=== PATIENT | male | born 1955 | race Hispanic/Latino ===

== ENCOUNTER 2019-01-08 00:31 | Emergency (ER) | payer OTHER ==
[~2019-01-08] VITALS: Ht 175.3 cm; Wt 90.5 kg
[~2019-01-08 00:31] MED LIST: ADVIL200 M1 PO; AMITRIPTYLINE H50 MG PO; AMLODIPINE BESYL5 MG PO; AMOXICILLIN500 MG PO; BACTRIM DS TAB1 EACH PO; CEPHALEXIN500 MG PO; IBUPROFEN400 MG PO; IBUPROFEN600 MG PO; IBUPROFEN800 MG PO; LISINOPRIL20 MG PO; MOBIC7.5 MG PO; MOTRIN IB200 MG PO; NORCO 5-325 TA1 EACH PO; PENICILLIN V P500 MG PO; PERCOCET 5-3251 EACH PO; PREDNISONE20 MG PO; TRAMADOL HCL50 MG PO; TYLENOL325 MG PO; ULTRAM50 MG PO; ZOVIRAX800 MG PO
--- OUTSIDE RECORDS SUMMARY | 2019-01-08 00:34 | XMS ---
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 \ T\nbsp;Please call at for additional information Primary Care Provider (PCP) is Kristina Segovia at [facility] ([phone]).\T\nbsp; He established care on 11/21/18. Notify PCP if giving any additional narcotics for objective findings.\T\nbsp;PCP\T\nbsp;supports enrollment in the Consistent Care Program. DO NOT PRESCRIBE OPIOIDS OR BENZOS IN THE ER FOR SUBJECTIVE AND/ OR CHRONIC DIAGNOSES. METH AND ALCOHOL USE. NEEDS TO ESTABLISH WITH A PCP.\T\ nbsp; Medical/Surgical History: -Systolic Heart Failure -Rn Surgery is JAVIER Pino -Echo 09/28/18: LVEF 25% -08/06/18 bilateral heart catheterization -08/19/18 left heart catheterization -Prescribed Life Vest but won\T\rsquo;t wear it -HTN, pulmonary HTN -CAD Problem List: -MEGAN-meth, alcohol and opiates -UDS 09/26/18 + for meth and opiates -Multiple admissions for CHF-not wearing his life vest Behavioral Health: -Possible underlying mental health Substance Use: -Meth, alcohol and opiates use- UDS 09/26/18 + for meth and opiates -Quit Tobacco smoking Social Needs: -, homeless [facility] the sleep [facility] -Local nurse case management social worker through his Medicaid [place], named Shannon ([phone]) -Hx of care home 11/2018 Pain/Opioid Agreement: DO NOT PRESCRIBE OPIOIDS OR BENZOS IN THE ER FOR SUBJECTIVE AND/OR CHRONIC DIAGNOSES. METH AND ALCOHOL USE. NEEDS TO ESTABLISH WITH A PCP.\T\nbsp; Additional Information: Please do not give this Care Guideline to the patient.\T\nbsp; This document is for provider and staff use only. The following guidelines were formulated by the ED Care Guidelines Committee of the Consistent Care Program on October 2018. This patient is managed by the Consistent Care Services.\T\nbsp; Please call for additional information. Additional care guidelines exist for the following facilities: [facility] ( 01/25/2015 ) [facility] VISIT COUNT (12 MO.) [facility] TOTAL 14 NOTE: Visits indicate total known visits. ED/UCC VISIT TRACKING (12 MO.) 01/08/2019 00:32 [facility] [place] TYPE: Emergency COMPLAINT: - SOB 12/22/2018 08:12 [facility] Gloria Carr[facility]ha [place] TYPE: Emergency DIAGNOSES: - SOB 11/17/2018 13:23 [facility] Gloria Carrascoradha [place] TYPE: Emergency DIAGNOSES: - cough - Chills - Fever (9 Weeks To 74 Years) - Lobar pneumonia, unspecified organism [facility]2018 [facility] [place] [facility] DIAGNOSES: - Cardiomyopathy, unspecified - Pleuritic Chest Pain (Adult) - Heart failure, unspecified - Other stimulant abuse, uncomplicated - Fever (9 Weeks To 74 Years) - Cough 09/17/2018 10:31 [facility] Gloria Carrascoradha [place] TYPE: Emergency DIAGNOSES: - Encounter for issue of repeat prescription - Other chest pain - SOB - Shortness of Breath - Bronchitis, not specified as acute or chronic 09/14/2018 10:58 [facility] [place] [facility] Emergency DIAGNOSES: - Procedure and treatment not carried out due to patient leaving prior to being seen by health care provider - Cough/Medication concern 08/26/2018 10[facility] DIAGNOSES: - Shortness of Breath - stint issues, SOB - Shortness of breath 08/14/2018 13:22 [facility] DIAGNOSES: - Bronchitis, not specified as acute or chronic - Cough - cough X2 wks 08/04/2018 21:14 [facility] DIAGNOSES: - Encounter for other general examination - Medical Clearance 07/29/2018 19:55 [facility] [place] [facility]: Emergency DIAGNOSES: - Heart failure, unspecified - Acute kidney failure, unspecified - Difficulty Breathing - Diff breathing - Alcohol dependence, uncomplicated 07/16/2018 11:17 [facility] [place] TYPE: Emergency DIAGNOSES: - Shortness of Breath - Heart failure, unspecified - Acute bronchospasm - diff breathing - Left bundle-branch block, unspecified 06/15/2018 03:55 [facility] [place] TYPE: Emergency DIAGNOSES: - Heart failure, unspecified - Shortness of breath - Shortness of Breath - Pleural effusion, not elsewhere classified - SOB 02/11/2018 08:00 [facility] [place] TYPE: Emergency DIAGNOSES: - Left elbow Pain - Contusion of left elbow, initial encounter - Elbow Pain - Elbow Injury - Elevated blood-pressure reading, without diagnosis of hypertension 01/12/2018 09:35 [facility] [place] TYPE: Emergency DIAGNOSES: - Toothache - Dental Pain - Periapical abscess without sinus INPATIENT VISIT TRACKING (12 MO.) 09/26/2018 04:19 [facility] [place] TYPE: Surgical Services DIAGNOSES: - Cardiomyopathy, unspecified - Essential (primary) hypertension - Right upper quadrant pain - Abnormal results of liver function studies - Acute viral hepatitis, unspecified - Other stimulant abuse, uncomplicated - Heart failure, unspecified 07/29/2018 19:55 [facility] [place] [facility] Surgical DIAGNOSES: - Alcohol dependence, uncomplicated - Acute kidney failure, unspecified - Other stimulant abuse, uncomplicated - Heart failure, unspecified [email or web address]
[2019-01-08] MEDS ORDERED: METOPROLOL SUCC25 MG PO (00:52)
[2019-01-08] MEDS ORDERED: POTASSIUM CHLO10 MEQ PO (02:14)
--- NOTE | 2019-01-08 06:19 | EKG ---
[facility] [address] [place], [place] [address] Signed Sinus tachycardia Left axis deviation Abnormal ECG No previous ECGs available Confirmed by DARRION CHOW MD ([id number]) on 01/08/2019 6:19:43 AM Electronically Signed By: DARRION CHOW MD 01/08/19 0619 PATIENT NAME: JHONNY NICHOLSON Electrocardiogram DATE OF : 59 PHYSICIAN: DARRION CHOW MD REPORT #: [id number] REPORT IS CONFIDENTIAL AND NOT TO BE RELEASED WITHOUT AUTHORIZATION
== END 2019-01-08 02:24 | disposition home or self-care (01) ==
LOC: ED 00:31
DX: I11.0 Hypertensive heart disease with heart failure (principal); I50.9 Heart failure, unspecified; Z91.19 Patient's noncompliance with other medical treatment and regimen
CPT/HCPCS: 71046; 80053; 83735; 83880; 84484; 85025; 93005; 93010; 96374; 99285-25; J1940

== ENCOUNTER 2019-05-29 14:12 | Emergency (ER) | payer SELFPAY ==
[~2019-05-29] VITALS: Ht 175.3 cm; Wt 90.5 kg
[~2019-05-29 14:12] MED LIST changes: +METOPROLOL SUCC25 MG PO; +POTASSIUM CHLO10 MEQ PO
--- OUTSIDE RECORDS SUMMARY | 2019-05-29 14:14 | XMS ---
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 Security Instructional Support Assistant Events No recent Security Events currently on file CRITERIA MET - [facility] - Has Care Guidelines - [facility] - 2 Visits in 30 Days CARE PROVIDERS RKISTINA SEGOVIA Physician Heat Treating Bluer Current PHONE: Unknown JEREMY BUSTAMANTE Nurse Practitioner: Family Current PHONE: Unknown Qian, Digna C Primary Care Current PHONE: Unknown ormarcus Case or Childbirth And Infant Care Teacher Current PHONE: Unknown Guidelines Source: Consistent Care Guidelines Date: 05/21/2019 Care Recommendation: This patient is managed through the Consistent Care Services since October 2018. \ T\nbsp;Please call at for additional information Primary Care Provider (PCP) is Kristina Segovia at [facility] ([phone]).\T\nbsp; He established care on 11/21/18. Notify PCP if giving any additional narcotics for objective findings.\T\nbsp;PCP\T\nbsp;supports enrollment in the Consistent Care Program. DO NOT PRESCRIBE OPIOIDS OR BENZOS IN THE ER FOR SUBJECTIVE AND/ OR CHRONIC DIAGNOSES. OPIOID USE DISORDER. METH AND ALCOHOL USE. REFER BACK TO PCP.\T\nbsp; Medical/Surgical History: -Systolic Heart Failure -Library Media Technician is JAVIER Pino -Echo 09/28/18: LVEF 25% -08/06/18 bilateral heart catheterization -08/19/18 left heart catheterization -Prescribed Life Vest but won\T\rsquo;t wear it -Not follow up with renewable energy project manager -HTN, pulmonary HTN -CAD Problem List: -MEGAN-methampethamines, alcohol and opioids -UDS 09/26/18 + for meth and opiates -Multiple admissions for CHF-not wearing his life vest Behavioral Health: -Possible underlying mental health Substance Use: -Methamphetamines -UDS 09/26/18 + for meth and opiates -Alcohol dependence -Opioid Use Disorder-gets them off the street -Quit Tobacco smoking Social Needs: -, homeless under a tarp ( doesn\T\#39;t want to go to free meals or to the doctor due to how people look at her) -Local nurse watch case polisher through his Medicaid [place], named Shannon ([phone]) -Hx of fpc 11/2018 Pain/Opioid Agreement: DO NOT PRESCRIBE OPIOIDS OR BENZOS IN THE ER FOR SUBJECTIVE AND/OR CHRONIC DIAGNOSES. OPIOID USE DISORDER. METH AND ALCOHOL USE. REFER BACK TO PCP.\T\ nbsp; Additional Information: Please do not give this Care Guideline to the patient.\T\nbsp; This document is for provider and staff use only. The following guidelines were formulated by the ED Care Guidelines Committee of the Consistent Care Program on October 2018. This patient is managed by the Consistent Care Services.\T\nbsp; Please call for additional information. Additional care guidelines exist for the following facilities: [facility] ( 01/25/2015 ) Cricket VISIT COUNT (12 MO.) 13 [facility] [place] [facility] TOTAL 15 NOTE: Visits indicate total known visits. ED/UCC VISIT TRACKING (12 MO.) 05/29/2019 14:13 [facility] TYPE: Emergency COMPLAINT: - ABD PAIN 05/10/2019 17[facility]31 [facility] DIAGNOSES: - Weak and Abdominal Pain some SOB - Abdominal Pain - Acute on chronic systolic (congestive) heart failure 05/02/2019 12:38 [facility] DIAGNOSES: - Essential (primary) hypertension - Acute systolic (congestive) heart failure - leg swelling - Abnormal levels of other serum enzymes - Shortness of breath 01/08/2019 00:32 [facility] TYPE: Emergency COMPLAINT: - SOB DIAGNOSES: - Hypertensive heart disease with heart failure - Shortness of breath - Patient's noncompliance with other medical treatment and regimen - Heart failure, unspecified 12/22/2018 08:12 [facility] DIAGNOSES: - SOB 11/17/2018 13:23 [facility] DIAGNOSES: - cough - Chills - Fever (9 Weeks To 74 Years) - Lobar pneumonia, unspecified organism 09/26/2018 04:19 [facility] DIAGNOSES: - Cardiomyopathy, unspecified - Pleuritic Chest Pain (Adult) - Heart failure, unspecified - Other stimulant abuse, uncomplicated - Fever (9 Weeks To 74 Years) - Cough 09/17/2018 10:31 [facility] DIAGNOSES: - Encounter for issue of repeat prescription - Other chest pain - SOB - Shortness of Breath - Bronchitis, not specified as acute or chronic 09/14/2018 10:58 [facility] [place] TYPE: Emergency DIAGNOSES: - Procedure and treatment not carried out due to patient leaving prior to being seen by health care provider - Cough/Medication concern 08/26/2018 10:24 [facility] [place] TYPE: Emergency DIAGNOSES: - Shortness of Breath - stint issues, SOB - Shortness of breath 08/14/2018 13:22 [facility] [place] TYPE: Emergency DIAGNOSES: - Bronchitis, not specified as acute or chronic - Cough - cough X2 wks 08/04/2018 21:14 [facility] [place] TYPE: Emergency DIAGNOSES: - Encounter for other general examination - Medical Clearance 07/29/2018 19:55 [facility] [place] TYPE: Emergency DIAGNOSES: - Heart failure, unspecified - Acute kidney failure, unspecified - Difficulty Breathing - Diff breathing - Alcohol dependence, uncomplicated 07/16/2018 11:17 [facility] [place] TYPE: Emergency DIAGNOSES: - Shortness of Breath - Heart failure, unspecified - Acute bronchospasm - diff breathing - Left bundle-branch block, unspecified 06/15/2018 03:55 [facility] [place] TYPE: Emergency DIAGNOSES: - Heart failure, unspecified - Shortness of breath - Shortness of Breath - Pleural effusion, not elsewhere classified - SOB INPATIENT VISIT TRACKING (12 MO.) 05/02/2019 12:38 [facility] DIAGNOSES: - Myocardial infarction type 2 - Acute systolic (congestive) heart failure - Other psychoactive substance abuse, uncomplicated - Acute on chronic systolic (congestive) heart failure - Essential (primary) hypertension - Abnormal levels of other serum enzymes - Other stimulant abuse, uncomplicated - Atherosclerotic heart disease of crow coronary artery without angina pectoris - Patient's noncompliance with other medical treatment and regimen - Shortness of breath 09/26/2018 04:19 [facility] DIAGNOSES: - Cardiomyopathy, unspecified - Essential (primary) hypertension - Right upper quadrant pain - Abnormal results of liver function studies - Acute viral hepatitis, unspecified - Other stimulant abuse, uncomplicated - Heart failure, unspecified 07/29/2018 19:55 [facility] TYPE: Medical Surgical DIAGNOSES: - Alcohol dependence, uncomplicated - Acute kidney failure, unspecified - Other stimulant abuse, uncomplicated - Heart failure, unspecified [email or web address]
[2019-05-29] MEDS ORDERED: PRINIVIL10 MG PO (14:30)
[2019-05-29] MEDS ORDERED: ACID GONE ANTA355 ML PO (15:30)
[2019-05-29] MEDS ORDERED: OMEPRAZOLE20 MG PO (15:30)
== END 2019-05-29 15:40 | disposition home or self-care (01) ==
LOC: ED 14:12
DX: R10.10 Upper abdominal pain, unspecified (principal); I11.0 Hypertensive heart disease with heart failure; I50.9 Heart failure, unspecified; F17.200 Nicotine dependence, unspecified, uncomplicated; Z79.899 Other long term (current) drug therapy
CPT/HCPCS: 81001; 99284

== ENCOUNTER 2021-02-19 10:48 | Emergency (ER) | payer MEDICAID ==
[~2021-02-19] VITALS: Ht 175.3 cm; Wt 89.8 kg
[~2021-02-19 10:48] MED LIST changes: +ACID GONE ANTA355 ML PO; +OMEPRAZOLE20 MG PO; +PRINIVIL10 MG PO
[2021-02-19] MEDS ORDERED: LASIX20 MG PO (11:05)
[2021-02-19] MEDS ORDERED: K-TAB ER20 MEQ PO (11:05)
[2021-02-19] MEDS ORDERED: ASPIRIN81 MG PO (11:05)
--- NOTE | 2021-02-19 14:08 | EKG ---
[facility] [address] [place], [place] [address] Signed Atrial-sensed ventricular-paced rhythm Biventricular pacemaker detected Abnormal ECG When compared with ECG of 08-JAN-2019 00:38, Electronic ventricular pacemaker has replaced Sinus rhythm Confirmed by FRED ONEILL DO ([id number]) on 02/19/2021 2:07:52 PM Electronically Signed By: FRED ONEILL DO 02/19/21 1408 PATIENT NAME: LYNJHONNY Electrocardiogram DATE OF : 59 PHYSICIAN: FRED ONEILL DO REPORT #: [id number] REPORT IS CONFIDENTIAL AND NOT TO BE RELEASED WITHOUT AUTHORIZATION
[2021-02-19] MEDS ORDERED: LASIX40 MG PO (14:37)
[2021-02-19] MEDS ORDERED: IBUPROFEN400 MG PO (14:37)
[2021-02-19] MEDS ORDERED: ATORVASTATIN CA40 MG PO (14:37)
[2021-02-19] MEDS ORDERED: METOPROLOL SUC200 MG PO (14:38)
[2021-02-19] MEDS ORDERED: LISINOPRIL10 MG PO (14:40)
== END 2021-02-19 14:56 | disposition home or self-care (01) ==
LOC: ED 10:48
DX: I11.0 Hypertensive heart disease with heart failure (principal); I50.9 Heart failure, unspecified; Z79.899 Other long term (current) drug therapy; Z79.82 Long term (current) use of aspirin
CPT/HCPCS: 71046; 80053; 83735; 84484; 85025; 93005; 93010; 99285-25

== ENCOUNTER 2024-10-30 09:05 | Inpatient (IN) | payer MEDICAID ==
[~2024-10-30] VITALS: Ht 175.3 cm; Wt 102.7 kg
[~2024-10-30 09:05] MED LIST changes: +ASPIRIN81 MG PO; +ATORVASTATIN CA40 MG PO; +K-TAB ER20 MEQ PO; +LASIX20 MG PO; +LASIX40 MG PO; +LISINOPRIL10 MG PO; +METOPROLOL SUC200 MG PO
[2024-10-30] MEDS ORDERED: LIDOCAINE & ANTACID 35 ML BTL PO ONE ×2 (10:00→18:00)
[2024-10-30] MEDS ORDERED: ALBUTEROL/IPRATROPIUM 3 ML NEB INH ONE (10:00)
[2024-10-30] MEDS ORDERED: FAMOTIDINE 20 MG/ 2 ML VIAL IV ONE (10:00)
[2024-10-30 10:30] LABS: BASOPHILS 0.8 % (0-2); EOSINOPHILS 0.4 % (0-6); HEMATOCRIT 43.7 % (35.0-50.0); HEMOGLOBIN 14.7 g/dL (12.0-18.0); LYMPHOCYTES 10.5 % (24-44); MCH 29.8 (27-36); MCHC 33.7 g/dl (30-36); MCV 88.4 fl (81-99); MONOCYTES 8.6 % (0-12); NEUTROPHILS 79.7 % (39-80); PLATELET COUNT 316 K/uL (140-440); RBC 4.94 M/ul (4.3-5.7); RDW 14.1 (10.5-15.0)
[2024-10-30 10:57] LABS: ALBUMIN 3.9 g/dL (3.4-5.0); ALBUMIN/GLOBULIN RATIO 1.03 (1.1-2.4); ANION GAP 16.9 (7-21); BILIRUBIN, TOTAL 1.4 mg/dL (0.2-1.0); BUN/CREATININE RATIO 16.47 (6.0-28.6); CALCIUM 9.4 mg/dL (8.5-10.1); CREATININE, SERUM 1.7 mg/dL (0.70-1.30); POTASSIUM 3.9 mmol/L (3.5-5.1); PROTEIN, TOTAL 7.7 g/dL (6.4-8.2)
[2024-10-30 11:06] LABS: CORONAVIRUS COVID-19 AG NEGATIVE (NEGATIVE); INFLUENZA A AG NEGATIVE (NEGATIVE); INFLUENZA B AG NEGATIVE (NEGATIVE)
[2024-10-30] MEDS ORDERED: NITROGLYCERIN 0.4 MG SUBL SL PRN ×3 (11:15→16:45)
[2024-10-30] MEDS ORDERED: ASPIRIN 81 MG CHEW PO ONE (11:15)
[2024-10-30] MEDS ORDERED: ondansetron HCL 4 MG/2 ML VIAL IV PRN ×2 (13:30→16:45)
[2024-10-30] MEDS ORDERED: MORPHINE SULFATE 4 MG/ML VIAL IV PRN ×2 (13:30→16:45)
[2024-10-30] MEDS ORDERED: ACETAMINOPHEN 325 MG TAB PO PRN ×2 (13:30→16:45)
[2024-10-30] MEDS ORDERED: METOPROLOL SUC100 MG PO (14:36)
[2024-10-30] MEDS ORDERED: ENTRESTO 49 MG1 EACH PO (14:37)
[2024-10-30] MEDS ORDERED: FUROSEMIDE40 MG PO (14:37)
[2024-10-30] MEDS ORDERED: POTASSIUM CHLO10 ME1 PO (14:38)
[2024-10-30] MEDS ORDERED: FARXIGA10 MG PO (14:39)
[2024-10-30] MEDS ORDERED: VENTOLIN HFA18 GM INH (14:42)
--- NOTE | 2024-10-30 16:00 | NUR ---
PATIENT ADMISSION COMPLETED. PATIENT IS ALERT AND ORIENTED X4. PATIENT IS SBA. PATIENT IS ON TELE #1, IRREGULAR HEART RATE UPON AUSCULTATION. RADIAL AND PEDAL PULSES STRONG BILATERALLY WITH CAP REFILL <3 SECONDS TO UPPER AND LOWER EXTREMETIES. PATIENT WITH PACEMAKER. IV TO RIGHT FOREARM FLUSHED WITH 10ML NS AND IS SALINE LOCKED. IV DRESSING IN CLEAN, DRY, AND INTACT. PATIENT IS ON A REGULAR DIET. BOWEL TONES ACTIVE IN ALL 4 QUADRANTS. PATIENT STATES HE HAS HAD A BM TODAY. PATIENT WITH NO COMPLAINTS OF PAIN AT THIS TIME. PATIENT IS ON ROOM AIR WITH LUNG SOUNDS CLEAR THROUGHOUT. PATIENT STATES NO FURTHER NEEDS AT THIS TIME. CALL LIGHT AND PERSONAL BELONGINGS WITHIN REACH.
[2024-10-30 16:01] VITALS: BP 128/84
--- NOTE | 2024-10-30 16:16 | EKG ---
[facility] [address] [place] [address] Signed Ventricular-paced rhythm Biventricular pacemaker detected Abnormal ECG When compared with ECG of 19-FEB-2021 11:16, Vent. rate has increased BY 12 BPM Confirmed by Parker Palacios MD ([id number]) on 10/30/2024 4:15:55 PM Electronically Signed By: PARKER PALACIOS MD 10/30/24 1616 PATIENT NAME: LYNJHONNY Electrocardiogram DATE OF : 59 PHYSICIAN: PARKER PALACIOS MD REPORT #: [id number] REPORT IS CONFIDENTIAL AND NOT TO BE RELEASED WITHOUT AUTHORIZATION
[2024-10-30] MEDS ORDERED: FOLIC ACID 1 MG TAB PO SCH (16:40)
[2024-10-30] MEDS ORDERED: THIAMINE HCL 100 MG TAB PO SCH (16:40)
[2024-10-30] MEDS ORDERED: INHALER, ASSIST DEVICES 1 EACH SPACER MISC ONE (16:45)
[2024-10-30] MEDS ORDERED: ALBUTEROL SULFATE 8 GM INH INH PRN (16:45)
[2024-10-30] MEDS ORDERED: LORazepam 2 MG/ML VIAL IV/IM PRN (16:45)
[2024-10-30] MEDS ORDERED: ALBUTEROL SULFATE 0.083% 3 ML VIAL INH PRN (17:00)
--- NOTE | 2024-10-30 17:02 | NUR ---
PATIENT IS OFF THE FLOOR WITH IMAGING AT THIS TIME.
--- NOTE | 2024-10-30 17:40 | NUR ---
MED REC COMPLETE
--- NOTE | 2024-10-30 17:58 | NUR ---
PATIENT REQUESTING SOMETHING FOR COUGH AND ALSO FOR GI UPSET. DR LOZANO NOTIFIED. VERBAL ORDER FOR ANOTHER GI COCKTAIL AND TESSALON FRANCIA 100MG TID PRN.
[2024-10-30] MEDS ORDERED: BENZONATATE 100 MG CAP PO PRN (18:00)
--- NOTE | 2024-10-30 18:25 | NUR ---
PATIENT RESTING IN BED WATCHING TV. PATIENT MEDICATED PER EMR. PATIENT DENIES ANY OTHER NEEDS AT THIS TIME. CALL LIGHT AND PERSONAL BELONGINGS WITHIN REACH.
[2024-10-30 18:37] VITALS: BP 124/83
[2024-10-30 18:46] VITALS: BP 124/83
--- NOTE | 2024-10-30 19:50 | NUR ---
RECEIVED REPORT FROM GRACE LOPEZ. PT RESTING IN BED, ON THE PHONE. DENIES NEEDS AT THIS TIME.
[2024-10-30 20:19] VITALS: BP 133/79
--- NOTE | 2024-10-30 20:24 | NUR ---
DRILL PRESS OPERATOR NUMERICAL CONTROL OBTAINED VITALS AND I&O. ICE WATER REFILLED. PT STATES NO FURTHER NEEDS AT THIS TIME. CALL LIGHT WITHIN REACH.
--- NOTE | 2024-10-30 20:30 | NUR ---
PT RESTING IN BED. CALLS APPROP. DENIES PAIN. LS COARSE TO UPPER AIRWAYS-PT ABLE TO COUGH AND CLEAR. OCC COUGH. DENIES SOB. HRR BUT TACHY LOW 100'S. TELEMETRY IN PLACE. BT HYPO. LBM TODAY. VOIDS WNL. SL RW WNL. N/T TO RIGHT 4TH & 5TH FINGERS BASELINE. AMBULATES TO BR SBA. CALL LIGHT WITHIN REACH.
[2024-10-30] MEDS ORDERED: ATORVASTATIN 40 MG TAB PO SCH (21:00)
[2024-10-30 21:57] VITALS: BP 133/79
--- NOTE | 2024-10-30 22:00 | NUR ---
RN REPORTED TO THIS RN THAT PT WAS FEELING ANXIOUS. PT SOUND ASLEEP WHEN ENTERING ROOM. WILL CHECK BACK LATER.
--- NOTE | 2024-10-30 23:36 | NUR ---
PT AWAKE, SNACKING. REPORTS ONE NOSTRIL BEING CONGESTED AND HARD TO BREATHE THROUGH. DENIES ANY OTHER NEEDS.
[2024-10-31] VITALS (12 sets, daily range): BP systolic 129–159; BP diastolic 74–97
--- NOTE | 2024-10-31 01:06 | NUR ---
jabari called and transferred to pt room, pt now talking with via phone. no additional needs or concerns verbalized.
--- NOTE | 2024-10-31 01:24 | NUR ---
SPRINKLING SYSTEM INSTALLER OBTAINED VITALS AND I&O. PT STATES NO NEEDS AT THIS TIME. CALL LIGHT WITHIN REACH.
--- NOTE | 2024-10-31 02:12 | NUR ---
PT APPEARS ASLEEP. CALL LIGHT WITHIN REACH.
--- NOTE | 2024-10-31 04:51 | NUR ---
AWAKE, WATCHING TV. NO NEEDS AT THIS TIME.
[2024-10-31 05:28] LABS: BASOPHILS 0.8 % (0-2); EOSINOPHILS 0.6 % (0-6); HEMATOCRIT 41.2 % (35.0-50.0); HEMOGLOBIN 14.2 g/dL (12.0-18.0); LYMPHOCYTES 10.9 % (24-44); MCH 30.4 (27-36); MCHC 34.6 g/dl (30-36); MCV 87.9 fl (81-99); MONOCYTES 9.2 % (0-12); NEUTROPHILS 78.5 % (39-80); PLATELET COUNT 277 K/uL (140-440); RBC 4.68 M/ul (4.3-5.7)
--- NOTE | 2024-10-31 05:29 | NUR ---
TELEPHONE SWITCHBOARD OPERATOR OBTAINED VITALS AND I&O. PT STATES NO NEEDS AT THIS TIME. CALL LIGHT WITHIN REACH.
[2024-10-31 05:41] LABS: ALBUMIN 3.4 g/dL (3.4-5.0); ALBUMIN/GLOBULIN RATIO 0.97 (1.1-2.4); ANION GAP 15.7 (7-21); BILIRUBIN, TOTAL 0.8 mg/dL (0.2-1.0); BUN/CREATININE RATIO 18.6 (6.0-28.6); CALCIUM 9.3 mg/dL (8.5-10.1); CHOLESTEROL/HDL RATIO 2.3; CREATININE, SERUM 1.72 mg/dL (0.70-1.30); MAGNESIUM 1.9 mg/dL (1.8-2.4); POTASSIUM 3.7 mmol/L (3.5-5.1); PROTEIN, TOTAL 6.9 g/dL (6.4-8.2)
--- NOTE | 2024-10-31 06:17 | NUR ---
PT SLEEPING SOUNDLY. APPEARS COMFORTABLE.
--- NOTE | 2024-10-31 07:20 | NUR ---
REPORTS RECEIVED FROM GRACE XIONG. PATIENT RESTING IN BED. FRESH ICE WATER PROVIDED. PATIENT DENIES ANY OTHER NEEDS AT THIS TIME. CALL LIGHT AND PERSONAL BELONGINGS WITHIN REACH.
--- NOTE | 2024-10-31 07:35 | NUR ---
UR CLINICAL REVIEW: [facility], MEETS OBS CRITERIA FOR CHEST PAIN REQUIRING CARDIAC MONITORING, ECHO, REPEAT LABS AND CIWA PROTOCOL FOR POTENTIAL ETOH WITHDRAWAL [facility] OBS 10/30/2024 @ 1637 ORDER MATCHES REG NO AUTH FOR OBS REQUIRED. PLAN TO DC TO HOME WHEN MEDICALLY STABLE 11/01/2024
--- NOTE | 2024-10-31 08:03 | NUR ---
PATIENT MEDICATED PER EMAR. PATIENT RESTING IN BED WATCHING TV. DENIES ANY OTHER NEEDS AT THIS TIME. CALL LIGHT AND PERSONAL BELONGINGS WITHIN REACH.
--- NOTE | 2024-10-31 08:30 | NUR ---
SPOKE WITH DR. LOZANO REGARDING INPT VS OBS. VORB DR. LOZANO/Deepthi SAMSON RN, TO CHANGE PATIENT TO INPT.
--- NOTE | 2024-10-31 08:31 | NUR ---
PATIENT GIVEN COFFEE THIS MORNING. PATIENT EDUCATED ON NO MORE COFFEE THIS MORNING DUE TO STRESS TEST NEEDED. PATIENT EXPRESSED UNDERSTANDING. PATIENT PROVIDED ORANGE JUICE AT THIS TIME. PATIENT STATED NO FURTHER NEEDS, CALL LIGHT AND PERSONAL BELONGINGS ARE WITHIN REACH.
[2024-10-31] MEDS ORDERED: ASPIRIN 81 MG CHEW PO SCH (09:00)
[2024-10-31] MEDS ORDERED: ENOXAPARIN SODIUM 40 MG/0.4 ML SYR SUB-Q SCH (09:00)
[2024-10-31] MEDS ORDERED: PANTOPRAZOLE SODIUM 40 MG TABEC PO SCH (09:00)
--- NOTE | 2024-10-31 09:00 | NUR ---
Spoke with spoke with Nain. He states he is homeless and staying at the [facility]. He has approximately 1 month left. He wants to know if his can have free food if she rides the bus from [place] today to stay with him. I let him know the hospital does not provide free meals. Pt states he came to [place] as he hoped we would have better resources than [place]. He thinks he will return to [place] as he has [place] Medicaid. He has been living in a tent [facility] for two years. Pt has issues with A&D, drinks a pint of whisky a day. Pt has been disabled x 6 months for his heart. Pt plans on dc to [place] on dc. Pt awaiting testing at this time. Pt does not use any DME and leaves the detention daily from 9 am-5pm.
--- NOTE | 2024-10-31 09:12 | NUR ---
MD NOTIFIED OF PATIENT DRINKING 1/4 TO 1/3 CUP OF COFFEE. MD STATED TO NOTIFY STRESS TEST AT THIS TIME. MD WITH NO NEW ORDERS AT THIS TIME.
--- NOTE | 2024-10-31 09:14 | NUR ---
PATIENT IS IN BED AT THIS TIME, POLL CLERK CHARTED VITALS AND I&O'S, GOT PATIENT FRESH WATER. CALL LIGHT WITH IN REACH, NOTHING ELSE NEEDED AT THIS TIME.
--- NOTE | 2024-10-31 09:15 | NUR ---
PATIENT RESTING IN BED. DENIES ANY NEEDS AT THIS TIME. CALL LIGHT AND PERSONAL BELONGINGS WITHIN REACH.
--- NOTE | 2024-10-31 09:50 | NUR ---
PATIENT ASSESSMENT COMPLETED. PATIENT IS ALERT AND ORIENTED X4. PATIENT IS MINIMAL ASSIST WITH TRANSFERS. PATIENT IS ON TELE #9 AND IS IN SINUS TACHYCARDIA. HEART TONES ARE IRREGULAR WITH AUSCULTATION. RADIAL AND PEDAL PULSES ARE STRONG BILATERALLY. CAP REFILL TO UPPER AND LOWER EXTREMETIES ARE <3 SECONDS. IV FLUSHED WITH 10ML OF NS AND IS SALINE LOCKED. IV DRESSING IS CLEAN, DRY, AND INTACT. BOWEL TONES ACTIVE IN RUQ,RLQ, LUQ AND HYPOACTIVE IN LLQ. PATIENT ON REGULAR DIET WITH LAST BM THIS MORNING. PATIENT WITH NO COMPLAINTS OF PAIN AT THIS TIME, BUT DOES REPORT NUMBNESS AND TINGLING IN RIGHT LAST TWO FINGERS. PATIENT ON ROOM AIR WITH UPPER LOBES CLEAR UPON AUSCULTATION AND DIMINISHED IN BASES. SKIN INTACT. PATIENT DENIES ANY FURTHER NEEDS AT THIS TIME. CALL LIGHT AND PERSONAL BELONGINGS WITHIN REACH.
--- NOTE | 2024-10-31 10:05 | NUR ---
PATIENT IS LYING IN BED WITH HOB ELEVATED AND WATCHING TV. RESPIRATIONS ARE EVEN AND UNLABORED. CALL LIGHT AND PERSONAL BELONGINGS ARE WITHIN REACH.
--- NOTE | 2024-10-31 10:21 | NUR ---
UR CLINICAL REVIEW: [facility], MEETS int CRITERIA FOR CHEST PAIN REQUIRING CARDIAC MONITORING, ECHO, STRESS TEST REPEAT LABS AND CIWA PROTOCOL FOR POTENTIAL ETOH WITHDRAWAL [facility] FROM OBS TO INPT 10/31/2024 @ 0929 REGISTRATION NOTIFIED OF CHANGE NO AUTH FOR OBS REQUIRED. PLAN TO DC TO HOME WHEN MEDICALLY STABLE 11/03/2024
--- NOTE | 2024-10-31 11:16 | NUR ---
PATIENT RESTING IN BED. BAND INSTRUMENT REPAIRER AT BEDSIDE TO HELP PATIENT GET READY FOR A SHOWER. CIWA COMPLETE WITH SCORE OF 0.
--- NOTE | 2024-10-31 11:33 | NUR ---
ROSS ASSSISTED PATIENT TO THE SHOWER, GOT HIM EVERYTHING HE NEEDED, RAZOR, SHAMPOO, BRUSH, BODY WASH, CHANGED HIS LINENS AND GOT HIM A NEW GOWN.TIDYED HIS ROOM THEN ASSISTED BACK TO BED AFTER SHOWER. CALL LIGHT WITH IN REACH.
[2024-10-31] MEDS ORDERED: PHARMACY RENAL DOSE ADJUSTMENT 1 DOSE MISC PO SCH (12:00)
--- NOTE | 2024-10-31 12:25 | NUR ---
PATIENT SITTING UP IN BED EATING LUNCH. PATIENT DENIES ANY NEEDS AT THIS TIME. CALL LIGHT AND PERSONAL BELONGINGS WITHIN REACH.
--- NOTE | 2024-10-31 13:01 | NUR ---
PATIENT RESTING WITH EYES CLOSED. EVEN AND UNLABORED RESPIRATIONS NOTED. CALL LIGHT AND PERSONAL BELONGINGS WITHIN REACH.
--- NOTE | 2024-10-31 14:14 | NUR ---
PATIENT RESTING IN BED WITH EYES CLOSED AND SNORING. PATIENT WOKE WHEN THIS RN ENTERED ROOM. TELE #9 PLACED BACK ON PATIENT. HEART TONES IRREGULAR UPON AUSCULTATION. IV FLUSHED WITH 10ML OF NS, DRESSING INTACT. PATIENT WITH NO COMPLAINTS OF PAIN AT THIS TIME. PATIENT REQUESTING LEMON/ORANGE SORBET. SORBET PROVIDED. PATIENT DENIES ANY FUTHER NEEDS AT THIS TIME. CALL LIGHT AND PERSONAL BELONGINGS WITHIN REACH.
--- NOTE | 2024-10-31 14:25 | NUR ---
PATIENT OFF THE FLOOR WITH GRACE LUNA FOR STRESS TEST AT THIS TIME.
--- NOTE | 2024-10-31 15:00 | NUR ---
ECHO AT BEDSIDE
--- NOTE | 2024-10-31 15:16 | NUR ---
VISITED DURING SPIRITUAL CARE ROUNDS. PT ESKED ABOUT MEALS FOR HIS WHO IS ALSO HOMELESS AND POSSIBLY COMING FROM [place] TO STAY IN HOSPITAL WITH HIM. RESPONDED THAT PROVIDING MEALS IS OUTSIDE OUR POLICY. PT ACCEPTED THIS GRACEFULLY AND ASKED WHAT COST OF MEALS IS. PROVIDED WEEKEND MENU TO PT. PT EXPRESSED NO OTHER NEEDS. PROVIDED SUPPORTIVE PRESENCE, HOSPTIALTIY, PRAYER. PT EXPRESSED GRATITUDE.
--- NOTE | 2024-10-31 16:00 | NUR ---
ECHO COMPLETED ON PATIENT AT BEDSIDE. PIPEFITTER REPORTED TO THIS RN AND GRACE GLORIA SHOWS PRELIMINARY 7-12% EF. MD NOTIFIED OF PRELIMINARY FINDINGS. MD WITH NO NEW ORDERS AT THIS TIME. CALL ENDED. GRACE GLORIA NOTIFIED RT OF ECHO COMPLETION AND PATIENT REQUESTING BREATHING TREATMENT.
--- NOTE | 2024-10-31 16:13 | NUR ---
PATIENT IN BED TALKING ON THE PHONE. DENIES ANY NEEDS AT THIS TIME. HANK WITH RT IN ROOM FOR BREATHING TREATMENT. CALL LIGHT AND PERSONAL BELONGINGS WITHIN REACH.
--- NOTE | 2024-10-31 16:22 | NUR ---
PATIENT IN BED AT THIS TIME, HE JUST GOT A BREATHING TREATMENT AND IS RESTING TILL DINNER. NOTHING NEEDED AT THIS TIME.
--- NOTE | 2024-10-31 17:25 | NUR ---
PATIENT RESTING IN BED WATCHING TV. PATIENT REQUESTING TO ORDER SOMETHING DIFFERENT FROM MENU. SHOWED PATIENT HOW TO ORDER. PATIENT DENIES ANY FURTHER NEEDS AT THIS TIME. CALL LIGHT AND PERSONAL BELONGINGS WITHIN REACH.
--- NOTE | 2024-10-31 18:30 | NUR ---
NOTIFIED OF PATIENT HAVING GI UPSET. GAVE TELEPHONE ORDER FOR GI COCKTAIL ONE TIME DOSE NOW. WITH NO FURTHER ORDERS. CALL ENDED.
--- NOTE | 2024-10-31 18:33 | NUR ---
PATIENT SITTING UP IN BED VISITING WITH VISITORS. REPORTING GI UPSET. DENIES ANY OTHER NEEDS AT THIS TIME. CALL LIGHT AND PERSONAL BELONGINGS WITHIN REACH.
[2024-10-31] MEDS ORDERED: LIDOCAINE & ANTACID 35 ML BTL PO ONE (18:45)
--- NOTE | 2024-10-31 19:06 | NUR ---
PATIENT NEEDED ASSISTANCE TO THE RESTROOM AND BACK TO BED. ROOM SERVICE RUNNER CHARTED VITALS AND I&O'S, CALL LIGHT WITH IN REACH. NOTHING ELSE NEEDED AT THIS TIME.
--- NOTE | 2024-10-31 19:32 | NUR ---
RECEIVED REPORT FROM DAY SHIFT RN. PATIENT IS UP TO BR WITH SHERIFF'S SERGEANT.
--- NOTE | 2024-10-31 20:17 | NUR ---
JHONNY IS SITTING IN BED ON ROOM WATCHING TV. HOB IS ELEVATED.
--- NOTE | 2024-10-31 20:31 | NUR ---
PATIENTS VITALS TAKEN AND RECORDED. URINAL EMPTIED. INTAKE AND OUTPUT RECORDED. PATIENT DENIES ANY PAIN OR NAUSEA. PATIENT REPORTS GI DISCOMFORT, PRN GI COCKTAIL GIVEN PER ORDER. PATIENT REPORTS CONCERN OF CONSTIPATION. NIO PLACED FOR CONSTIPATION. CONSITPATION MEDICATION GIVEN PER ORDER. PATIENT REPORTS COUGH, PRN MEDICATION GIVEN PER ORDER. PATIENT REPROTS SOB AND RT IN ROOM TOGIVE PRN SOPHIE. PATIENT IS ON RA. PATIENT HAS CPOX IN USE. PATIENTS ASSESMENT COMPLETED. PATIENTS IV FLUSHED AND SL PER ORDER. PATIENTS PM MEDS GIVEN PER ORDER. PATIENT IS AAOX4. CIWA NOTED TO BE 0. PATIENT PROVIDED FRESH ICE WATER. PATIENT DENIES ANY FURTHER NEEDS. CALL LIGHT IN REACH.
[2024-10-31] MEDS ORDERED: SENNOSIDES/DOCUSATE 1 EA TAB PO SCH (21:00)
[2024-10-31] MEDS ORDERED: POLYETHYLENE GLYCOL 3350 1 PACKET PO SCH (21:00)
--- NOTE | 2024-10-31 21:58 | NUR ---
PATIENTS CIWA NOTED TO BE AN 8. PATIENT STATED "I AM JUST SO ANXIOUS AND RESTLESS", PRN MEDICATION GIVEN PER PROTOCOL. PATIENT PROVIDED EXTRA PILLOWS AND WARM BLANKET. PATIENT DENIES ANY FURTHER NEEDS. CALL LIGHT IN REACH. BED ALARM ON FOR SAFETY.
--- NOTE | 2024-10-31 22:45 | NUR ---
PATIENT UP TO THE BR. PATIENT ABLE TO VOID AND HAVE BM. PATIENT IS BACK IN BED RESTING. PATIENT DENIES ANY FURTHER NEEDS. CALL LIGHT IN REACH. CPOX IN USE.
--- NOTE | 2024-11-01 00:06 | NUR ---
PATIENT IS RESTING IN BED WITH EYES CLOSED, CPOX READINGS ARE WNL. NAD NOTED. CALL LIGHT IN REACH.
[2024-11-01 01:30] VITALS: BP 146/97
[2024-11-01 01:39] VITALS: BP 146/97
--- NOTE | 2024-11-01 01:40 | NUR ---
PATIENTS VITALS TAKEN AND RECORDED. PATIENTS INTAKE AND OUTPUT RECORDED. PATIENT DENIES ANY PAIN OR SOB. PATIENT REMAINS ON RA. CPOX IN USE. PATIENT PROVIDED ICE CHIPS AND WARM BLANKET. PATIENT DENIES ANY FURTHER NEEDS. CALL LIGHT IN REACH.
--- NOTE | 2024-11-01 02:13 | NUR ---
RT IN ROOM TO ADMIN BREATHING TX. PATIENT REPORTS SOB.
--- NOTE | 2024-11-01 02:15 | NUR ---
STARTED JHONNY ON A CORNET LEVEL 5 TO HELP HIM MOBILIZE SECRETIONS
--- NOTE | 2024-11-01 03:58 | NUR ---
PATIENT UP TO BR. PATIENT ABLE TO HAVE BM AND VOID. PATIENT IS BACK IN BED RESTING. PATIENT PROVIDED ICE CHIPS AND WARM BLANKET. PATIENT DENIES ANY FURTHER NEEDS. CALL LIGHT IN REACH.
[2024-11-01 05:08] VITALS: BP 131/85
[2024-11-01 05:15] VITALS: BP 131/85
--- NOTE | 2024-11-01 05:15 | NUR ---
PATIENT UP TO BR AND HAD BM AND ABLE TO VOID. PATIENT IS BACK IN BED RESTING. PATIENT REPORTS C/O SOB AND PAIN IN RIBS FROM COUGHING, PRN MEDICATION GIVEN PER ORDER. PATIENTS VITALS TAKEN AND RECORDED. INTAKE AND OUTPUT RECORDED. PATIENT REMAINS ON RA. CPOX IN USE. PATIENT DENIES ANY FURTHER NEEDS. CALL LIGHT AND BELONGINGS ARE WITHIN REACH.
[2024-11-01 05:29] LABS: BASOPHILS 0.7 % (0-2); EOSINOPHILS 0.8 % (0-6); HEMATOCRIT 41.8 % (35.0-50.0); HEMOGLOBIN 14.3 g/dL (12.0-18.0); LYMPHOCYTES 10.1 % (24-44); MCH 29.9 (27-36); MCHC 34.1 g/dl (30-36); MCV 87.8 fl (81-99); MONOCYTES 7.7 % (0-12); NEUTROPHILS 80.7 % (39-80); PLATELET COUNT 297 K/uL (140-440); RBC 4.77 M/ul (4.3-5.7); RDW 13.9 (10.5-15.0)
[2024-11-01 05:45] LABS: ANION GAP 15.1 (7-21); CALCIUM 9.5 mg/dL (8.5-10.1); CREATININE, SERUM 1.6 mg/dL (0.70-1.30); POTASSIUM 4.1 mmol/L (3.5-5.1)
--- NOTE | 2024-11-01 06:19 | NUR ---
PATIENT IS RESTING IN BED WATCHING TV. PATIENT DENIES ANY NEEDS AT THIS TIME. CALL LIGHT IN REACH.
--- NOTE | 2024-11-01 07:28 | NUR ---
REPORT RECEIVED FROM GRACE OWEN. PATIENT SITTING AT EDGE OF BED. PATIENT ASKING FOR MORNING MEDICATIONS, BUT DENIES ANY OTHER NEEDS AT THIS TIME. CALL LIGHT AND PERSONAL BELONGINGS WITHIN REACH.
[2024-11-01] MEDS ORDERED: ALBUTEROL SULFATE 0.083% 3 ML VIAL INH SCH (08:00)
--- NOTE | 2024-11-01 08:08 | NUR ---
PATIENT MEDICATED PER EMAR. PATIENT WAS HOLDING CUP OF MIRALAX AND FELL ASLEEP WHILE THIS RN WAS TALKING TO HIM AND PATIENT DROPPED CUP. NEW PACKET GIVEN. PATIENT DRANK DOSE. CALL LIGHT AND PERSONAL BELONGINGS WITHIN REACH.
--- NOTE | 2024-11-01 08:15 | NUR ---
PATIENT FOCUSED ASSESSMENT COMPLETED. PATIENT 97% ON ROOM AIR. RIGHT UPPER AND LOWER LOBE ARE CLEAR. LEFT UPPER AND LOWER ARE DIMINISHED. PATIENT HAS A PRODUCTIVE COUGH WITH CLEAR SPUTUM. PATIENT ALSO REPORTING SOB. RT NOTIFIED BY GRACE FELICIANO. PATIENT ON TELE #9 IN SINUS TACHYCARDIA WITH IRREGULAR HEART TONES. PATIENT WITH NO COMPLAINTS OF PAIN. PATIENT HAS 20G IV IN RIGHT FOREARM, FLUSHED WITH 10ML OF NS, DRESSING INTACT. PATIENT WITH NO FURTHER NEEDS AT THIS TIME. CALL LIGHT AND PERSONAL BELONGINGS WITHIN REACH.
--- NOTE | 2024-11-01 08:20 | NUR ---
DR LOZANO AT BEDSIDE.
--- NOTE | 2024-11-01 08:20 | NUR ---
ROUNDED WITH THE PATIENT AT THIS TIME WITH THIS RN AND GRACE LEYVA.
--- NOTE | 2024-11-01 08:51 | NUR ---
NOTIFIED OF TROPONIN OF 117.3. NO NEW ORDERS AT THIS TIME.
[2024-11-01] MEDS ORDERED: POTASSIUM CHLORIDE 10 MEQ TABCR PO SCH (09:00)
[2024-11-01] MEDS ORDERED: EMPAGLIFLOZIN 10 MG TAB PO SCH (09:00)
[2024-11-01] MEDS ORDERED: METOPROLOL SUCCINATE 100 MG TABCR PO SCH (09:00)
[2024-11-01] MEDS ORDERED: FUROSEMIDE 40 MG TAB PO SCH (09:00)
[2024-11-01] MEDS ORDERED: LOSARTAN POTASSIUM 25 MG TAB PO SCH (09:00)
--- NOTE | 2024-11-01 09:10 | NUR ---
PATIENT TRANSFERRED TO CCU WITH THIS RN AND GRACE LEYVA. REPORT GIVEN TO GRACE LARA. ALL QUESTIONS AND CONCERNS ADRESSED AT THIS TIME.
[2024-11-01 09:30] VITALS: BP 117/104
--- NOTE | 2024-11-01 09:30 | NUR ---
PT TRANSFERED TO ROOM 128 VIA CHAIR BY MS RN - PT ALERT BUT APPEARS RESTLESS/ANXIOUS DESPITE DENYING ANY ANXIETY OR PAIN. CIWA SCORE NEGAITVE, NO TREMORS AND PT DENIES ALL SYMPTOMS. TACHIPNEA NOTED WITH FREQUENT NON PRODUCTIVE COUGH. RUL SCHULER DIM/HOLLOW, CXR PENDING. TROP ELEVATED, MD AWARE. EKG BEING PREFORMED AT BEDSIDE BY RT. UPDATED ON THIS RN'S ASSESSMENT OF ETOH AND NSAID USE, NEED FOR GI COCKTAIL, ABD COMPLAINTS.
--- NOTE | 2024-11-01 09:54 | NUR ---
AMA PAPER COMPLETED WITH PT AT BEDSIDE PER MD REQUEST. PT STATES HE FEELS "UNCOMFORTABLE HERE" PT C/O THIS RN NOT LETTING PT AMBULATE TO BATHROOM BY SELF AND CLOSE DOOR IMMEDIATLY UPON ARRIVAL TO UNIT WHEN TRANSFERING FOR UNSTABLE ETOH WITHDRAWL CARDIAC/SOB COMPLAINT. PT WHEELED TO FRONT VIA WHEELCHAIR. PT HAD ALL BELONGINGS IN BAG.
--- NOTE | 2024-11-01 21:16 | EKG ---
[facility] [address] [facility] [place] [address] Signed Ventricular-paced rhythm Biventricular pacemaker detected Abnormal ECG When compared with ECG of 30-OCT-2024 10:17, Vent. rate has increased BY 22 BPM Confirmed by Tatyana Muller MD () on 11/01/2024 9:16:11 PM Electronically Signed By: TATYANA MULLER MD 11/01/24 2116 PATIENT NAME: JHONNY NICHOLSON Electrocardiogram DATE OF : 59 PHYSICIAN: TATYANA MULLER MD REPORT #: [id number] REPORT IS CONFIDENTIAL AND NOT TO BE RELEASED WITHOUT AUTHORIZATION
== END 2024-11-01 10:00 | disposition left against medical advice (07) | DRG 313 ==
LOC: ED 09:05 → MS 09:07 → CCU 11-01 09:17
PROVIDERS: Emergency Medicine; ADMIT Student in an Organized Health Care Education/Training Program; ATTEND Student in an Organized Health Care Education/Training Program
DX: R07.9 Chest pain, unspecified (principal); F10.139 Alcohol abuse with withdrawal, unspecified; F15.93 Other stimulant use, unspecified with withdrawal; I25.10 Atherosclerotic heart disease of native coronary artery without angina pectoris; K21.9 Gastro-esophageal reflux disease without esophagitis; I25.2 Old myocardial infarction; I35.0 Nonrheumatic aortic (valve) stenosis; Z53.29 Procedure and treatment not carried out because of patient's decision for other reasons; E66.9 Obesity, unspecified; I11.0 Hypertensive heart disease with heart failure; I50.9 Heart failure, unspecified; Z95.5 Presence of coronary angioplasty implant and graft; Z98.890 Other specified postprocedural states; Z79.899 Other long term (current) drug therapy; Z79.82 Long term (current) use of aspirin
CPT/HCPCS: 36415; 71045; 71046; 74018; 80048; 80053; 80061; 83735; 83880; 84484; 85025; 93005; 93010; 93306; 94640; 94667; 94668; 94762; A9270; G0480; J1650; J2060; J2270

== ENCOUNTER 2024-11-06 09:51 | Emergency (ER) | payer MEDICARE, MEDICAID ==
[~2024-11-06] VITALS: Ht 175.3 cm; Wt 106.9 kg
[~2024-11-06 09:51] MED LIST changes: +ENTRESTO 49 MG1 EACH PO; +FARXIGA10 MG PO; +FUROSEMIDE40 MG PO; +METOPROLOL SUC100 MG PO; +POTASSIUM CHLO10 ME1 PO; +VENTOLIN HFA18 GM INH
--- OUTSIDE RECORDS SUMMARY | 2024-11-06 09:58 | XMS ---
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 2 [facility] TOTAL 6 NOTE: Visits indicate total known visits. ED/UCC VISIT TRACKING (12 MO.) 11/06/2024 09:52 [facility] [place] TYPE: Emergency COMPLAINT: - ABDOMINAL PAIN 11/02/2024 00:[address] [facility] [facility] ([place]) TYPE: Emergency DIAGNOSES: - Chronic systolic (congestive) heart failure - Nausea with vomiting, unspecified - Unspecified abdominal pain - abd pain, weakness - Abdominal Pain [facility]24 [facility] [place] [facility] COMPLAINT: - ABDOMINAL PAIN 09/22/2024 06:26 [facility] [place] TYPE: Emergency DIAGNOSES: - Shortness of breath - Unspecified abdominal pain - abd pain - Abdominal Pain - Shortness of Breath 12/20/2023 02:40 [facility] ([place] TYPE: Emergency DIAGNOSES: - Acute on chronic systolic (congestive) heart failure - Other stimulant abuse, uncomplicated - Dizziness - dizzy nausea rapid heart rate 12/13/2023 17:19 [facility] ([facility] TYPE: Emergency DIAGNOSES: - Acute on chronic combined systolic (congestive) and diastolic (congestive) heart failure - Chronic systolic (congestive) heart failure - abd pain, sob, weakness - Shortness of Breath - Weakness INPATIENT VISIT TRACKING (12 MO.) 10/31/2024 09:[address] [facility] [place] TYPE: Critical Care COMPLAINT: - CHEST PAIN DIAGNOSES: - Alcohol abuse with withdrawal, unspecified - Alcohol abuse with withdrawal, unspecified - Atherosclerotic heart disease of [place] coronary artery without angina pectoris - Atherosclerotic heart disease of [place] coronary artery without angina pectoris - Chest pain, unspecified - Gastro-esophageal reflux disease without esophagitis - Gastro-esophageal reflux disease without esophagitis - Heart failure, unspecified - Heart failure, unspecified - Hypertensive heart disease with heart failure - Hypertensive heart disease with heart failure - salvage determiner (current) use of aspirin - long-term (current) use of aspirin - Nonrheumatic aortic (valve) stenosis - Nonrheumatic aortic (valve) stenosis - Obesity, unspecified - Obesity, unspecified - Old myocardial infarction - Old myocardial infarction - Other salvage determiner (current) drug therapy - Other salvage determiner (current) drug therapy - Other specified postprocedural states - Other specified postprocedural states - Other stimulant use, unspecified with withdrawal - Other stimulant use, unspecified with withdrawal - Presence of coronary angioplasty implant and graft - Presence of coronary angioplasty implant and graft - Procedure and treatment not carried out because of patient's decision for other reasons - Procedure and treatment not carried out because of patient's decision for other reasons [email or web address]
[2024-11-06] MEDS ORDERED: ALBUTEROL/IPRATROPIUM 3 ML NEB INH ONE (11:30)
[2024-11-06 11:44] LABS: INR 1.15 (0.80-1.30); PROTIME 14.7 Sec (11.2-14.2)
[2024-11-06 11:57] LABS: BASOPHILS 0.7 % (0-2); EOSINOPHILS 1.1 % (0-6); HEMATOCRIT 40.3 % (35.0-50.0); HEMOGLOBIN 13.6 g/dL (12.0-18.0); LYMPHOCYTES 12.3 % (24-44); MCH 29.6 (27-36); MCHC 33.7 g/dl (30-36); MCV 87.8 fl (81-99); MONOCYTES 9.8 % (0-12); NEUTROPHILS 76.1 % (39-80); PLATELET COUNT 310 K/uL (140-440); RDW 14.1 (10.5-15.0)
[2024-11-06 11:58] LABS: ALBUMIN 3.5 g/dL (3.4-5.0); ALBUMIN/GLOBULIN RATIO 1.06 (1.1-2.4); ANION GAP 15.3 (7-21); BILIRUBIN, TOTAL 1.1 mg/dL (0.2-1.0); BUN/CREATININE RATIO 13.69 (6.0-28.6); CALCIUM 8.9 mg/dL (8.5-10.1); CREATININE, SERUM 1.68 mg/dL (0.70-1.30); MAGNESIUM 1.8 mg/dL (1.8-2.4); POTASSIUM 4.3 mmol/L (3.5-5.1); PROTEIN, TOTAL 6.8 g/dL (6.4-8.2)
[2024-11-06 12:17] LABS: INFLUENZA B NAA NEGATIVE (NEGATIVE); RESPIRATORY SYNCYTIAL VIR NAA NEGATIVE (NEGATIVE)
[2024-11-06] MEDS ORDERED: levETIRAcetam 500 MG TAB PO ONE (13:30)
[2024-11-06] MEDS ORDERED: FUROSEMIDE 40 MG/4 ML VIAL IV ONE (14:00)
[2024-11-06 15:13] LABS: BILIRUBIN, URINE NEGATIVE (negative); BLOOD/HGB, URINE TRACE-I (Negative); KETONE, URINE NEGATIVE (Negative); LEUK ESTERASE, URINE NEGATIVE (negative); NITRITE, URINE NEGATIVE (negative); PH, URINE 5.5 (5-7)
[2024-11-06 15:20] LABS: CRYSTALS, URINE NONE SEEN (0-1+); EPITHELIAL CELLS, URINE SQUAMOUS 1+ /lpf (0-1+)
[2024-11-06 15:21] LABS: BACTERIA, URINE RARE /hpf (negative); CASTS, URINE NONE SEEN \\lpf; COLLECTION TYPE, URINE CLEAN CATCH; REFLEX CULTURE, URINE No (No)
[2024-11-06 16:05] VITALS: BP 142/96
--- NOTE | 2024-11-08 15:48 | EKG ---
[facility] [address] [facility] [place] [address] Signed Atrial-sensed ventricular-paced rhythm Biventricular pacemaker detected Abnormal ECG When compared with ECG of 01-NOV-2024 09:11, Vent. rate has decreased BY 8 BPM Confirmed by Candie Kramer DO ([id number]) on 11/08/2024 3:47:46 PM Electronically Signed By: CANDIE KRAMER DO 11/08/24 1548 PATIENT NAME: JHONNY NICHOLSON Electrocardiogram DATE OF : 59 PHYSICIAN: CANDIE KRAMER DO REPORT #: [id number] REPORT IS CONFIDENTIAL AND NOT TO BE RELEASED WITHOUT AUTHORIZATION
== END 2024-11-06 16:06 | disposition home or self-care (01) ==
LOC: ED 09:51
PROVIDERS: Emergency Medicine
DX: R10.31 Right lower quadrant pain (principal); I11.0 Hypertensive heart disease with heart failure; I50.9 Heart failure, unspecified; Z79.82 Long term (current) use of aspirin; Z79.899 Other long term (current) drug therapy
CPT/HCPCS: 36415; 71045; 74177; 80053; 81001; 83690; 83735; 83880; 85025; 85610; 87502; 93005; 93010; 94640; 99284-25; J1940; Q9967; U0002

== ENCOUNTER 2024-12-08 08:30 | Emergency (ER) | payer OTHER, MEDICARE ==
[~2024-12-08] VITALS: Ht 175.3 cm; Wt 103.0 kg
[2024-12-08] MEDS ORDERED: ondansetron HCL 4 MG/2 ML VIAL IV PRN (08:45)
[2024-12-08 09:01] LABS: BASOPHILS 0.7 % (0-2); EOSINOPHILS 0.5 % (0-6); HEMATOCRIT 43.2 % (35.0-50.0); HEMOGLOBIN 14.4 g/dL (12.0-18.0); LYMPHOCYTES 10.5 % (24-44); MCH 27.4 (27-36); MCHC 33.3 g/dl (30-36); MCV 82.2 fl (81-99); MONOCYTES 11.2 % (0-12); NEUTROPHILS 77.1 % (39-80); PLATELET COUNT 281 K/uL (140-440); RBC 5.26 M/ul (4.3-5.7); RDW 15.6 (10.5-15.0)
[2024-12-08 09:29] LABS: ALBUMIN 3.3 g/dL (3.4-5.0); ANION GAP 14.8 (7-21); BILIRUBIN, TOTAL 1.5 mg/dL (0.2-1.0); BUN/CREATININE RATIO 15.18 (6.0-28.6); CALCIUM 8.7 mg/dL (8.5-10.1); CREATININE, SERUM 1.91 mg/dL (0.70-1.30); POTASSIUM 3.8 mmol/L (3.5-5.1); PROTEIN, TOTAL 6.6 g/dL (6.4-8.2)
[2024-12-08 10:31] LABS: AMPHETAMINES, URINE POSITIVE (NEGATIVE); BARBITURATES, URINE NEGATIVE (NEGATIVE); BENZODIAZEPINE, URINE NEGATIVE (NEGATIVE); BUPRENORPHINE, URINE NEGATIVE (NEGATIVE); CANNABINOID, URINE NEGATIVE (NEGATIVE); COCAINE, URINE NEGATIVE (NEGATIVE); ECSTASY, URINE NEGATIVE (NEGATIVE); FENTANYL, URINE NEGATIVE (NEGATIVE); METHADONE, URINE NEGATIVE (NEGATIVE); OPIATES, URINE NEGATIVE (NEGATIVE); OXYCODONE, URINE NEGATIVE (NEGATIVE); PHENCYCLIDINE, URINE NEGATIVE (NEGATIVE)
[2024-12-08 11:23] VITALS: BP 127/92
--- NOTE | 2024-12-08 17:49 | EKG ---
[facility] [address] [facility] [place] [address] Signed Atrial-sensed ventricular-paced rhythm Biventricular pacemaker detected Abnormal ECG When compared with ECG of 06-NOV-2024 11:35, Vent. rate has decreased BY 7 BPM Confirmed by Tony Kramer DO ([id number]) on 12/08/2024 5:49:28 PM Electronically Signed By: TONY KRAMER DO 12/08/24 1749 PATIENT NAME: LYNJHONNY Electrocardiogram DATE OF : 59 PHYSICIAN: TONY KRAMER DO REPORT #: [id number] REPORT IS CONFIDENTIAL AND NOT TO BE RELEASED WITHOUT AUTHORIZATION
== END 2024-12-08 11:24 | disposition home or self-care (01) ==
LOC: ED 08:30
PROVIDERS: Emergency Medicine
DX: R11.2 Nausea with vomiting, unspecified (principal); N28.9 Disorder of kidney and ureter, unspecified; R74.01 Elevation of levels of liver transaminase levels; F15.90 Other stimulant use, unspecified, uncomplicated; T50.906A Underdosing of unspecified drugs, medicaments and biological substances, initial encounter; I11.0 Hypertensive heart disease with heart failure; I50.9 Heart failure, unspecified; Z91.148 Patient's other noncompliance with medication regimen for other reason; Z95.5 Presence of coronary angioplasty implant and graft; Z59.00 Homelessness unspecified; Z79.82 Long term (current) use of aspirin; Z79.899 Other long term (current) drug therapy
CPT/HCPCS: 36415; 80053; 80307; 83690; 84484; 85025; 93005; 93010; 96374; 99284-25; J2405

== ENCOUNTER 2024-12-09 21:39 | Emergency (ER) | payer MEDICARE ==
[~2024-12-09] VITALS: Ht 180.3 cm; Wt 104.0 kg
--- OUTSIDE RECORDS SUMMARY | 2024-12-09 21:46 | XMS ---
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 Security Bevel Polisher Events No recent Security Events currently on file CRITERIA MET - 6 ED Visits in 6 Months - [facility] - 2 Visits in 30 Days CARE PROVIDERS Michelle Lucio Registered Nurse 11/24/2019-Current PHONE: [facility] PHONE: [phone] Care Guidelines exist for the following facilities: [facility] ([place]) ( 07/28/2019 ) [facility] ( 06/18/2013 ) [facility] VISIT COUNT (12 MO.) 4 [facility] TOTAL 8 NOTE: Visits indicate total known visits. ED/UCC VISIT TRACKING (12 MO.) 12/09/2024 21:40 [facility] [place] TYPE: Emergency COMPLAINT: - ABDOMINAL PAIN 12/08/2024 08:30 [facility] [place] TYPE: Emergency COMPLAINT: - HAZARDOUS EXPOSURE DIAGNOSES: - Disorder of kidney and ureter, unspecified - Elevation of levels of liver transaminase levels - Heart failure, unspecified - Homelessness unspecified - Hypertensive heart disease with heart failure - retirement (current) use of aspirin - Nausea with vomiting, unspecified - Other nursing home (current) drug therapy - Other stimulant use, unspecified, uncomplicated - Patient's other noncompliance with medication regimen for other reason - Presence of coronary angioplasty implant and graft - Underdosing of unspecified drugs, medicaments and biological substances, initial encounter 11/06/2024 09:[address] [facility] [place] TYPE: Emergency COMPLAINT: - ABDOMINAL PAIN DIAGNOSES: - Heart failure, unspecified - Hypertensive heart disease with heart failure - terminologist (current) use of aspirin - Other nursing home (current) drug therapy - Right lower quadrant pain [facility]24 [facility] TYPE: Emergency DIAGNOSES: - Chronic systolic (congestive) heart failure - Nausea with vomiting, unspecified - Unspecified abdominal pain - abd pain, weakness - Abdominal Pain 10[facility]24 09[facility] COMPLAINT: - ABDOMINAL PAIN 09/22/2024 06:26 [facility] [place] ([facility]) TYPE: Emergency DIAGNOSES: - Shortness of breath - Unspecified abdominal pain - abd pain - Abdominal Pain - Shortness of Breath 12/20/2023 02:40 [facility] [place] ([facility]) TYPE: Emergency DIAGNOSES: - Acute on chronic systolic (congestive) heart failure - Other stimulant abuse, uncomplicated - Dizziness - dizzy nausea rapid heart rate 12/13/2023 17:19 [facility] [place] ([facility]) TYPE: Emergency DIAGNOSES: - Acute on chronic combined systolic (congestive) and diastolic (congestive) heart failure - Chronic systolic (congestive) heart failure - abd pain, sob, weakness - Shortness of Breath - Weakness INPATIENT VISIT TRACKING (12 MO.) 10/31/2024 09:[address] [facility] [place] TYPE: Critical Care COMPLAINT: - CHEST PAIN DIAGNOSES: - Alcohol abuse with withdrawal, unspecified - Alcohol abuse with withdrawal, unspecified - Atherosclerotic heart disease of [place] coronary artery without angina pectoris - Atherosclerotic heart disease of [place] coronary artery without angina pectoris - Chest pain, unspecified - Gastro-esophageal reflux disease without esophagitis - Gastro-esophageal reflux disease without esophagitis - Heart failure, unspecified - Heart failure, unspecified - Hypertensive heart disease with heart failure - Hypertensive heart disease with heart failure - terminologist (current) use of aspirin - terminologist (current) use of aspirin - Nonrheumatic aortic (valve) stenosis - Nonrheumatic aortic (valve) stenosis - Obesity, unspecified - Obesity, unspecified - Old myocardial infarction - Old myocardial infarction - Other nursing home (current) drug therapy - Other nursing home (current) drug therapy - Other specified postprocedural [...] because of patient's decision for other reasons [email or web address]
[2024-12-09] MEDS ORDERED: ondansetron HCL 4 MG/2 ML VIAL IV ONE (22:00)
[2024-12-09] MEDS ORDERED: LACTATED RINGER'S 1,000 ML IV ONE (22:15)
[2024-12-09] MEDS ORDERED: FAMOTIDINE 20 MG/ 2 ML VIAL IV ONE (22:15)
[2024-12-09 22:28] LABS: BASOPHILS 0.6 % (0-2); EOSINOPHILS 0.7 % (0-6); HEMATOCRIT 40.9 % (35.0-50.0); HEMOGLOBIN 13.8 g/dL (12.0-18.0); LYMPHOCYTES 16.9 % (24-44); MCH 27.8 (27-36); MCHC 33.8 g/dl (30-36); MONOCYTES 12.7 % (0-12); NEUTROPHILS 69.1 % (39-80); PLATELET COUNT 297 K/uL (140-440); RBC 4.98 M/ul (4.3-5.7)
[2024-12-09 22:30] LABS: BILIRUBIN, URINE NEGATIVE (negative); BLOOD/HGB, URINE NEGATIVE (Negative); KETONE, URINE NEGATIVE (Negative); LEUK ESTERASE, URINE NEGATIVE (negative); NITRITE, URINE NEGATIVE (negative); PH, URINE 5.5 (5-7)
[2024-12-09 22:35] LABS: EPITHELIAL CELLS, URINE SQUAMOUS 1+ /lpf (0-1+)
[2024-12-09 22:36] LABS: BACTERIA, URINE 1+ /hpf (negative); CASTS, URINE NONE SEEN \\lpf; COLLECTION TYPE, URINE CLEAN CATCH; CRYSTALS, URINE NONE SEEN (0-1+); RED BLOOD CELLS, URINE 0-1 /hpf (0-5); REFLEX CULTURE, URINE No (No)
[2024-12-09 22:45] LABS: AMPHETAMINES, URINE POSITIVE (NEGATIVE); BARBITURATES, URINE NEGATIVE (NEGATIVE); BENZODIAZEPINE, URINE NEGATIVE (NEGATIVE); BUPRENORPHINE, URINE NEGATIVE (NEGATIVE); CANNABINOID, URINE NEGATIVE (NEGATIVE); COCAINE, URINE NEGATIVE (NEGATIVE); ECSTASY, URINE NEGATIVE (NEGATIVE); FENTANYL, URINE NEGATIVE (NEGATIVE); METHADONE, URINE NEGATIVE (NEGATIVE); OPIATES, URINE NEGATIVE (NEGATIVE); OXYCODONE, URINE NEGATIVE (NEGATIVE); PHENCYCLIDINE, URINE NEGATIVE (NEGATIVE)
[2024-12-09] MEDS ORDERED: CALCIUM CARBONATE 500 MG CHEW PO ONE (22:45)
[2024-12-09 22:55] LABS: ALBUMIN 3.3 g/dL (3.4-5.0); ALBUMIN/GLOBULIN RATIO 0.94 (1.1-2.4); ANION GAP 14.1 (7-21); BILIRUBIN, TOTAL 1.6 mg/dL (0.2-1.0); BUN/CREATININE RATIO 15.76 (6.0-28.6); CALCIUM 9.2 mg/dL (8.5-10.1); CREATININE, SERUM 2.22 mg/dL (0.70-1.30); MAGNESIUM 1.8 mg/dL (1.8-2.4); POTASSIUM 4.1 mmol/L (3.5-5.1); PROTEIN, TOTAL 6.8 g/dL (6.4-8.2)
[2024-12-09] MEDS ORDERED: PANTOPRAZOLE SODIUM 40 MG/10 ML VIAL IV ONE (23:15)
[2024-12-10] MEDS ORDERED: FUROSEMIDE 40 MG/4 ML VIAL IV ONE (00:45)
[2024-12-10] MEDS ORDERED: SUCRALFATE 1 GM TAB PO ONE (02:00)
[2024-12-10] MEDS ORDERED: CARAFATE1 GM/10 ML PO (02:05)
[2024-12-10] MEDS ORDERED: OMEPRAZOLE20 MG PO (02:05)
[2024-12-10 02:20] VITALS: BP 133/93
--- NOTE | 2024-12-10 10:59 | EKG ---
[facility] [address] [facility] [place] [address] Signed Atrial-sensed ventricular-paced rhythm Biventricular pacemaker detected Abnormal ECG When compared with ECG of 08-DEC-2024 08:48, Vent. rate has decreased BY 4 BPM Confirmed by Candie Kramer DO ([id number]) on 12/10/2024 10:59:20 AM Electronically Signed By: CANDIE KRAMER DO 12/10/24 1059 PATIENT NAME: JHONNY NICHOLSON Electrocardiogram DATE OF : 59 PHYSICIAN: CANDIE KRAMER DO REPORT #: [id number] REPORT IS CONFIDENTIAL AND NOT TO BE RELEASED WITHOUT AUTHORIZATION
== END 2024-12-10 02:15 | disposition home or self-care (01) ==
LOC: ED 21:39
PROVIDERS: Internal Medicine
DX: K70.30 Alcoholic cirrhosis of liver without ascites (principal); K21.9 Gastro-esophageal reflux disease without esophagitis; I11.0 Hypertensive heart disease with heart failure; I50.9 Heart failure, unspecified; Z79.82 Long term (current) use of aspirin; Z79.899 Other long term (current) drug therapy; Z87.891 Personal history of nicotine dependence
CPT/HCPCS: 36415; 71045; 76705; 80053; 80307; 81001; 82550; 83690; 83735; 83880; 84443; 84484; 85025; 93005; 93010; 96374; 96375; 99284-25; G0480; J1940; J2405; J2470; J7121

== ENCOUNTER 2025-04-14 16:59 | Emergency (ER) | payer MEDICARE ==
[~2025-04-14] VITALS: Ht 180.3 cm; Wt 98.2 kg
[~2025-04-14 16:59] MED LIST changes: +B12 ACTIVE1000 MCG PO; +CARAFATE1 GM/10 ML PO; +FOLIC ACID1 MG PO; +HYDROXYZINE HCL25 MG PO; +MAG-OXIDE400 MG PO; +MULTIVITAMIN-M1 EACH PO; +POTASSIUM CHLO20 ME1 PO; +TORSEMIDE20 MG PO; +VITAMIN B-1100 MG PO
--- OUTSIDE RECORDS SUMMARY | 2025-04-14 17:06 | XMS ---
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 [place] TOTAL 18 NOTE: Visits indicate total known visits. ED/UCC VISIT TRACKING (12 MO.) 04/14/2025 17:[address] [facility] [place] [place] TYPE: Emergency COMPLAINT: - FALL,HEAD INJURY,VOMITING 04/11/2025 10:30 [facility] ([place]) TYPE: Emergency DIAGNOSES: - Heart failure, unspecified - Abdominal Pain - Shortness of Breath - stomach pain and shortness of breath 04/06/2025 16:11 [facility] [place] ([place] TYPE: Emergency DIAGNOSES: - Acute kidney failure, unspecified - Chronic kidney disease, stage 3 unspecified - Dizziness and giddiness - Heart failure, unspecified - Hypovolemia - Abdominal Pain - lt arm pain,poss fluid on lungs 04/05/2025 17:12 [facility] [place] TYPE: Emergency COMPLAINT: - ABDOMINAL PAIN DIAGNOSES: - Acute on chronic systolic (congestive) heart failure - Hypertensive heart disease with heart failure - Lower abdominal pain, unspecified - Other exterminator helper termite (current) drug therapy 04/01/2025 15:19 [facility] [place] TYPE: Emergency COMPLAINT: - ABDOMINAL PAIN 03/13/2025 09:07 [facility] [place] ([place] TYPE: Emergency DIAGNOSES: - Heart failure, unspecified - Shortness of Breath 02/16/2025 12:41 [facility] [place] ([facility] TYPE: Emergency DIAGNOSES: - Acute pulmonary edema - Acute respiratory failure with hypoxia - Acute systolic (congestive) heart failure - Homelessness unspecified - Patient's other noncompliance with medication regimen for other reason - Abdominal Pain - Edema - Fatigue - sob, abd pain 01/13/2025 09:17 [facility] [place] ([facility] TYPE: Emergency DIAGNOSES: - Acute on chronic combined systolic (congestive) and diastolic (congestive) heart failure - Acute respiratory failure with hypoxia - Fluid overload, unspecified - Homelessness unspecified - Patient's noncompliance with dietary regimen due to unspecified reason - Shortness of breath 01/13/2025 09:17 [facility] ([place] TYPE: Emergency DIAGNOSES: - Acute on chronic combined systolic (congestive) and diastolic (congestive) heart failure - Acute respiratory failure with hypoxia - Fluid overload, unspecified - Homelessness unspecified - Patient's noncompliance with dietary regimen due to unspecified reason - Shortness of breath - ambulance - Chest Pain 01/11/2025 13:56 [facility] ([place] TYPE: Emergency DIAGNOSES: - Unspecified abdominal pain - Abdominal Pain - ambulance 01/06/2025 00:54 [facility] ([facility] TYPE: Emergency DIAGNOSES: - Acute and chronic respiratory failure with hypoxia - Chronic kidney disease, unspecified - Epigastric pain - Heart failure, unspecified - Abdominal Pain - Anxiety 12/29/2024 06:07 [facility] ([place]) TYPE: Emergency DIAGNOSES: - Acute on chronic combined systolic (congestive) and diastolic (congestive) heart failure - Atherosclerotic heart disease of [place] coronary artery without angina pectoris - Chronic kidney disease, stage 3a - Essential (primary) hypertension - Heart failure, unspecified - Hypokalemia - Myocardial infarction type 2 - Nonrheumatic aortic (valve) stenosis - Other cardiomyopathies - Other stimulant abuse, uncomplicated - Other supraventricular tachycardia - Presence of automatic (implantable) cardiac defibrillator - Pulmonary hypertension, unspecified - Chest Pain - pacemaker shocking him - Shortness of Breath 12/09/2024 21:40 [facility] TYPE: Emergency COMPLAINT: - ABDOMINAL PAIN DIAGNOSES: - Alcoholic cirrhosis of liver without ascites - Gastro-esophageal reflux disease without esophagitis - Heart failure, unspecified - Hypertensive heart disease with heart failure - custodial (current) use of aspirin - Other intermediate (current) drug therapy - Personal history of nicotine dependence - Unspecified abdominal pain 12/08/2024 08:30 [facility] TYPE: Emergency COMPLAINT: - HAZARDOUS EXPOSURE DIAGNOSES: - Disorder of kidney and ureter, unspecified - Elevation of levels of liver transaminase levels - Heart failure, unspecified - Homelessness unspecified - Hypertensive heart disease with heart failure - exterminator helper termite (current) use of aspirin - Nausea with vomiting, unspecified - Other exterminator helper termite (current) drug therapy - Other stimulant use, unspecified, uncomplicated - Patient's other noncompliance with medication regimen for other reason - Presence of coronary angioplasty implant and graft - Underdosing of unspecified drugs, medicaments and biological substances, initial encounter 11/06/2024 09:52 [facility] [place] TYPE: Emergency COMPLAINT: - ABDOMINAL PAIN DIAGNOSES: - Heart failure, unspecified - Hypertensive heart disease with heart failure - custodial (current) use of aspirin - Other exterminator helper termite (current) drug therapy - Right lower quadrant pain 11/02/2024 00:57 [facility] ([facility] TYPE: Emergency DIAGNOSES: - Chronic systolic (congestive) heart failure - Nausea with vomiting, unspecified - Unspecified abdominal pain - abd pain, weakness - Abdominal Pain 10/30/2024 09:06 [facility] [place] TYPE: Emergency COMPLAINT: - ABDOMINAL PAIN 09/22/2024 06:26 [facility] [place] ([facility] TYPE: Emergency DIAGNOSES: - Shortness of breath - Unspecified abdominal pain - abd pain - Abdominal Pain - Shortness of Breath INPATIENT VISIT TRACKING (12 MO.) 04/06/2025 16:11 [facility] [place] ([facility] TYPE: Medical Surgical DIAGNOSES: - Acute kidney failure, unspecified - Cellulitis of abdominal wall - Chronic combined systolic (congestive) and diastolic (congestive) heart failure - Chronic kidney disease, stage 3 unspecified - Chronic kidney disease, stage 3a - Dizziness and giddiness - Elevated white blood cell count, unspecified - Heart failure, unspecified - Hypovolemia - Iron deficiency anemia, unspecified - Left bundle-branch block, unspecified - Metabolic encephalopathy - Other ascites - Other cardiomyopathies - Other chronic pain 04/01/2025 19:20 [facility] [place] TYPE: Medical Surgical COMPLAINT: - ACUTE ON CHRONIC SYSTOLIC DIAGNOSES: - Acute kidney failure, unspecified - Acute kidney failure, unspecified - Acute on chronic systolic (congestive) heart failure - Acute on chronic systolic (congestive) heart failure - Alcohol abuse counseling and surveillance of alcoholic - Alcohol abuse counseling and surveillance of alcoholic - Alcohol abuse, uncomplicated - Alcohol abuse, uncomplicated - Drug abuse counseling and surveillance of drug abuser - Drug abuse counseling and surveillance of drug abuser - Gastro-esophageal reflux disease without esophagitis - Gastro-esophageal reflux disease without esophagitis - Hepatic failure, unspecified without coma - Hepatic failure, unspecified without coma - Hypertensive heart disease with heart failure - Hypo-osmolality and hyponatremia - Hypo-osmolality and hyponatremia - exterminator helper termite (current) use of aspirin - custodial (current) use of aspirin - Other ascites - Other ascites - Other psychoactive substance abuse, uncomplicated - Other psychoactive substance abuse, uncomplicated - Presence of cardiac pacemaker - Presence of cardiac pacemaker - Presence of coronary angioplasty implant and graft - Presence of coronary angioplasty implant and graft - 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 ([facility] TYPE: Medical Surgical DIAGNOSES: - Acute on chronic combined systolic (congestive) and diastolic (congestive) heart failure - Alcohol dependence, in remission - Atherosclerotic heart disease of [place] coronary artery with unspecified angina pectoris - Chronic kidney disease, stage 3a - Heart failure, unspecified - Mild intermittent asthma, uncomplicated - Myocardial infarction type 2 - Nicotine dependence, cigarettes, in remission - Nonrheumatic mitral (valve) insufficiency - Other specified abnormal findings of blood chemistry - Pulmonary hypertension, unspecified 02/16/2025 12:41 [facility] [place] ([facility] TYPE: Medical Surgical DIAGNOSES: - Acute on chronic combined systolic (congestive) and diastolic (congestive) heart failure - Acute on chronic systolic (congestive) heart failure - Acute pulmonary edema - Acute respiratory failure with hypoxia - Acute systolic (congestive) heart failure - Chronic kidney disease, stage 3a - Homelessness unspecified - Nonrheumatic aortic (valve) stenosis - Other psychoactive substance abuse, uncomplicated - Patient's other noncompliance with medication regimen for other reason 01/13/2025 09:17 [facility] ([facility] TYPE: Emergency DIAGNOSES: - Acute on chronic combined systolic (congestive) and diastolic (congestive) heart failure - Acute respiratory failure with hypoxia - Fluid overload, unspecified - Homelessness unspecified - Patient's noncompliance with dietary regimen due to unspecified reason - Shortness of breath 12/29/2024 06:07 [facility] [place] ([facility]) TYPE: Medical Surgical DIAGNOSES: - Acute kidney failure, unspecified - Acute on chronic combined systolic (congestive) and diastolic (congestive) heart failure - Alcohol abuse, uncomplicated - Atherosclerotic heart disease of [place] coronary artery without angina pectoris - Chronic kidney disease, stage 3a - Encounter for palliative care - Essential (primary) hypertension - Heart failure, unspecified - Hypokalemia - Myocardial infarction type 2 - Nonrheumatic aortic (valve) stenosis - Other cardiomyopathies - Other malaise - Other specified counseling - Other stimulant abuse, uncomplicated - Other supraventricular tachycardia - Presence of automatic (implantable) cardiac defibrillator - Pulmonary hypertension, unspecified 10/31/2024 09:[address] [facility] [place] TYPE: Critical Care COMPLAINT: - CHEST PAIN DIAGNOSES: - Alcohol abuse with withdrawal, unspecified - Alcohol abuse with withdrawal, unspecified - Atherosclerotic heart disease of [place] coronary artery without angina pectoris - Atherosclerotic heart disease of [place] coronary artery without angina pectoris - Chest pain, unspecified - Gastro-esophageal reflux disease without esophagitis - Gastro-esophageal reflux disease without esophagitis - Heart failure, unspecified - Heart failure, unspecified - Hypertensive heart disease with heart failure - Hypertensive heart disease with heart failure - custodial (current) use of aspirin - custodial (current) use of aspirin - Nonrheumatic aortic (valve) stenosis - Nonrheumatic aortic (valve) stenosis - Obesity, unspecified - Obesity, unspecified - Old myocardial infarction - Old myocardial infarction - Other intermediate (current) drug therapy - Other exterminator helper termite (current) drug therapy - Other specified postprocedural [...] because of patient's decision for other reasons [email or web address]
[2025-04-14] MEDS ORDERED: ONDANSETRON 4 MG TAB ODT SL ONE (18:30)
[2025-04-14] MEDS ORDERED: ONDANSETRON ODT4 MG PO (19:06)
[2025-04-14 19:21] VITALS: BP 107/78
== END 2025-04-14 19:22 | disposition home or self-care (01) ==
LOC: ED 16:59
DX: S06.0X0A Concussion without loss of consciousness, initial encounter (principal); R40.2410 Glasgow coma scale score 13-15, unspecified time; S40.022A Contusion of left upper arm, initial encounter; S40.021A Contusion of right upper arm, initial encounter; W17.89XA Other fall from one level to another, initial encounter; I11.0 Hypertensive heart disease with heart failure; I50.9 Heart failure, unspecified; Z79.899 Other long term (current) drug therapy
CPT/HCPCS: 70450; 72125; 99284-25; A9270

== ENCOUNTER 2025-04-19 21:34 | Emergency (ER) | payer MEDICAID ==
[~2025-04-19] VITALS: Ht 180.3 cm; Wt 98.2 kg
[~2025-04-19 21:34] MED LIST changes: +ONDANSETRON ODT4 MG PO
--- OUTSIDE RECORDS SUMMARY | 2025-04-19 21:41 | XMS ---
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 [place] TOTAL 19 NOTE: Visits indicate total known visits. ED/UCC VISIT TRACKING (12 MO.) 04/19/2025 21:34 [facility] [place] TYPE: Emergency COMPLAINT: - CHEST PAIN 04/14/2025 17:00 [facility] [place] TYPE: Emergency COMPLAINT: - FALL,HEAD INJURY,VOMITING DIAGNOSES: - Concussion without loss of consciousness, initial encounter - Contusion of left upper arm, initial encounter - Contusion of right upper arm, initial encounter - [place] coma scale score 13-15, unspecified time - Headache, unspecified - Heart failure, unspecified - Hypertensive heart disease with heart failure - Other fall from one level to another, initial encounter - Other penitentiary (current) drug therapy 04/11/2025 10:30 [facility] ([place]) TYPE: Emergency DIAGNOSES: - Heart failure, unspecified - Abdominal Pain - Shortness of Breath - stomach pain and shortness of breath 04/06/2025 16:11 [facility] ([place]) TYPE: Emergency DIAGNOSES: - Acute kidney failure, [...] - Lower abdominal pain, unspecified - Other penitentiary (current) drug therapy 04/01/2025 15:19 [facility] [address] [place] TYPE: Emergency COMPLAINT: - ABDOMINAL PAIN 03/13/2025 09:07 [facility] ([place]) TYPE: Emergency DIAGNOSES: - Heart failure, unspecified - Shortness of Breath 02/16/2025 12:41 [facility] ([place]) TYPE: Emergency DIAGNOSES: - Acute pulmonary edema - Acute respiratory failure with hypoxia - Acute systolic (congestive) heart failure - Homelessness unspecified - Patient's other noncompliance with medication regimen for other reason - Abdominal Pain - Edema - Fatigue - sob, abd pain 01/13/2025 09:17 [facility] [place] ([facility] TYPE: Emergency DIAGNOSES: - Acute on chronic combined systolic (congestive) and diastolic (congestive) heart failure - Acute respiratory failure with hypoxia - Fluid overload, unspecified - Homelessness unspecified - Patient's noncompliance with dietary regimen due to unspecified reason - Shortness of breath 01/13/2025 09:17 [facility] [place] ([facility] TYPE: Emergency DIAGNOSES: - Acute on chronic combined systolic (congestive) and diastolic (congestive) heart failure - Acute respiratory failure with hypoxia - Fluid overload, unspecified - Homelessness unspecified - Patient's noncompliance with dietary regimen due to unspecified reason - Shortness of breath - ambulance - Chest Pain 01/11/2025 13:56 [facility] [place] ([facility] TYPE: Emergency DIAGNOSES: - Unspecified abdominal pain - Abdominal Pain - ambulance 01/06/2025 00:54 [facility] ([facility] TYPE: Emergency DIAGNOSES: - Acute and chronic respiratory failure with hypoxia - Chronic kidney disease, unspecified - Epigastric pain - Heart failure, unspecified - Abdominal Pain - Anxiety 12/29/2024 06:07 [facility] ([facility] TYPE: Emergency DIAGNOSES: - Acute on chronic combined systolic (congestive) and diastolic (congestive) heart failure - Atherosclerotic heart disease of [place] coronary artery without angina pectoris - Chronic [...] - Shortness of Breath 12/09/2024 21:40 [facility] [place] TYPE: Emergency COMPLAINT: - ABDOMINAL PAIN DIAGNOSES: - Alcoholic cirrhosis of liver without ascites - Gastro-esophageal reflux disease without esophagitis - Heart failure, unspecified - Hypertensive heart disease with heart failure - rodent exterminator (current) use of aspirin - Other penitentiary (current) drug therapy - Personal history of nicotine dependence - Unspecified abdominal pain 12/08/2024 08:30 [facility] [place] TYPE: Emergency COMPLAINT: - HAZARDOUS EXPOSURE DIAGNOSES: - Disorder of kidney and ureter, unspecified - Elevation of levels of liver transaminase levels - Heart failure, unspecified - Homelessness unspecified - Hypertensive heart disease with heart failure - USP (current) use of aspirin - Nausea with vomiting, unspecified - Other termite exterminator helper (current) drug therapy - Other stimulant use, unspecified, uncomplicated - Patient's other noncompliance with medication regimen for other reason - Presence of coronary angioplasty implant and graft - Underdosing of unspecified drugs, medicaments and biological substances, initial encounter 11/06/2024 09:52 [facility] TYPE: Emergency COMPLAINT: - ABDOMINAL PAIN DIAGNOSES: - Heart failure, unspecified - Hypertensive heart disease with heart failure - rodent exterminator (current) use of aspirin - Other termite exterminator helper (current) drug therapy - Right lower quadrant pain [facility]24 [facility]: Emergency DIAGNOSES: - Chronic systolic (congestive) heart failure - Nausea with vomiting, unspecified - Unspecified abdominal pain - abd pain, weakness - Abdominal Pain 10/30/2024 09:06 [facility] [address] [place] TYPE: Emergency COMPLAINT: - ABDOMINAL PAIN 09/22/2024 06[facility] DIAGNOSES: - Shortness of breath - Unspecified abdominal pain - abd pain - Abdominal Pain - Shortness of Breath INPATIENT VISIT TRACKING (12 MO.) 04/06/2025 16:11 [facility] TYPE: Medical Surgical DIAGNOSES: [...] cardiomyopathies - Other chronic pain 04/01/2025 19:[address] [facility] [place] TYPE: Medical Surgical COMPLAINT: - ACUTE [...] and hyponatremia - Hypo-osmolality and hyponatremia - rodent exterminator (current) use of aspirin - rodent exterminator (current) use of aspirin - Other ascites [...] - Unspecified cirrhosis of liver 03/13/2025 09:07 [facility] [place] ([facility] TYPE: Medical Surgical DIAGNOSES: - Acute on chronic combined systolic (congestive) and diastolic (congestive) heart failure - Alcohol dependence, in remission - Atherosclerotic heart disease of [place] coronary artery with unspecified angina pectoris - Chronic kidney disease, stage 3a - Heart failure, unspecified - Mild intermittent asthma, uncomplicated - Myocardial infarction type 2 - Nicotine dependence, cigarettes, in remission - Nonrheumatic mitral (valve) insufficiency - Other specified abnormal findings of blood chemistry - Pulmonary hypertension, unspecified 02/16/2025 12:41 [facility] [place] ([facility]) TYPE: Medical Surgical DIAGNOSES: [...] medication regimen for other reason 01/13/2025 09:17 [facility] ([facility] TYPE: Emergency DIAGNOSES: - Acute on chronic combined systolic (congestive) and diastolic (congestive) heart failure - Acute respiratory failure with hypoxia - Fluid overload, unspecified - Homelessness unspecified - Patient's noncompliance with dietary regimen due to unspecified reason - Shortness of breath 12/29/2024 06:07 [facility] ([facility] TYPE: Medical Surgical DIAGNOSES: - Acute kidney failure, unspecified - Acute on chronic combined systolic (congestive) and diastolic (congestive) heart failure - Alcohol abuse, uncomplicated - Atherosclerotic heart disease of [place] coronary artery without angina pectoris - Chronic [...] defibrillator - Pulmonary hypertension, unspecified 10/31/2024 09:28 [facility] [place] TYPE: Critical Care COMPLAINT: - CHEST PAIN DIAGNOSES: - Alcohol abuse with withdrawal, unspecified - Alcohol abuse with withdrawal, unspecified - Atherosclerotic heart disease of [place] coronary artery without angina pectoris - Atherosclerotic heart disease of [place] coronary artery without angina pectoris - Chest pain, unspecified - Gastro-esophageal reflux disease without esophagitis - Gastro-esophageal reflux disease without esophagitis - Heart failure, unspecified - Heart failure, unspecified - Hypertensive heart disease with heart failure - Hypertensive heart disease with heart failure - rodent exterminator (current) use of aspirin - rodent exterminator (current) use of aspirin - Nonrheumatic aortic (valve) stenosis - Nonrheumatic aortic (valve) stenosis - Obesity, unspecified - Obesity, unspecified - Old myocardial infarction - Old myocardial infarction - Other termite exterminator helper (current) drug therapy - Other penitentiary (current) drug therapy - Other specified postprocedural [...] because of patient's decision for other reasons [email or web address]
[2025-04-19] MEDS ORDERED: ASPIRIN 81 MG CHEW PO ONE (21:45)
[2025-04-19 21:50] LABS: BASOPHILS 0.6 % (0.2-1.2); EOSINOPHILS 0.9 % (0.8-7.0); LYMPHOCYTES 9.6 % (21.8-53.1); MCH 26.4 PG (25.7-32.2); MCHC 32.4 g/dL (32.3-36.5); MCV 81.6 fL (79.0-92.2); MONOCYTES 5.7 % (5.3-12.2); NEUTROPHILS 82.9 % (34.0-67.9); RBC 4.77 M/uL (4.63-6.08)
[2025-04-19 22:06] LABS: ALT (SGPT) 31.0 U/L (14-59); AST (SGOT) 31.0 U/L (15-37); GLOMERULAR FILTRATION RATE,EST 57.0 mL/min (>60); PROTEIN, TOTAL 7.0 g/dL (6.4-8.2); UREA NITROGEN 16.0 mg/dL (7-18)
[2025-04-19] MEDS ORDERED: ONDANSETRON ODT8 MG PO (23:14)
[2025-04-19] MEDS ORDERED: ONDANSETRON 4 MG HOME.PACK SL ONE (23:15)
[2025-04-19 23:33] VITALS: BP 107/91
--- NOTE | 2025-04-20 14:07 | EKG ---
[facility] [address] [place] [address] Signed Ventricular-paced rhythm Biventricular pacemaker detected Abnormal ECG When compared with ECG of 05-APR-2025 19:37, Vent. rate has decreased BY 10 BPM Confirmed by Tatyana Muller MD () on 04/20/2025 2:07:18 PM Electronically Signed By: TATYANA MULLER MD 04/20/25 1407 PATIENT NAME: JHONNY NICHOLSON Electrocardiogram DATE OF : 59 PHYSICIAN: TATYANA MULLER MD REPORT #: [id number] REPORT IS CONFIDENTIAL AND NOT TO BE RELEASED WITHOUT AUTHORIZATION
== END 2025-04-19 23:43 | disposition home or self-care (01) ==
LOC: ED 21:34
PROVIDERS: Emergency Medicine
DX: I11.0 Hypertensive heart disease with heart failure (principal); I50.9 Heart failure, unspecified; K72.90 Hepatic failure, unspecified without coma; Z79.899 Other long term (current) drug therapy
CPT/HCPCS: 36415; 71045; 80053; 83690; 83735; 83880; 84484; 85025; 93005; 93010; 99285-25; A9270

== ENCOUNTER 2025-06-26 20:57 | Emergency (ER) | payer MEDICARE ==
[~2025-06-26] VITALS: Ht 180.3 cm; Wt 97.5 kg
[~2025-06-26 20:57] MED LIST changes: +ONDANSETRON ODT8 MG PO
--- OUTSIDE RECORDS SUMMARY | 2025-06-26 21:04 | XMS ---
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 Security Evp Operations Events No recent Security Events currently on file CRITERIA MET - 6 ED Visits in 6 Months - [facility] - 2 Visits in 30 Days - [facility] - 3 Facilities in 90 Days CARE PROVIDERS Michelle Lucio Registered Nurse 11/24/2019-Current PHONE: Unknown ABRAN ALVARADO Family Medicine Current PHONE: [phone] MIGEL MUNOZ Family Medicine: Obesity Medicine Current PHONE: [phone] Care Guidelines exist for the following facilities: [facility] ([place]) ( 07/28/2019 ) [facility] ( 06/18/2013 ) [facility] VISIT COUNT (12 MO.) 21 [facility] ([place]) 9 [facility] TOTAL 31 NOTE: Visits indicate total known visits. ED/UCC VISIT TRACKING (12 MO.) 06/26/2025 20:58 [facility] [place] TYPE: Emergency COMPLAINT: - DIFFICULTY BREATHING 06/25/2025 09:46 [facility] ([place]) TYPE: Emergency DIAGNOSES: - Alcoholic cirrhosis of liver with ascites - Cellulitis of left upper limb - Edema, unspecified - Other ascites - Edema - Shortness of Breath 06/20/2025 00:13 [facility] TYPE: Emergency DIAGNOSES: - Umbilical hernia with obstruction, without gangrene - Unspecified cirrhosis of liver 06/19/2025 15:14 [facility] ([place]) TYPE: Emergency DIAGNOSES: - Lower abdominal pain, unspecified - Umbilical hernia without obstruction or gangrene - Unspecified abdominal hernia with obstruction, without gangrene - abd pain - Abdominal Pain 06/15/2025 20:43 [facility] ([place] TYPE: Emergency DIAGNOSES: - Heart failure, unspecified - Patient's other noncompliance with medication regimen for other reason - Dysuria - Fatigue - Nausea 06/13/2025 23:17 [facility] ([facility] TYPE: Emergency DIAGNOSES: - Heart failure, unspecified - Lower abdominal pain, unspecified - Tachycardia, unspecified - Abdominal Pain - Shortness of Breath 06/09/2025 13:32 [facility] ([facility] TYPE: Emergency DIAGNOSES: - Unspecified abdominal pain - abd pain - Abdominal Pain 06/01/2025 11:39 [facility] ([place] TYPE: Emergency DIAGNOSES: - Heart failure, unspecified - Abdominal Pain 05/22/2025 09:12 [facility] ([facility] TYPE: Emergency DIAGNOSES: - Other ascites - Unspecified abdominal pain - Unspecified atrial fibrillation - Tachycardia 05/16/2025 19:07 [facility] ([place] [place] TYPE: Emergency DIAGNOSES: - Other chondrocalcinosis, left elbow - Arm Pain - left arm pain 05/06/2025 16:32 [facility] [place] ([facility] TYPE: Emergency DIAGNOSES: - Cellulitis of abdominal wall - Encounter for issue of repeat prescription - Heart failure, unspecified - Iron deficiency anemia, unspecified - Metabolic encephalopathy - Other ascites - Other chronic pain - Periumbilical pain - Abdominal Pain - med refill - Medication Refill 04/30/2025 16:17 [facility] ([facility] TYPE: Emergency DIAGNOSES: - Unspecified abdominal pain - Unspecified kidney failure - Abdominal Pain - Abdominal Pain;Hernia - Abnormal Lab 04/19/2025 21:34 [facility] [place] TYPE: Emergency COMPLAINT: - CHEST PAIN DIAGNOSES: - Chest pain, unspecified - Heart failure, unspecified - Hepatic failure, unspecified without coma - Hypertensive heart disease with heart failure - Other correction (current) drug therapy 04/14/2025 17:00 [facility] [place] TYPE: Emergency COMPLAINT: - FALL,HEAD INJURY,VOMITING DIAGNOSES: - Concussion without loss of consciousness, initial encounter - Contusion of left upper arm, initial encounter - Contusion of right upper arm, initial encounter - Epifanio coma scale score 13-15, unspecified time - Headache, unspecified - Heart failure, unspecified - Hypertensive heart disease with heart failure - Other fall from one level to another, initial encounter - Other correction (current) drug therapy 04/11/2025 10:30 [facility] [place] ([facility] TYPE: Emergency DIAGNOSES: - Heart failure, unspecified - Abdominal Pain - Shortness of Breath - stomach pain and shortness of breath 04/06/2025 16:11 [facility] ([facility] [...] - Lower abdominal pain, unspecified - Other correction (current) drug therapy 04/01/2025 15:19 [facility] [place] TYPE: Emergency COMPLAINT: - ABDOMINAL PAIN 03/13/2025 09:07 [facility] ([facility] TYPE: Emergency DIAGNOSES: - Heart failure, unspecified - Shortness of Breath 02/16/2025 12:41 [facility] ([facility] TYPE: Emergency DIAGNOSES: - Acute pulmonary edema - Acute respiratory failure with hypoxia - Acute systolic (congestive) heart failure - Homelessness unspecified - Patient's other noncompliance with medication regimen for other reason - Abdominal Pain - Edema - Fatigue - sob, abd pain Plus 11 More Visits INPATIENT VISIT TRACKING (12 MO.) 06/20/2025 00:13 [facility] TYPE: Surgery DIAGNOSES: - Metabolic encephalopathy - Other ascites - Umbilical hernia with obstruction, without gangrene - Unspecified cirrhosis of liver 06/01/2025 11:39 [facility] ([place]) TYPE: Medical Surgical DIAGNOSES: - Acidosis, unspecified - Acute kidney failure with tubular necrosis - Acute kidney failure, unspecified - Acute on chronic combined systolic (congestive) and diastolic (congestive) heart failure - Alcoholic cirrhosis of liver with ascites - Chronic kidney disease, stage 2 (mild) - Chronic kidney disease, unspecified - Dyspnea, unspecified - Encounter for palliative care - Heart failure, unspecified - Hyperkalemia - Hypo-osmolality and hyponatremia - Iron deficiency - Other ascites - Other malaise - Other specified counseling 05/22/2025 09:12 [facility] ([facility] TYPE: Medical Surgical DIAGNOSES: - Acute on chronic combined systolic (congestive) and diastolic (congestive) heart failure - Alcoholic cirrhosis of liver with ascites - Atherosclerotic heart disease of [place] coronary artery with unspecified angina pectoris - Chronic combined systolic (congestive) and diastolic (congestive) heart failure - Chronic kidney disease, stage 3a - Essential (primary) hypertension - Mild intermittent asthma, uncomplicated - Nonrheumatic aortic (valve) stenosis - Other ascites - Presence of automatic (implantable) cardiac defibrillator - Pulmonary hypertension, unspecified - Unspecified abdominal pain - Unspecified atrial fibrillation - Unspecified cirrhosis of liver - Unspecified systolic (congestive) heart failure 04/06/2025 16:11 [facility] ([place]) TYPE: Medical Surgical DIAGNOSES: - Acute kidney [...] and hyponatremia - Hypo-osmolality and hyponatremia - 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 - 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 - Other ascites [...] - Unspecified cirrhosis of liver [facility] DIAGNOSES: - Acute on chronic combined systolic (congestive) and diastolic (congestive) heart failure - Alcohol dependence, in remission - Atherosclerotic heart disease of [place] coronary artery with unspecified angina pectoris - Chronic kidney disease, stage 3a - Heart failure, unspecified - Mild intermittent asthma, uncomplicated - Myocardial infarction type 2 - Nicotine dependence, cigarettes, in remission - Nonrheumatic mitral (valve) insufficiency - Other specified abnormal findings of blood chemistry - Pulmonary hypertension, unspecified 02/16/2025 12[facility] TYPE: Medical Surgical DIAGNOSES: [...] medication regimen for other reason 01/13/2025 09:17 [facility] ([place]) TYPE: Emergency DIAGNOSES: - Acute on chronic combined systolic (congestive) and diastolic (congestive) heart failure - Acute respiratory failure with hypoxia - Fluid overload, unspecified - Homelessness unspecified - Patient's noncompliance with dietary regimen due to unspecified reason - Shortness of breath 12/29/2024 06:07 [facility] ([place]) TYPE: Medical Surgical DIAGNOSES: - Acute kidney failure, unspecified - Acute on chronic combined systolic (congestive) and diastolic (congestive) heart failure - Alcohol abuse, uncomplicated - Atherosclerotic heart disease of [place] coronary artery without angina pectoris - Chronic [...] - Pulmonary hypertension, unspecified 10/31/2024 09:[address] [facility] [place] TYPE: Critical Care COMPLAINT: - CHEST PAIN DIAGNOSES: - Alcohol abuse with withdrawal, unspecified - Alcohol abuse with withdrawal, unspecified - Atherosclerotic heart disease of [place] coronary artery without angina pectoris - Atherosclerotic heart disease of [place] coronary artery without angina pectoris - Chest pain, unspecified - Gastro-esophageal reflux disease without esophagitis - Gastro-esophageal reflux disease without esophagitis - Heart failure, unspecified - Heart failure, unspecified - Hypertensive heart disease with heart failure - Hypertensive heart disease with heart failure - 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 - long-term (current) use of aspirin - Nonrheumatic aortic (valve) stenosis - Nonrheumatic aortic (valve) stenosis - Obesity, unspecified - Obesity, unspecified - Old myocardial infarction - Old myocardial infarction - Other terminal press operator (current) drug therapy - Other terminal press operator (current) drug therapy - Other specified postprocedural [...] because of patient's decision for other reasons [email or web address]
[2025-06-26] MEDS ORDERED: ALBUTEROL/IPRATROPIUM 3 ML NEB INH PRN (21:15)
[2025-06-26 21:19] LABS: BASOPHILS 0.4 % (0.2-1.2); EOSINOPHILS 0.9 % (0.8-7.0); LYMPHOCYTES 9.3 % (21.8-53.1); MCH 27.2 PG (25.7-32.2); MCHC 32.2 g/dL (32.3-36.5); MCV 84.5 fL (79.0-92.2); MONOCYTES 11.1 % (5.3-12.2); NEUTROPHILS 78.1 % (34.0-67.9); RBC 4.71 M/uL (4.63-6.08)
[2025-06-26] MEDS ORDERED: FUROSEMIDE 100 MG/10 ML VIAL IV ONE (21:45)
[2025-06-26 22:12] LABS: ALT (SGPT) 23.0 U/L (14-59); AST (SGOT) 50.0 U/L (15-37); GLOMERULAR FILTRATION RATE,EST 52.0 mL/min (>60); PROTEIN, TOTAL 7.0 g/dL (6.4-8.2); UREA NITROGEN 23.0 mg/dL (7-18)
[2025-06-26] MEDS ORDERED: LORazepam 2 MG/ML VIAL IV ONE (22:30)
[2025-06-26 22:36] LABS: BLOOD/HGB, URINE NEGATIVE (Negative); KETONE, URINE NEGATIVE (Negative); LEUK ESTERASE, URINE NEGATIVE (negative); NITRITE, URINE NEGATIVE (negative)
[2025-06-26 22:50] LABS: AMPHETAMINES, URINE NEGATIVE (NEGATIVE); BARBITURATES, URINE NEGATIVE (NEGATIVE); BENZODIAZEPINE, URINE NEGATIVE (NEGATIVE); CANNABINOID, URINE NEGATIVE (NEGATIVE); COCAINE, URINE NEGATIVE (NEGATIVE); ECSTASY, URINE NEGATIVE (NEGATIVE); FENTANYL, URINE NEGATIVE (NEGATIVE); METHADONE, URINE NEGATIVE (NEGATIVE); OPIATES, URINE NEGATIVE (NEGATIVE); OXYCODONE, URINE NEGATIVE (NEGATIVE); PHENCYCLIDINE, URINE NEGATIVE (NEGATIVE)
[2025-06-27 00:19] LABS: LACTIC ACID, BLOOD 1.1 mmol/L (0.4-2.0)
[2025-06-27 01:42] VITALS: BP 117/88
--- NOTE | 2025-06-28 15:14 | EKG ---
[facility] [address] [place] [address] Signed Ventricular-paced rhythm Biventricular pacemaker detected Abnormal ECG When compared with ECG of 19-APR-2025 21:41, Vent. rate has increased BY 31 BPM Confirmed by ANDRIA MAURICE MD ([id number]) on 06/28/2025 3:14:04 PM Electronically Signed By: ANDRIA MAURICE 06/28/25 1514 PATIENT NAME: LYNJHONNY Electrocardiogram DATE OF : 59 PHYSICIAN: ANDRIA MAURICE REPORT #: [id number] REPORT IS CONFIDENTIAL AND NOT TO BE RELEASED WITHOUT AUTHORIZATION
== END 2025-06-27 01:49 | disposition left against medical advice (07) ==
LOC: ED 20:57
PROVIDERS: Internal Medicine
DX: I11.0 Hypertensive heart disease with heart failure (principal); I50.9 Heart failure, unspecified; K74.60 Unspecified cirrhosis of liver; K21.9 Gastro-esophageal reflux disease without esophagitis; Z53.29 Procedure and treatment not carried out because of patient's decision for other reasons; Z79.82 Long term (current) use of aspirin; Z79.899 Other long term (current) drug therapy
CPT/HCPCS: 36415; 71045; 80053; 80307; 81003; 82140; 83605; 83735; 83880; 84484; 85025; 93005; 93010; 96374; 96375; 99285-25; A6590; G0480; J1938; J2060

== ENCOUNTER 2025-07-14 10:24 | Emergency (ER) | payer MEDICARE ==
[~2025-07-14] VITALS: Ht 180.3 cm; Wt 95.5 kg
--- OUTSIDE RECORDS SUMMARY | 2025-07-14 10:32 | XMS ---
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 Events No recent Security Events currently on file CRITERIA MET - 6 ED Visits in 6 Months - [facility] - 2 Visits in 30 Days - [facility] - 3 Facilities in 90 Days CARE PROVIDERS Michelle Lucio Registered Nurse 11/24/2019-Current PHONE: Unknown ABRAN ALVARADO Family Medicine Current PHONE: [phone] MIGEL MUNOZ Family Medicine: Obesity Medicine Current PHONE: [phone] Care Guidelines exist for the following facilities: [facility] ([place]) ( 07/28/2019 ) [facility] ( 06/18/2013 ) [facility] VISIT COUNT (12 MO.) 24 [facility] ([place]) 10 [facility] TOTAL 35 NOTE: Visits indicate total known visits. ED/UCC VISIT TRACKING (12 MO.) 07/14/2025 10:25 [facility] [place] TYPE: Emergency COMPLAINT: - SHORTNESS OF BREATH 07/11/2025 18:18 [facility] ([place]) TYPE: Emergency DIAGNOSES: - Other ascites - abd pain - Abdominal Pain - Shortness of Breath 07/09/2025 10:53 [facility] ([place]) TYPE: Emergency DIAGNOSES: - Other ascites - Abdominal Pain - Followup Medical Problem 07/01/2025 10:58 [facility] ([place]) TYPE: Emergency DIAGNOSES: - COVID-19 - Other ascites - Unspecified cirrhosis of liver - abd pain - Abdominal Pain 06/26/2025 20:58 [facility] COMPLAINT: - DIFFICULTY BREATHING DIAGNOSES: - Gastro-esophageal reflux disease without esophagitis - Heart failure, unspecified - Hypertensive heart disease with heart failure - alf (current) use of aspirin - 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 - Procedure and treatment not carried out because of patient's decision for other reasons - Shortness of breath - Unspecified cirrhosis of liver 06/25/2025 09:46 [facility] ([facility] TYPE: Emergency DIAGNOSES: - Alcoholic cirrhosis of liver with ascites - Cellulitis of left upper limb - Edema, unspecified - Other ascites - Edema - Shortness of Breath 06/20/2025 00:13 [facility] TYPE: Emergency DIAGNOSES: - Umbilical hernia with obstruction, without gangrene - Unspecified cirrhosis of liver 06/19/2025 15:14 [facility] ([facility] TYPE: Emergency DIAGNOSES: - Lower abdominal pain, unspecified - Umbilical hernia without obstruction or gangrene - Unspecified abdominal hernia with obstruction, without gangrene - abd pain - Abdominal Pain 06/15/2025 20:43 [facility] [place] ([facility] TYPE: Emergency DIAGNOSES: - Heart failure, unspecified - Patient's other noncompliance with medication regimen for other reason - Dysuria - Fatigue - Nausea 06/13/2025 23:17 [facility] ([place]) TYPE: Emergency DIAGNOSES: - Heart failure, unspecified - Lower abdominal pain, unspecified - Tachycardia, unspecified - Abdominal Pain - Shortness of Breath 06[facility]09[facility]2025 13[facility] [place] [facility]: Emergency DIAGNOSES: - Unspecified abdominal pain - abd pain - Abdominal Pain 06/01/2025 11:39 [facility] ([facility] TYPE: Emergency DIAGNOSES: - Heart failure, unspecified - Abdominal Pain 05/22/2025 09:12 [facility] [place] ([facility] TYPE: Emergency DIAGNOSES: - Other ascites - Unspecified abdominal pain - Unspecified atrial fibrillation - Tachycardia 05/16/2025 19:07 [facility] ([facility] TYPE: Emergency DIAGNOSES: - Other chondrocalcinosis, left elbow - Arm Pain - left arm pain 05/06/2025 16:32 [facility] [place] ([facility] TYPE: Emergency DIAGNOSES: - Cellulitis of abdominal wall - Encounter for issue of repeat prescription - Heart failure, unspecified - Iron deficiency anemia, unspecified - Metabolic encephalopathy - Other ascites - Other chronic pain - Periumbilical pain - Abdominal Pain - med refill - Medication Refill 04/30/2025 16:17 [facility] ([facility] TYPE: Emergency DIAGNOSES: - Unspecified abdominal pain - Unspecified kidney failure - Abdominal Pain - Abdominal Pain;Hernia - Abnormal Lab 04/19/2025 21:34 [facility] [place] TYPE: Emergency COMPLAINT: - CHEST PAIN DIAGNOSES: - Chest pain, unspecified - Heart failure, unspecified - Hepatic failure, unspecified without coma - Hypertensive heart disease with heart failure - Other jail (current) drug therapy 04/14/2025 17:00 [facility] [...] level to another, initial encounter - 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 04/11/2025 10:30 [facility] ([place]) TYPE: Emergency DIAGNOSES: - Heart failure, unspecified - Abdominal Pain - Shortness of Breath - stomach pain and shortness of breath 04/06/2025 16:11 [facility] ([place]) TYPE: Emergency DIAGNOSES: - Acute kidney failure, unspecified - Chronic kidney disease, stage 3 unspecified - Dizziness and giddiness - Heart failure, unspecified - Hypovolemia - Abdominal Pain - lt arm pain,poss fluid on lungs Plus 15 More Visits INPATIENT VISIT TRACKING (12 MO.) 06/20/2025 00:13 [facility] TYPE: Surgery DIAGNOSES: - Metabolic encephalopathy - Other ascites - Umbilical hernia with obstruction, without gangrene - Unspecified cirrhosis of liver 06/01/2025 11:39 [facility] ([facility] TYPE: Medical Surgical DIAGNOSES: - Acidosis, unspecified [...] malaise - Other specified counseling 05/22/2025 09:12 [facility] ([facility] TYPE: Medical Surgical DIAGNOSES: - Acute on chronic combined systolic (congestive) and diastolic (congestive) heart failure - Alcoholic cirrhosis of liver with ascites - Atherosclerotic heart disease of [place] coronary artery with unspecified angina pectoris - [...] Unspecified systolic (congestive) heart failure 04/06/2025 16:11 [facility] ([facility] TYPE: [...] - Other chronic pain 04/01/2025 19:20 [facility] TYPE: Medical Surgical COMPLAINT: - ACUTE ON [...] and hyponatremia - Hypo-osmolality and hyponatremia - alf (current) use of aspirin - internet sourcer (current) use of aspirin - Other ascites [...] - Unspecified cirrhosis of liver 03/13/2025 09:07 [facility] ([facility] TYPE: Medical Surgical DIAGNOSES: - Acute on chronic combined systolic (congestive) and diastolic (congestive) heart failure - Alcohol dependence, in remission - Atherosclerotic heart disease of [place] coronary artery with unspecified angina pectoris - Chronic kidney disease, stage 3a - Heart failure, unspecified - Mild intermittent asthma, uncomplicated - Myocardial infarction type 2 - Nicotine dependence, cigarettes, in remission - Nonrheumatic mitral (valve) insufficiency - Other specified abnormal findings of blood chemistry - Pulmonary hypertension, unspecified 02/16/2025 12:41 [facility] ([facility] TYPE: [...] medication regimen for other reason 01/13/2025 09:17 [facility] ([place] TYPE: Emergency DIAGNOSES: - Acute on chronic combined systolic (congestive) and diastolic (congestive) heart failure - Acute respiratory failure with hypoxia - Fluid overload, unspecified - Homelessness unspecified - Patient's noncompliance with dietary regimen due to unspecified reason - Shortness of breath 12/29/2024 06:07 [facility] ([place] TYPE: Medical Surgical DIAGNOSES: - Acute kidney failure, unspecified - Acute on chronic combined systolic (congestive) and diastolic (congestive) heart failure - Alcohol abuse, uncomplicated - Atherosclerotic heart disease of [place] coronary artery without angina pectoris - Chronic [...] defibrillator - Pulmonary hypertension, unspecified 10/31/2024 09:[address] [facility] [place] TYPE: Critical Care COMPLAINT: - CHEST PAIN DIAGNOSES: - Alcohol abuse with withdrawal, unspecified - Alcohol abuse with withdrawal, unspecified - Atherosclerotic heart disease of [place] coronary artery without angina pectoris - Atherosclerotic heart disease of [place] coronary artery without angina pectoris - Chest pain, unspecified - Gastro-esophageal reflux disease without esophagitis - Gastro-esophageal reflux disease without esophagitis - Heart failure, unspecified - Heart failure, unspecified - Hypertensive heart disease with heart failure - Hypertensive heart disease with heart failure - internet sourcer (current) use of aspirin - alf (current) use of aspirin - Nonrheumatic aortic (valve) stenosis - Nonrheumatic aortic (valve) stenosis - Obesity, unspecified - Obesity, unspecified - Old myocardial infarction - Old myocardial infarction - Other jail (current) drug therapy - 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
[2025-07-14] MEDS ORDERED: ALBUTEROL/IPRATROPIUM 3 ML NEB INH PRN (10:45)
[2025-07-14 10:48] LABS: BASOPHILS 0.9 % (0.2-1.2); EOSINOPHILS 0.3 % (0.8-7.0); LYMPHOCYTES 13.7 % (21.8-53.1); MCH 27.6 PG (25.7-32.2); MCHC 32.4 g/dL (32.3-36.5); MCV 85.0 fL (79.0-92.2); MONOCYTES 12.4 % (5.3-12.2); NEUTROPHILS 72.2 % (34.0-67.9); RBC 5.15 M/uL (4.63-6.08)
[2025-07-14 11:15] LABS: ALT (SGPT) 19.0 U/L (14-59); AST (SGOT) 37.0 U/L (15-37); GLOMERULAR FILTRATION RATE,EST 36.0 mL/min (>60); PROTEIN, TOTAL 6.7 g/dL (6.4-8.2); UREA NITROGEN 33.0 mg/dL (7-18)
[2025-07-14] MEDS ORDERED: FUROSEMIDE 100 MG/10 ML VIAL IV ONE (11:30)
[2025-07-14 12:11] LABS: BLOOD/HGB, URINE NEGATIVE (Negative); KETONE, URINE NEGATIVE (Negative); LEUK ESTERASE, URINE NEGATIVE (negative); NITRITE, URINE NEGATIVE (negative)
[2025-07-14 12:17] LABS: CRYSTALS, URINE NONE SEEN (0-1+); EPITHELIAL CELLS, URINE SQUAMOUS 1+ /lpf (0-1+)
[2025-07-14 12:18] LABS: BACTERIA, URINE NONE SEEN /hpf (negative); CASTS, URINE NONE SEEN \\lpf; REFLEX CULTURE, URINE No (No)
[2025-07-14 15:30] VITALS: BP 103/75
--- NOTE | 2025-07-14 19:12 | EKG ---
[facility] [address] [place] [address] Signed Ventricular-paced rhythm Biventricular pacemaker detected Abnormal ECG When compared with ECG of 26-JUN-2025 21:12, Vent. rate has increased BY 6 BPM Confirmed by Tatyana Muller MD () on 07/14/2025 7:12:09 PM Electronically Signed By: TATYANA MULLER MD 07/14/251911 PATIENT NAME: JHONNY NICHOLSON Electrocardiogram DATE OF : 59 PHYSICIAN: TATYANA MULLER MD REPORT #: [id number] REPORT IS CONFIDENTIAL AND NOT TO BE RELEASED WITHOUT AUTHORIZATION
[2025-08-22] MEDS ORDERED: CIPROFLOXACIN500 MG PO (15:14)
[2025-08-22] MEDS ORDERED: HYDROCODON-ACE1 EA10 PO (18:23)
[2025-08-26] MEDS ORDERED: CEPHALEXIN500 MG PO (09:35)
[2025-08-26] MEDS ORDERED: CEPHALEXIN500 M1 PO (09:37)
[2025-08-29] MEDS ORDERED: ALDACTONE25 MG PO (21:49)
[2025-08-29] MEDS ORDERED: SOAANZ40 MG PO (21:49)
== END 2025-07-14 15:42 | disposition short-term general hospital (02) ==
LOC: ED 10:24
PROVIDERS: Emergency Medicine
DX: J96.01 Acute respiratory failure with hypoxia (principal); I42.9 Cardiomyopathy, unspecified; J81.1 Chronic pulmonary edema; I11.0 Hypertensive heart disease with heart failure; I50.9 Heart failure, unspecified; Z79.899 Other long term (current) drug therapy
CPT/HCPCS: 36415; 49083; 71045; 80053; 81001; 82803; 83605; 83735; 83880; 84484; 85025; 85379; 87040; 93005; 93010; 94640; 96365; 96375; 99285-25; J0696; J1938

== ENCOUNTER 2025-07-23 11:32 | Inpatient (IN) | payer MEDICARE ==
[~2025-07-23] VITALS: Ht 180.3 cm; Wt 98.8 kg
--- NOTE | ~2025-07-23 | EKG ---
[facility] [address] [facility] [place], [place] [address] Draft EKG completed, results pending confirmation PATIENT NAME: NICHOLSONJHONNY Electrocardiogram DATE OF : 59 PHYSICIAN: PRELIMINARY REPORT #: [id number] REPORT IS CONFIDENTIAL AND NOT TO BE RELEASED WITHOUT AUTHORIZATION
--- OUTSIDE RECORDS SUMMARY | 2025-07-23 11:39 | XMS ---
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 ([place]) 11 [facility] TOTAL 37 NOTE: Visits indicate total known visits. ED/UCC VISIT TRACKING (12 MO.) 07/23/2025 11:32 [facility] [place] TYPE: Emergency COMPLAINT: - ABDOMINAL PAIN [facility]25 [facility] DIAGNOSES: - Heart failure, unspecified - Abdominal Pain - weakness, abd pain 07/14/2025 10:25 [facility] [place] COMPLAINT: - SHORTNESS OF BREATH DIAGNOSES: - Acute respiratory failure with hypoxia - Cardiomyopathy, unspecified - Chronic pulmonary edema - Heart failure, unspecified - Hypertensive heart disease with heart failure - Other fdc (current) drug therapy - Shortness of breath 07/11/2025 18:18 [facility]: Emergency DIAGNOSES: - Other ascites - abd pain - Abdominal Pain - Shortness of Breath 07/09/2025 10:[address] [facility] ([place]) TYPE: Emergency DIAGNOSES: - Other ascites - Abdominal Pain - Followup Medical Problem 07/01/2025 10:[address] [facility] ([place]) TYPE: Emergency DIAGNOSES: - COVID-19 - Other ascites - Unspecified cirrhosis of liver - abd pain - Abdominal Pain 06/26/2025 20:58 [facility] [place] TYPE: Emergency COMPLAINT: - DIFFICULTY BREATHING DIAGNOSES: - Gastro-esophageal reflux disease without esophagitis - Heart failure, unspecified - Hypertensive heart disease with heart failure - senior living (current) use of aspirin - Other fdc (current) drug therapy - Procedure and treatment not carried out because of patient's decision for other reasons - Shortness of breath - Unspecified cirrhosis of liver 06/25/2025 09:[address] [facility] [place] TYPE: Emergency DIAGNOSES: - Alcoholic cirrhosis of liver with ascites - Cellulitis of left upper limb - Edema, unspecified - Other ascites - Edema - Shortness of Breath 06/20/2025 00:13 [facility] TYPE: Emergency DIAGNOSES: - Umbilical hernia with obstruction, without gangrene - Unspecified cirrhosis of liver 06/19/2025 15:[address] [facility] ([place] TYPE: Emergency DIAGNOSES: - Lower abdominal pain, unspecified - Umbilical hernia without obstruction or gangrene - Unspecified abdominal hernia with obstruction, without gangrene - abd pain - Abdominal Pain 06/15/2025 20:[address] [facility] ([place] TYPE: Emergency DIAGNOSES: - Heart failure, unspecified - Patient's other noncompliance with medication regimen for other reason - Dysuria - Fatigue - Nausea 06/13/2025 23:[address] [facility] ([place]) TYPE: Emergency DIAGNOSES: - Heart failure, unspecified - Lower abdominal pain, unspecified - Tachycardia, unspecified - Abdominal Pain - Shortness of Breath 06/09/2025 13:[address] [facility] ([place] TYPE: Emergency DIAGNOSES: - Unspecified abdominal pain - abd pain - Abdominal Pain 06/01/2025 11:39 [facility] Emergency DIAGNOSES: - Heart failure, unspecified - Abdominal Pain 05/22/2025 09:12 [facility]: Emergency DIAGNOSES: - Other ascites - Unspecified abdominal pain - Unspecified atrial fibrillation - Tachycardia 05/16/2025 19:[address] [facility] [place] [facility] TYPE: Emergency DIAGNOSES: - Other chondrocalcinosis, left elbow - Arm Pain - left arm pain 05/06/2025 16:[address] [facility] [place] [place] ([facility] TYPE: Emergency DIAGNOSES: - Cellulitis of abdominal wall - Encounter for issue of repeat prescription - Heart failure, unspecified - Iron deficiency anemia, unspecified - Metabolic encephalopathy - Other ascites - Other chronic pain - Periumbilical pain - Abdominal Pain - med refill - Medication Refill 04/30/2025 16:[address] [facility] [place] ([facility] TYPE: Emergency DIAGNOSES: - Unspecified abdominal pain - Unspecified kidney failure - Abdominal Pain - Abdominal Pain;Hernia - Abnormal Lab 04/19/2025 21:34 [facility] [place] [facility] [place] TYPE: Emergency COMPLAINT: - CHEST PAIN DIAGNOSES: - Chest pain, unspecified - Heart failure, unspecified - Hepatic failure, unspecified without coma - Hypertensive heart disease with heart failure - Other fdc (current) drug therapy 04/14/2025 17:00 [facility] [place] TYPE: Emergency COMPLAINT: - FALL,HEAD INJURY,VOMITING DIAGNOSES: - Concussion without loss of consciousness, initial encounter - Contusion of left upper arm, initial encounter - Contusion of right upper arm, initial encounter - Pigeon coma scale score 13-15, unspecified time - Headache, unspecified - Heart failure, unspecified - Hypertensive heart disease with heart failure - Other fall from one level to another, initial encounter - Other fdc (current) drug therapy Plus 17 More Visits INPATIENT VISIT TRACKING (12 MO.) 07/14/2025 17:[address] [facility] ([facility] TYPE: Medical Surgical DIAGNOSES: - Acute kidney failure, unspecified - Acute on chronic combined systolic (congestive) and diastolic (congestive) heart failure - Alcoholic cirrhosis of liver with ascites - Chronic combined systolic (congestive) and diastolic (congestive) heart failure - Essential (primary) hypertension - Pulmonary hypertension, unspecified - Anasarca - CHF 06/20/2025 00:13 [facility] TYPE: Surgery DIAGNOSES: - Metabolic encephalopathy - Other ascites - Umbilical hernia with obstruction, without gangrene - Unspecified cirrhosis of liver 06/01/2025 11:[address] [facility] ([facility] TYPE: [...] malaise - Other specified counseling 05/22/2025 09:[address] [facility] ([facility] TYPE: Medical Surgical DIAGNOSES: - Acute on chronic combined systolic (congestive) and diastolic (congestive) heart failure - Alcoholic cirrhosis of liver with ascites - Atherosclerotic heart disease of [place] coronary artery with unspecified angina pectoris - [...] Unspecified systolic (congestive) heart failure 04/06/2025 16:[address] 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 - Other ascites [...] - Unspecified cirrhosis of liver 03/13/2025 09:07 [facility] TYPE: Medical Surgical DIAGNOSES: - Acute on chronic combined systolic (congestive) and diastolic (congestive) heart failure - Alcohol dependence, in remission - Atherosclerotic heart disease of [place] coronary artery with unspecified angina pectoris - Chronic kidney disease, stage 3a - Heart failure, unspecified - Mild intermittent asthma, uncomplicated - Myocardial infarction type 2 - Nicotine dependence, cigarettes, in remission - Nonrheumatic mitral (valve) insufficiency - Other specified abnormal findings of blood chemistry - Pulmonary hypertension, unspecified 02/16/2025 12:[address] [facility] ([place] TYPE: Medical Surgical DIAGNOSES: - Acute on [...] medication regimen for other reason 01/13/2025 09:[address] [facility] ([place] TYPE: Emergency DIAGNOSES: - Acute on chronic combined systolic (congestive) and diastolic (congestive) heart failure - Acute respiratory failure with hypoxia - Fluid overload, unspecified - Homelessness unspecified - Patient's noncompliance with dietary regimen due to unspecified reason - Shortness of breath 12/29/2024 06:07 [facility] TYPE: Medical Surgical DIAGNOSES: - Acute kidney failure, unspecified - Acute on chronic combined systolic (congestive) and diastolic (congestive) heart failure - Alcohol abuse, uncomplicated - Atherosclerotic heart disease of [place] coronary artery without angina pectoris - Chronic [...] withdrawal, unspecified - Atherosclerotic heart disease of [place] coronary artery without angina pectoris - Atherosclerotic heart disease of [place] coronary artery without angina pectoris - Chest pain, unspecified - Gastro-esophageal reflux disease without esophagitis - Gastro-esophageal reflux disease without esophagitis - Heart failure, unspecified - Heart failure, unspecified - Hypertensive heart disease with heart failure - Hypertensive heart disease with heart failure - senior living (current) use of aspirin - 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
[2025-07-23] MEDS ORDERED: ALBUTEROL/IPRATROPIUM 3 ML NEB INH ONE (12:30)
[2025-07-23 12:50] LABS: BASOPHILS 0.4 % (0.2-1.2); EOSINOPHILS 0.9 % (0.8-7.0); LYMPHOCYTES 10.8 % (21.8-53.1); MCH 27.4 PG (25.7-32.2); MCHC 32.8 g/dL (32.3-36.5); MCV 83.6 fL (79.0-92.2); MONOCYTES 9.9 % (5.3-12.2); NEUTROPHILS 77.6 % (34.0-67.9); RBC 4.45 M/uL (4.63-6.08)
[2025-07-23 13:12] LABS: ALT (SGPT) 15.0 U/L (14-59); AST (SGOT) 33.0 U/L (15-37); GLOMERULAR FILTRATION RATE,EST 47.0 mL/min (>60); PROTEIN, TOTAL 6.0 g/dL (6.4-8.2); UREA NITROGEN 30.0 mg/dL (7-18)
[2025-07-23] MEDS ORDERED: FUROSEMIDE 40 MG/4 ML VIAL IV ONE ×2 (13:15→14:00)
[2025-07-23] MEDS ORDERED: POTASSIUM CHLORIDE 20 MEQ/15 ML CUP PO ONE (13:30)
[2025-07-23] MEDS ORDERED: LIDOCAINE 2% VISCOUS 6 ML SYR TOP ONE (14:00)
[2025-07-23] MEDS ORDERED: ACETAMINOPHEN 325 MG TAB PO PRN (15:45)
[2025-07-23] MEDS ORDERED: PANTOPRAZOLE SODIUM 40 MG TABEC PO SCH (15:50)
[2025-07-23 17:00] VITALS: BP 111/83
[2025-07-23] MEDS ORDERED: ATORVASTATIN 40 MG TAB PO SCH (17:00)
--- NOTE | 2025-07-23 17:20 | NUR ---
1650 - PT QADMITTED TO ROOM 115 VIA STRETCHER FROM ER. ALERT AND ORIENTED, NO OPEN AREAS, SCABS IN LEGS, TELE#[address] EDEMATOUS SCROTUM AND PENIS, ELEVATED WITH TOWELS, F/C PLACED IN ER, NOT CHRONIC, VOIDING CLEAR YELLOW URINE. ON ROOM AIR, COOPERATIVE WITH VITALS AND ASSESSMENS. LUNGS DIM AT BAES, ABD SOFT, KINJAL LBM 07/23. SL RFA PATENT. STANDING ADMIT WEIGHT IS 96.2KG. PITTING EDEMA 2+ MID THIGHS DOWN TO TOES. ELEVATED, FAINT PEDAL PULSES. SITTING UP POSITION EATING AT THIS TIME, DENIES C/O PAIN.
[2025-07-23 17:32] VITALS: BP 111/83
--- NOTE | 2025-07-23 18:29 | NUR ---
PT IN BED, ATE 50% MEALS[facility], DR KRAMER CALLED THIS FLOOR WITH NEW ORDERS DILTIAZEM, WILL GIVE SOON MED IS VERIFIED BY RX. RESTLESS IN BED, TURNING AND REPOSITIONING SELF IN BED, CONCERNED ABOUT THE F/C. F/C DRAINING LARGE AMUNT OF CLEAR YELLOW URINE. NO PENILE DISCHARGE AT THIS TIME, SCROTAL AND PENILE AREAS ELEVATED WITH TOWELS. ALL CONCERNS R/T F/C/PENIS GIVEN VERBALLY, STATED UNDERSTANDING
[2025-07-23 18:43] VITALS: BP 110/76
--- NOTE | 2025-07-23 18:47 | NUR ---
diltiazem given as per orders, restless in bed, concerned about f/c, again all procedures explained, Reasonig, precautions and benefits of f/c explained, staed ok. shayla and gypsy, "its my normal"
--- NOTE | 2025-07-23 19:10 | NUR ---
REPORT RECEIVED FROM SOURAV EDWARDS. BOARD UPDATED. pt RESTING IN THE BED. SNACK PROVIDED AND LAST FLUIDS GIVEN FOR THE NIGHT. pt DENEIS ANY OTHER NEEDS AT THIS TIME. CALL LIGHT WITHIN REACH.
[2025-07-23] MEDS ORDERED: MELATONIN 3 MG TAB PO PRN (21:00)
[2025-07-23] MEDS ORDERED: HEParin SOD (PORCINE) 5,000 UNIT/ML SDV SUB-Q SCH (21:00)
[2025-07-23 21:37] VITALS: BP 104/69
[2025-07-23 21:42] VITALS: BP 104/69
--- NOTE | 2025-07-23 21:45 | NUR ---
ASSESSMENT AND VITAL SIGNS DONE. SNACK PROVIDED. THANKS GIVING DINNER BROUGHT IN BY FAMILY. pt MALLOY CARE DONE. SCROTUM AND PENIS SWOLLEN AND ELEVATED WITH PILLOW CASE. LUNG SOUNDS CLEAR. pt DENIES ANY OTHER NEEDS AT THIS TIME. CALL LIGHT WITHIN REACH.
[2025-07-23] MEDS ORDERED: ALBUTEROL SULFATE 0.083% 3 ML VIAL INH PRN (22:00)
--- NOTE | 2025-07-23 23:13 | NUR ---
JHONNY'S HR IS AVERAGING GREATER THAN 110, SO RT CHANGED PRN ALBUTEROL TO XOPENEX AND PLACED JHONNY ON TID BREATHING TREATMENTS. JHONNY SHOULD BE DOING XOPENEX AND PULMICORT BREATHING TREATMENTS AT HOME.
[2025-07-24] VITALS (12 sets, daily range): BP systolic 100–125; BP diastolic 69–78
--- NOTE | 2025-07-24 00:42 | NUR ---
pt CALLED FOR RN. pt STATED THAT HE WAS UNAWARE OF BEING NPO AT THIS TIME AND WANTS THE REST OF HIS WATER. THIS RN WENT IN THE RM TO TALK TO pt AND OFFERED THE REST OF THE WATER SO THEN HE HAS TO BE NPO FROM NOW ON. pt AGREED, NO OTHER NEEDS AT THIS TIME. CALL LIGHT WITHIN REACH.
--- NOTE | 2025-07-24 02:29 | NUR ---
IN RM TO DO ASSESSMENT AND VITAL SIGNS. SCHEDULED MEDS ADMINISTERED. LUNG SOUNDS ARE CLEAR. pt DENIES ANY OTHER NEEDS AT THIS TIME. CALL LIGHT WITHIN REACH.
[2025-07-24 05:20] LABS: BASOPHILS 0.4 % (0.2-1.2); EOSINOPHILS 1.1 % (0.8-7.0); LYMPHOCYTES 10.2 % (21.8-53.1); MCH 27.5 PG (25.7-32.2); MCHC 33.0 g/dL (32.3-36.5); MCV 83.1 fL (79.0-92.2); MONOCYTES 10.6 % (5.3-12.2); NEUTROPHILS 77.5 % (34.0-67.9); RBC 4.15 M/uL (4.63-6.08)
[2025-07-24 05:35] LABS: ALT (SGPT) 18.0 U/L (14-59); AST (SGOT) 31.0 U/L (15-37); GLOMERULAR FILTRATION RATE,EST 37.0 mL/min (>60); PROTEIN, TOTAL 5.8 g/dL (6.4-8.2); UREA NITROGEN 27.0 mg/dL (7-18)
[2025-07-24] MEDS ORDERED: MAGNESIUM OXIDE 400 MG TABLET PO ONE ×2 (06:45→09:30)
--- NOTE | 2025-07-24 07:07 | NUR ---
UR CLINICAL REVIEW: [facility], MEETS INPT FOR HEART FAILURE IV DIURETICS, PULSE >100, SHORTNESS OF BREATH, EDEMA TO [facility] INPT 07/23/25 @ 1551 ORDER MATCHES REG AUTH PENDING, WILL SEND CLINICALS FOR REVIEW PLAN TO DC TO HOME WHEN MEDICALLY READY DC REVIEW 07/25/2025
--- NOTE | 2025-07-24 07:25 | NUR ---
RECIEVED REPORT FROM GRACE GASTELUM. PT IS RESTING IN BED WITH EYES CLOSED. RR EVEN AND UNLABORED. CALL LIGHT IS WITHIN REACH.
[2025-07-24] MEDS ORDERED: BUDESONIDE 0.5 MG/2 ML VIAL INH SCH (08:00)
[2025-07-24] MEDS ORDERED: IPRATROPIUM BROMIDE 2.5 ML VIAL INH SCH (08:00)
[2025-07-24] MEDS ORDERED: FUROSEMIDE 100 MG/10 ML VIAL IV SCH ×2 (09:00)
--- NOTE | 2025-07-24 09:19 | NUR ---
PT THREATENING TO LEAVE AMA IF KEPT NPO FOR ANY LONGER. DR. KRAMER CALLED. GAVE ORDERS FOR 2 GRAM SODIUM DIET AND 1500 ML FLUID RESTRICTION. NO FURTHER ORDERS. PHONE CALL ENDED. FAIZAN EDWARDS, PLACED CALL TO DIETARY FOR BREAKFAST TRAY.
--- NOTE | 2025-07-24 09:28 | NUR ---
INTO SEE PATIENT. PATIENT STATES "I DO NOT WANT TO SEE YOU UNTIL I EAT OR DRINK." PATIENT REFUSED CM AT THIS TIME.
[2025-07-24] MEDS ORDERED: MIDODRINE HCL5 MG PO (09:52)
[2025-07-24] MEDS ORDERED: TAMSULOSIN HCL0.4 MG PO (09:53)
[2025-07-24] MEDS ORDERED: FINASTERIDE5 MG PO (09:53)
[2025-07-24] MEDS ORDERED: CONSTULOSE10 GM/15 M PO (09:54)
[2025-07-24] MEDS ORDERED: JARDIANCE10 MG PO (09:58)
[2025-07-24 09:59] LABS: BLOOD/HGB, URINE LARGE (Negative); KETONE, URINE TRACE (Negative); LEUK ESTERASE, URINE TRACE (negative); NITRITE, URINE NEGATIVE (negative)
[2025-07-24] MEDS ORDERED: LOSARTAN POTASS25 MG PO (09:59)
[2025-07-24] MEDS ORDERED: SPIRONOLACTONE25 MG PO (10:00)
[2025-07-24] MEDS ORDERED: METOPROLOL SUCC50 MG PO (10:00)
--- NOTE | 2025-07-24 10:00 | NUR ---
HOT CUP OF COFFEE PROVIDED PER PATIENT REQUEST AT THIS TIME. PATIENT RE-EDUCATED ON 1,500 ML FLUID RESTRICTION. PATIENT STATED NO FURTHER NEEDS AT THIS TIME. CALL LIGHT AND PERSONAL BELONGINGS ARE WIHTIN REACH.
[2025-07-24] MEDS ORDERED: POTASSIUM CHLO10 ME1 PO (10:03)
[2025-07-24 10:11] LABS: CRYSTALS, URINE NONE SEEN (0-1+); EPITHELIAL CELLS, URINE 0 /lpf (0-1+)
[2025-07-24 10:12] LABS: BACTERIA, URINE 1+ /hpf (negative); REFLEX CULTURE, URINE Yes (No)
--- NOTE | 2025-07-24 11:12 | NUR ---
PT NURSE CHARTED PT VS, AVIATION MAINTENANCE INSTRUCTOR AHSAN CHARTED PT INTAKE AND OUTPUT. ROSS FOREMAN ANSWERED CALL LIGHT TO ASSIST HIM WITH GETTING BACK UP TO BED AFTER PT USED BSC. PT HAD A BM AND ROSS FOREMAN DOCUMENTED AND HELPED CLEAN UP THE ROOM AFTER THAT. PT STATED NO FURTHER NEEDS, CALL LIGHT LEF WITHIN REACH.
--- NOTE | 2025-07-24 11:35 | NUR ---
PT RESTING IN BED WITH EYES OPEN, WATCHING TV. CALL LIGHT AND PERSONAL BELONGINGS ARE WITHIN REACH.
[2025-07-24] MEDS ORDERED: PHARMACY RENAL DOSE ADJUSTMENT 1 DOSE MISC PO SCH (12:00)
--- NOTE | 2025-07-24 12:36 | NUR ---
PT RESTING IN BED WITH EYES OPEN, WATCHING TV. LUNCH TRAY IS AT BEDSIDE, CALL LIGHT IS WITHIN REACH.
--- NOTE | 2025-07-24 13:12 | EKG ---
[facility] [address] [place] [address] Signed Ventricular-paced rhythm Biventricular pacemaker detected Abnormal ECG When compared with ECG of 14-JUL-2025 10:47, Vent. rate has decreased BY 10 BPM Confirmed by Tony Kramer DO ([id number]) on 07/24/2025 1:12:34 PM Electronically Signed By: TONY KRAMER DO 07/24/25 1312 PATIENT NAME: LYNJHONNY Electrocardiogram DATE OF : 59 PHYSICIAN: TONY KRAMER DO REPORT #: [id number] REPORT IS CONFIDENTIAL AND NOT TO BE RELEASED WITHOUT AUTHORIZATION
--- NOTE | 2025-07-24 13:50 | NUR ---
PT RESTING IN BED WITH EYES OPEN, WATCHING TV. PT EDUCATED ON FLUID RESTRICTIONS AND PROVIDED 300 ML FREE WATER PER PT REQUEST. PT REQUESTING APPLESAUCE, PUDDING AND CHAPARRO CRACKERS. PUDDING AND APPLESAUCE PROVIDED, CHAPARRO CRACKERS HELD DUE TO HIGH SODIUM CONTENT. NO FURTHER REQUESTS AT THIS TIME.
--- NOTE | 2025-07-24 14:51 | NUR ---
In with pt in response to call light. Pt is requesting mandi crackers, however, there is sodium in mandi crackers and pt sodium intake is being monitored. Primary RN notified. Also advised pt that the hospitalists are changing shifts and that Dr. Paul will be in to see him when he is available.
--- NOTE | 2025-07-24 15:11 | NUR ---
ROSS FOREMAN PROVIDED MALLOY AND PERINEAL CARE FOR PATIENT. PATIENT ASKED FOR APPLE JUICE AND ICE CHIPS AND ROSS FOREMAN REPORTED TO HIS NURSE. CALL LIGHT WITHIN REACH, NO FURTHER NEEDS.
--- NOTE | 2025-07-24 15:20 | NUR ---
In with pt for respiratory meds per emar as RT Nessa is in with a code patient. Meds administered per emar.
--- NOTE | 2025-07-24 15:45 | NUR ---
PATIENT IS LYING IN BED WITH HOB ELEVATED. PATIENT WITH EYES OPEN AND RESPIRATIONS ARE EVEN AND UNLABORED. PATIENT STATED NO NEEDS AT THIS TIME. CALL LIGHT AND PERSONAL BELONGINGS ARE WITHIN REACH.
--- NOTE | 2025-07-24 16:00 | NUR ---
MED REC COMPLETE
--- NOTE | 2025-07-24 16:07 | NUR ---
Dr. Paul here to see pt, verbal orders obtained to stop fluid restrictions, change IV lasix to 80mg PO BID, add spironolactone po 100mg QD
--- NOTE | 2025-07-24 18:26 | NUR ---
PT RESTING IN BED WITH EYES OPEN, WATCHING TV. CALL LIGHT AND PERSONAL BELONGINGS ARE WITHIN REACH.
--- NOTE | 2025-07-24 19:10 | NUR ---
REPORT RECEIVED FROM ALICIA EDWARDS. pt RESTING IN THE BED. RT IN THE RM DOING BREATHING TREATMENT. BOARD UPDATED. pt DENIES ANY OTHER NEEDS AT THIS TIME. CALL LIGHT WITHIN REACH.
--- NOTE | 2025-07-24 19:47 | NUR ---
JHONNY (AKA: ALEXIS) WOULD BENEFIT FROM A HOME NEBULIZER AND XOPENEX BID WITH PULMICORT BID AND AN ALBUTEROL INHALER FOR PRN USE.
--- NOTE | 2025-07-24 20:16 | NUR ---
PT CALLED FOR WATER. WATER REFILLED, VITAL SIGNS DONE, MALLOY EMPTIED, FAN PROVIDED. NO NEEDS AT THIS TIME, CALL LIGHT IN REACH.
--- NOTE | 2025-07-24 21:10 | NUR ---
ASSESSMENT AND VITAL SIGNS DONE. TELE #9 ON. pt HR IN THE 11O'S. SCHEDULED MEDS ADMINISTERED. pt ABD SLIGHTLY FIRM. MALLOY CARE DONE. SCROTUM ELEVATED WITH TOWEL. SNACK PROVIDED. pt DENIES ANY OTHER NEEDS AT THIS TIME. CALL LIGHT WITHIN REACH.
--- NOTE | 2025-07-25 | NUR ---
pt CALLED AND C/O 05/06 PAIN. PRN PAIN MEDS ADMINISTERED. pt DENIES ANY OTHER NEEDS AT THIS TIME. COFFEE PROVIDED TO pt. CALL LIGHT WITHIN REACH.
--- NOTE | 2025-07-25 01:00 | NUR ---
pt CALLED AND REQUESTED A BREATHING TREATMENT FROM RT. RT NOTIFIED AND BREATHING TREATMENT RECEIVED. pt DENIES ANY OTHER NEEDS AT THIS TIME. CALL LIGHT WITHIN REACH.
[2025-07-25 02:08] VITALS: BP 111/76
[2025-07-25 02:13] VITALS: BP 111/76
--- NOTE | 2025-07-25 02:26 | NUR ---
IN RM TO ADMINISTER SCHEDULED MED. pt SITTING ON THE EDGE OF THE BED STATING HE WAS HAVING TROUBLE BREATHING. THIS RN ASSESSED pt. VITAL SIGNS DONE. VSS. pt BACK TO BED. pt DENIES ANY OTHER NEEDS AT THIS TIME. CALL LIGHT WITHIN REACH.
[2025-07-25] MEDS ORDERED: MELATONIN 3 MG TAB PO PRN (02:45)
--- NOTE | 2025-07-25 02:56 | NUR ---
IN RM TO ADMINISTER PRN MELATONIN. pt STATE HE IS WAITING UP FOR THE DOCTOR SO HE CAN ASK HIM IF HE CAN GET THE MALLOY TAKEN OUT. THIS RN EDUCATED pt THAT THE DOCTOR WAS NOT GOING TO BE HERE TO LATER IN THE MORE AND THE pt SHOULD TRY AND GET SOME SLEEP. pt STATED HE DID NOT CARE AND THAT HE WOULD WAIT. pt AGREED TO TAKE THE MED. pt DENIES ANY OTHER NEEDS AT THIS TIME. CALL LIGHT WITHIN REACH.
--- NOTE | 2025-07-25 04:34 | NUR ---
pt SITTING UP IN THE BED. pt DENIES ANY OTHER NEEDS AT THIS TIME. CALL LIGHT WITHIN REACH.
[2025-07-25 05:12] VITALS: BP 113/78
[2025-07-25 05:30] LABS: BASOPHILS 0.4 % (0.2-1.2); EOSINOPHILS 0.9 % (0.8-7.0); LYMPHOCYTES 11.0 % (21.8-53.1); MCH 27.1 PG (25.7-32.2); MCHC 32.2 g/dL (32.3-36.5); MCV 84.3 fL (79.0-92.2); MONOCYTES 11.9 % (5.3-12.2); NEUTROPHILS 75.4 % (34.0-67.9); RBC 4.39 M/uL (4.63-6.08)
[2025-07-25 05:53] LABS: ALT (SGPT) 19.0 U/L (14-59); AST (SGOT) 33.0 U/L (15-37); GLOMERULAR FILTRATION RATE,EST 55.0 mL/min (>60); PROTEIN, TOTAL 6.4 g/dL (6.4-8.2); UREA NITROGEN 24.0 mg/dL (7-18)
[2025-07-25 05:57] LABS: PHOSPHORUS, INORGANIC 2.6 mg/dL (2.5-4.9)
[2025-07-25] MEDS ORDERED: NITROGLYCERIN 0.4 MG SUBL SL PRN (06:30)
[2025-07-25] MEDS ORDERED: METOPROLOL TARTRATE 50 MG TAB PO ONE (06:30)
--- NOTE | 2025-07-25 06:43 | NUR ---
THIS CALL MD DUE TO TROP LEVEL BEING ELEVATED. NEW ORDERS RECEIVED AND VERIFIED WITH REPEAT BACK METHOD. PRN MED ADMINISTERED. pt DENIES ANY OTHER NEEDS AT THIS TIME. CALL LIGHT WITHIN REACH.
--- NOTE | 2025-07-25 07:01 | NUR ---
PATIENT IS LYING IN BED WITH HOB ELEVATED. PATIENT WITH EYES OPEN AND RESPIRATIONS ARE EVEN AND UNLABORED. ROOM LIGHTS ARE ON. CALL LIGHT AND PERSONAL BELONGINGS ARE WITHIN REACH.
[2025-07-25] MEDS ORDERED: ASPIRIN 81 MG CHEW PO SCH (08:00)
--- NOTE | 2025-07-25 08:55 | NUR ---
PATIENT IS SITTING ON THE EDGE OF BED AT THIS TIME. RESPIRATORY THERAPY IS IN THE ROOM AT THIS TIME AND GETTING A BREATHING TREATMENT AND EKG. PATIENT REPORTS NAUSEA AT THIS TIME. PATIENT EDUCATED ON THIS RN FINISHING UP WITH A PATIENT AND COMING BACK. PATIENT EXPRESSED UNDERSTANDING. PATIENT STATED NO FURTHER NEEDS AT THIS TIME. RESPIRATORY THERAPY REMAINS IN THE ROOM.
[2025-07-25] MEDS ORDERED: SPIRONOLACTONE 25 MG TAB PO SCH (09:00)
[2025-07-25] MEDS ORDERED: FUROSEMIDE 40 MG TAB PO SCH (09:00)
[2025-07-25 09:23] VITALS: BP 95/70
[2025-07-25 09:28] VITALS: BP 95/70
--- NOTE | 2025-07-25 09:43 | NUR ---
PATIENT IS LYING IN BED WITH HOB ELEVATED. PATIENT MALLOY CATHETER REMOVED. VITAL SIGNS TAKEN AND DOCUMENTED IN THE CHART. PATIENT REFUSED LASIX AND SPIRINOLACTONE. PATIENT REPORTS WANTING TO GO "NOW BECAUSE THE DOCTOR SAID I COULD GO". PATIENT EDUCATED ON WAITING FOR A DISCHARGE ORDER. PATIENT STATED NO FURTHER NEEDS AT THIS TIME. CALL LIGHT AND PERSONAL BELONGINGS ARE WITHIN REACH.
--- NOTE | 2025-07-25 10:01 | NUR ---
PATIENT REMAINS IN BED WITH HOB ELEVATED. PATIENT WITH EYES OPEN AND RESPIRATIONS ARE WITHIN REACH. PATIENT ASKED IF THE ORDER FROM THE DOCTOR WAS IN. PATIENT EDUCATED ON NOT HAVING THE ORDER YET. PATIENT EXPRESSED THE NAUSEA HAS IMPROVED. PATIENT STATED NO FURTHER NEEDS AT THIS TIME. CALL LIGHT AND PERSONAL BELONGINGS ARE WITHIN REACH.
--- NOTE | 2025-07-25 10:28 | NUR ---
DR. BRUSH NOTIFIED OF PATIENT LOW BP AND MORNING MEDICATIONS BEING HELD. ALSO NOTIFIED ON NEW NAUSEA AND SEDIMENT IN THE URINE. MD WITHOUT NEW ORDERS AT THIS TIME. CALL ENDED.
--- NOTE | 2025-07-25 10:35 | NUR ---
Notified by SHARRI Valdez that this pt is asking where the doctor is. Primary RN also notified.
--- NOTE | 2025-07-25 11:00 | NUR ---
PATIENT ASKED THIS RN "CAN YOU JUST STICK A NEEDLE IN MY STOMACH TO GET THE FLUID OUT WHILE I WAIT FOR THE ORDER". PATIENT EDUCATED ON THE ABDOMINAL ULTRASOUND BEING COMPLETED AND NOT SHOWING ENOUGH FLUID TO PERFORM THE PROCEDURE. PATIENT THEN ASKED IF THE DISCHARGE ORDER WAS IN. THIS RN STATED NO. PATIENT STATED NO FURTHER NEEDS AT THIS TIME. CALL LIGHT AND PERSONAL BELONGINGS ARE WITHIN REACH.
[2025-07-25] MEDS ORDERED: ASPIRIN81 MG PO (11:45)
[2025-07-25] MEDS ORDERED: NITROGLYCERIN0.4 MG SL (11:45)
[2025-07-25] MEDS ORDERED: SPIRONOLACTONE25 MG PO (11:47)
[2025-07-25] MEDS ORDERED: METOPROLOL SUCC50 MG PO (11:47)
--- NOTE | 2025-07-25 12:30 | NUR ---
PATIENT USING THE URINAL AT THIS TIME. THIS RN TO RETURN TO GO OVER DISCHARGE INSTRUCTIONS.
[2025-07-25 13:08] VITALS: BP 94/67
--- NOTE | 2025-07-25 13:26 | NUR ---
Pt voided about 25ml cola colored urine into urinal prior to reviewing discharge packet. He states he never has issues with voiding at home. Post void residual on bladder scan shows greater than 458ml left in bladder. Dr. Paul notified and pt is adamant that he be discharged. No new orders obtained. Pt is not complaining of pain, pressure, or feeling as though he needs to void. Per Dr. aPul, he knows this patient and believes the bladder is chronically distended which may cause the pt to not have the painful sensations until the amount of fluid is greater. Pt verbalized understanding of discharge instructions and patient education. IV removed with cath intact, pressure dressing applied. VS obtained, BP 94 systolic, pt denies any symptoms of hypotension. Pt called his ride and will use the call light when she gets here.
== END 2025-07-25 13:50 | disposition home or self-care (01) | DRG 291 ==
LOC: ED 11:32 → MS 15:54
PROVIDERS: Emergency Medicine; Internal Medicine; ADMIT Student in an Organized Health Care Education/Training Program; ATTEND Student in an Organized Health Care Education/Training Program
PROC: 0T9B70Z Drainage of Bladder with Drainage Device, Via Natural or Artificial Opening (ICD-10-PCS; principal; 2025-07-23)
DX: I11.0 Hypertensive heart disease with heart failure (principal); I50.23 Acute on chronic systolic (congestive) heart failure; R18.8 Other ascites; N17.9 Acute kidney failure, unspecified; E78.5 Hyperlipidemia, unspecified; K21.9 Gastro-esophageal reflux disease without esophagitis; J45.909 Unspecified asthma, uncomplicated; N40.0 Benign prostatic hyperplasia without lower urinary tract symptoms; F17.210 Nicotine dependence, cigarettes, uncomplicated; F10.10 Alcohol abuse, uncomplicated; I25.5 Ischemic cardiomyopathy; E66.9 Obesity, unspecified; K74.60 Unspecified cirrhosis of liver; Z95.5 Presence of coronary angioplasty implant and graft; Z95.0 Presence of cardiac pacemaker; Z87.19 Personal history of other diseases of the digestive system; Z98.890 Other specified postprocedural states; Z79.899 Other long term (current) drug therapy; Z79.51 Long term (current) use of inhaled steroids; Z68.31 Body mass index [BMI] 31.0-31.9, adult
CPT/HCPCS: 36415; 51702; 71045; 76705; 80053; 81001; 83735; 83880; 84100; 84484; 85025; 87088; 93005; 93010; 94640; 94667; 94668; 94760; 94799; 96374; 96376; 99285-25; A9270; J1644; J1938; J2405

== ENCOUNTER 2025-07-27 23:36 | Emergency (ER) | payer MEDICARE, MEDICAID ==
[~2025-07-27] VITALS: Ht 180.3 cm; Wt 101.4 kg
[~2025-07-27 23:36] MED LIST changes: +CONSTULOSE10 GM/15 M PO; +FINASTERIDE5 MG PO; +JARDIANCE10 MG PO; +LOSARTAN POTASS25 MG PO; +METOPROLOL SUCC50 MG PO; +MIDODRINE HCL5 MG PO; +NITROGLYCERIN0.4 MG SL; +SPIRONOLACTONE25 MG PO; +TAMSULOSIN HCL0.4 MG PO
[2025-07-28 00:46] LABS: BASOPHILS 1.1 % (0.2-1.2); EOSINOPHILS 1.7 % (0.8-7.0); LYMPHOCYTES 12.8 % (21.8-53.1); MCH 27.4 PG (25.7-32.2); MCHC 32.4 g/dL (32.3-36.5); MCV 84.5 fL (79.0-92.2); MONOCYTES 13.7 % (5.3-12.2); NEUTROPHILS 70.3 % (34.0-67.9); RBC 4.64 M/uL (4.63-6.08)
[2025-07-28 01:01] LABS: CORONAVIRUS COVID-19 AG NEGATIVE (NEGATIVE)
[2025-07-28 01:12] LABS: ALT (SGPT) 21.0 U/L (14-59); AST (SGOT) 29.0 U/L (15-37); GLOMERULAR FILTRATION RATE,EST 41.0 mL/min (>60); PROTEIN, TOTAL 6.5 g/dL (6.4-8.2); UREA NITROGEN 34.0 mg/dL (7-18)
[2025-07-28] MEDS ORDERED: FUROSEMIDE 100 MG/10 ML VIAL IV ONE (01:45)
[2025-07-28] MEDS ORDERED: TORSEMIDE 20 MG TAB PO ONE (02:00)
[2025-07-28] MEDS ORDERED: SPIRONOLACTONE 25 MG TAB PO ONE (02:00)
[2025-07-28 03:21] LABS: BLOOD/HGB, URINE SMALL (Negative); KETONE, URINE NEGATIVE (Negative); LEUK ESTERASE, URINE NEGATIVE (negative); NITRITE, URINE NEGATIVE (negative)
[2025-07-28 03:26] LABS: EPITHELIAL CELLS, URINE SQUAMOUS 1+ /lpf (0-1+)
[2025-07-28 03:27] LABS: BACTERIA, URINE 2+ /hpf (negative); CASTS, URINE NONE SEEN \\lpf; CRYSTALS, URINE NONE SEEN (0-1+); REFLEX CULTURE, URINE Yes (No)
[2025-07-28 03:36] LABS: AMPHETAMINES, URINE NEGATIVE (NEGATIVE); BARBITURATES, URINE NEGATIVE (NEGATIVE); BENZODIAZEPINE, URINE NEGATIVE (NEGATIVE); CANNABINOID, URINE NEGATIVE (NEGATIVE); COCAINE, URINE NEGATIVE (NEGATIVE); ECSTASY, URINE NEGATIVE (NEGATIVE); FENTANYL, URINE NEGATIVE (NEGATIVE); METHADONE, URINE NEGATIVE (NEGATIVE); OPIATES, URINE POSITIVE (NEGATIVE); OXYCODONE, URINE NEGATIVE (NEGATIVE); PHENCYCLIDINE, URINE NEGATIVE (NEGATIVE)
[2025-07-28] MEDS ORDERED: ACETAMINOPHEN 325 MG TAB PO ONE (05:00)
[2025-07-28 05:22] LABS: LACTIC ACID, BLOOD 2.6 mmol/L (0.4-2.0)
[2025-07-28] MEDS ORDERED: PYRIDIUM100 MG PO ×2 (05:39→05:48)
[2025-07-28] MEDS ORDERED: CEPHALEXIN500 M1 PO ×2 (05:39→05:48)
[2025-07-28] MEDS ORDERED: PHENAZOPYRIDINE HCL 100 MG TAB PO ONE (05:45)
[2025-07-28 05:58] VITALS: BP 103/83
--- OUTSIDE RECORDS SUMMARY | 2025-07-28 06:04 | XMS ---
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 Security Rejector Events No recent Security Events currently on file CRITERIA MET - [facility] - 2 Visits in 30 Days CARE PROVIDERS Michelle Lucio Registered Nurse 11/24/2019-Current PHONE: Unknown MIGEL MUNOZ Family Medicine: Obesity Medicine Current PHONE: [phone] Care Guidelines exist for the following facilities: [facility] ([place]) ( 07/28/2019 ) [facility] ( 06/18/2013 ) [facility] VISIT COUNT (12 MO.) 25 [facility] [place] ([place]) [address] [facility] [address] [facility] [place] [facility] TOTAL 38 NOTE: Visits indicate total known visits. ED/UCC VISIT TRACKING (12 MO.) 07/27/2025 23:37 [facility] [place] TYPE: Emergency COMPLAINT: - ANXIETY 07/23/2025 11:32 [facility] [place] TYPE: Emergency COMPLAINT: - ABDOMINAL PAIN 07/20/2025 15:28 [facility] TYPE: Emergency DIAGNOSES: - Heart failure, unspecified - Abdominal Pain - weakness, abd pain 07/14/2025 10:[address] [facility] [address] [place] TYPE: Emergency COMPLAINT: - SHORTNESS OF BREATH DIAGNOSES: - Acute respiratory failure with hypoxia - Cardiomyopathy, unspecified - Chronic pulmonary edema - Heart failure, unspecified - Hypertensive heart disease with heart failure - Other senior care (current) drug therapy - Shortness of breath 07/11/2025 18:18 [facility] [place] TYPE: Emergency DIAGNOSES: - Other ascites - abd pain - Abdominal Pain - Shortness of Breath 07/09/2025 10:53 [facility] ([facility] TYPE: Emergency DIAGNOSES: - Other ascites - Abdominal Pain - Followup Medical Problem 07/01/2025 10:58 [facility] ([place]) TYPE: Emergency DIAGNOSES: - COVID-19 - Other ascites - Unspecified cirrhosis of liver - abd pain - Abdominal Pain 06/26/2025 20:58 [facility] [place] TYPE: Emergency COMPLAINT: - DIFFICULTY BREATHING DIAGNOSES: - Gastro-esophageal reflux disease without esophagitis - Heart failure, unspecified - Hypertensive heart disease with heart failure - terminal makeup operator (current) use of aspirin - Other local intermodal truck driver (current) drug therapy - Procedure and treatment not carried out because of patient's decision for other reasons - Shortness of breath - Unspecified cirrhosis of liver 06/25/2025 09:46 [facility] TYPE: Emergency DIAGNOSES: - Alcoholic cirrhosis of liver with ascites - Cellulitis of left upper limb - Edema, unspecified - Other ascites - Edema - Shortness of Breath 06/20/2025 00:13 [facility] TYPE: Emergency DIAGNOSES: - Umbilical hernia with obstruction, without gangrene - Unspecified cirrhosis of liver 06/19/2025 15:14 [facility] ([facility] TYPE: Emergency DIAGNOSES: - Lower abdominal pain, unspecified - Umbilical hernia without obstruction or gangrene - Unspecified abdominal hernia with obstruction, without gangrene - abd pain - Abdominal Pain 06/15/2025 20:43 [facility] ([place]) TYPE: Emergency DIAGNOSES: - Heart failure, unspecified - Patient's other noncompliance with medication regimen for other reason - Dysuria - Fatigue - Nausea 06/13/2025 23:17 [facility] TYPE: Emergency DIAGNOSES: - Heart failure, unspecified - Lower abdominal pain, unspecified - Tachycardia, unspecified - Abdominal Pain - Shortness of Breath 06/09/2025 13:32 [facility] ([place]) TYPE: Emergency DIAGNOSES: - Unspecified abdominal pain - abd pain - Abdominal Pain 06/01/2025 11:39 [facility] ([place]) TYPE: Emergency DIAGNOSES: - Heart failure, unspecified - Abdominal Pain 05/22/2025 09:12 [facility] ([place]) TYPE: Emergency DIAGNOSES: - Other ascites - Unspecified abdominal pain - Unspecified atrial fibrillation - Tachycardia 05/16/2025 19:07 [facility] [place] [place] [facility] TYPE: Emergency DIAGNOSES: - Other chondrocalcinosis, left elbow - Arm Pain - left arm pain 05/06/2025 16:32 [facility] [place] ([facility] TYPE: Emergency DIAGNOSES: - Cellulitis of abdominal wall - Encounter for issue of repeat prescription - Heart failure, unspecified - Iron deficiency anemia, unspecified - Metabolic encephalopathy - Other ascites - Other chronic pain - Periumbilical pain - Abdominal Pain - med refill - Medication Refill 04/30/2025 16:17 [facility] [place] ([facility] TYPE: Emergency DIAGNOSES: - Unspecified abdominal pain - Unspecified kidney failure - Abdominal Pain - Abdominal Pain;Hernia - Abnormal Lab 04/19/2025 21:34 [facility] [place] TYPE: Emergency COMPLAINT: - CHEST PAIN DIAGNOSES: - Chest pain, unspecified - Heart failure, unspecified - Hepatic failure, unspecified without coma - Hypertensive heart disease with heart failure - Other local intermodal truck driver (current) drug therapy Plus 18 More Visits INPATIENT VISIT TRACKING (12 MO.) 07/23/2025 15:54 [facility] [place] TYPE: Medical Surgical COMPLAINT: - CHF EXACERBATION DIAGNOSES: - Acute kidney failure, unspecified - Acute kidney failure, unspecified - Acute on chronic systolic (congestive) heart failure - Acute on chronic systolic (congestive) heart failure - Alcohol abuse, uncomplicated - Alcohol abuse, uncomplicated - Benign prostatic hyperplasia without lower urinary tract symptoms - Benign prostatic hyperplasia without lower urinary tract symptoms - Body mass index [BMI] 31.0-31.9, adult - Body mass index [BMI] 31.0-31.9, adult - Gastro-esophageal reflux disease without esophagitis - Gastro-esophageal reflux disease without esophagitis - Hyperlipidemia, unspecified - Hyperlipidemia, unspecified - Hypertensive heart disease with heart failure - Hypertensive heart disease with heart failure - Ischemic cardiomyopathy - Ischemic cardiomyopathy - halfway (current) use of inhaled steroids - halfway (current) use of inhaled steroids - Nicotine dependence, cigarettes, uncomplicated - Nicotine dependence, cigarettes, uncomplicated - Obesity, unspecified - Obesity, unspecified - Other ascites - Other ascites - Other senior care (current) drug therapy - Other local intermodal truck driver (current) drug therapy - Other specified postprocedural states - Other specified postprocedural states - Other specified soft tissue disorders - Personal history of other diseases of the digestive system - Personal history of other diseases of the digestive system - Presence of cardiac pacemaker - Presence of cardiac pacemaker - Presence of coronary angioplasty implant and graft - Presence of coronary angioplasty implant and graft - Unspecified asthma, uncomplicated - Unspecified asthma, uncomplicated - Unspecified cirrhosis of liver - Unspecified cirrhosis of liver 07/14/2025 17:01 [facility] TYPE: Medical Surgical DIAGNOSES: - Acute kidney failure, unspecified - Acute on chronic combined systolic (congestive) and diastolic (congestive) heart failure - Alcoholic cirrhosis of liver with ascites - Chronic combined systolic (congestive) and diastolic (congestive) heart failure - Essential (primary) hypertension - Pulmonary hypertension, unspecified - Anasarca - CHF 06/20/2025 00:13 [facility] TYPE: Surgery DIAGNOSES: - Metabolic encephalopathy - Other ascites - Umbilical hernia with obstruction, without gangrene - Unspecified cirrhosis of liver 06/01/2025 11:39 [facility] ([facility] TYPE: [...] malaise - Other specified counseling 05/22/2025 09:12 [facility] ([facility] TYPE: Medical Surgical DIAGNOSES: - Acute on chronic combined systolic (congestive) and diastolic (congestive) heart failure - Alcoholic cirrhosis of liver with ascites - Atherosclerotic heart disease of [place] coronary artery with unspecified angina pectoris - [...] Unspecified systolic (congestive) heart failure 04/06/2025 16:11 [facility] ([facility] TYPE: [...] cardiomyopathies - Other chronic pain 04/01/2025 19:[address] [facility] [place] [place] TYPE: Medical Surgical [...] and hyponatremia - Hypo-osmolality and hyponatremia - terminal makeup operator (current) use of aspirin - terminal makeup operator (current) use of aspirin - Other ascites [...] - Unspecified cirrhosis of liver 03/13/2025 09:07 [facility] ([place] TYPE: Medical Surgical DIAGNOSES: - Acute on chronic combined systolic (congestive) and diastolic (congestive) heart failure - Alcohol dependence, in remission - Atherosclerotic heart disease of [place] coronary artery with unspecified angina pectoris - Chronic kidney disease, stage 3a - Heart failure, unspecified - Mild intermittent asthma, uncomplicated - Myocardial infarction type 2 - Nicotine dependence, cigarettes, in remission - Nonrheumatic mitral (valve) insufficiency - Other specified abnormal findings of blood chemistry - Pulmonary hypertension, unspecified 02/16/2025 12:41 [facility] ([facility] TYPE: [...] medication regimen for other reason 01/13/2025 09:17 [facility] ([place]) TYPE: Emergency DIAGNOSES: - Acute on chronic combined systolic (congestive) and diastolic (congestive) heart failure - Acute respiratory failure with hypoxia - Fluid overload, unspecified - Homelessness unspecified - Patient's noncompliance with dietary regimen due to unspecified reason - Shortness of breath 12/29/2024 06:07 [facility] ([facility] TYPE: Medical Surgical DIAGNOSES: - Acute kidney failure, unspecified - Acute on chronic combined systolic (congestive) and diastolic (congestive) heart failure - Alcohol abuse, uncomplicated - Atherosclerotic heart disease of [place] coronary artery without angina pectoris - Chronic [...] - Pulmonary hypertension, unspecified 10/31/2024 09:[address] [facility] [place] TYPE: Critical Care COMPLAINT: - CHEST PAIN DIAGNOSES: - Alcohol abuse with withdrawal, unspecified - Alcohol abuse with withdrawal, unspecified - Atherosclerotic heart disease of [place] coronary artery without angina pectoris - Atherosclerotic heart disease of [place] coronary artery without angina pectoris - Chest pain, unspecified - Gastro-esophageal reflux disease without esophagitis - Gastro-esophageal reflux disease without esophagitis - Heart failure, unspecified - Heart failure, unspecified - Hypertensive heart disease with heart failure - Hypertensive heart disease with heart failure - terminal makeup operator (current) use of aspirin - terminal makeup operator (current) use of aspirin - Nonrheumatic aortic (valve) stenosis - Nonrheumatic aortic (valve) stenosis - Obesity, unspecified - Obesity, unspecified - Old myocardial infarction - Old myocardial infarction - Other local intermodal truck driver (current) drug therapy - Other local intermodal truck driver (current) drug therapy - Other [...] because of patient's decision for other reasons [email or web address]
[2025-07-29] MEDS ORDERED: CEPHALEXIN500 MG PO (19:36)
[2025-07-29] MEDS ORDERED: PHENAZOPYRIDIN100 MG PO (19:37)
--- NOTE | 2025-07-30 22:08 | EKG ---
[facility] [address] [facility] [place] [address] Signed Ventricular-paced rhythm Biventricular pacemaker detected Abnormal ECG No previous ECGs available Confirmed by Tatyana Muller MD () on 07/30/2025 10:08:26 PM Electronically Signed By: TATYANA MULLER MD 07/30/252207 PATIENT NAME: JHONNY NICHOLSON Electrocardiogram DATE OF : 59 PHYSICIAN: TATYANA MULLER MD REPORT #: [id number] REPORT IS CONFIDENTIAL AND NOT TO BE RELEASED WITHOUT AUTHORIZATION
[2025-08-22] MEDS ORDERED: CIPROFLOXACIN500 MG PO (15:14)
[2025-08-22] MEDS ORDERED: HYDROCODON-ACE1 EA10 PO (18:23)
[2025-08-26] MEDS ORDERED: CEPHALEXIN500 MG PO (09:35)
[2025-08-26] MEDS ORDERED: CEPHALEXIN500 M1 PO (09:37)
[2025-08-29] MEDS ORDERED: SOAANZ40 MG PO (21:49)
[2025-08-29] MEDS ORDERED: ALDACTONE25 MG PO (21:49)
[2025-09-10] MEDS ORDERED: HYDROCODON-ACE1 EA10 PO (15:43)
[2025-09-10] MEDS ORDERED: SPIRONOLACTONE50 MG PO (15:43)
== END 2025-07-28 05:58 | disposition home or self-care (01) ==
LOC: ED 23:36 → EDBD 23:37 → ED 23:37
PROVIDERS: Internal Medicine
DX: N40.1 Benign prostatic hyperplasia with lower urinary tract symptoms (principal); N39.0 Urinary tract infection, site not specified; R33.8 Other retention of urine; I42.9 Cardiomyopathy, unspecified; F19.10 Other psychoactive substance abuse, uncomplicated; I50.9 Heart failure, unspecified; Z91.148 Patient's other noncompliance with medication regimen for other reason
CPT/HCPCS: 36415; 71045; 80053; 80307; 81001; 83605; 83735; 83880; 84484; 85025; 87040; 87088; 93005; 93010; 96374; 99285-25; A4311; A9270; J0696; J1938

== ENCOUNTER 2025-07-29 12:51 | Emergency (ER) | payer MEDICARE ==
[~2025-07-29] VITALS: Ht 180.3 cm; Wt 102.1 kg
--- OUTSIDE RECORDS SUMMARY | 2025-07-29 13:16 | XMS ---
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 Security Clipper Counters Events No recent Security Events currently on file CRITERIA MET - 6 ED Visits in 6 Months - [facility] - 2 Visits in 30 Days - [facility] - 3 Facilities in 90 Days CARE PROVIDERS Michelle Lucio Nurse 11/24/2019-Current PHONE: Unknown MIGEL MUNOZ Family Medicine: Obesity Medicine Current PHONE: [phone] Care Guidelines exist for the following facilities: [facility] ([place]) ( 07/28/2019 ) [facility] ( 06/18/2013 ) [facility] VISIT COUNT (12 MO.) 25 [facility] [place] ([place]) 13 [facility] TOTAL 39 NOTE: Visits indicate total known visits. ED/UCC VISIT TRACKING (12 MO.) 07/29/2025 12:51 [facility] [place] TYPE: Emergency COMPLAINT: - CATHETER PROBLEM 07/27/2025 23:37 [facility] [place] [place] TYPE: Emergency COMPLAINT: - ANXIETY 07/23/2025 11:32 [facility] [place] TYPE: Emergency COMPLAINT: - ABDOMINAL PAIN 07/20/2025 [facility]: Emergency DIAGNOSES: - Heart failure, unspecified - Abdominal Pain - weakness, abd pain 07/14/2025 10:25 [facility] [place] TYPE: Emergency COMPLAINT: - SHORTNESS OF BREATH DIAGNOSES: - Acute respiratory failure with hypoxia - Cardiomyopathy, unspecified - Chronic pulmonary edema - Heart failure, unspecified - Hypertensive heart disease with heart failure - Other care home (current) drug therapy - Shortness of breath 07/11/2025 18:18 [facility] [place] ([place]) TYPE: Emergency DIAGNOSES: - Other ascites - abd pain - Abdominal Pain - Shortness of Breath 07/09/2025 10:53 [facility] [place] ([place]) TYPE: Emergency DIAGNOSES: - Other ascites - Abdominal Pain - Followup Medical Problem 07/01/2025 10[facility]58 [facility] [place] [facility] TYPE: Emergency DIAGNOSES: - COVID-19 - Other ascites - Unspecified cirrhosis of liver - abd pain - Abdominal Pain 06/26/2025 20:58 [facility] [place] TYPE: Emergency COMPLAINT: - DIFFICULTY BREATHING DIAGNOSES: - Gastro-esophageal reflux disease without esophagitis - Heart failure, unspecified - Hypertensive heart disease with heart failure - long term care administrator (current) use of aspirin - Other long term care administrator (current) drug therapy - Procedure and treatment not carried out because of patient's decision for other reasons - Shortness of breath - Unspecified cirrhosis of liver 06/25/2025 09:46 [facility] ([facility] TYPE: Emergency DIAGNOSES: - Alcoholic cirrhosis of liver with ascites - Cellulitis of left upper limb - Edema, unspecified - Other ascites - Edema - Shortness of Breath 06/20/2025 00:13 [facility] TYPE: Emergency DIAGNOSES: - Umbilical hernia with obstruction, without gangrene - Unspecified cirrhosis of liver 06/19/2025 15:14 [facility] ([facility] TYPE: Emergency DIAGNOSES: - Lower abdominal pain, unspecified - Umbilical hernia without obstruction or gangrene - Unspecified abdominal hernia with obstruction, without gangrene - abd pain - Abdominal Pain 06/15/2025 20:43 [facility] [place] [place] [facility] TYPE: Emergency DIAGNOSES: - Heart failure, unspecified - Patient's other noncompliance with medication regimen for other reason - Dysuria - Fatigue - Nausea 06/13/2025 23:17 [facility] ([facility] TYPE: Emergency DIAGNOSES: - Heart failure, unspecified - Lower abdominal pain, unspecified - Tachycardia, unspecified - Abdominal Pain - Shortness of Breath 06/09/2025 13:32 [facility] TYPE: Emergency DIAGNOSES: - Unspecified abdominal pain - abd pain - Abdominal Pain 06/01/2025 11:39 [facility] ([facility] TYPE: Emergency DIAGNOSES: - Heart failure, unspecified - Abdominal Pain 05/22/2025 09:12 [facility] ([facility] TYPE: Emergency DIAGNOSES: - Other ascites - Unspecified abdominal pain - Unspecified atrial fibrillation - Tachycardia 05/16/2025 19:07 [facility] ([facility] TYPE: Emergency DIAGNOSES: - Other chondrocalcinosis, left elbow - Arm Pain - left arm pain 05/06/2025 16:32 [facility] [place] ([facility]) TYPE: Emergency DIAGNOSES: - Cellulitis of abdominal wall - Encounter for issue of repeat prescription - Heart failure, unspecified - Iron deficiency anemia, unspecified - Metabolic encephalopathy - Other ascites - Other chronic pain - Periumbilical pain - Abdominal Pain - med refill - Medication Refill 04/30/2025 16:17 [facility] ([facility] TYPE: Emergency DIAGNOSES: - Unspecified abdominal pain - Unspecified kidney failure - Abdominal Pain - Abdominal Pain;Hernia - Abnormal Lab Plus 19 More Visits INPATIENT VISIT TRACKING (12 MO.) [...] - Ischemic cardiomyopathy - Ischemic cardiomyopathy - long term care administrator (current) use of inhaled steroids - MCC (current) use of inhaled steroids - Nicotine dependence, cigarettes, uncomplicated - Nicotine dependence, cigarettes, uncomplicated - Obesity, unspecified - Obesity, unspecified - Other ascites - Other ascites - Other long term care administrator (current) drug therapy - Other long term care administrator (current) drug therapy - Other specified postprocedural [...] - Unspecified cirrhosis of liver 07/14/2025 17:01 [facility] ([place]) TYPE: Medical Surgical DIAGNOSES: - Acute kidney failure, unspecified - Acute on chronic combined systolic (congestive) and diastolic (congestive) heart failure - Alcoholic cirrhosis of liver with ascites - Chronic combined systolic (congestive) and diastolic (congestive) heart failure - Essential (primary) hypertension - Pulmonary hypertension, unspecified - Anasarca - CHF 06/20/2025 00:13 [facility] TYPE: Surgery DIAGNOSES: - Metabolic encephalopathy - Other ascites - Umbilical hernia with obstruction, without gangrene - Unspecified cirrhosis of liver 06/01/2025 11:39 [facility] ([place]) TYPE: Medical Surgical DIAGNOSES: - Acidosis, unspecified [...] malaise - Other specified counseling 05/22/2025 09:12 [facility] ([facility] TYPE: Medical Surgical DIAGNOSES: - Acute on chronic combined systolic (congestive) and diastolic (congestive) heart failure - Alcoholic cirrhosis of liver with ascites - Atherosclerotic heart disease of [place] coronary artery with unspecified angina pectoris - [...] Unspecified systolic (congestive) heart failure 04/06/2025 16:11 [facility] [place] ([facility] TYPE: Medical Surgical DIAGNOSES: [...] and hyponatremia - Hypo-osmolality and hyponatremia - MCC (current) use of aspirin - long term care administrator (current) use of aspirin - Other ascites [...] - Unspecified cirrhosis of liver 03/13/2025 09:07 [facility] ([place]) TYPE: Medical Surgical DIAGNOSES: - Acute on chronic combined systolic (congestive) and diastolic (congestive) heart failure - Alcohol dependence, in remission - Atherosclerotic heart disease of [place] coronary artery with unspecified angina pectoris - Chronic kidney disease, stage 3a - Heart failure, unspecified - Mild intermittent asthma, uncomplicated - Myocardial infarction type 2 - Nicotine dependence, cigarettes, in remission - Nonrheumatic mitral (valve) insufficiency - Other specified abnormal findings of blood chemistry - Pulmonary hypertension, unspecified 02/16/2025 12:41 [facility] TYPE: Medical Surgical DIAGNOSES: - Acute on [...] medication regimen for other reason 01/13/2025 09:17 [facility] [place] ([facility] TYPE: Emergency DIAGNOSES: - Acute on chronic combined systolic (congestive) and diastolic (congestive) heart failure - Acute respiratory failure with hypoxia - Fluid overload, unspecified - Homelessness unspecified - Patient's noncompliance with dietary regimen due to unspecified reason - Shortness of breath 12/29/2024 06:07 [facility] [place] ([facility] TYPE: Medical Surgical DIAGNOSES: - Acute kidney failure, unspecified - Acute on chronic combined systolic (congestive) and diastolic (congestive) heart failure - Alcohol abuse, uncomplicated - Atherosclerotic heart disease of [place] coronary artery without angina pectoris - Chronic [...] - Pulmonary hypertension, unspecified 10/31/2024 09:28 [facility] [place] TYPE: Critical Care COMPLAINT: - CHEST PAIN DIAGNOSES: - Alcohol abuse with withdrawal, unspecified - Alcohol abuse with withdrawal, unspecified - Atherosclerotic heart disease of [place] coronary artery without angina pectoris - Atherosclerotic heart disease of [place] coronary artery without angina pectoris - Chest pain, unspecified - Gastro-esophageal reflux disease without esophagitis - Gastro-esophageal reflux disease without esophagitis - Heart failure, unspecified - Heart failure, unspecified - Hypertensive heart disease with heart failure - Hypertensive heart disease with heart failure - MCC (current) use of aspirin - MCC (current) use of aspirin - Nonrheumatic aortic (valve) stenosis - Nonrheumatic aortic (valve) stenosis - Obesity, unspecified - Obesity, unspecified - Old myocardial infarction - Old myocardial infarction - Other long term care administrator (current) drug therapy - Other long term care administrator (current) drug therapy - Other specified postprocedural [...] because of patient's decision for other reasons [email or web address]
[2025-07-29 13:30] LABS: BASOPHILS 0.5 % (0.2-1.2); EOSINOPHILS 0.1 % (0.8-7.0); LYMPHOCYTES 9.9 % (21.8-53.1); MCH 27.4 PG (25.7-32.2); MCHC 33.3 g/dL (32.3-36.5); MCV 82.5 fL (79.0-92.2); MONOCYTES 10.9 % (5.3-12.2); NEUTROPHILS 78.4 % (34.0-67.9); RBC 4.85 M/uL (4.63-6.08)
[2025-07-29 14:02] LABS: ALT (SGPT) 16.0 U/L (14-59); AST (SGOT) 36.0 U/L (15-37); GLOMERULAR FILTRATION RATE,EST 29.0 mL/min (>60); PROTEIN, TOTAL 6.5 g/dL (6.4-8.2); UREA NITROGEN 42.0 mg/dL (7-18)
[2025-07-29] MEDS ORDERED: ALBUTEROL/IPRATROPIUM 3 ML NEB INH ONE (14:15)
[2025-07-29] MEDS ORDERED: LIDOCAINE 2% VISCOUS 6 ML SYR TOP ONE (15:00)
[2025-07-29] MEDS ORDERED: MORPHINE SULFATE 4 MG/ML VIAL IV ONE ×2 (15:45→17:45)
[2025-07-29 16:25] LABS: BLOOD/HGB, URINE LARGE (Negative); KETONE, URINE NEGATIVE (Negative); LEUK ESTERASE, URINE MODERATE (negative); NITRITE, URINE POSITIVE (negative)
[2025-07-29 16:49] LABS: BACTERIA, URINE 2+ /hpf (negative); CASTS, URINE NONE SEEN \\lpf; CRYSTALS, URINE NONE SEEN (0-1+); EPITHELIAL CELLS, URINE SQUAMOUS 3+ /lpf (0-1+); REFLEX CULTURE, URINE No (No)
[2025-07-29] MEDS ORDERED: METOPROLOL TARTRATE 5 MG/5 ML VIAL IV ONE ×2 (17:15→19:00)
[2025-07-29] MEDS ORDERED: FUROSEMIDE 100 MG/10 ML VIAL IV ONE (17:15)
[2025-07-29] MEDS ORDERED: METOPROLOL TARTRATE 5 MG/5 ML VIAL ONE (18:29)
[2025-07-29] MEDS ORDERED: CEPHALEXIN500 MG PO (19:36)
[2025-07-29] MEDS ORDERED: PHENAZOPYRIDIN100 MG PO (19:37)
[2025-07-29 21:55] VITALS: BP 103/72
--- NOTE | 2025-07-31 21:53 | EKG ---
[facility] [address] [place] [address] Signed Ventricular-paced rhythm Biventricular pacemaker detected Abnormal ECG When compared with ECG of 25-JUL-2025 09:03, Vent. rate has increased BY 56 BPM Confirmed by Tatyana Muller MD () on 07/31/2025 9:53:17 PM Electronically Signed By: TATYANA MULLER MD 07/31/252152 PATIENT NAME: JHONNY NICHOLSON Electrocardiogram DATE OF : 59 PHYSICIAN: TATYANA MULLER MD REPORT #: [id number] REPORT IS CONFIDENTIAL AND NOT TO BE RELEASED WITHOUT AUTHORIZATION
--- NOTE | 2025-07-31 21:57 | EKG ---
[facility] [address] [place] [address] Signed Atrial fibrillation with rapid ventricular response with frequent ventricular-paced complexes Left axis deviation Minimal voltage criteria for LVH, may be normal variant ( [place] product ) Inferior infarct , age undetermined Anterior infarct , age undetermined Abnormal ECG When compared with ECG of 29-JUL-2025 13:11, Vent. rate has increased BY 7 BPM Confirmed by Tatyana Muller MD () on 07/31/2025 9:57:18 PM Electronically Signed By: TATYANA MULLER MD 07/31/25 2157 PATIENT NAME: JHONNY NICHOLSON Electrocardiogram DATE OF : 59 PHYSICIAN: TATYANA MULLER MD REPORT #: [id number] REPORT IS CONFIDENTIAL AND NOT TO BE RELEASED WITHOUT AUTHORIZATION
== END 2025-07-29 21:55 | disposition short-term general hospital (02) ==
LOC: ED 12:51
PROVIDERS: Emergency Medicine
DX: I13.0 Hypertensive heart and chronic kidney disease with heart failure and stage 1 through stage 4 chronic kidney disease, or unspecified chronic kidney disease (principal); I50.9 Heart failure, unspecified; N18.9 Chronic kidney disease, unspecified; N17.9 Acute kidney failure, unspecified; K74.60 Unspecified cirrhosis of liver; R18.8 Other ascites; Z79.899 Other long term (current) drug therapy; Z79.82 Long term (current) use of aspirin
CPT/HCPCS: 36415; 51702; 51798; 71045; 74176; 80053; 81001; 82140; 83605; 83735; 83880; 84484; 85025; 93005; 93010; 94640; 96374; 96375; 96376; 99285-25; J1938; J2270; J2405

== ENCOUNTER 2025-08-03 10:47 | Inpatient (IN) | payer MEDICARE ==
[~2025-08-03] VITALS: Ht 180.3 cm; Wt 95.2 kg
[~2025-08-03 10:47] MED LIST changes: +CEPHALEXIN500 M1 PO; +PHENAZOPYRIDIN100 MG PO; +PYRIDIUM100 MG PO
--- OUTSIDE RECORDS SUMMARY | 2025-08-03 10:54 | XMS ---
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 No recent Security Events currently on file CRITERIA MET - 6 ED Visits in 6 Months - [facility] - 2 Visits in 30 Days - [facility] - 3 Facilities in 90 Days CARE PROVIDERS Michelle Lucio Nurse 11/24/2019-Current PHONE: Unknown MIGEL MUNOZ Family Medicine: Obesity Medicine Current PHONE: [phone] Care Guidelines exist for the following facilities: [facility] ([place]) ( 07/28/2019 ) [facility] ( 06/18/2013 ) [facility] VISIT COUNT (12 MO.) 25 [facility] ([facility] 14 [facility] TOTAL 40 NOTE: Visits indicate total known visits. ED/UCC VISIT TRACKING (12 MO.) 08/03/2025 10:47 [facility] [place] TYPE: Emergency COMPLAINT: - SHORTNESS OF BREATH 07/29/2025 12:51 [facility] [place] TYPE: Emergency COMPLAINT: - CATHETER PROBLEM DIAGNOSES: - Acute kidney failure, unspecified - Chronic kidney disease, unspecified - Heart failure, unspecified - Hypertensive heart and chronic kidney disease with heart failure and stage 1 through stage 4 chronic kidney disease, or unspecified chronic kidney disease - [facility] (current) use of aspirin - Other ascites - Other extermination inspector (current) drug therapy - Unspecified cirrhosis of liver - Weakness 07/27/2025 23:37 [facility] [place] TYPE: Emergency COMPLAINT: - ANXIETY DIAGNOSES: - Benign prostatic hyperplasia with lower urinary tract symptoms - Cardiomyopathy, unspecified - Heart failure, unspecified - Other psychoactive substance abuse, uncomplicated - Other retention of urine - Patient's other noncompliance with medication regimen for other reason - Shortness of breath - Urinary tract infection, site not specified 07/23/2025 11:[address] [facility] [place] [place] TYPE: Emergency COMPLAINT: - ABDOMINAL PAIN 07/20/2025 15:[facility] DIAGNOSES: - Heart failure, unspecified - Abdominal Pain - weakness, abd pain 07/14/2025 10:[address] [facility] [place] TYPE: Emergency COMPLAINT: - SHORTNESS OF BREATH DIAGNOSES: - Acute respiratory failure with hypoxia - Cardiomyopathy, unspecified - Chronic pulmonary edema - Heart failure, unspecified - Hypertensive heart disease with heart failure - Other penitentiary (current) drug therapy - Shortness of breath 07/11/2025 18:[address] [facility] ([place]) TYPE: Emergency DIAGNOSES: - Other ascites - abd pain - Abdominal Pain - Shortness of Breath 07/09/2025 10:[address] [facility] ([place]) TYPE: Emergency DIAGNOSES: - Other ascites - Abdominal Pain - Followup Medical Problem 07/01/2025 10:[address] [facility] ([facility] TYPE: Emergency DIAGNOSES: - COVID-19 - Other ascites - Unspecified cirrhosis of liver - abd pain - Abdominal Pain [facility] COMPLAINT: - DIFFICULTY BREATHING DIAGNOSES: - Gastro-esophageal reflux disease without esophagitis - Heart failure, unspecified - Hypertensive heart disease with heart failure - extermination inspector (current) use of aspirin - Other penitentiary (current) drug therapy - Procedure and treatment not carried out because of patient's decision for other reasons - Shortness of breath - Unspecified cirrhosis of liver 06/25/2025 09:[address] [facility] ([facility] TYPE: Emergency DIAGNOSES: - Alcoholic cirrhosis of liver with ascites - Cellulitis of left upper limb - Edema, unspecified - Other ascites - Edema - Shortness of Breath 06/20/2025 00:13 [facility] TYPE: Emergency DIAGNOSES: - Umbilical hernia with obstruction, without gangrene - Unspecified cirrhosis of liver 06/19/2025 15:[address] [facility] [place] ([place]) TYPE: Emergency DIAGNOSES: - Lower abdominal pain, unspecified - Umbilical hernia without obstruction or gangrene - Unspecified abdominal hernia with obstruction, without gangrene - abd pain - Abdominal Pain 06/15/2025 20:[address] [facility] ([place]) TYPE: Emergency DIAGNOSES: - Heart failure, unspecified - Patient's other noncompliance with medication regimen for other reason - Dysuria - Fatigue - Nausea 06/13/2025 23:[address] [facility] [place] ([place] TYPE: Emergency DIAGNOSES: - Heart failure, unspecified - Lower abdominal pain, unspecified - Tachycardia, unspecified - Abdominal Pain - Shortness of Breath 06/09/2025 13:[address] [facility] ([facility] TYPE: Emergency DIAGNOSES: - Unspecified abdominal pain - abd pain - Abdominal Pain 06/01/2025 11:[address] [facility] ([facility] TYPE: Emergency DIAGNOSES: - Heart failure, unspecified - Abdominal Pain 05/22/2025 09:[address] [facility] ([facility] TYPE: Emergency DIAGNOSES: - Other ascites - Unspecified abdominal pain - Unspecified atrial fibrillation - Tachycardia 05/16/2025 19:[address] [facility] TYPE: Emergency DIAGNOSES: - Other chondrocalcinosis, left elbow - Arm Pain - left arm pain 05/06/2025 16[facility] TYPE: Emergency DIAGNOSES: - Cellulitis of abdominal wall - Encounter for issue of repeat prescription - Heart failure, unspecified - Iron deficiency anemia, unspecified - Metabolic encephalopathy - Other ascites - Other chronic pain - Periumbilical pain - Abdominal Pain - med refill - Medication Refill Plus 20 More Visits INPATIENT VISIT TRACKING (12 MO.) 07/29/2025 23:03 [facility] TYPE: Medical Surgical COMPLAINT: - transfer 07/23/2025 15:[address] [facility] [place] TYPE: Medical Surgical COMPLAINT: - CHF [...] - Ischemic cardiomyopathy - Ischemic cardiomyopathy - extermination inspector (current) use of inhaled steroids - [facility] (current) use of inhaled steroids - Nicotine dependence, cigarettes, uncomplicated - Nicotine dependence, cigarettes, uncomplicated - Obesity, unspecified - Obesity, unspecified - Other ascites - Other ascites - Other penitentiary (current) drug therapy - Other penitentiary (current) [...] - Unspecified cirrhosis of liver 07/14/2025 17:[address] [facility] ([facility] TYPE: Medical Surgical DIAGNOSES: - Acute kidney failure, unspecified - Acute on chronic combined systolic (congestive) and diastolic (congestive) heart failure - Alcoholic cirrhosis of liver with ascites - Chronic combined systolic (congestive) and diastolic (congestive) heart failure - Essential (primary) hypertension - Pulmonary hypertension, unspecified - Anasarca - CHF 06/20/2025 00:13 [facility] TYPE: Surgery DIAGNOSES: - Metabolic encephalopathy - Other ascites - Umbilical hernia with obstruction, without gangrene - Unspecified cirrhosis of liver 06/01/2025 11:[address] [facility] ([facility] TYPE: Medical [...] malaise - Other specified counseling 05/22/2025 09:12 [facility] TYPE: Medical Surgical DIAGNOSES: - Acute on chronic combined systolic (congestive) and diastolic (congestive) heart failure - Alcoholic cirrhosis of liver with ascites - Atherosclerotic heart disease of [place] coronary artery with unspecified angina pectoris - [...] Unspecified systolic (congestive) heart failure 04/06/2025 16:11 [facility] TYPE: Medical Surgical DIAGNOSES: [...] - Other chronic pain 04/01/2025 19:[address] [facility] [place] TYPE: Medical Surgical [...] and hyponatremia - Hypo-osmolality and hyponatremia - extermination inspector (current) use of aspirin - extermination inspector (current) use of aspirin - Other ascites [...] - Unspecified cirrhosis of liver 03/13/2025 09:[address] [facility] ([facility] TYPE: Medical Surgical DIAGNOSES: - Acute on chronic combined systolic (congestive) and diastolic (congestive) heart failure - Alcohol dependence, in remission - Atherosclerotic heart disease of [place] coronary artery with unspecified angina pectoris - Chronic kidney disease, stage 3a - Heart failure, unspecified - Mild intermittent asthma, uncomplicated - Myocardial infarction type 2 - Nicotine dependence, cigarettes, in remission - Nonrheumatic mitral (valve) insufficiency - Other specified abnormal findings of blood chemistry - Pulmonary hypertension, unspecified 02/16/2025 12:[address] [facility] ([facility] TYPE: Medical [...] medication regimen for other reason 01/13/2025 09:[address] [facility] ([place]) TYPE: Emergency DIAGNOSES: - Acute on chronic combined systolic (congestive) and diastolic (congestive) heart failure - Acute respiratory failure with hypoxia - Fluid overload, unspecified - Homelessness unspecified - Patient's noncompliance with dietary regimen due to unspecified reason - Shortness of breath 12/29/2024 06:[address] [facility] ([place]) TYPE: Medical Surgical DIAGNOSES: - Acute kidney failure, unspecified - Acute on chronic combined systolic (congestive) and diastolic (congestive) heart failure - Alcohol abuse, uncomplicated - Atherosclerotic heart disease of [place] coronary artery without angina pectoris - Chronic [...] withdrawal, unspecified - Atherosclerotic heart disease of [place] coronary artery without angina pectoris - Atherosclerotic heart disease of [place] coronary artery without angina pectoris - Chest pain, unspecified - Gastro-esophageal reflux disease without esophagitis - Gastro-esophageal reflux disease without esophagitis - Heart failure, unspecified - Heart failure, unspecified - Hypertensive heart disease with heart failure - Hypertensive heart disease with heart failure - [facility] (current) use of aspirin - extermination inspector (current) use of aspirin - Nonrheumatic aortic (valve) stenosis - Nonrheumatic aortic (valve) stenosis - Obesity, unspecified - Obesity, unspecified - Old myocardial infarction - Old myocardial infarction - Other extermination inspector (current) drug therapy - Other penitentiary (current) [...] because of patient's decision for other reasons [email or web address]
[2025-08-03] MEDS ORDERED: ALBUTEROL/IPRATROPIUM 3 ML NEB INH PRN (11:15)
[2025-08-03 11:19] LABS: BASOPHILS 0.3 % (0.2-1.2); EOSINOPHILS 0.7 % (0.8-7.0); LYMPHOCYTES 7.7 % (21.8-53.1); MCH 27.5 PG (25.7-32.2); MCHC 31.8 g/dL (32.3-36.5); MCV 86.4 fL (79.0-92.2); MONOCYTES 6.6 % (5.3-12.2); NEUTROPHILS 84.4 % (34.0-67.9); RBC 4.55 M/uL (4.63-6.08)
[2025-08-03 11:58] LABS: ALT (SGPT) 21.0 U/L (14-59); AST (SGOT) 33.0 U/L (15-37); GLOMERULAR FILTRATION RATE,EST 54.0 mL/min (>60); PROTEIN, TOTAL 6.1 g/dL (6.4-8.2); UREA NITROGEN 24.0 mg/dL (7-18)
[2025-08-03] MEDS ORDERED: FUROSEMIDE 40 MG/4 ML VIAL IV ONE ×2 (13:00→15:00)
[2025-08-03] MEDS ORDERED: ALBUTEROL/IPRATROPIUM 3 ML NEB INH ONE (14:00)
[2025-08-03] MEDS ORDERED: LIDOCAINE 2% VISCOUS 6 ML SYR TOP ONE (15:00)
[2025-08-03] MEDS ORDERED: NICOTINE POLACRILEX 4 MG LOZENGE BUCCAL PRN (15:30)
[2025-08-03] MEDS ORDERED: ACETAMINOPHEN 325 MG TAB PO PRN (15:30)
[2025-08-03] MEDS ORDERED: METOPROLOL SUCCINATE 50 MG TABCR PO SCH (15:30)
[2025-08-03] MEDS ORDERED: ATORVASTATIN CA40 MG PO (15:56)
[2025-08-03] MEDS ORDERED: METOPROLOL SUCC50 MG PO (15:56)
[2025-08-03] MEDS ORDERED: TORSEMIDE10 MG PO (15:56)
[2025-08-03] MEDS ORDERED: TORSEMIDE20 MG PO (15:57)
--- NOTE | 2025-08-03 16:25 | NUR ---
VERBAL REPORT RECEIVED FROM GRACE AZEVEDO. PATIENT TRANSFERED TO MS ROOM 112 VIA STRETCHER BY THIS RN AND GRACE BRAGG. PATIENT ORIENTED TO ROOM. RN'S REMAIN IN ROOM.
[2025-08-03 16:35] VITALS: BP 109/82
[2025-08-03] MEDS ORDERED: ATORVASTATIN 40 MG TAB PO SCH (17:00)
[2025-08-03] MEDS ORDERED: ASPIRIN81 MG PO (17:27)
[2025-08-03] MEDS ORDERED: JARDIANCE10 MG PO (17:28)
[2025-08-03] MEDS ORDERED: PROSCAR5 MG PO (17:29)
[2025-08-03] MEDS ORDERED: LACTULOSE10 GM/15 M PO (17:29)
[2025-08-03] MEDS ORDERED: NITROSTAT0.4 MG SL (17:31)
[2025-08-03] MEDS ORDERED: ALDACTONE100 MG PO (17:31)
[2025-08-03] MEDS ORDERED: KLOR-CON 1010 MEQ PO (17:31)
[2025-08-03] MEDS ORDERED: TAMSULOSIN HCL0.4 MG PO (17:32)
--- NOTE | 2025-08-03 17:33 | NUR ---
MED REC COMPLETE
[2025-08-03 18:27] VITALS: BP 120/77
--- NOTE | 2025-08-03 19:35 | NUR ---
RECEIVED REPORT FROM NATHANIEL RN. PT REQUESTING TURKEY SANDWICH, EDUCATED ON 2G NA DIET, PT AGREES. PT REQUESTING PAPER AND PEN, GIVEN. NO OTHER NEEDS AT THIS TIME, CALL LIGTH WITHIN REACH, WHITEBOARD UPDATED.
--- NOTE | 2025-08-03 20:30 | NUR ---
ORDERED MEDS GIVEN, VS TAKEN, I&OS DOCUMENTED. ASSESSMENT COMPLETE. PT REPORTS HE WOULD LIKE AN RT TREATMENT, RT CALLED. NO OTHER NEEDS AT THIS TIME, CALL LIGHT WITHIN REACH. PT REMINDED THAT HE IS NPO AT MIDNIGHT.
[2025-08-03 20:55] VITALS: BP 98/69
[2025-08-03] MEDS ORDERED: APIXABAN 5 MG TAB PO SCH (21:00)
[2025-08-03] MEDS ORDERED: MELATONIN 3 MG TAB PO PRN (21:00)
--- NOTE | 2025-08-03 21:50 | NUR ---
PT CALLS REPORTING INCREASE IN COUGH AFTER BREATHING TX. PTS HOB ELEVATED, O2 SATS AT 100%. PT REPORTS HE WOULD LIKE A WARM BLANKET AND ROOM TEMP ELEVATED, COMPLETED. NO OTHER NEEDS AT THIS TIME, CALL LIGHT WITHIN REACH.
[2025-08-03 22:08] VITALS: BP 98/69
--- NOTE | 2025-08-03 22:46 | NUR ---
PT CALLS ASKING FOR WATER, REMINDED ABOUT 1500ML FLUID RESTRICTION. NO OTHER NEEDS AT THIS TIME, CALL LIGHT WITHIN REACH, LIGHTS OFF.
--- NOTE | 2025-08-03 23:09 | NUR ---
PT CALLED WANTING RT TREATMENT, RT EDUCATED PT THAT THIS IS FLUID OVERLOAD RELATED. PT AGREES, HOB ELEVATED. MD CALLED REGARDING PTS SOB, PLACES TELEPHONE ORDER FOR RESCUE INHALER.
[2025-08-03] MEDS ORDERED: ALBUTEROL SULFATE 8 GM INH INH PRN (23:15)
[2025-08-04] VITALS (14 sets, daily range): BP systolic 90–111; BP diastolic 60–81
--- NOTE | 2025-08-04 01:20 | NUR ---
PT LAYING IN BED, EYES CLOSED, ULABORED BREATHING. CALL LIGHT WITHIN REACH.
--- NOTE | 2025-08-04 02:34 | NUR ---
EXTRUDING DEPARTMENT SUPERVISOR AT BEDSIDE TAKING VITALS, PT REQUESTING MENU, REMINDED OF NPO STATUS, PT UNDERSTANDS. CALL LIGHT WITHIN REACH, NO OTHER NEEDS REPORTED.
--- NOTE | 2025-08-04 03:02 | NUR ---
PATIENT IS UP IN THE CHAIR. CALL LIGHT AND SIDE TABLE WITHIN REACH.
--- NOTE | 2025-08-04 03:39 | NUR ---
PT REPORT L FOOT IS NUMB, FOOT ASSESSED, SENSATION INTACT. L FOOT ELEVATED, NO OTHER NEEDS AT THIS TIME. PT UP TO CHAIR WITH CALL LIGHT IN REACH, LIGHTS OFF.
[2025-08-04 05:23] LABS: BASOPHILS 0.8 % (0.2-1.2); EOSINOPHILS 1.7 % (0.8-7.0); LYMPHOCYTES 11.4 % (21.8-53.1); MCH 27.3 PG (25.7-32.2); MCHC 32.4 g/dL (32.3-36.5); MCV 84.1 fL (79.0-92.2); MONOCYTES 8.4 % (5.3-12.2); NEUTROPHILS 77.4 % (34.0-67.9); RBC 4.66 M/uL (4.63-6.08)
[2025-08-04 05:54] LABS: ALT (SGPT) 19.0 U/L (14-59); AST (SGOT) 31.0 U/L (15-37); GLOMERULAR FILTRATION RATE,EST 58.0 mL/min (>60); PROTEIN, TOTAL 6.0 g/dL (6.4-8.2); UREA NITROGEN 26.0 mg/dL (7-18)
[2025-08-04] MEDS ORDERED: TORSEMIDE10 MG PO (07:14)
[2025-08-04] MEDS ORDERED: ELIQUIS5 M1 PO (07:15)
[2025-08-04] MEDS ORDERED: ALBUTEROL SULFATE 0.083% 3 ML VIAL INH PRN (07:15)
--- NOTE | 2025-08-04 07:35 | NUR ---
MORNING REPORT RECIEVED FROM GRACE MOSQUEDA. PT SITTING UP IN CHAIR AT THIS TIME WITH EYES CLOSED CHEST RISE EQUAL BILAT. PT HAS CALL LIGHT IN REACH IF NEEDED.
[2025-08-04] MEDS ORDERED: ASPIRIN 81 MG CHEW PO SCH (08:00)
[2025-08-04] MEDS ORDERED: acetaZOLAMIDE 250 MG TAB PO ONE (08:00)
[2025-08-04] MEDS ORDERED: EMPAGLIFLOZIN 10 MG TAB PO SCH (09:00)
[2025-08-04] MEDS ORDERED: LACTULOSE 20 GM/30 ML CUP PO SCH (09:00)
[2025-08-04] MEDS ORDERED: FINASTERIDE 5 MG TAB PO SCH (09:00)
[2025-08-04] MEDS ORDERED: FUROSEMIDE 100 MG/10 ML VIAL IV SCH (09:00)
[2025-08-04] MEDS ORDERED: TAMSULOSIN HCL 0.4 MG CAP PO SCH (09:00)
[2025-08-04] MEDS ORDERED: NICOTINE 14 MG/24 HR 1 EA TDSY TD SCH (09:00)
--- NOTE | 2025-08-04 09:00 | NUR ---
PT SITTING UP IN BED, PT HAS NO CURRENT CONCERNS AT THIS TIME AND HAS CALL LIGHT IN REACH IF NEEDED.
--- NOTE | 2025-08-04 09:28 | NUR ---
HOURLY ROUNDING PATIENT NOW WORKING WITH PT OT. NO REQUEST AT THIS TIME. BOARD HAS BEEN UPDATED AND CALL LIGHT HAS BEEN PLACED WITHIN REACH
--- NOTE | 2025-08-04 10:17 | NUR ---
ALERT AND ORIENTED IN BED WHEN THIS NURSE WALKS INTO ROOM. INFORMED HIM THAT THIS NURSE IS IN ROOM TO ASSESS DISCHARGE NEEDS. WHILE ASKING QUESTIONS TO DISCUSS HIS NEEDS, PATIENT CLOSES EYES AND DOES NOT ANSWER. 1 OR 2 MORE QUESTIONS ASKED AND HE CONTINUES TO OPEN AND CLOSE EYES AND DOES NOT ANSWER QUESTIONS. ASKED PATIENT IF HE IS GOING TO ANSWER QUESTIONS OR TALK TO THIS NURSE AND HE STATES "I JUST GOT DONE WITH THERAPY AND GOT A MEDICATION. I JUST WANT TO REST." DOES NOT SPEAK WITH THIS NURSE ANY FURTHER.
--- NOTE | 2025-08-04 10:18 | NUR ---
UR CLINICAL REVIEW: 2 MN FOR VERSALUS-PER UNIFORM ATTENDANT MEET INPT FOR CHF WITH NEED FOR IV DIURESIS, DAILY WEIGHTS, EDUCATION AND MONITORING GREATER THAN 2 MN MEDICARE INPT 08/03/25 @ 1527 ORDER MATCHES REG NO AUTH REQUIRED PER MEDICARE GUIDELINES DISCHARGE TO HOME WHEN STABLE DC REVIEW 08/05/25
[2025-08-04 10:21] LABS: BLOOD/HGB, URINE LARGE (Negative); KETONE, URINE NEGATIVE (Negative); LEUK ESTERASE, URINE TRACE (negative); NITRITE, URINE NEGATIVE (negative)
[2025-08-04 10:35] LABS: BACTERIA, URINE RARE /hpf (negative); CASTS, URINE NONE SEEN \\lpf; CRYSTALS, URINE NONE SEEN (0-1+); EPITHELIAL CELLS, URINE 0 /lpf (0-1+)
[2025-08-04 10:36] LABS: REFLEX CULTURE, URINE Yes (No)
--- NOTE | 2025-08-04 11:48 | EKG ---
[facility] [address] [place], [place] [address] Signed Ventricular-paced rhythm Biventricular pacemaker detected Abnormal ECG Confirmed by Candie Kramer DO ([id number]) on 08/04/2025 11:48:16 AM Electronically Signed By: CANDIE KRAMER DO 08/04/25 1148 PATIENT NAME: JHONNY NICHOLSON Electrocardiogram DATE OF : 59 PHYSICIAN: CANDIE KRAMER DO REPORT #: [id number] REPORT IS CONFIDENTIAL AND NOT TO BE RELEASED WITHOUT AUTHORIZATION
[2025-08-04] MEDS ORDERED: PHARMACY RENAL DOSE ADJUSTMENT 1 DOSE MISC PO SCH (12:00)
--- NOTE | 2025-08-04 12:25 | NUR ---
In with pt and Dr. Easley for paracentesis. Supplies and equipment set up in room for procedure. Dr. Easley reviewed consent for procedure with pt, pt verbalized understanding and signed consent, this RN witnessed signature. Assisted Dr. Easley. 4.5L of straw colored fluid removed. Pt tolerated procedure well. VSS. Primary RN, liz Carmen.
--- NOTE | 2025-08-04 13:00 | NUR ---
PT HAS A BED SIDE PARACENTESIS DONE BY MD KRAMER, PT STATES THEY FEEL MUCH BETTER AFTER REMOVAL OF FLUID, PT TOLERATED PROCEDURE WELL AND IS RESTING IN BED WITH CALL LIGHT IN REACH.
[2025-08-04] MEDS ORDERED: ALBUMIN HUMAN 25% 100 ML BTL IV ONE (13:15)
--- NOTE | 2025-08-04 13:50 | NUR ---
PT SITTING UP IN BED, PT HAS NO CURRENT CONCERNS, PT AWAKE AND ALERT. CALL LIGHT IN REACH.
--- NOTE | 2025-08-04 14:12 | NUR ---
HOURLY ROUNDING PATIENT LAYING IN BED, APPEARS VERY SLEEPY. NO REQUEST AT THSI TIME. CALL LIGHT HAS BEEN PLACED WITHIN REACH
--- NOTE | 2025-08-04 14:36 | NUR ---
HOURLY ROUNDING PATIENT IS ON A 1500ML FLUID RESTRISTION. NURSE FILLED CUP 300 ML. DOCUMENTED ON FLUID RESTTICTION SHEET.PATIENT IS NOW AT 1200 ML. NO REQUEST FROM PATIENT AT THIS TIME
--- NOTE | 2025-08-04 15:50 | NUR ---
PATIENT C/O SOB OFF AND ON, RESPIRATIONS AT 30. LAB INTO DRAW PATIENTS LABS. PATIENT SLEEPY. VITALS TAKEN. BREATH SOUNDS LISTENED TO BY RN.
[2025-08-04 16:12] LABS: GLOMERULAR FILTRATION RATE,EST 49.0 mL/min (>60); UREA NITROGEN 30.0 mg/dL (7-18)
[2025-08-04] MEDS ORDERED: LACTATED RINGER'S 500 ML IV PRN (16:15)
--- NOTE | 2025-08-04 16:31 | NUR ---
PT FAMILY IN ROOM, PT FAMILY UPDATED ON PT POC AND EDUCATED VERBALLY, PT FAMILY VERBALIZED UNDERSTANDING AND HAVE NO CURRENT QUESTIONS. PT FAMILY ALSO UPDATED THAT THE PT DID NOT HAVE A WALLET ON ADMIN AND PT FAMILY WAS GOING TO CHECK THE PT HOUSE FOR PERSONAL BELONGING. PT REMAINS IN BED WITH CALL LIGHT IN REACH.
[2025-08-04] MEDS ORDERED: LACTATED RINGER'S 500 ML IV ONE (17:00)
--- NOTE | 2025-08-04 17:39 | NUR ---
PT SITTING UP AT SIDE OF BED EATIGN DINNER, PT CONTINUES TO HAVE LOW CONCENTRATED URINE, MD KRAMER AWARE. PT HAS NO CURRENT CONCERNS AT THIS TIME AND HAS CALL LIGHT IN REACH AT THIS TIME.
--- NOTE | 2025-08-04 18:31 | NUR ---
PT SITIGN UP AT END OF BED, PT HAD REMOVED THEIR CATH STATLOCK AND COMPLAINED OF PAIN, PT MALLOY STILL IN PLACE AND NEW STATLOCK WAS APPLIED, PT URINE CONTINUES TO BE CONCENTRATED. PT HAS CALL LIGHT IN REACH AND SITTING UP IN BED.
--- NOTE | 2025-08-04 19:33 | NUR ---
RECEIEVED REPORT FROM GRACE VALERA. PT ASSISTED TO THE BATHROOM, REPORTS NO OTHER NEEDS AT THIS TIME, CALL LIGHT WITHIN REACH. BED ALARM ON, WHITEBOARD UPDATED.
--- NOTE | 2025-08-04 20:30 | NUR ---
THIS RN FOUND PTS WALLET IN SIDE TABLE DRAWER. VS TAKEN, I&OS COMPLETED. PTS ORDERED MEDS GIVEN, CALL LIGHT WITHIN REACH, PT WATCHING TV, NO OTHER NEEDS REPORTED.
--- NOTE | 2025-08-04 21:40 | NUR ---
ASSISITED PT TO THE BATHROOM, PT REPORTS NO PAIN/SOB/OR DIZZINESS, PT BACK TO BED SITTING AT THE SIDE COLORING. NO OTHER NEEDS REPORTED, CALL LIGHT WITHIN REACH.
--- NOTE | 2025-08-04 22:28 | NUR ---
PT SITTING UP IN BED DRAWING, PT STATES I CAN THROW AWAY HIS GRIEVANCE REPORT, NO OTHER NEEDS AT THIS TIME, CALL LIGHT WITHIN REACH.
--- NOTE | 2025-08-04 23:08 | NUR ---
RT REPORTS FOR THIS RN TO REMOVED PTS NEB TREATMENT D/T HAVING TO GO TO THE ER. NEB TREATMENT COMPLETED AND REMOVED. NO OTHER NEEDS AT THIS TIME, CALL LIGHT WITHIN REACH.
--- NOTE | 2025-08-04 23:35 | NUR ---
PATIENT CALLED WANTING TO BE UP AND SIT ON THE CHAIR. CHAIR ALARM ACTIVATED FOR SAFETY. SIDE TABLE WITH PERSONAL THINGS AND CALL LIGHT WITHIN REACH.
[2025-08-05] VITALS (14 sets, daily range): BP systolic 91–118; BP diastolic 60–82
--- NOTE | 2025-08-05 01:00 | NUR ---
PT REQUESTING FLUIDS, EDUCATED ON 1500ML FLUID RESTRICTION UNTIL 6AM, PT UNDERSTANDS. PT REQUESTS APPLESAUCE, GIVEN. NO OTHER NEEDS AT THIS TIME, CALL LIGHT WITHIN REACH.
--- NOTE | 2025-08-05 01:23 | NUR ---
VS TAKEN, PT REPORTS NO NEEDS AT THIS TIME, SLEEPING OFF AND ON IN CHAIR. CALL LIGHT WITHIN REACH.
--- NOTE | 2025-08-05 02:13 | NUR ---
PT ASSISTED TO THE BATHROOM WITH CANE AND SBA, PT REPORTS HE WILL CALL WITH BATHROOM LIGHT SINCE HE WILL BE SITTING THERE FOR A WHILE.
--- NOTE | 2025-08-05 03:45 | NUR ---
PT SITTING UP IN CHAIR COLORING ON PAGES, PT REQUESTS MENU, GIVEN. NO OTHER NEEDS AT THIS TIME, CALL LIGHT WITHIN REACH.
--- NOTE | 2025-08-05 04:09 | NUR ---
PT CALLS REQUESTING SOCKS AND SLIPPERS ON, DONE. PT REQUESTS FEET UP IN CHAIR, DONE. NO OTHER NEEDS AT THIS TIME, PERSONAL ITEMS AND CALL LIGHT WITHIN REACH.
--- NOTE | 2025-08-05 05:00 | NUR ---
FUSE CUP EXPANDER AT BEDSIDE TAKING VITALS, I&OS CHARTED, FUSE CUP EXPANDER ASSISTS PT TO BATHROOM AND BACK TO BED. PT REQUESTS NO OTHER NEEDS AT THIS TIME, CALL LIGHT WITHIN REACH.
[2025-08-05 05:26] LABS: BASOPHILS 1.1 % (0.2-1.2); EOSINOPHILS 1.6 % (0.8-7.0); LYMPHOCYTES 16.9 % (21.8-53.1); MCH 26.4 PG (25.7-32.2); MCHC 31.9 g/dL (32.3-36.5); MCV 82.7 fL (79.0-92.2); MONOCYTES 11.6 % (5.3-12.2); NEUTROPHILS 68.4 % (34.0-67.9); RBC 4.81 M/uL (4.63-6.08)
[2025-08-05 05:59] LABS: ALT (SGPT) 14.0 U/L (14-59); AST (SGOT) 21.0 U/L (15-37); GLOMERULAR FILTRATION RATE,EST 50.0 mL/min (>60); PROTEIN, TOTAL 5.5 g/dL (6.4-8.2); UREA NITROGEN 28.0 mg/dL (7-18)
--- NOTE | 2025-08-05 07:30 | NUR ---
MORNING REPORT RECIEVED FROM GRACE MOSQUEDA. PT SITTING UP IN BED COMFORTABLE WITH STABLE VITALS AT THIS TIME AND NO CURRENT CONCERNS CALL LIGHT IN REACH AT THIS TIME.
[2025-08-05] MEDS ORDERED: FUROSEMIDE 100 MG/10 ML VIAL IV SCH ×4 (09:00→10:15)
--- NOTE | 2025-08-05 09:20 | NUR ---
HOURLY ROUNDING PATIENT LAYING IN BED, PATIENT REPORTS FEELING BIT BETTER. NO REQUEST AT THIS TIME. FLUID RESTRISTION SHEET HAS BEEN UPDATED FOR TODAY Jul STARTING WITH 300 ML WATER FOR BREAKFEAST. BOARD HAS BEEN UPDATED AND BED IS LOWERED
--- NOTE | 2025-08-05 10:00 | NUR ---
PT SITTIGN UP AT EDGE OF BED, PT DENIES ANY CURRENT NEEDS AND STATES " THEY ARE FEELING BETTER TODAY THEN PREVIOUS DAYS" PT HAS CALL LIGHT IN REACH IF NEEDED.
--- NOTE | 2025-08-05 11:02 | NUR ---
SITTING ON EDGE OF BED. STATES HE HAS AN APARTMENT NOW, IN [place]. HE LIVES ALONE BUT HIS SISTER DOES HELP HIM WITH TRANSPORTATION NEEDS. HE HAS NO FINANCIAL CONCERNS. REQUESTING "SNF HOUSE" FOR ASSISTANCE WITH NEEDS. REVIEWED PT/OT NOTES THAT STATES PATIENT IS SAFE TO DC HOME WITH NO FURTHER NEEDS WITH THERAPIES.
--- NOTE | 2025-08-05 11:02 | NUR ---
PT SITTING AT EDGE OF BED, PT DENIES ANY CURRENT NEEDS, PT DENIES ANY DIZZINESS OR FEELING LIGHT HEADED. PT HAS CALL LIGHT IN REACH IF NEEDED.
--- NOTE | 2025-08-05 11:27 | NUR ---
HOURLY ROUNDIGN PATIENT APPEARS TO BE VERY SLEEPY,- ENSURE SHAKE WAS GIVEN. DOCUMENTED ON FLUID RESTRICTION SHEET 300ML. CALL LIGHT HAS BEEN PLACED WITHIN REACH
--- NOTE | 2025-08-05 12:20 | NUR ---
PT SITTING UP ON EDGE OF BED EATING LUNCH, PT IS TOLERATING FEED WELL AND HAS NO CURRENT CONCERNS, PT DENIES ANY NEEDS CURRENTLY CALL LIGHT IN REACH IF NEEDED.
--- NOTE | 2025-08-05 13:11 | NUR ---
DC REVIEW: NON COMPLIANCE WITH MEDICATION MANAGEMENT AND PCP FOLLOW UP NOTED BARRIERS TO DC DISCHARGE TO HOME WITH SISTERS ASSISTANCE WHEN STABLE ADD:1-2 DAYS NO ACTIONS REQUIRED
--- NOTE | 2025-08-05 13:13 | NUR ---
DC REVIEW: NO BARRIER TO DISCHARGE NOTED RETURN TO SNF WHEN STABLE DISCHARGE 08/05/25 NO ACTIONS REQUIRED
--- NOTE | 2025-08-05 13:36 | NUR ---
awake, eating, no c/o pain. f/c patent, draining dark yellow urine. CAMPUS ADMINISTRATIVE ASSISTANT to take him for a walk. on room air, uses cane at baseline. Tele in place
--- NOTE | 2025-08-05 13:39 | NUR ---
HOURLY ROUNDING PATIENT AMBULATE AROUND THE NURSE STATION.
--- NOTE | 2025-08-05 14:36 | NUR ---
PT UP IN CHAIR, ROOM AIR, COOPERATIVE WITH VITALS AND ASSESSMENS. LUNGS CLEAR BILAR, GOT TREATMENT EARLIER. ABD W SLIGHT DISTENTION. KINJAL, LBM 08/05. LACTULOSE GIVEN, EDEMATOUS SCROTUM AND PENIS, F/.C PATENT, DRAINING MEDIUM DARK YELLOW URINE, QS. EDEMA TO LE MUCH IMPROVED, ELEVATED IN CHAIR. DENIES C/O PAIN AT THIS TIME. WATCHING TV. TELE IN PLACE
--- NOTE | 2025-08-05 16:57 | NUR ---
in chair, table setted up for dinner, fresh can of pop and warm blanket given on requests. On room air, legs dependent. no c/o pain. "I want this catherer out, my scrotum and penis are less edematous and I would like to have it out before I get discharged". Reasong why f/c was placed given to pt, not receptive "They are my balls, not yours and I dont think I need it anymore, Im peeing just fine". F/c patent, draining QS at this time, Pt on Lasix therapy. Will notify
--- NOTE | 2025-08-05 17:29 | NUR ---
DR KRAMER NOTIFIED OF PTS REQUEST. NEW ORDER TODC F/C TODAY OBTAINED. pT EATING, VERBALLY NOTIFIED
--- NOTE | 2025-08-05 17:39 | NUR ---
PATIENT VITALS ARE COMPLTED, PATIENT NEEDED TO USE THE BATHROOM. ASSISTED DEVICE USED WALKER/CANE. PATIENT IS A SBA WHEN GOING TO THE BATHROOM. PATIENT ALERTS STAFF WHEN DONE USING THE RESTROOM. CALL LIGHT HAS BEEN PLACED [facility]
--- NOTE | 2025-08-05 17:51 | NUR ---
LOOSE BOWEL MOVEMENT AFTER MEALS, PATIENT ONE PERSON ASSIST WITH A WALKER WHEN TRANSFERING, PATIENT LIKES TO HAVE HIS CANE NEAR WHEN TRANSFERING. CALL LIGHT HAS BEEN PLACED WITHIN REACH
--- NOTE | 2025-08-05 17:55 | NUR ---
UNDERGROUND ROOF BOLTER ASSISTED PATIENT BACK TO BED FROM THE RESTROOM, GOT FRESH TOP SHEETS. CALL LIGHT WITH IN REACH AND RN IN ROOM.
--- NOTE | 2025-08-05 18:04 | NUR ---
1755- f/c dc'd 10cc water ballon removed prior to DC. scrotum and penis much improved, decreaed edema. tolerated well. Pt c/o h/a 03/05 medicated with tylenol. Pt back in bed, legs elevated
--- NOTE | 2025-08-05 18:28 | NUR ---
pt c/o penile discomfort at this time, Pt was instructed prior to deceing f/c that he mat have a slight pinkish/red drainage and some discomfort. "Yeah but I dint realized I would not be able to pee beause it hursts." Pt instructed that we would gait til 2100 if he is unable to void and we may do a bladder scanning to see if he was retaining urine in his bladder. "Oh", no further statements afterwards, in bed. watching tv
--- NOTE | 2025-08-05 19:45 | NUR ---
REPORT RECEIVED FROM DAYSHIFT RN, PATIENT RESTING IN BED COMFORTABLY WITH EYES CLOSED, RESPIRATIONS EVEN AND UNLABORED, NO NEEDS IDENTIFIED AT THIS TIME, CALL LIGHT IN REACH
--- NOTE | 2025-08-05 20:30 | NUR ---
IN ROOM WITH PRIMARY RN TO ASSIST WITH VS, pt MUMBLES TO SELF AND WHEN ANSWERING QUESTIONS. WHEN ASKED IF pt WANTED ANYTHING CLEARED OFF HIS DESK, POINTING TO AN ALMOST EMPTY BOTTLE-pt STATES, "OH LEAVE IT ALONE, GO BOTHER SOMEONE ELSE. ALL THIS STUFF IS MINE". pt EDUCATED THAT STAFF ARE ASKING IN CASE HE WANTED ANY ITEMS REMOVED FROM TABLE. I&O'S BOARD CLEARED AND PRIMARY RN DENIES ADDITIONAL NEEDS.
--- NOTE | 2025-08-05 20:36 | NUR ---
VS OBTAINED AND RECORDED, PATIENT DECLINED PRABHUQULUIS MIGUEL, EDUCATED ON PURPOSE AND USES OF MEDICATION, PATIENT CONTINUES TO DECLINE MEDICATION STATING "I KNOW EXACTLY WHAT IT IS FOR AND I AM NOT TAKING THAT". ASSESSMENT COMPLETED, HE REQUESTED A URINAL TO VOID IN, OTHERWISE HE STATES HE HAS 8/10 PAIN IN HIS PENIS FOLLOWING THE MALLOY CATHETER REMOVAL. OFFERED ICE PACK WHICH PATIENT DECLINED. NO OTHER NEEDS, VERBALIZED CORRECT USE OF CALL LIGHT, CALL LIGHT IN REACH
--- NOTE | 2025-08-05 22:32 | NUR ---
CALL LIGHT ANSWERED. PT NEEDED TO USE BATHROOM. PT SBA WITH CANE TO BATHROOM. PT HAD BM AND ASSISTED BACK TO BED. PT STATES NO FURTHER NEEDS AT THIS TIME. CALL LIGHT WITHIN REACH.
--- NOTE | 2025-08-05 23:00 | NUR ---
CALL LIGHT ANSWERED. PT NEEDED TO USE BATHROOM. DIE SINKER SBA WITH CANE TO BATHROOM. PT HAD BM AND ASSISTED BACK TO BED. PT STATES NO FURTHER NEEDS AT THIS TIME. CALL LIGHT WITHIN REACH.
--- NOTE | 2025-08-06 00:42 | NUR ---
CALL LIGHT ANSWERED, SNACK PROVIDED PER REQUEST. GIVEN FRESH WATER, NO OTHER NEEDS, CALL LIGHT IN REACH
[2025-08-06 01:41] VITALS: BP 119/78
--- NOTE | 2025-08-06 01:54 | NUR ---
CALL LIGHT ANSWERED, PATIENT UP TO BSC, BACK TO BED WITHOUT DIFFICULTY. GIVEN WATER PER REQUEST. FRESH GOWN AND CHUX ON BED. VS OBTAINED AND RECORDED. INTAKE AND OUTPUT DOCUMENTED. HE DENIES OTHER NEEDS, CALL LIGHT IN REACH
[2025-08-06 01:55] VITALS: BP 119/78
--- NOTE | 2025-08-06 03:21 | NUR ---
CALL LIGHT ANSWERED, PRN TYLENOL GIVEN FOR 7/10 PAIN. PATIENT REQUESTED HIS CLOTHES BE GIVEN TO HIM, STATING "I AM GETTING DRESSED NOW, I AM GOING HOME AT 8." PATIENT INFORMED THAT IT WAS ONLY 3AM AND IF HE WANTED TO WAIT A FEW HOURS HE WOULD HAVE HELP AND HE STATED "I KNOW WHAT I AM DOING, THE DOCTOR IS COMING AT 8 AND I AM LEAVING". PATIENT DENIES ANY OTHER NEEDS, CALL LIGHT IN REACH, BED ALARM ON.
--- NOTE | 2025-08-06 03:35 | NUR ---
bed alarm going off, pt trying to out his sock on, sitting on edge of bed. assistance provided. pt back in bed, pants on but remain unzipped. pt states, "i'm gonna get my breakfast at 8 then the doctor is gonna see me and my dad is gonna pick me up at 10. we have a plan all figured out". table and belongings in reach along with call light. no further needs or concerns verbalized.
[2025-08-06 05:29] LABS: BASOPHILS 0.6 % (0.2-1.2); EOSINOPHILS 1.8 % (0.8-7.0); LYMPHOCYTES 10.2 % (21.8-53.1); MCH 26.8 PG (25.7-32.2); MCHC 32.7 g/dL (32.3-36.5); MCV 81.9 fL (79.0-92.2); MONOCYTES 9.7 % (5.3-12.2); NEUTROPHILS 77.5 % (34.0-67.9); RBC 4.37 M/uL (4.63-6.08)
[2025-08-06 06:00] VITALS: BP 120/73
[2025-08-06 06:01] LABS: ALT (SGPT) 23.0 U/L (14-59); AST (SGOT) 32.0 U/L (15-37); GLOMERULAR FILTRATION RATE,EST 44.0 mL/min (>60); PROTEIN, TOTAL 5.4 g/dL (6.4-8.2); UREA NITROGEN 31.0 mg/dL (7-18)
[2025-08-06 06:05] VITALS: BP 120/73
--- NOTE | 2025-08-06 06:07 | NUR ---
PATIENT SITTING ON SIDE OF BED, VS OBTAINED AND RECORDED, INTAKE AND OUTPUT DOCUMENTED. PATIENT GIVEN COFFEE PER REQUEST. LUNG SOUNDS AUSCULTATED, CLEAR. HE IS FULLY CLOTHED SITTING AT THE SIDE OF THE BED STATING HE IS READY TO GO HOME WHEN THE DOCTOR GETS HERE. HE DENIES FURTHER NEEDS, CALL LIGHT IN REACH
--- NOTE | 2025-08-06 07:25 | NUR ---
Pt sitting up in chair, took tele off, replaced. Tele#[address] paced with SVPB's. On room air, lungs light crackles at bases, cleared with cough. abd large, slightly more firm than yesterday, Has had numerous bm's. edematous penis and scrotum but much more improved than on admit. Has voided QS. SL in place. Angry tone of voice, "Tapan going home as soon as the Dr gets here stated. Legs dependent, edema to LE much improved 1+. on fluid restrictions, tolerating well. uses cane at baseline. Had tossed some belongings into floor, reorganized back to table.
--- NOTE | 2025-08-06 07:35 | NUR ---
Pt declining am meds at this time. sitting up in chair, legs dependent, wearing street clothes. "Dr said I was going to go home today, Tapan leaving at 0800" Pt instructed to wait til after breakfast so he did nto have to cook when he gets home, "I'll think about it"
--- NOTE | 2025-08-06 08:48 | NUR ---
PT SITTING BY WINDOW, DECLINES AM MEDS AT THIST [facility]EN[facility], SECOND TIME. DECLINES TO BE WEIGHT PRIOR TO DC. "BROOKE JUST WAITING FOR THE DR" STATED
--- NOTE | 2025-08-06 08:52 | NUR ---
PATIENT IN CHAIR AT THIS TIME. FIBERGLASSER CHARTED HOURLY ROUNDS. CALL LIGHT WITHIN REACH, NO FURTHER NEEDS.
[2025-08-06] MEDS ORDERED: FUROSEMIDE 100 MG/10 ML VIAL IV SCH (09:00)
[2025-08-06] MEDS ORDERED: TORSEMIDE 20 MG TAB PO SCH (09:00)
[2025-08-06 09:48] VITALS: BP 119/74
--- NOTE | 2025-08-06 09:58 | NUR ---
Spoke with Nain. He plans on dc today. His dad is picking him up. He states he will be going to [place] [facility]. I discussed with him that might not be the best idea. He would like his father to take him to [place] to his . He states his now has an appartment also. He states he has to go wherever his father takes him. He denies needs and is able to clam picker meds from the pharmacy if needed. He states he now has an apartment here in town.
--- NOTE | 2025-08-06 10:00 | NUR ---
PT IN CHAIR, MEDS GIVEN, REFUSED WEIGHT
[2025-08-06 10:08] VITALS: BP 119/74
--- NOTE | 2025-08-06 10:09 | NUR ---
tele dc'd, iv rfa dc'd. tip intact, 2x2 in place. Dr Easley in room
--- NOTE | 2025-08-06 10:10 | NUR ---
took meds, refused lactulose
[2025-08-06] MEDS ORDERED: TORSEMIDE20 MG PO (10:25)
--- NOTE | 2025-08-06 10:40 | NUR ---
1035 - pt given dc written and verbal instructions. staed understanding, Pt instructed to keep to low na diet, med compliance. and s/sx of CHF failure. "I know all of that" stated. DC home via w/c to familys private care.
--- NOTE | 2025-08-06 13:54 | EKG ---
[facility] [address] [facility] [address] [place] [address] Signed Ventricular-paced rhythm Biventricular pacemaker detected Abnormal ECG No previous ECGs available Confirmed by Candie Kramer DO ([id number]) on 08/06/2025 1:54:06 PM Electronically Signed By: CANDIE KRAMER DO 08/06/25 1354 PATIENT NAME: JHONNY NICHOLSON Electrocardiogram DATE OF : 59 PHYSICIAN: CANDIE KRAMER DO REPORT #: [id number] REPORT IS CONFIDENTIAL AND NOT TO BE RELEASED WITHOUT AUTHORIZATION
== END 2025-08-06 10:39 | disposition home or self-care (01) | DRG 291 ==
LOC: ED 10:47 → MS 15:33
PROVIDERS: Emergency Medicine; ADMIT Student in an Organized Health Care Education/Training Program; ATTEND Student in an Organized Health Care Education/Training Program
PROC: 0T9B70Z Drainage of Bladder with Drainage Device, Via Natural or Artificial Opening (ICD-10-PCS; principal; 2025-08-03)
PROC: 0W9G3ZZ Drainage of Peritoneal Cavity, Percutaneous Approach (ICD-10-PCS; 2025-08-04)
PROC: 30233J1 Transfusion of Nonautologous Serum Albumin into Peripheral Vein, Percutaneous Approach (ICD-10-PCS; 2025-08-04)
DX: I11.0 Hypertensive heart disease with heart failure (principal); I50.23 Acute on chronic systolic (congestive) heart failure; N17.9 Acute kidney failure, unspecified; F10.10 Alcohol abuse, uncomplicated; E78.5 Hyperlipidemia, unspecified; K21.9 Gastro-esophageal reflux disease without esophagitis; J45.909 Unspecified asthma, uncomplicated; N40.0 Benign prostatic hyperplasia without lower urinary tract symptoms; F17.210 Nicotine dependence, cigarettes, uncomplicated; K70.31 Alcoholic cirrhosis of liver with ascites; E66.9 Obesity, unspecified; R14.0 Abdominal distension (gaseous); Z79.2 Long term (current) use of antibiotics; Z95.0 Presence of cardiac pacemaker; Z79.899 Other long term (current) drug therapy; Z79.82 Long term (current) use of aspirin; Z79.51 Long term (current) use of inhaled steroids; Z79.01 Long term (current) use of anticoagulants; Z68.29 Body mass index [BMI] 29.0-29.9, adult; Z87.19 Personal history of other diseases of the digestive system
CPT/HCPCS: 36415; 49082; 71045; 76705; 80048; 80053; 81001; 82140; 83735; 83880; 84484; 85025; 87088; 93005; 93010; 94640; 94760; 96374; 99285-25; A9270; J1938; J7121; P9047

== ENCOUNTER 2025-08-07 13:41 | Emergency (ER) | payer MEDICARE ==
[~2025-08-07] VITALS: Ht 180.3 cm; Wt 99.9 kg
[~2025-08-07 13:41] MED LIST changes: +ALDACTONE100 MG PO; +ELIQUIS5 M1 PO; +KLOR-CON 1010 MEQ PO; +LACTULOSE10 GM/15 M PO; +NITROSTAT0.4 MG SL; +PROSCAR5 MG PO; +TORSEMIDE10 MG PO
--- OUTSIDE RECORDS SUMMARY | 2025-08-07 13:48 | XMS ---
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 ([place]) ( 07/28/2019 ) [facility] ( 06/18/2013 ) [facility] VISIT COUNT (12 MO.) 25 [facility] ([place]) 15 [facility] TOTAL 41 NOTE: Visits indicate total known visits. ED/UCC VISIT TRACKING (12 MO.) 08/07/2025 13:42 [facility] [place] TYPE: Emergency COMPLAINT: - ABDOMINAL PAIN 08/03/2025 10:47 [facility] [place] TYPE: Emergency COMPLAINT: - SHORTNESS OF BREATH 07/29/2025 12:51 [facility] [place] TYPE: Emergency COMPLAINT: - CATHETER PROBLEM DIAGNOSES: - Acute kidney failure, unspecified - Chronic kidney disease, unspecified - Heart failure, unspecified - Hypertensive heart and chronic kidney disease with heart failure and stage 1 through stage 4 chronic kidney disease, or unspecified chronic kidney disease - nursing home (current) use of aspirin - Other ascites - Other supervisor intermediates (current) drug therapy - Unspecified cirrhosis of [...] tract infection, site not specified 07/23/2025 11:32 [facility] [place] TYPE: Emergency COMPLAINT: - ABDOMINAL PAIN [facility] DIAGNOSES: - Heart failure, unspecified - Abdominal Pain - weakness, abd pain 07/14/2025 10:25 [facility] [place] TYPE: Emergency COMPLAINT: - SHORTNESS OF BREATH DIAGNOSES: - Acute respiratory failure with hypoxia - Cardiomyopathy, unspecified - Chronic pulmonary edema - Heart failure, unspecified - Hypertensive heart disease with heart failure - Other [facility] (current) drug therapy - Shortness of breath [facility] TYPE: Emergency DIAGNOSES: - Other ascites - abd pain - Abdominal Pain - Shortness of Breath 07/09/2025 10:53 [facility] ([place] TYPE: Emergency DIAGNOSES: - Other ascites - Abdominal Pain - Followup Medical Problem 07/01/2025 10:58 [facility] ([place] TYPE: Emergency DIAGNOSES: - COVID-19 - Other ascites - Unspecified cirrhosis of liver - abd pain - Abdominal Pain 06/26/2025 20:58 [facility] [place] TYPE: Emergency COMPLAINT: - DIFFICULTY BREATHING DIAGNOSES: - Gastro-esophageal reflux disease without esophagitis - Heart failure, unspecified - Hypertensive heart disease with heart failure - terminal gauger supervisor (current) use of aspirin - Other supervisor intermediates (current) drug therapy - Procedure and treatment not carried out because of patient's decision for other reasons - Shortness of breath - Unspecified cirrhosis of liver 06/25/2025 09:46 [facility] ([facility] TYPE: Emergency DIAGNOSES: - Alcoholic cirrhosis of liver with ascites - Cellulitis of left upper limb - Edema, unspecified - Other ascites - Edema - Shortness of Breath 06/20/2025 00:13 [facility] TYPE: Emergency DIAGNOSES: - Umbilical hernia with obstruction, without gangrene - Unspecified cirrhosis of liver 06/19/2025 15:14 [facility] ([place]) TYPE: Emergency DIAGNOSES: - Lower abdominal pain, unspecified - Umbilical hernia without obstruction or gangrene - Unspecified abdominal hernia with obstruction, without gangrene - abd pain - Abdominal Pain 06/15/2025 20:43 [facility] TYPE: Emergency DIAGNOSES: - Heart failure, unspecified - Patient's other noncompliance with medication regimen for other reason - Dysuria - Fatigue - Nausea 06/13/2025 23:17 [facility] TYPE: Emergency DIAGNOSES: - Heart failure, unspecified - Lower abdominal pain, unspecified - Tachycardia, unspecified - Abdominal Pain - Shortness of Breath 06/09/2025 13:32 [facility] TYPE: Emergency DIAGNOSES: - Unspecified abdominal pain - abd pain - Abdominal Pain 06/01/2025 11:39 [facility] TYPE: Emergency DIAGNOSES: - Heart failure, unspecified - Abdominal Pain 05/22/2025 09:12 [facility] [place] ([facility] TYPE: Emergency DIAGNOSES: - Other ascites - Unspecified abdominal pain - Unspecified atrial fibrillation - Tachycardia 05/16/2025 19:07 [facility] ([facility] TYPE: Emergency DIAGNOSES: - Other chondrocalcinosis, left elbow - Arm Pain - left arm pain Plus 21 More Visits INPATIENT VISIT TRACKING (12 MO.) 08/03/2025 15:[address] [facility] [place] TYPE: Medical Surgical COMPLAINT: - CHF EXACERBATION DIAGNOSES: - Abdominal distension (gaseous) - Abdominal distension (gaseous) - Acute kidney failure, unspecified - Acute kidney failure, unspecified - Acute on chronic systolic (congestive) heart failure - Acute on chronic systolic (congestive) heart failure - Alcohol abuse, uncomplicated - Alcohol abuse, uncomplicated - Alcoholic cirrhosis of liver with ascites - Alcoholic cirrhosis of liver with ascites - Benign prostatic hyperplasia without lower urinary tract symptoms - Benign prostatic hyperplasia without lower urinary tract symptoms - Body mass index [BMI] 29.0-29.9, adult - Body mass index [BMI] 29.0-29.9, adult - Gastro-esophageal reflux disease without esophagitis - Gastro-esophageal reflux disease without esophagitis - Hyperlipidemia, unspecified - Hyperlipidemia, unspecified - Hypertensive heart disease with heart failure - Hypertensive heart disease with heart failure - nursing home (current) use of antibiotics - nursing home (current) use of antibiotics - terminal gauger supervisor (current) use of anticoagulants - nursing home (current) use of anticoagulants - nursing home (current) use of aspirin - terminal gauger supervisor (current) use of aspirin - terminal gauger supervisor (current) use of inhaled steroids - terminal gauger supervisor (current) use of inhaled steroids - Nicotine dependence, cigarettes, uncomplicated - Nicotine dependence, cigarettes, uncomplicated - Obesity, unspecified - Obesity, unspecified - Other supervisor intermediates (current) drug therapy - Other chcf (current) drug therapy - Personal history of other diseases of the digestive system - Personal history of other diseases of the digestive system - Presence of cardiac pacemaker - Presence of cardiac pacemaker - Shortness of breath - Unspecified asthma, uncomplicated - Unspecified asthma, uncomplicated 07/29/2025 23:03 [facility] TYPE: Medical Surgical COMPLAINT: - transfer DIAGNOSES: 0. Shortness of breath 1. Hypertensive heart and chronic kidney disease with heart failure and stage 1 through stage 4 chronic kidney disease, or unspecified chronic kidney disease 2. Acute respiratory failure with hypoxia 3. Chronic systolic (congestive) heart failure 4. Acute kidney failure, unspecified 5. Hypo-osmolality and hyponatremia 6. Homelessness unspecified 7. Alcoholic cirrhosis of liver with ascites 8. Unspecified atrial fibrillation 9. Left bundle-branch block, unspecified 10. Atherosclerotic heart disease of [place] coronary artery without angina pectoris 11. Pulmonary hypertension, unspecified 12. Nonrheumatic mitral (valve) insufficiency 13. Nonrheumatic tricuspid (valve) insufficiency 14. Nonrheumatic aortic (valve) stenosis 15. Other specified diseases of liver 16. Unspecified asthma, uncomplicated 17. Gastro-esophageal reflux disease without esophagitis 18. Hepatic failure, unspecified without coma 19. Bacteriuria 20. Chronic kidney disease, stage 3 unspecified 21. Hyperkalemia 22. Alcohol dependence, in remission 23. Other stimulant abuse, in remission 24. Patient's noncompliance with other medical treatment and regimen due to unspecified reason 25. Presence of automatic (implantable) cardiac defibrillator 26. Patient's other noncompliance with medication regimen for other reason 27. Personal history of nicotine dependence 28. Procedure and treatment not carried out due to patient leaving prior to being seen by health care provider 07/23/2025 15:[address] [facility] [place] [...] - Ischemic cardiomyopathy - Ischemic cardiomyopathy - terminal gauger supervisor (current) use of inhaled steroids - nursing home (current) use of inhaled steroids - Nicotine dependence, cigarettes, uncomplicated - Nicotine dependence, cigarettes, uncomplicated - Obesity, unspecified - Obesity, unspecified - Other ascites - Other ascites - Other supervisor intermediates (current) drug therapy - Other chcf (current) drug therapy - Other specified postprocedural [...] - Unspecified cirrhosis of liver 07/14/2025 17:01 [facility] ([place] TYPE: Medical Surgical DIAGNOSES: - Acute kidney failure, unspecified - Acute on chronic combined systolic (congestive) and diastolic (congestive) heart failure - Alcoholic cirrhosis of liver with ascites - Chronic combined systolic (congestive) and diastolic (congestive) heart failure - Essential (primary) hypertension - Pulmonary hypertension, unspecified - Anasarca - CHF 06/20/2025 00:13 [facility] TYPE: Surgery DIAGNOSES: - Metabolic encephalopathy - Other ascites - Umbilical hernia with obstruction, without gangrene - Unspecified cirrhosis of liver 06/01/2025 11:39 [facility] TYPE: Medical Surgical [...] malaise - Other specified counseling 05/22/2025 09:12 [facility]: Medical [facility] DIAGNOSES: - Acute on chronic combined systolic (congestive) and diastolic (congestive) heart failure - Alcoholic cirrhosis of liver with ascites - Atherosclerotic heart disease of [place] coronary artery with unspecified angina pectoris - [...] Unspecified systolic (congestive) heart failure 04/06/2025 16:11 [facility] [place] ([facility] TYPE: Medical Surgical DIAGNOSES: [...] and hyponatremia - Hypo-osmolality and hyponatremia - nursing home (current) use of aspirin - terminal gauger supervisor (current) use of aspirin - Other ascites [...] - Unspecified cirrhosis of liver 03/13/2025 09:07 [facility] ([place] TYPE: Medical Surgical DIAGNOSES: - Acute on chronic combined systolic (congestive) and diastolic (congestive) heart failure - Alcohol dependence, in remission - Atherosclerotic heart disease of [place] coronary artery with unspecified angina pectoris - Chronic kidney disease, stage 3a - Heart failure, unspecified - Mild intermittent asthma, uncomplicated - Myocardial infarction type 2 - Nicotine dependence, cigarettes, in remission - Nonrheumatic mitral (valve) insufficiency - Other specified abnormal findings of blood chemistry - Pulmonary hypertension, unspecified 02/16/2025 12:41 [facility] TYPE: Medical [...] medication regimen for other reason 01/13/2025 09:17 [facility] TYPE: Emergency DIAGNOSES: - Acute on chronic combined systolic (congestive) and diastolic (congestive) heart failure - Acute respiratory failure with hypoxia - Fluid overload, unspecified - Homelessness unspecified - Patient's noncompliance with dietary regimen due to unspecified reason - Shortness of breath 12/29/2024 06:07 [facility] TYPE: Medical Surgical DIAGNOSES: - Acute kidney failure, unspecified - Acute on chronic combined systolic (congestive) and diastolic (congestive) heart failure - Alcohol abuse, uncomplicated - Atherosclerotic heart disease of [place] coronary artery without angina pectoris - Chronic [...] withdrawal, unspecified - Atherosclerotic heart disease of [place] coronary artery without angina pectoris - Atherosclerotic heart disease of [place] coronary artery without angina pectoris - Chest pain, unspecified - Gastro-esophageal reflux disease without esophagitis - Gastro-esophageal reflux disease without esophagitis - Heart failure, unspecified - Heart failure, unspecified - Hypertensive heart disease with heart failure - Hypertensive heart disease with heart failure - terminal gauger supervisor (current) use of aspirin - terminal gauger supervisor (current) use of aspirin - Nonrheumatic aortic (valve) stenosis - Nonrheumatic aortic (valve) stenosis - Obesity, unspecified - Obesity, unspecified - Old myocardial infarction - Old myocardial infarction - Other chcf (current) drug therapy - Other supervisor intermediates (current) drug therapy - Other specified postprocedural [...] because of patient's decision for other reasons [email or web address]
[2025-08-07 14:56] VITALS: BP 108/73
== END 2025-08-07 15:00 | disposition home or self-care (01) ==
LOC: ED 13:41
DX: R10.31 Right lower quadrant pain (principal); I50.9 Heart failure, unspecified; Z79.899 Other long term (current) drug therapy; Z79.82 Long term (current) use of aspirin
CPT/HCPCS: 99283

== ENCOUNTER 2025-08-08 07:36 | Emergency (ER) | payer MEDICARE ==
[~2025-08-08] VITALS: Ht 180.3 cm; Wt 99.5 kg
--- NOTE | ~2025-08-08 | EKG ---
[facility] [address] [place], [place] [address] Draft EKG completed, results pending confirmation PATIENT NAME: NICHOLSONJHONNY Electrocardiogram DATE OF : 59 PHYSICIAN: PRELIMINARY REPORT #: [id number] REPORT IS CONFIDENTIAL AND NOT TO BE RELEASED WITHOUT AUTHORIZATION
--- OUTSIDE RECORDS SUMMARY | 2025-08-08 07:43 | XMS ---
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 Events No recent Security Events currently on file CRITERIA MET - 6 ED Visits in 6 Months - [facility] - 2 Visits in 30 Days - [facility] - 3 Facilities in 90 Days CARE PROVIDERS Michelle Lucio Registered Nurse 11/24/2019-Current PHONE: Unknown ABRAN ALVARADO Family Medicine Current PHONE: [phone] MIGEL MUNOZ Family Medicine: Obesity Medicine Current PHONE: [phone] Care Guidelines exist for the following facilities: [facility] ([place]) ( 07/28/2019 ) [facility] ( 06/18/2013 ) [facility] VISIT COUNT (12 MO.) 25 [facility] ([place]) 16 ALL[facility] TOTAL 42 NOTE: Visits indicate total known visits. ED/UCC VISIT TRACKING (12 MO.) 08/08/2025 07:37 [place] [place] TYPE: Emergency COMPLAINT: - ABDOMINAL PAIN 08/07/2025 13:42 [facility] [place] TYPE: Emergency [...] disease, or unspecified chronic kidney disease - shelter (current) use of aspirin - Other ascites - Other longterm (current) drug therapy - Unspecified cirrhosis of [...] Emergency COMPLAINT: - ABDOMINAL PAIN 07/20/2025 15:28 [facility]) TYPE: Emergency DIAGNOSES: - Heart failure, unspecified - Abdominal Pain - weakness, abd pain 07/14/2025 10:25 [facility] [place] TYPE: Emergency COMPLAINT: - SHORTNESS OF BREATH DIAGNOSES: - Acute respiratory failure with hypoxia - Cardiomyopathy, unspecified - Chronic pulmonary edema - Heart failure, unspecified - Hypertensive heart disease with heart failure - Other longterm (current) drug therapy - Shortness of breath 07/11/2025 18:18 [facility] ([place]) TYPE: Emergency DIAGNOSES: - Other ascites - abd pain - Abdominal Pain - Shortness of Breath 07/09/2025 10:53 [facility] [facility] ([place]) TYPE: Emergency DIAGNOSES: - Other ascites - Abdominal Pain - Followup Medical Problem 07/01/2025 10:58 [facility] [facility] ([place]) TYPE: Emergency DIAGNOSES: - COVID-19 - Other ascites - Unspecified cirrhosis of liver - abd pain - Abdominal Pain 06/26/2025 20:58 [facility] [place] [place] TYPE: Emergency COMPLAINT: - DIFFICULTY BREATHING DIAGNOSES: - Gastro-esophageal reflux disease without esophagitis - Heart failure, unspecified - Hypertensive heart disease with heart failure - shelter (current) use of aspirin - Other termite control representative (current) drug therapy - Procedure and treatment not carried out because of patient's decision for other reasons - Shortness of breath - Unspecified cirrhosis of liver 06/25/2025 09:46 [facility] ([facility]) TYPE: Emergency DIAGNOSES: - Alcoholic cirrhosis of liver with ascites - Cellulitis of left upper limb - Edema, unspecified - Other ascites - Edema - Shortness of Breath 06/20/2025 00:13 [facility] TYPE: Emergency DIAGNOSES: - Umbilical hernia with obstruction, without gangrene - Unspecified cirrhosis of liver 06/19/2025 15:14 [facility] ([facility]) TYPE: Emergency DIAGNOSES: - Lower abdominal pain, unspecified - Umbilical hernia without obstruction or gangrene - Unspecified abdominal hernia with obstruction, without gangrene - abd pain - Abdominal Pain 06/15/2025 20:43 [facility] [place] ([facility]) TYPE: Emergency DIAGNOSES: - Heart failure, unspecified - Patient's other noncompliance with medication regimen for other reason - Dysuria - Fatigue - Nausea 06/13/2025 23:17 [facility] [place] ([facility]) TYPE: Emergency DIAGNOSES: - Heart failure, unspecified - Lower abdominal pain, unspecified - Tachycardia, unspecified - Abdominal Pain - Shortness of Breath 06/09/2025 13:32 [facility] [place] ([facility]) TYPE: Emergency DIAGNOSES: - Unspecified abdominal pain - abd pain - Abdominal Pain 06/01/2025 11[facility] [place] TYPE: Emergency DIAGNOSES: - Heart failure, unspecified - Abdominal Pain 05/22/2025 09:12 [facility] [place] ([facility] TYPE: Emergency DIAGNOSES: - Other ascites - Unspecified abdominal pain - Unspecified atrial fibrillation - Tachycardia Plus 22 More Visits INPATIENT VISIT TRACKING (12 MO.) 08/03/2025 15:33 [facility] [place] TYPE: Medical Surgical COMPLAINT: [...] Hypertensive heart disease with heart failure - ferry terminal supervisor (current) use of antibiotics - shelter (current) use of antibiotics - shelter (current) use of anticoagulants - shelter (current) use of anticoagulants - shelter (current) use of aspirin - ferry terminal supervisor (current) use of aspirin - ferry terminal supervisor (current) use of inhaled steroids - ferry terminal supervisor (current) use of inhaled steroids - Nicotine dependence, cigarettes, uncomplicated - Nicotine dependence, cigarettes, uncomplicated - Obesity, unspecified - Obesity, unspecified - Other termite control representative (current) drug therapy - Other longterm (current) drug therapy - Personal history of other diseases of the digestive system - Personal history of other diseases of the digestive system - Presence of cardiac pacemaker - Presence of cardiac pacemaker - Shortness of breath - Unspecified asthma, uncomplicated - Unspecified asthma, uncomplicated 07[facility]29[facility]2025 23[facility] [place] TYPE: Medical Surgical COMPLAINT: - transfer DIAGNOSES: [...] block, unspecified 10. 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 Pulmonary [...] - Ischemic cardiomyopathy - Ischemic cardiomyopathy - ferry terminal supervisor (current) use of inhaled steroids - shelter (current) use of inhaled steroids - Nicotine dependence, cigarettes, uncomplicated - Nicotine dependence, cigarettes, uncomplicated - Obesity, unspecified - Obesity, unspecified - Other ascites - Other ascites - Other longterm (current) drug therapy - Other termite control representative (current) drug therapy - Other specified postprocedural [...] - Unspecified cirrhosis of liver 07/14/2025 17:01 [facility] ([facility] TYPE: Medical Surgical DIAGNOSES: - Acute kidney failure, unspecified - Acute on chronic combined systolic (congestive) and diastolic (congestive) heart failure - Alcoholic cirrhosis of liver with ascites - Chronic combined systolic (congestive) and diastolic (congestive) heart failure - Essential (primary) hypertension - Pulmonary hypertension, unspecified - Anasarca - CHF 06/20/2025 00:13 [facility] TYPE: Surgery DIAGNOSES: - Metabolic encephalopathy - Other ascites - Umbilical hernia with obstruction, without gangrene - Unspecified cirrhosis of liver 06/01/2025 11:39 [facility] TYPE: Medical Surgical [...] malaise - Other specified counseling 05/22/2025 09:12 [facility] [facility] ([place] TYPE: Medical Surgical DIAGNOSES: - Acute on chronic combined systolic (congestive) and diastolic (congestive) heart failure - Alcoholic cirrhosis of liver with ascites - 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 - Chronic kidney disease, stage 3a - Heart failure, unspecified - Mild intermittent asthma, uncomplicated - Myocardial infarction type 2 - Nicotine dependence, cigarettes, in remission - Nonrheumatic mitral (valve) insufficiency - Other specified abnormal findings of blood chemistry - Pulmonary hypertension, unspecified 02/16/2025 12:41 [facility] [facility] ([place] TYPE: Medical Surgical DIAGNOSES: - Acute on [...] medication regimen for other reason 01/13/2025 09:17 [facility] [place] ([facility] TYPE: Emergency DIAGNOSES: - Acute on chronic combined systolic (congestive) and diastolic (congestive) heart failure - Acute respiratory failure with hypoxia - Fluid overload, unspecified - Homelessness unspecified - Patient's noncompliance with dietary regimen due to unspecified reason - Shortness of breath 12/29/2024 06:07 [facility] [place] ([facility]) TYPE: Medical Surgical DIAGNOSES: - Acute kidney failure, unspecified - Acute on chronic combined systolic (congestive) and diastolic (congestive) heart failure - Alcohol abuse, uncomplicated - 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 - Chronic [...] withdrawal, unspecified - 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 - 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 - Chest pain, unspecified - Gastro-esophageal reflux disease without esophagitis - Gastro-esophageal reflux disease without esophagitis - Heart failure, unspecified - Heart failure, unspecified - Hypertensive heart disease with heart failure - Hypertensive heart disease with heart failure - ferry terminal supervisor (current) use of aspirin - ferry terminal supervisor (current) use of aspirin - Nonrheumatic aortic (valve) stenosis - Nonrheumatic aortic (valve) stenosis - Obesity, unspecified - Obesity, unspecified - Old myocardial infarction - Old myocardial infarction - Other longterm (current) drug therapy - Other longterm (current) drug therapy - Other specified postprocedural [...] because of patient's decision for other reasons [email or web address]
[2025-08-08] MEDS ORDERED: HYDROmorphone HCL 1 MG/ML SYR IV ONE (08:00)
[2025-08-08 08:04] LABS: BASOPHILS 1.0 % (0.2-1.2); EOSINOPHILS 2.1 % (0.8-7.0); LYMPHOCYTES 8.1 % (21.8-53.1); MCH 27.3 PG (25.7-32.2); MCHC 32.4 g/dL (32.3-36.5); MCV 84.1 fL (79.0-92.2); MONOCYTES 10.9 % (5.3-12.2); NEUTROPHILS 77.6 % (34.0-67.9); RBC 4.29 M/uL (4.63-6.08)
[2025-08-08 08:35] LABS: ALT (SGPT) 7.0 U/L (14-59); AST (SGOT) 33.0 U/L (15-37); GLOMERULAR FILTRATION RATE,EST 63.0 mL/min (>60); PROTEIN, TOTAL 5.8 g/dL (6.4-8.2); UREA NITROGEN 27.0 mg/dL (7-18)
[2025-08-08 09:05] LABS: BLOOD/HGB, URINE NEGATIVE (Negative); KETONE, URINE NEGATIVE (Negative); LEUK ESTERASE, URINE NEGATIVE (negative); NITRITE, URINE NEGATIVE (negative)
[2025-08-08 09:13] LABS: CRYSTALS, URINE NONE SEEN (0-1+); EPITHELIAL CELLS, URINE SQUAMOUS 1+ /lpf (0-1+)
[2025-08-08 09:14] LABS: BACTERIA, URINE NONE SEEN /hpf (negative); CASTS, URINE NONE SEEN \\lpf; REFLEX CULTURE, URINE No (No)
[2025-08-08] MEDS ORDERED: FUROSEMIDE 40 MG/4 ML VIAL IV ONE ×2 (09:30→09:45)
[2025-08-08] MEDS ORDERED: POTASSIUM CHLORIDE 20 MEQ/15 ML CUP PO ONE (09:30)
[2025-08-08] MEDS ORDERED: ALBUTEROL/IPRATROPIUM 3 ML NEB INH ONE (10:30)
[2025-08-08 11:05] LABS: AMPHETAMINES, URINE NEGATIVE (NEGATIVE); BARBITURATES, URINE NEGATIVE (NEGATIVE); BENZODIAZEPINE, URINE NEGATIVE (NEGATIVE); CANNABINOID, URINE NEGATIVE (NEGATIVE); COCAINE, URINE NEGATIVE (NEGATIVE); ECSTASY, URINE NEGATIVE (NEGATIVE); FENTANYL, URINE NEGATIVE (NEGATIVE); METHADONE, URINE NEGATIVE (NEGATIVE); OPIATES, URINE POSITIVE (NEGATIVE); OXYCODONE, URINE NEGATIVE (NEGATIVE); PHENCYCLIDINE, URINE NEGATIVE (NEGATIVE)
[2025-08-08 12:40] VITALS: BP 96/72
== END 2025-08-08 12:40 | disposition home or self-care (01) ==
LOC: ED 07:36
PROVIDERS: Emergency Medicine
DX: I50.9 Heart failure, unspecified (principal); I48.91 Unspecified atrial fibrillation; R18.8 Other ascites; Z79.899 Other long term (current) drug therapy
CPT/HCPCS: 36415; 49083; 74177; 80053; 80307; 81001; 83690; 85025; 93005; 93010; 94640; 96374; 96375; 99284-25; A9270; J1171; J1938; J2405

== ENCOUNTER 2025-08-10 07:14 | Emergency (ER) | payer MEDICARE ==
[~2025-08-10] VITALS: Ht 180.3 cm; Wt 103.0 kg
--- NOTE | ~2025-08-10 | EKG ---
[facility] [address] [place], [place] [address] Draft EK completed, results pending confirmation PATIENT NAME: JHONNY NICHOLSON Electrocardiogram DATE OF : 59 PHYSICIAN: PRELIMINARY REPORT #: [id number] REPORT IS CONFIDENTIAL AND NOT TO BE RELEASED WITHOUT AUTHORIZATION
--- OUTSIDE RECORDS SUMMARY | 2025-08-10 07:21 | XMS ---
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 Events No recent Security Events currently on file CRITERIA MET - 6 ED Visits in 6 Months - [facility] - 2 Visits in 30 Days - [facility] - 3 Facilities in 90 Days CARE PROVIDERS Michelle Lucio Registered Nurse 11/24/2019-Current PHONE: Unknown ABRAN ALVARADO Family Medicine Current PHONE: [phone] MIGEL MUNOZ Family Medicine: Obesity Medicine Current PHONE: [phone] Care Guidelines exist for the following facilities: [facility] ([place]) ( 07/28/2019 ) [facility] ( 06/18/2013 ) [facility] VISIT COUNT (12 MO.) 25 [facility] ([place]) 17 ALLA Finch [facility] TOTAL 43 NOTE: Visits indicate total known visits. ED/UCC VISIT TRACKING (12 MO.) 08/10/2025 07:15 [facility] [place] TYPE: Emergency COMPLAINT: - ABDOMINAL PAIN 08/08/2025 07:37 [facility] [place] TYPE: Emergency [...] disease, or unspecified chronic kidney disease - retirement (current) use of aspirin - Other ascites - Other roasterman (current) drug therapy - Unspecified cirrhosis of [...] tract infection, site not specified 07/23/2025 11:[address] [facility] [place] TYPE: Emergency COMPLAINT: - ABDOMINAL PAIN 07/20/2025 15:28 [facility] ([facility] TYPE: Emergency DIAGNOSES: - Heart failure, unspecified - Abdominal Pain - weakness, abd pain 07/14/2025 10:25 [facility] [place] TYPE: Emergency COMPLAINT: - SHORTNESS OF BREATH DIAGNOSES: - Acute respiratory failure with hypoxia - Cardiomyopathy, unspecified - Chronic pulmonary edema - Heart failure, unspecified - Hypertensive heart disease with heart failure - Other roasterman (current) drug therapy - Shortness of breath 07/11/2025 18:18 [facility] ([facility]) TYPE: Emergency DIAGNOSES: - Other ascites - abd pain - Abdominal Pain - Shortness of Breath 07/09/2025 10:53 [facility] ([facility]) TYPE: Emergency DIAGNOSES: - Other ascites - Abdominal Pain - Followup Medical Problem 07/01/2025 10:58 [facility] ([facility]) TYPE: Emergency DIAGNOSES: - COVID-19 - Other ascites - Unspecified cirrhosis of liver - abd pain - Abdominal Pain 06/26/2025 20:58 [facility] [place] TYPE: Emergency COMPLAINT: - DIFFICULTY BREATHING DIAGNOSES: - Gastro-esophageal reflux disease without esophagitis - Heart failure, unspecified - Hypertensive heart disease with heart failure - roasterman (current) use of aspirin - Other roasterman (current) drug therapy - Procedure and treatment not carried out because of patient's decision for other reasons - Shortness of breath - Unspecified cirrhosis of liver 06/25/2025 09:46 [facility] ([place] TYPE: Emergency DIAGNOSES: - Alcoholic cirrhosis of liver with ascites - Cellulitis of left upper limb - Edema, unspecified - Other ascites - Edema - Shortness of Breath 06/20/2025 00:13 [facility] TYPE: Emergency DIAGNOSES: - Umbilical hernia with obstruction, without gangrene - Unspecified cirrhosis of liver 06/19/2025 15:14 [facility] [place] ([facility]) TYPE: Emergency DIAGNOSES: - Lower abdominal pain, unspecified - Umbilical hernia without obstruction or gangrene - Unspecified abdominal hernia with obstruction, without gangrene - abd pain - Abdominal Pain 06/15/2025 20:43 [facility] [place] ([facility]) TYPE: Emergency DIAGNOSES: - Heart failure, unspecified - Patient's other noncompliance with medication regimen for other reason - Dysuria - Fatigue - Nausea 06/13/2025 23:17 [facility] [place] ([facility]) TYPE: Emergency DIAGNOSES: - Heart failure, unspecified - Lower abdominal pain, unspecified - Tachycardia, unspecified - Abdominal Pain - Shortness of Breath 06/09/2025 13:32 [facility] [place] ([facility]) TYPE: Emergency DIAGNOSES: - Unspecified abdominal pain - abd pain - Abdominal Pain 06/01/2025 11:39 [facility] [place] ([facility] TYPE: Emergency DIAGNOSES: - Heart failure, unspecified - Abdominal Pain Plus 23 More Visits INPATIENT VISIT TRACKING (12 MO.) [...] heart failure - retirement (current) use of antibiotics - retirement (current) use of antibiotics - roasterman (current) use of anticoagulants - retirement (current) use of anticoagulants - roasterman (current) use of aspirin - retirement (current) use of aspirin - retirement (current) use of inhaled steroids - roasterman (current) use of inhaled steroids - Nicotine dependence, cigarettes, uncomplicated - Nicotine dependence, cigarettes, uncomplicated - Obesity, unspecified - Obesity, unspecified - Other roasterman (current) drug therapy - Other roasterman (current) drug therapy - Personal history of other diseases of the digestive system - Personal history of other diseases of the digestive system - Presence of cardiac pacemaker - Presence of cardiac pacemaker - Shortness of breath - Unspecified asthma, uncomplicated - Unspecified asthma, uncomplicated 07/29/2025 23:03 [facility] COMPLAINT: - transfer DIAGNOSES: [...] block, unspecified 10. 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 Pulmonary [...] - Ischemic cardiomyopathy - Ischemic cardiomyopathy - roasterman (current) use of inhaled steroids - retirement (current) use of inhaled steroids - Nicotine dependence, cigarettes, uncomplicated - Nicotine dependence, cigarettes, uncomplicated - Obesity, unspecified - Obesity, unspecified - Other ascites - Other ascites - Other roasterman (current) drug therapy - Other retirement (current) drug therapy - Other specified postprocedural [...] - Unspecified cirrhosis of liver 07/14/2025 17:01 [facility] ([place] TYPE: Medical Surgical DIAGNOSES: - Acute kidney failure, unspecified - Acute on chronic combined systolic (congestive) and diastolic (congestive) heart failure - Alcoholic cirrhosis of liver with ascites - Chronic combined systolic (congestive) and diastolic (congestive) heart failure - Essential (primary) hypertension - Pulmonary hypertension, unspecified - Anasarca - CHF 06/20/2025 00:13 [facility] TYPE: Surgery DIAGNOSES: - Metabolic encephalopathy - Other ascites - Umbilical hernia with obstruction, without gangrene - Unspecified cirrhosis of liver 06/01/2025 11:39 [facility] ([facility] TYPE: Medical [...] malaise - Other specified counseling 05/22/2025 09:12 [facility] ([facility] TYPE: Medical Surgical DIAGNOSES: - Acute on chronic combined systolic (congestive) and diastolic (congestive) heart failure - Alcoholic cirrhosis of liver with ascites - 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 - Chronic kidney disease, stage 3a - Heart failure, unspecified - Mild intermittent asthma, uncomplicated - Myocardial infarction type 2 - Nicotine dependence, cigarettes, in remission - Nonrheumatic mitral (valve) insufficiency - Other specified abnormal findings of blood chemistry - Pulmonary hypertension, unspecified 02/16/2025 12:41 [facility] ([place] TYPE: Medical Surgical DIAGNOSES: - Acute on [...] medication regimen for other reason 01/13/2025 09:17 [facility] [place] ([facility] TYPE: Emergency DIAGNOSES: - Acute on chronic combined systolic (congestive) and diastolic (congestive) heart failure - Acute respiratory failure with hypoxia - Fluid overload, unspecified - Homelessness unspecified - Patient's noncompliance with dietary regimen due to unspecified reason - Shortness of breath 12/29/2024 06:07 [facility] [place] ([facility] TYPE: Medical Surgical DIAGNOSES: - Acute kidney failure, unspecified - Acute on chronic combined systolic (congestive) and diastolic (congestive) heart failure - Alcohol abuse, uncomplicated - 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 - Chronic [...] - Pulmonary hypertension, unspecified 10/31/2024 09:28 [facility] TYPE: Critical Care COMPLAINT: - CHEST PAIN DIAGNOSES: - Alcohol abuse with withdrawal, unspecified - Alcohol abuse with withdrawal, unspecified - 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 - 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 - Chest pain, unspecified - Gastro-esophageal reflux disease without esophagitis - Gastro-esophageal reflux disease without esophagitis - Heart failure, unspecified - Heart failure, unspecified - Hypertensive heart disease with heart failure - Hypertensive heart disease with heart failure - retirement (current) use of aspirin - retirement (current) use of aspirin - Nonrheumatic aortic (valve) stenosis - Nonrheumatic aortic (valve) stenosis - Obesity, unspecified - Obesity, unspecified - Old myocardial infarction - Old myocardial infarction - Other retirement (current) drug therapy - Other roasterman (current) drug therapy - Other specified postprocedural [...] because of patient's decision for other reasons [email or web address]
[2025-08-10 07:42] LABS: BASOPHILS 0.6 % (0.2-1.2); EOSINOPHILS 1.4 % (0.8-7.0); LYMPHOCYTES 10.9 % (21.8-53.1); MCH 27.2 PG (25.7-32.2); MCHC 32.0 g/dL (32.3-36.5); MCV 85.1 fL (79.0-92.2); MONOCYTES 11.5 % (5.3-12.2); NEUTROPHILS 75.5 % (34.0-67.9); RBC 4.30 M/uL (4.63-6.08)
[2025-08-10] MEDS ORDERED: FUROSEMIDE 100 MG/10 ML VIAL IV ONE (07:45)
[2025-08-10 08:09] LABS: ALT (SGPT) 23.0 U/L (14-59); AST (SGOT) 34.0 U/L (15-37); GLOMERULAR FILTRATION RATE,EST 63.0 mL/min (>60); PROTEIN, TOTAL 5.8 g/dL (6.4-8.2); UREA NITROGEN 28.0 mg/dL (7-18)
[2025-08-10 08:48] VITALS: BP 121/76
== END 2025-08-10 08:49 | disposition home or self-care (01) ==
LOC: ED 07:14
PROVIDERS: Emergency Medicine
DX: I50.9 Heart failure, unspecified (principal); Z79.899 Other long term (current) drug therapy; Z79.82 Long term (current) use of aspirin
CPT/HCPCS: 36415; 71045; 80053; 83880; 84484; 85025; 93005; 93010; 96374; 96375; 99285-25; J1938; J2405

== ENCOUNTER 2025-08-17 06:20 | Emergency (ER) | payer MEDICARE ==
[~2025-08-17] VITALS: Ht 180.3 cm; Wt 109.0 kg
--- OUTSIDE RECORDS SUMMARY | 2025-08-17 06:26 | XMS ---
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 No recent Security Events currently on file CRITERIA MET - 6 ED Visits in 6 Months - [facility] - 2 Visits in 30 Days - [facility] - 3 Facilities in 90 Days CARE PROVIDERS Michelle Lucio Registered Nurse 11/24/2019-Current PHONE: Unknown ABRAN ALVARADO Family Medicine Current PHONE: [phone] MIGEL MUNOZ Family Medicine: Obesity Medicine Current PHONE: [phone] Care Guidelines exist for the following facilities: [facility] ([place]) ( 07/28/2019 ) [facility] ( 06/18/2013 ) [facility] VISIT COUNT (12 MO.) 26 [facility] ([place]) 19 [facility] TOTAL 46 NOTE: Visits indicate total known visits. ED/UCC VISIT TRACKING (12 MO.) 08/17/2025 06:20 [facility] [place] TYPE: Emergency COMPLAINT: - SHORTNESS OF BREATH 08/13/2025 20:34 [facility] [place] TYPE: Emergency COMPLAINT: - STOMACH PAIN [facility] DIAGNOSES: - Heart failure, unspecified - Other fluid overload - Abdominal Pain - Shortness of Breath 08/10/2025 07:[address] 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 - Other watermelon inspector (current) drug therapy - Right lower quadrant pain 08/03/2025 10:47 [facility] [place] TYPE: Emergency COMPLAINT: - SHORTNESS OF BREATH 07/29/2025 12:51 [facility] [place] TYPE: Emergency COMPLAINT: - CATHETER PROBLEM DIAGNOSES: - Acute kidney failure, unspecified - Chronic kidney disease, unspecified - Heart failure, unspecified - Hypertensive heart and chronic kidney disease with heart failure and stage 1 through stage 4 chronic kidney disease, or unspecified chronic kidney disease - rodent exterminator (current) use of aspirin - Other ascites - Other intermediate (current) drug therapy - Unspecified cirrhosis of [...] infection, site not specified 07/23/2025 11:32 [facility] TYPE: Emergency COMPLAINT: - ABDOMINAL PAIN 07/20/2025 15:28 [facility] ([facility] TYPE: Emergency DIAGNOSES: - Heart failure, unspecified - Abdominal Pain - weakness, abd pain 07/14/2025 10:[address] [facility] [place] TYPE: Emergency COMPLAINT: - SHORTNESS OF BREATH DIAGNOSES: - Acute respiratory failure with hypoxia - Cardiomyopathy, unspecified - Chronic pulmonary edema - Heart failure, unspecified - Hypertensive heart disease with heart failure - Other watermelon inspector (current) drug therapy - Shortness of breath 07/11/2025 18:18 [facility] ([place]) TYPE: Emergency DIAGNOSES: - Other ascites - abd pain - Abdominal Pain - Shortness of Breath 07/09/2025 10:53 [facility] ([place]) TYPE: Emergency DIAGNOSES: - Other ascites - Abdominal Pain - Followup Medical Problem 07/01/2025 10:58 [facility] ([place]) TYPE: Emergency DIAGNOSES: - COVID-19 - Other ascites - Unspecified cirrhosis of liver - abd pain - Abdominal Pain 06/26/2025 20:58 [facility] [place] TYPE: Emergency COMPLAINT: - DIFFICULTY BREATHING DIAGNOSES: - Gastro-esophageal reflux disease without esophagitis - Heart failure, unspecified - Hypertensive heart disease with heart failure - 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 exterminator (current) use of aspirin - Other intermediate (current) drug therapy - Procedure and treatment not carried out because of patient's decision for other reasons - Shortness of breath - Unspecified cirrhosis of liver 06/25/2025 09:46 [facility] TYPE: Emergency DIAGNOSES: - Alcoholic cirrhosis of liver with ascites - Cellulitis of left upper limb - Edema, unspecified - Other ascites - Edema - Shortness of Breath 06/20/2025 00:13 [facility] TYPE: Emergency DIAGNOSES: - Umbilical hernia with obstruction, without gangrene - Unspecified cirrhosis of liver 06/19/2025 15:14 [facility] [place] ([facility]) TYPE: Emergency DIAGNOSES: - Lower abdominal pain, unspecified - Umbilical hernia without obstruction or gangrene - Unspecified abdominal hernia with obstruction, without gangrene - abd pain - Abdominal Pain 06/15/2025 20:43 [facility] ([facility] TYPE: Emergency DIAGNOSES: - Heart failure, unspecified - Patient's other noncompliance with medication regimen for other reason - Dysuria - Fatigue - Nausea Plus 26 More Visits INPATIENT VISIT TRACKING (12 MO.) 08/10/2025 23:16 [facility] ([facility] TYPE: Medical Surgical DIAGNOSES: - Heart failure, unspecified - Hypokalemia - Other fluid overload 08/03/2025 15:[address] [facility] [place] TYPE: Medical Surgical [...] Hypertensive heart disease with heart failure - [facility] (current) use of antibiotics - rodent exterminator (current) use of antibiotics - [facility] (current) use of anticoagulants - [facility] (current) use of anticoagulants - rodent exterminator (current) use of aspirin - rodent exterminator (current) use of aspirin - rodent exterminator (current) use of inhaled steroids - [facility] (current) use of inhaled steroids - Nicotine dependence, cigarettes, uncomplicated - Nicotine dependence, cigarettes, uncomplicated - Obesity, unspecified - Obesity, unspecified - Other watermelon inspector (current) drug therapy - Other watermelon inspector (current) drug therapy - Personal history of other diseases of the digestive system - Personal history of other diseases of the digestive system - Presence of cardiac pacemaker - Presence of cardiac pacemaker - Shortness of breath - Unspecified asthma, uncomplicated - Unspecified asthma, uncomplicated 07[facility]29[facility]2025 23[facility] COMPLAINT: - transfer DIAGNOSES: 0. Shortness of breath 1. Alcoholic cirrhosis of liver with ascites 1. Hypertensive heart and chronic kidney disease with heart failure and stage 1 through stage 4 chronic kidney disease, or unspecified chronic kidney disease 2. Acute respiratory failure with hypoxia 3. Chronic systolic (congestive) heart failure 3. Hypertensive heart and chronic kidney disease with heart failure and stage 1 through stage 4 chronic kidney disease, or unspecified chronic kidney disease 4. Acute kidney failure, unspecified 4. Chronic systolic (congestive) heart failure 5. Acute kidney failure, unspecified 5. Hypo-osmolality and hyponatremia 6. Homelessness unspecified 6. Hypo-osmolality and hyponatremia 7. Alcoholic cirrhosis of liver with ascites 7. Homelessness unspecified 8. Unspecified atrial fibrillation 9. Left bundle-branch block, unspecified 10. Atherosclerotic heart disease of [place] coronary artery without angina pectoris 11. Pulmonary [...] seen by health care provider 07/23/2025 15:54 [facility] [place] TYPE: Medical [...] - Ischemic cardiomyopathy - Ischemic cardiomyopathy - [facility] (current) use of inhaled steroids - rodent exterminator (current) use of inhaled steroids - Nicotine dependence, cigarettes, uncomplicated - Nicotine dependence, cigarettes, uncomplicated - Obesity, unspecified - Obesity, unspecified - Other ascites - Other ascites - Other watermelon inspector (current) drug therapy - Other intermediate (current) drug therapy - Other specified postprocedural [...] - Unspecified cirrhosis of liver 07/14/2025 17:01 [facility] TYPE: Medical Surgical DIAGNOSES: - Acute [...] malaise - Other specified counseling [facility]22[facility]2025 09:12 [facility] DIAGNOSES: - Acute on chronic combined systolic (congestive) and diastolic (congestive) heart failure - Alcoholic cirrhosis of liver with ascites - Atherosclerotic heart disease of [place] coronary artery with unspecified angina pectoris - [...] Unspecified systolic (congestive) heart failure 04/06/2025 16:11 [facility] Medical [facility] DIAGNOSES: - Acute kidney [...] and hyponatremia - Hypo-osmolality and hyponatremia - [facility] (current) use of aspirin - rodent exterminator [...] in remission - Atherosclerotic heart disease of [place] coronary artery with unspecified angina pectoris - [...] 01/13/2025 09:17 [facility] ([facility] TYPE: Emergency DIAGNOSES: - Acute on chronic combined systolic (congestive) and diastolic (congestive) heart failure - Acute respiratory failure with hypoxia - Fluid overload, unspecified - Homelessness unspecified - Patient's noncompliance with dietary regimen due to unspecified reason - Shortness of breath 12/29/2024 06:07 [facility] ([facility] TYPE: Medical Surgical DIAGNOSES: - Acute kidney failure, unspecified - Acute on chronic combined systolic (congestive) and diastolic (congestive) heart failure - Alcohol abuse, uncomplicated - Atherosclerotic heart disease of [place] coronary artery without angina pectoris - Chronic [...] withdrawal, unspecified - Atherosclerotic heart disease of [place] coronary artery without angina pectoris - Atherosclerotic heart disease of [place] coronary artery without angina pectoris - Chest [...] Other intermediate (current) drug therapy - Other intermediate (current) drug therapy - Other specified postprocedural [...] because of patient's decision for other reasons [email or web address]
[2025-08-17 06:52] LABS: BASOPHILS 0.9 % (0.2-1.2); EOSINOPHILS 2.0 % (0.8-7.0); LYMPHOCYTES 11.2 % (21.8-53.1); MCH 26.8 PG (25.7-32.2); MCHC 32.3 g/dL (32.3-36.5); MCV 83.2 fL (79.0-92.2); MONOCYTES 8.5 % (5.3-12.2); NEUTROPHILS 77.2 % (34.0-67.9); RBC 4.47 M/uL (4.63-6.08)
--- OUTSIDE RECORDS SUMMARY | 2025-08-17 06:59 | XMS | Continuity of Care Document ---
Demographics + + + | Address | [address] | | | [place] [address] | + + + | Preferred Language | Unknown | + + + | Marital Status | | + + + | Tenriism Affiliation | Unknown | + + + | Race | Unknown | + + + | Ethnic Group | or | + + + Author + + + | Author | [facility] | + + + | Organization | [facility] | + + + | Address | [address] | | | [place] [address] | + + + | Phone | | + + + Care Team Providers + + + + | Care Ditch Inspector Name | Role | Phone | + + + + Unavailable | Unavailable | + + + + Unavailable | Unavailable | + + + + Allergies No information. Encounters No information. Functional Status No information. Immunizations No information. Medications + + + + | date | description | facility | + + + + | (no date) | PHENAZOPYRIDINE HCL | [facility] | | | | [facility] | + + + + | 2025-07-28 00:00 | PHENAZOPYRIDINE HCL | [facility] | | | | [facility] | + + + + | (no date) | EMPAGLIFLOZIN | [facility] | | | | [facility] | + + + + | (no date) | SACUBITRIL/VALSARTAN | [facility] | | | | [facility] | + + + + | (no date) | POTASSIUM CHLORIDE | [facility] | | | | [facility] | + + + + | (no date) | AMLODIPINE BESYLATE | [facility] | | | | [facility] | + + + + | 2025-07-28 00:00 | CEPHALEXIN | [facility] | | | | [facility] | + + + + | (no date) | IBUPROFEN | [facility] | | | | [facility] | + + + + | (no date) | IBUPROFEN | [facility] | | | | [facility] | + + + + | 2025-07-25 00:00 | NITROGLYCERIN | [facility] | | | | [facility] | + + + + | (no date) | TORSEMIDE | [facility] | | | | [facility] | + + + + | 2025-08-06 00:00 | TORSEMIDE | [facility] | | | | [facility] | + + + + | (no date) | MAGNESIUM OXIDE | [facility] | | | | [facility] | + + + + | (no date) | Apixaban | [facility] | | | | [facility] | + + + + | (no date) | FUROSEMIDE | [facility] | | | | [facility] | + + + + | (no date) | SPIRONOLACTONE | [facility] | | | | [facility] | + + + + | (no date) | FINASTERIDE | [facility] | | | | [facility] | + + + + | (no date) | FOLIC ACID | [facility] | | | | [facility] | + + + + | (no date) | IBUPROFEN | [facility] | | | | [facility] | + + + + | (no date) | SPIRONOLACTONE | [facility] | | | | [facility] | + + + + | 2025-07-25 00:00 | SPIRONOLACTONE | [facility] | | | | [facility] | + + + + | (no date) | THIAMINE HCL | [facility] | | | | [facility] | + + + + | (no date) | FUROSEMIDE | [facility] | | | | [facility] | + + + + | (no date) | LISINOPRIL | [facility] | | | | [facility] | + + + + | (no date) | LISINOPRIL | [facility] | | | | [facility] | + + + + | (no date) | ASPIRIN | [facility] | | | | [facility] | + + + + | 2025-07-25 00:00 | ASPIRIN | [facility] | | | | [facility] | + + + + | (no date) | LACTULOSE | [facility] | | | | [facility] | + + + + | (no date) | ATORVASTATIN CALCIUM | [facility] | | | | [facility] | + + + + | (no date) | POTASSIUM CHLORIDE | [facility] | | | [facility] | + + + + | (no date) | TRAMADOL HCL | [facility] | | | | [facility] | + + + + | (no date) | ALBUTEROL SULFATE | [facility] | | | | [facility] | + + + + | (no date) | TAMSULOSIN HCL | [facility] | | | | [facility] | + + + + | (no date) | METOPROLOL SUCCINATE | [facility] | | | | [facility] | + + + + | (no date) | METOPROLOL SUCCINATE | [facility] | | | | [facility] | + + + + | 2025-07-25 00:00 | METOPROLOL SUCCINATE | [facility] | | | | [facility] | + + + + | (no date) | LOSARTAN POTASSIUM | [facility] | | | | [facility] | + + + + | (no date) | MIDODRINE HCL | [facility] | | | | [facility] | + + + + Problems + + + + | date | description | facility | + + + + | 2025-07-14 00:00 | Cardiomyopathy | [facility] | | | | [facility] | + + + + | 2025-07-14 00:00 | Pulmonary edema | [facility] | | | | [facility] | + + + + | 2025-07-14 00:00 | Acute respiratory failure | [facility] | | | with hypoxemia | [facility] | + + + + | 2025-07-28 00:00 | Substance abuse | [facility] | | | | [facility] | + + + + | 2025-07-28 00:00 | Cardiomyopathy | [facility] | | | | [facility] | + + + + | 2025-07-28 00:00 | Congestive heart failure | [facility] | | | | [facility] | + + + + | 2025-07-28 00:00 | Urinary tract infection | [facility] | | | | [facility] | + + + + | 2025-07-28 00:00 | Benign prostatic | [facility] | | | hyperplasia with urinary | [facility] | | | retention | | + + + + | 2025-07-28 00:00 | Noncompliance with | [facility] | | | medication regimen | [facility] | + + + + | 2025-07-29 00:00 | 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 | [facility] | + + + + | 2025-07-29 00:00 | Acute renal failure | [facility] | | | superimposed on chronic | [facility] | | | kidney disease | | + + + + | 2025-07-29 00:00 | Generalized edema | [facility] | | | | [facility] | + + + + | 2025-08-03 00:00 | Shortness of breath | [facility] | | | | [facility] | + + + + Procedures + + + + | date | description | facility | + + + + | 2025-07-23 00:00 | DRAINAGE OF BLADDER WITH | [facility] | | | DRAINAGE DEVICE, VIA | [facility] | | | OPENING | | + + + + | 2025-08-03 00:00 | DRAINAGE OF BLADDER WITH | [facility] | | | DRAINAGE DEVICE, VIA | [facility] | | | OPENING | | + + + + | 2025-08-04 00:00 | DRAINAGE OF PERITONEAL | [facility] | | | CAVITY, PERCUTANEOUS | [facility] | | | APPROACH | | + + + + | 2025-08-04 00:00 | TRANSFUSE NONAUT SERUM | [facility] | | | ALBUMIN IN PERIPH VEIN, | [facility] | | | PERC | | + + + + Results/Labs +--------+--------+ +---------+--------+---------+ | test | date | facility | value | unit | notes | +--------+--------+ +---------+--------+---------+ + + | Result panel 1 | + + + + + +--------+ + + | D [facility] | 2025-07-14 | | 3.02 | (missing) | (missing) | | Lady | 10:40:08 | [facility] | | | | - | | | | | | | [facility] | | | | + + + +--------+ + + + + | Result panel 2 | + + + + + +---------+ + + | pH BldV | 2025-07-14 | | 7.406 | (missing) | (missing) | | | 11:32:08 | [facility] | | | | | | | - | | | | | | | [facility] | | | | + + + +---------+ + + + + | Result panel 3 | + + + + + +-------+---------+ + | Phosphate | 2025-07-25 | | 2.6 | mg/dL | (missing) | | SerPl-mCnc | 05:17:08 | [facility] | | | | + + + +-------+---------+ + + + | Result panel 4 | + + + + + + + + + | FLUAV Ag | 2025-07-28 | | NEGATIVE | (missing) | (missing) | | Upper resp | 00:41:08 | [facility] | | | | | Ql IA.rapid [facility] | | | | + + + + + + + + + | Result panel 5 | + + + + + + + + + | FLUBV Ag | 2025-07-28 | | NEGATIVE | (missing) | (missing) | | Upper resp | 00:41:08 | [facility] | | | | | Ql IA.rapid [facility] | | | | + + + + + + + + + | Result panel 6 | + + + + + + + + + | | 2025-07-28 | | NEGATIVE | (missing) | (missing) | | SARS-CoV+MACRINA | 00:41:08 | [facility] | | | | | S-CoV-2 Ag | [facility] | Resp Ql | | [facility] | | | | IA.rapid | | [facility] | | | | + + + + + + + + + | Result panel 7 | + + + + + + + + + | Annotation | 2025-07-28 | | SEE BELOW | (missing) | (missing) | | comment Imp | 00:41:08 | [facility] | | | | + + + + + + + + + | Result panel 8 | + + + + + + + + + | oxyCODONE | 2025-07-28 | | NEGATIVE | (missing) | (missing) | | Ur Ql Scn | 03:15:08 | [facility] | | | | + + + + + + + + + | Result panel 9 | + + + + + + + + + | MDMA Ur Ql | 2025-07-28 | | NEGATIVE | (missing) | (missing) | | Scn | 03:15:08 | [facility] | | | | + + + + + + + + + | Result panel 10 | + + + + + + + + + | Methadone | 2025-07-28 | | NEGATIVE | (missing) | (missing) | | Ur Ql | 03:15:08 | [facility] | | | | | Scn>300 | [facility] | ng/mL | | [facility] | | | | + + + + + + + + + | Result panel 11 | + + + + + + + + + | Opiates Ur | 2025-07-28 | | POSITIVE | (missing) | (missing) | | Ql Scn | 03:15:08 | [facility] | | | | + + + + + + + + + | Result panel 12 | + + + + + + + + + | PCP Ur Ql | 2025-07-28 | | NEGATIVE | (missing) | (missing) | | Scn>25 ng/mL | 03:15:08 | [facility] | | | | + + + + + + + + + | Result panel 13 | + + + + + + + + + | THC Ur Ql | 2025-07-28 | | NEGATIVE | (missing) | (missing) | | Scn>50 ng/mL | 03:15:08 | [facility] | | | | + + + + + + + + + | Result panel 14 | + + + + + + + + + | fentaNYL Ur | 2025-07-28 | | NEGATIVE | (missing) | (missing) | | Ql Scn | 03:15:08 | [facility] | | | | + + + + + + + + + | Result panel 15 | + + + + + + + + + | | 2025-07-28 | | NEGATIVE | (missing) | (missing) | | Amphetamines | 03:15:08 | [facility] | | | | | Ur Ql | [facility] | Scn>500 | | [facility] | [facility] | ng/mL | | [facility] | | | | + + + + + + + + + | Result panel 16 | + + + + + + + + + | | 2025-07-28 | | NEGATIVE | (missing) | (missing) | | Barbiturates | 03:15:08 | [facility] | | | | | Ur Ql | [facility] | Scn>300 | | [facility] | | | ng/mL | | [facility] | | | | + + + + + + + + + | Result panel 17 | + + + + + + + + + | Benzodiaz | 2025-07-28 | | NEGATIVE | (missing) | (missing) | | Ur Ql | 03:15:08 | [facility] | | | | | Scn>300 | [facility] | ng/mL | | [facility] | | | | + + + + + + + + + | Result panel 18 | + + + + + + + + + | Cocaine Ur | 2025-07-28 | | NEGATIVE | (missing) | (missing) | | Ql Scn | 03:15:08 | [facility] | | | | + + + + + + + + + | Result panel 19 | + + + + + + + + + | | 2025-07-28 | | NEGATIVE | (missing) | (missing) | | Buprenorphin | 03:15:08 | [facility] | | | | | e Ur Ql Scn [facility] | [facility] | | | | + + + + + + + + + | Result panel 20 | + + + + + +-------+ + + | Lactate | 2025-07-29 | | 3.2 | (missing) | (missing) | | [facility] | 13:18:08 | [facility] | [facility] | | | | + + + +-------+ + + + + | Result panel 21 | + + + + + +--------+ + + | Troponin I | 2025-08-04 | | 69.3 | (missing) | (missing) | | SerPl | 09:18:08 | [facility] | | | | | HS-mCnc [facility] | | | | + + + +--------+ + + + + | Result panel 22 | + + + + + + + + + | Color Ur | 2025-08-04 | | YELLOW | (missing) | (missing) | | Auto | 10:13:08 | [facility] | | | | + + + + + + + + + | Result panel 23 | + + + + + + + + + | Character | 2025-08-04 | | SL CLOUDY | (missing) | (missing) | | Ur | 10:13:08 | [facility] | | | | + + + + + + + + + | Result panel 24 | + + + + + + + + + | Glucose Ur | 2025-08-04 | | NEGATIVE | (missing) | (missing) | | Ql Strip | 10:13:08 | [facility] | | | | + + + + + + + + + | Result panel 25 | + + + + + + + + + | Bilirub Ur | 2025-08-04 | | POSITIVE | (missing) | (missing) | | Ql Strip | 10:13:08 | [facility] | | | | + + + + + + + + + | Result panel 26 | + + + + + + + + + | Ketones Ur | 2025-08-04 | | NEGATIVE | (missing) | (missing) | | Ql Strip | 10:13:08 | [facility] | | | | + + + + + + + + + | Result panel 27 | + + + + + +---------+ + + | Sp Gr Ur | 2025-08-04 | | 1.025 | (missing) | (missing) | | Strip | 10:13:08 | [facility] | | | | + + + +---------+ + + + + | Result panel 28 | + + + + + +---------+ + + | Hgb Ur Ql | 2025-08-04 | | LARGE | (missing) | (missing) | | Strip | 10:13:08 | [facility] | | | | + + + +---------+ + + + + | Result panel 29 | + + + + + +-------+ + + | pH Ur Strip | 2025-08-04 | | 5.5 | (missing) | (missing) | | | 10:13:08 | [facility] | | | | + + + +-------+ + + + + | Result panel 30 | + + + + + +-------+ + + | Prot Ur | 2025-08-04 | | 100 | (missing) | (missing) | | Strip-mCnc | 10:13:08 | [facility] | | | | + + + +-------+ + + + + | Result panel 31 | + + + + + +-------+ + + | | 2025-08-04 | | 1.0 | (missing) | (missing) | | Urobilinogen | 10:13:08 | [facility] | | | | | Ur | [facility] Strip-mCnc | | [facility] | | | | + + + +-------+ + + + + | Result panel 32 | + + + + + + + + + | Nitrite Ur | 2025-08-04 | | NEGATIVE | (missing) | (missing) | | Ql Strip | 10:13:08 | [facility] | | | | + + + + + + + + + | Result panel 33 | + + + + + +---------+ + + | Leukocyte | 2025-08-04 | | TRACE | (missing) | (missing) | | esterase Ur | 10:13:08 | [facility] | | | | | Ql Strip [facility] | | | | + + + +---------+ + + + + | Result panel 34 | + + + + + +-------+ + + | RBC #/area | 2025-08-04 | | >50 | (missing) | (missing) | | UrnS HPF | 10:13:08 | [facility] | | | | + + + +-------+ + + + + | Result panel 35 | + + + + + +---------+ + + | WBC #/area | 2025-08-04 | | 21-40 | (missing) | (missing) | | UrnS HPF | 10:13:08 | [facility] | | | | + + + +---------+ + + + + | Result panel 36 | + + + + + +-----+ + + | Epi Cells | 2025-08-04 | | 0 | (missing) | (missing) | | #/area UrnS | 10:13:08 | [facility] | | | | | HPF | [facility] | | | | + + + +-----+ + + + + | Result panel 37 | + + + + + + + + + | Crystals | 2025-08-04 | | NONE SEEN | (missing) | (missing) | | UrnS Micro | 10:13:08 | [facility] | | | | + + + + + + + + + | Result panel 38 | + + + + + +--------+ + + | Bacteria | 2025-08-04 | | RARE | (missing) | (missing) | | #/area UrnS | 10:13:08 | [facility] | | | | | HPF [facility] | | | | + + + +--------+ + + + + | Result panel 39 | + + + + + + + + + | Casts | 2025-08-04 | | NONE SEEN | (missing) | (missing) | | #/area UrnS | 10:13:08 | [facility] | | | | | LPF | [facility] | | | | + + + + + + + + + | Result panel 40 | + + + + + +-------+ + + | Bacteria Ur | 2025-08-04 | | Yes | (missing) | (missing) | | Cult | 10:13:08 | [facility] | | | | + + + +-------+ + + + + | Result panel 41 | + + + + + + + + + | Urn Spec | 2025-08-04 | | CLEAN CATCH | (missing) | (missing) | | Collect Meth | 10:13:08 | [facility] | | | | | Ur | [facility] | | | | + + + + + + + + + | Result panel 42 | + + + + + + + + + | Bacteria Ur | 2025-08-04 | | JUANCHO | (missing) | (missing) | | Cult | 10:13:08 | [facility] | [facility]ICAL[facility] | | | [facility] | | | | + + + + + + + + + | Result panel 43 | + + + + + + + + + | Bacteria Ur | 2025-08-04 | | | (missing) | (missing) | | Cult | 10:13:08 | [facility] | [facility] | | | | | | - | [facility] | | | | | | [facility] | | | | + + + + + + + + + | Result panel 44 | + + + + + +--------+ + + | Ammonia | 2025-08-04 | | 47.0 | (missing) | (missing) | | Plas-sCnc | 15:49:08 | [facility] | | | | | | - | | | | | | | [facility] | | | | + + + +--------+ + + + + | Result panel 45 | + + + + + +--------+ + + | WBC # Bld | 2025-08-06 | | 8.57 | (missing) | (missing) | | Auto | 05:24:08 | [facility] | | | | + + + +--------+ + + + + | Result panel 46 | + + + + + +--------+ + + | RBC # Bld | 2025-08-06 | | 4.37 | (missing) | (missing) | | Auto | 05:24:08 | [facility] | | | | + + + +--------+ + + + + | Result panel 47 | + + + + + +--------+ + + | Hgb | 2025-08-06 | | 11.7 | (missing) | (missing) | | Bld-mCnc | 05:24:08 | [facility] | | | | + + + +--------+ + + + + | Result panel 48 | + + + + + +--------+ + + | Hct VFr.DF | 2025-08-06 | | 35.8 | (missing) | (missing) | | Bld Auto | 05:24:08 | [facility] | | | | + + + +--------+ + + + + | Result panel 49 | + + + + + +--------+ + + | RBC Auto | 2025-08-06 | | 81.9 | (missing) | (missing) | | | 05:24:08 | [facility] | | | | + + + +--------+ + + + + | Result panel 50 | + + + + + +--------+ + + | MCH RBC Qn | 2025-08-06 | | 26.8 | (missing) | (missing) | | Auto | 05:24:08 | [facility] | | | | + + + +--------+ + + + + | Result panel 51 | + + + + + +--------+ + + | MCHC RBC | 2025-08-06 | | 32.7 | (missing) | (missing) | | Auto-EntMCnc | 05:24:08 | [facility] | | | | + + + +--------+ + + + + | Result panel 52 | + + + + + +-------+ + + | Platelet # | 2025-08-06 | | 208 | (missing) | (missing) | | Bld Auto | 05:24:08 | [facility] | | | | + + + +-------+ + + + + | Result panel 53 | + + + + + +--------+ + + | Neutrophils | 2025-08-06 | | 77.5 | (missing) | (missing) | | NFr Bld | 05:24:08 | [facility] | | | | | Auto | [facility] | | | | + + + +--------+ + + + + | Result panel 54 | + + + + + +--------+ + + | Lymphocytes | 2025-08-06 | | 10.2 | (missing) | (missing) | | NFr Bld | 05:24:08 | [facility] | | | | | Auto | [facility] | | | | + + + +--------+ + + + + | Result panel 55 | + + + + + +-------+ + + | Monocytes | 2025-08-06 | | 9.7 | (missing) | (missing) | | NFr Bld Auto | 05:24:08 | [facility] | | | | + + + +-------+ + + + + | Result panel 56 | + + + + + +-------+ + + | Eosinophil | 2025-08-06 | | 1.8 | (missing) | (missing) | | NFr Bld Auto | 05:24:08 | [facility] | | | | + + + +-------+ + + + + | Result panel 57 | + + + + + +-------+ + + | Basophils | 2025-08-06 | | 0.6 | (missing) | (missing) | | NFr Bld Auto | 05:24:08 | [facility] | | | | + + + +-------+ + + + + | Result panel 58 | + + + + + +-------+---------+ + | Glucose | 2025-08-06 | | 111 | mg/dL | (missing) | | SerPl-Lizbethnc | 05:24:08 | [facility] | | | | + + + +-------+---------+ + + + | Result panel 59 | + + + + + +------+---------+ + | BUN | 2025-08-06 | | 31 | mg/dL | (missing) | | [facility] | 05:24:08 | [facility] | | | | + + + +------+---------+ + + + | Result panel 60 | + + + + + +--------+---------+ + | Creat | 2025-08-06 | | 1.69 | mg/dL | (missing) | | [facility] | 05:24:08 | [facility] | | | | + + + +--------+---------+ + + + | Result panel 61 | + + + + + +------+ + + | eGFRcr | 2025-08-06 | | 44 | (missing) | (missing) | | SerPlBld | 05:24:08 | [facility] | | | | | CKD-EPI 2020 | [facility] | | | | + + + +------+ + + + + | Result panel 62 | + + + + + +---------+ + + | BUN/Creat | 2025-08-06 | | 18.34 | (missing) | (missing) | | [facility] | 05:24:08 | [facility] | | | | + + + +---------+ + + + + | Result panel 63 | + + + + + +-------+ + + | Sodium | 2025-08-06 | | 135 | (missing) | (missing) | | [facility] | 05:24:08 | [facility] | | | | + + + +-------+ + + + + | Result panel 64 | + + + + + +-------+ + + | Potassium | 2025-08-06 | | 3.6 | (missing) | (missing) | | [facility] | 05:24:08 | [facility] | [facility] | | | | + + + +-------+ + + + + | Result panel 65 | + + + + + +-------+ + + | Chloride | 2025-08-06 | | 101 | (missing) | (missing) | | [facility] | 05:24:08 | [facility] | | | | + + + +-------+ + + + + | Result panel 66 | + + + + + +------+ + + | CO2 | 2025-08-06 | | 23 | (missing) | (missing) | | [facility] | 05:24:08 | [facility] | | | | + + + +------+ + + + + | Result panel 67 | + + + + + +--------+ + + | Anion Gap | 2025-08-06 | | 14.6 | (missing) | (missing) | | SerPl | 05:24:08 | [facility] | | | | | Calculated.4 | [facility] | | | | + + + +--------+ + + + + | Result panel 68 | + + + + + +-------+---------+ + | Calcium | 2025-08-06 | | 8.3 | mg/dL | (missing) | | [facility] | 05:24:08 | [facility] | [facility] | | | | + + + +-------+---------+ + + + | Result panel 69 | + + + + + +-------+---------+ + | Magnesium | 2025-08-06 | | 1.8 | mg/dL | (missing) | | [facility] | 05:24:08 | [facility] | [facility] | | | | + + + +-------+---------+ + + + | Result panel 70 | + + + + + +-------+ + + | Prot | 2025-08-06 | | 5.4 | (missing) | (missing) | | [facility] | 05:24:08 | [facility] | | | | + + + +-------+ + + + + | Result panel 71 | + + + + + +-------+ + + | Albumin | 2025-08-06 | | 2.6 | (missing) | (missing) | | [facility] | 05:24:08 | [facility] | | | | + + + +-------+ + + + + | Result panel 72 | + + + + + +-------+ + + | Globulin | 2025-08-06 | | 2.8 | (missing) | (missing) | | [facility] | 05:24:08 | [facility] | | | | + + + +-------+ + + + + | Result panel 73 | + + + + + +--------+ + + | | 2025-08-06 | | 0.93 | (missing) | (missing) | | Albumin/Glob | 05:24:08 | [facility] | | | | + + + +--------+ + + + + | Result panel 74 | + + + + + +-------+---------+ + | Bilirub | 2025-08-06 | | 1.0 | mg/dL | (missing) | | [facility] | 05:24:08 | [facility] | [facility] | | | | + + + +-------+---------+ + + + | Result panel 75 | + + + + + +------+ + + | AST | 2025-08-06 | | 32 | (missing) | (missing) | | [facility] | 05:24:08 | [facility] | | | | + + + +------+ + + + + | Result panel 76 | + + + + + +------+ + + | ALT | 2025-08-06 | | 23 | (missing) | (missing) | | [facility] | 05:24:08 | [facility] | | | | + + + +------+ + + + + | Result panel 77 | + + + + + +-------+ + + | ALP | 2025-08-06 | | 173 | (missing) | (missing) | | [facility] | 05:24:08 | [facility] | | | | + + + +-------+ + + Social History +--------+ + + | date | description | facility | +--------+ + + Vital Signs + + + +---------+ | date | measurement | value | units | + + + +---------+ | 2025-07-14 00:00 | BMI | 29.4 | kg/m2 | + + + +---------+ | 2025-07-14 00:00 | BP_diastolic | 75 | mmHg | + + + +---------+ | 2025-07-14 00:00 | BP_systolic | 103 | mmHg | + + + +---------+ | 2025-07-14 00:00 | heart_rate | 122 | /min | + + + +---------+ | 2025-07-14 00:00 | height_metric | 180.34 | cm | + + + +---------+ | 2025-07-14 00:00 | height_standard | 71 | in | + + + +---------+ | 2025-07-14 00:00 | o2_saturation | 98 | % | + + + +---------+ | 2025-07-14 00:00 | respiration_rate | 25 | /min | + + + +---------+ | 2025-07-14 00:00 | | 98 | F | | | temperature_standar | | | | | d | | | + + + +---------+ | 2025-07-14 00:00 | weight_metric | 95.501 | kg | + + + +---------+ | 2025-07-14 00:00 | weight_standard | 210.543 | lb | + + + +---------+ | 2025-07-25 00:00 | BMI | 30.4 | kg/m2 | + + + +---------+ | 2025-07-25 00:00 | BP_diastolic | 67 | mmHg | + + + +---------+ | 2025-07-25 00:00 | BP_systolic | 94 | mmHg | + + + +---------+ | 2025-07-25 00:00 | heart_rate | 83 | /min | + + + +---------+ | 2025-07-25 00:00 | height_metric | 180.34 | cm | + + + +---------+ | 2025-07-25 00:00 | height_standard | 71 | in | + + + +---------+ | 2025-07-25 00:00 | o2_saturation | 100 | % | + + + +---------+ | 2025-07-25 00:00 | respiration_rate | 24 | /min | + + + +---------+ | 2025-07-25 00:00 | | 97.2 | F | | | temperature_standar | | | | | d | | | + + + +---------+ | 2025-07-25 00:00 | weight_metric | 98.801 | kg | + + + +---------+ | 2025-07-25 00:00 | weight_standard | 217.818 | lb | + + + +---------+ | 2025-07-27 00:00 | BMI | 31.2 | kg/m2 | + + + +---------+ | 2025-07-27 00:00 | height_metric | 180.34 | cm | + + + +---------+ | 2025-07-27 00:00 | height_standard | 71 | in | + + + +---------+ | 2025-07-27 00:00 | weight_metric | 101.401 | kg | + + + +---------+ | 2025-07-27 00:00 | weight_standard | 223.550 | lb | + + + +---------+ | 2025-07-28 00:00 | BP_diastolic | 83 | mmHg | + + + +---------+ | 2025-07-28 00:00 | BP_systolic | 103 | mmHg | + + + +---------+ | 2025-07-28 00:00 | heart_rate | 96 | /min | + + + +---------+ | 2025-07-28 00:00 | o2_saturation | 98 | % | + + + +---------+ | 2025-07-28 00:00 | respiration_rate | 18 | /min | + + + +---------+ | 2025-07-28 00:00 | | 97.9 | F | | | temperature_standar | | | | | d | | | + + + +---------+ | 2025-07-29 00:00 | BMI | 31.4 | kg/m2 | + + + +---------+ | 2025-07-29 00:00 | BP_diastolic | 72 | mmHg | + + + +---------+ | 2025-07-29 00:00 | BP_systolic | 103 | mmHg | + + + +---------+ | 2025-07-29 00:00 | heart_rate | 114 | /min | + + + +---------+ | 2025-07-29 00:00 | height_metric | 180.34 | cm | + + + +---------+ | 2025-07-29 00:00 | height_standard | 71 | in | + + + +---------+ | 2025-07-29 00:00 | o2_saturation | 95 | % | + + + +---------+ | 2025-07-29 00:00 | respiration_rate | 16 | /min | + + + +---------+ | 2025-07-29 00:00 | | 97.5 | F | | | temperature_standar | | | | | d | | | + + + +---------+ | 2025-07-29 00:00 | weight_metric | 102.101 | kg | + + + +---------+ | 2025-07-29 00:00 | weight_standard | 225.093 | lb | + + + +---------+ | 2025-08-05 00:00 | BMI | 29.3 | kg/m2 | + + + +---------+ | 2025-08-05 00:00 | height_metric | 180.34 | cm | + + + +---------+ | 2025-08-05 00:00 | height_standard | 71 | in | + + + +---------+ | 2025-08-05 00:00 | weight_metric | 95.201 | kg | + + + +---------+ | 2025-08-05 00:00 | weight_standard | 209.881 | lb | + + + +---------+ | 2025-08-06 00:00 | BP_diastolic | 74 | mmHg | + + + +---------+ | 2025-08-06 00:00 | BP_systolic | 119 | mmHg | + + + +---------+ | 2025-08-06 00:00 | heart_rate | 98 | /min | + + + +---------+ | 2025-08-06 00:00 | o2_saturation | 100 | % | + + + +---------+ | 2025-08-06 00:00 | respiration_rate | 18 | /min | + + + +---------+ | 2025-08-06 00:00 | | 98.6 | F | | | temperature_standar | | | | | d | | | + + + +---------+ | 2025-08-07 00:00 | BMI | 30.7 | kg/m2 | + + + +---------+ | 2025-08-07 00:00 | BP_diastolic | 73 | mmHg | + + + +---------+ | 2025-08-07 00:00 | BP_systolic | 108 | mmHg | + + + +---------+ | 2025-08-07 00:00 | heart_rate | 94 | /min | + + + +---------+ | 2025-08-07 00:00 | height_metric | 180.34 | cm | + + + +---------+ | 2025-08-07 00:00 | height_standard | 71 | in | + + + +---------+ | 2025-08-07 00:00 | o2_saturation | 100 | % | + + + +---------+ | 2025-08-07 00:00 | respiration_rate | 21 | /min | + + + +---------+ | 2025-08-07 00:00 | | 97.5 | F | | | temperature_standar | | | | | d | | | + + + +---------+ | 2025-08-07 00:00 | weight_metric | 99.901 | kg | + + + +---------+ | 2025-08-07 00:00 | weight_standard | 220.243 | lb | + + + +---------+"
[2025-08-17] MEDS ORDERED: levoFLOXacin 750 MG PIGGYBACK IV ONE (07:15)
[2025-08-17 07:21] LABS: ALT (SGPT) 18.0 U/L (14-59); AST (SGOT) 28.0 U/L (15-37); GLOMERULAR FILTRATION RATE,EST 42.0 mL/min (>60); PROTEIN, TOTAL 6.0 g/dL (6.4-8.2); UREA NITROGEN 31.0 mg/dL (7-18)
[2025-08-17 07:23] LABS: INR 1.25 (0.80-1.30); PROTIME 15.2 Sec (11.2-14.2)
[2025-08-17] MEDS ORDERED: HYDROmorphone HCL 1 MG/ML SYR IV PRN (07:45)
[2025-08-17] MEDS ORDERED: FUROSEMIDE 100 MG/10 ML VIAL IV ONE (07:45)
[2025-08-17 07:58] LABS: LACTIC ACID, BLOOD 1.7 mmol/L (0.4-2.0)
[2025-08-17] MEDS ORDERED: OXYCODONE/APAP 5/325 TAB PO ONE (10:15)
[2025-08-17] MEDS ORDERED: SPIRONOLACTONE 25 MG TAB PO ONE (10:15)
[2025-08-17 10:25] VITALS: BP 119/78
--- NOTE | 2025-08-17 23:33 | EKG ---
[facility] [address] [facility] [place] [address] Signed Ventricular-paced rhythm Biventricular pacemaker detected Abnormal ECG When compared with ECG of 10-AUG-2025 07:43, No significant change was found Confirmed by Tatyana Muller MD () on 08/17/2025 11:33:33 PM Electronically Signed By: TATYANA MULLER MD 08/17/25 [id number] PATIENT NAME: LYNJHONNY Electrocardiogram DATE OF : 59 PHYSICIAN: TATYANA MULLER MD REPORT #: [id number] REPORT IS CONFIDENTIAL AND NOT TO BE RELEASED WITHOUT AUTHORIZATION
[2025-08-18] MEDS ORDERED: HYDROCODON-ACE1 EA10 PO (08:14)
[2025-08-18] MEDS ORDERED: CIPRO500 MG PO (20:38)
[2025-08-22] MEDS ORDERED: CIPROFLOXACIN500 MG PO (15:14)
[2025-08-22] MEDS ORDERED: HYDROCODON-ACE1 EA10 PO (18:23)
[2025-08-26] MEDS ORDERED: CEPHALEXIN500 MG PO (09:35)
[2025-08-26] MEDS ORDERED: CEPHALEXIN500 M1 PO (09:37)
[2025-08-29] MEDS ORDERED: ALDACTONE25 MG PO (21:49)
[2025-08-29] MEDS ORDERED: SOAANZ40 MG PO (21:49)
== END 2025-08-17 10:26 | disposition home or self-care (01) ==
LOC: ED 06:20
PROVIDERS: Family Medicine
DX: I50.9 Heart failure, unspecified (principal); R18.8 Other ascites; Z79.899 Other long term (current) drug therapy; Z79.82 Long term (current) use of aspirin
CPT/HCPCS: 36415; 71045; 71260; 74177; 80053; 82803; 83605; 83880; 84484; 85025; 85379; 85610; 87040; 93005; 93010; 96365; 96366; 96375; 99285-25; J1938; J1956; Q9967

== ENCOUNTER 2025-08-18 05:35 | Emergency (ER) | payer MEDICARE ==
[~2025-08-18] VITALS: Ht 180.3 cm; Wt 109.0 kg
--- OUTSIDE RECORDS SUMMARY | ~2025-08-18 | XMS | Continuity of Care Document ---
Demographics + + + | Address | [address] | | | [place] [address] | + + + | Preferred Language | Unknown | + + + | Marital Status | | + + + | Confucianism Affiliation | Unknown | + + + | Race | Unknown | + + + | Ethnic Group | or | + + + Author + + + | Author | [facility] | + + + | Organization | [facility] | + + + | Address | [address] | | | [place] [address] | + + + | Phone | | + + + Care Team Providers + + + + | Care Solution Maker Name | Role | Phone | + + + + Unavailable | Unavailable | + + + + Unavailable | Unavailable | + + + + Allergies No information. Encounters No information. Functional Status No information. Immunizations No information. Medications + + + + | date | description | facility | + + + + | (no date) | PHENAZOPYRIDINE HCL | [facility] [place] | | | [facility] | + + + + | 2025-07-28 00:00 | PHENAZOPYRIDINE HCL | [facility] | | | | [facility] | + + + + | (no date) | EMPAGLIFLOZIN | [facility] | | | | [facility] | + + + + | (no date) | SACUBITRIL/VALSARTAN | [facility] | | | | [facility] | + + + + | (no date) | POTASSIUM CHLORIDE | [facility] | | | [facility] | + + + + | (no date) | AMLODIPINE BESYLATE | [facility] | | | | [facility] | + + + + | 2025-07-28 00:00 | CEPHALEXIN | [facility] | | | | [facility] | + + + + | 2025-08-14 00:00 | CEPHALEXIN | [facility] | | | | [facility] | + + + + | (no date) | IBUPROFEN | [facility] | | | [facility] | + + + + | (no date) | IBUPROFEN | [facility] | | | | [facility] | + + + + | 2025-07-25 00:00 | NITROGLYCERIN | [facility] | | | | [facility] | + + + + | (no date) | TORSEMIDE | [facility] | | | [facility] | + + + + | 2025-08-06 00:00 | TORSEMIDE | [facility] | | | | [facility] | + + + + | (no date) | MAGNESIUM OXIDE | [facility] | | | [facility] | + + + + | (no date) | Apixaban | [facility] | | | | [facility] | + + + + | (no date) | FUROSEMIDE | [facility] | | | | [facility] | + + + + | (no date) | SPIRONOLACTONE | [facility] | | | [facility] | + + + + | (no date) | FINASTERIDE | [facility] | | | | [facility] | + + + + | (no date) | FOLIC ACID | [facility] | | | | [facility] | + + + + | (no date) | IBUPROFEN | [facility] | | | [facility] | + + + + | (no date) | SPIRONOLACTONE | [facility] | | | | [facility] | + + + + | 2025-07-25 00:00 | SPIRONOLACTONE | [facility] | | | [facility] | + + + + | (no date) | THIAMINE HCL | [facility] | | | [facility] | + + + + | (no date) | FUROSEMIDE | [facility] | | | | [facility] | + + + + | (no date) | LISINOPRIL | [facility] | | | [facility] | + + + + | (no date) | LISINOPRIL | [facility] | | | [facility] | + + + + | (no date) | ASPIRIN | [facility] | | | | [facility] | + + + + | 2025-07-25 00:00 | ASPIRIN | [facility] | | | [facility] | + + + + | (no date) | LACTULOSE | [facility] | | | | [facility] | + + + + | (no date) | ATORVASTATIN CALCIUM | [facility] | | | | [facility] | + + + + | (no date) | POTASSIUM CHLORIDE | [facility] | | | [facility] | + + + + | (no date) | TRAMADOL HCL | [facility] | | | [facility] | + + + + | (no date) | ALBUTEROL SULFATE | [facility] | | | | [facility] | + + + + | (no date) | TAMSULOSIN HCL | [facility] | | | | [facility] | + + + + | (no date) | METOPROLOL SUCCINATE | [facility] | | | | [facility] | + + + + | (no date) | METOPROLOL SUCCINATE | [facility] | | | | [facility] | + + + + | 2025-07-25 00:00 | METOPROLOL SUCCINATE | [facility] | | | | [facility] | + + + + | (no ) | LOSARTAN POTASSIUM | [facility] | | | | [facility] | + + + + | (no ) | MIDODRINE HCL | [facility] | | | | [facility] | + + + + Problems + + + + | date | description | facility | + + + + | 2025-07-14 00:00 | Cardiomyopathy | [facility] | | | [facility] | + + + + | 2025-07-14 00:00 | Pulmonary edema | [facility] | | | [facility] | + + + + | 2025-07-14 00:00 | Acute respiratory failure | [facility] | | | with hypoxemia | [facility] | + + + + | 2025-07-28 00:00 | Substance abuse | [facility] | | | | [facility] | + + + + | 2025-07-28 00:00 | Cardiomyopathy | [facility] | | | [facility] | + + + + | 2025-07-28 00:00 | Congestive heart failure | [facility] | | | | [facility] | + + + + | 2025-07-28 00:00 | Urinary tract infection | [facility] | | | | [facility] | + + + + | 2025-07-28 00:00 | Benign prostatic | [facility] | | | hyperplasia with urinary | [facility] | | | retention | | + + + + | 2025-07-28 00:00 | Noncompliance with | [facility] | | | medication regimen | [facility] | + + + + | 2025-07-29 00:00 | 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 | [facility] | + + + + | 2025-07-29 00:00 | Acute renal failure | [facility] | | | superimposed on chronic | [facility] | | | kidney disease | | + + + + | 2025-07-29 00:00 | Generalized edema | [facility] | | | | [facility] | + + + + | 2025-08-03 00:00 | Shortness of breath | [facility] | | | | [facility] | + + + + | 2025-08-08 00:00 | Atrial fibrillation with | [facility] | | | rapid ventricular response | [facility] | + + + + Procedures + + + + | date | description | facility | + + + + | 2025-07-23 00:00 | DRAINAGE OF BLADDER WITH | [facility] | | | DRAINAGE DEVICE, VIA | [facility] | | | OPENING | | + + + + | 2025-08-03 00:00 | DRAINAGE OF BLADDER WITH | [facility] | | | DRAINAGE DEVICE, VIA | [facility] | | | OPENING | | + + + + | 2025-08-04 00:00 | DRAINAGE OF PERITONEAL | [facility] | | | CAVITY, PERCUTANEOUS | [facility] | | | APPROACH | | + + + + | 2025-08-04 00:00 | TRANSFUSE NONAUT SERUM | [facility] | | | ALBUMIN IN PERIPH VEIN, | [facility] | | | PERC | [...] + + + + + | PCP Chris Ql | 2025-07-28 | | NEGATIVE | [...] 25 | + + + + + +-------+ [...] 26 | + + + + + +-------+ + + | Lactate | 2025-07-29 | | 3.2 | (missing) | (missing) | | [facility] | :18:08 | [facility] | | | | + + + +-------+ + + + + | Result panel 27 | + + + + + +--------+ [...] + + + + + + | Ketonejose Perez | 2025-08-04 | | NEGATIVE | (missing) [...] 30 | + + + + + +---------+ [...] 31 | + + + + + +---------+ [...] 32 | + + + + + +-------+ [...] 33 | + + + + + +-------+ [...] 36 | + + + + + +---------+ [...] 37 | + + + + + +-------+ + + | RBC #/area | 2025-08-04 | | >50 | (missing) | (missing) | | [facility] | 10:13:08 | [facility] | | | | + + + +-------+ + + + + | Result panel 38 | + + + + + +---------+ + + | WBC #/area | 2025-08-04 | | 21-40 | (missing) | (missing) | | UrnS HPF | 10::08 | [facility] | | | | + + + +---------+ + + + + | Result panel 39 | + + + + + +-----+ + + | Epi Cells | 2025-08-04 | | 0 | (missing) | (missing) | | #/area UrnS | 10::08 | [facility] | | | [...] 41 | + + + + + +--------+ [...] 43 | + + + + + +-------+ [...] 47 | + + + + + + [...] 52 | + + + + + +--------+ [...] 55 | + + + + + +--------+ [...] 56 | + + + + + +--------+ [...] 57 | + + + + + +--------+ [...] 59 | + + + + + +--------+ [...] 60 | + + + + + +--------+ [...] 61 | + + + + + +-------+ [...] 62 | + + + + + +--------+ [...] 63 | + + + + + +--------+ [...] | NFr Bld Auto | 05:24:08 | [facility] | | | | | [...] 67 | + + + + + +-------+---------+ [...] +-------+---------+ + + + | Result panel 68 | + + + + + +------+---------+ [...] +------+---------+ + + + | Result panel 69 | + + + + + +--------+---------+ [...] +--------+---------+ + + + | Result panel 70 | + + + + + +------+ [...] 73 | + + + + + +-------+ [...] 74 | + + + + + +-------+ + + | Chloride | 2025-08-06 | | 101 | (missing) | (missing) | | SerPl-sCn | 05:24:08 | [facility] | | | [...] 77 | + + + + + +-------+---------+ [...] +-------+---------+ + + + | Result panel 78 | + + + + + +-------+---------+ + | Magnesium | 2025-08-06 | | 1.8 | mg/dL | (missing) | | [facility] | 05:24:08 | [facility] | | | | + + + +-------+---------+ + + + | Result panel 79 | + + + + + +-------+ + + | Prot | 2025-08-06 | | 5.4 | (missing) | (missing) | | [facility] | 05:24:08 | [facility] | | | [...] 2.6 | (missing) | (missing) | | [facility] | 05:24:08 [...] 84 | + + + + + +------+ [...] 85 | + + + + + +------+ + + | ALT | 2025-08-06 | | 23 | (missing) | (missing) | | [facility] | 05:24:08 | [facility] | | | | + + + +------+ + + + + | Result panel 86 | + + + + + +-------+ [...] 87 | + + + + + + [...] 88 | + + + + + + [...] 89 | + + + + + + [...] 90 | + + + + + + [...] 91 | + + + + + + [...] 92 | + + + + + + [...] 93 | + + + + + + [...] 94 | + + + + + + [...] 95 | + + + + + + [...] 96 | + + + + + + [...] 97 | + + + + + + + + + | THC Ur Ql | 2025-08-08 | | NEGATIVE | (missing) | (missing) | | Scn>50 ng/mL | 09:00:08 | [facility] | | | | + + + + + + + + + | Result panel 98 | + + + + + + [...] 99 | + + + + + +--------+ [...] + + + + | Result panel 100 | + + + + + +--------+ [...] 101 | + + + + + +--------+ [...] 102 | + + + + + +--------+ [...] 103 | + + + + + +--------+ [...] 104 | + + + + + +--------+ [...] 105 | + + + + + +--------+ [...] 106 | + + + + + +--------+ [...] 107 | + + + + + +-------+ [...] 109 | + + + + + +--------+ + + | Lymphocytes | 2025-08-13 | | 11.3 | (missing) | (missing) | | NFr Bld | 22:02:08 | [facility] | [facility] | | | | + + + +--------+ + + + + | Result panel 110 | + + + + + +--------+ [...] 113 | + + + + + +------+---------+ + | Glucose | 2025-08-13 | | 86 | mg/dL | (missing) | | [facility] | 22:02:08 | [facility] | | | | + + + +------+---------+ + + + | Result panel 114 | + + + + + +------+---------+ [...] +------+---------+ + + + | Result panel 115 | + + + + + +--------+---------+ [...] +--------+---------+ + + + | Result panel 116 [...] 117 | + + + + + +---------+ [...] 119 | + + + + + +-------+ [...] 120 | + + + + + +------+ [...] 121 | + + + + + +------+ [...] 122 | + + + + + +--------+ [...] 123 | + + + + + +-------+---------+ + | Calcium | 2025-08-13 | | 8.4 | mg/dL | (missing) | | [facility] | :: | [facility] | | | | + + + +-------+---------+ + + + | Result panel 124 | + + + + + +-------+---------+ [...] +-------+---------+ + + + | Result panel 125 | + + + + + +-------+ + + | Prot | 2025-08-13 | | 6.2 | (missing) | (missing) | | [facility] | 22:02:08 | [facility] | | | | + + + +-------+ + + + + | Result panel 126 | + + + + + +-------+ + + | Albumin | 2025-08-13 | | 2.9 | (missing) | (missing) | | [facility] | 22:02:08 | [facility] | | | | + + + +-------+ + + + + | Result panel 127 | + + + + + +-------+ [...] 128 | + + + + + +--------+ [...] 129 | + + + + + +-------+---------+ [...] +-------+---------+ + + + | Result panel 130 | + + + + + +------+ [...] 131 | + + + + + +------+ + + | ALT | 2025-08-13 | | 26 | (missing) | (missing) | | [facility] | 22:02:08 | [facility] | | | | + + + +------+ + + + + | Result panel 132 | + + + + + +-------+ + + | ALP | 2025-08-13 | | 166 | (missing) | (missing) | | [facility] | 22::08 | [facility] | | | | + + + +-------+ + + + + | Result panel 133 | + + + + + +------+ [...] 135 | + + + + + +---------+ [...] 139 | + + + + + +---------+ [...] 141 | + + + + + +-------+ [...] 142 | + + + + + +------+ [...] 143 | + + + + + +-------+ [...] 146 | + + + + + +-------+ + + | RBC #/area | 2025-08-13 | | 0-1 | (missing) | (missing) | | [facility] | 23:40:08 | [facility] | | | [...] 7-11 | (missing) | (missing) | | [facility] | 23:40:08 | [facility] | | | [...] 150 | + + + + + +------+ [...] 152 | + + + + + +-------+ [...] d | | | + + + +---------+"
--- OUTSIDE RECORDS SUMMARY | 2025-08-18 05:42 | XMS ---
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 Security [employer] Events No recent Security Events currently on file CRITERIA MET - 6 ED Visits in 6 Months - [facility] - 2 Visits in 30 Days - [facility] - 3 Facilities in 90 Days CARE PROVIDERS Michelle Lucio Registered Nurse 11/24/2019-Current PHONE: Unknown ABRAN ALVARADO Family Medicine Current PHONE: [phone] MIGEL MUNOZ Family Medicine: Obesity Medicine Current PHONE: [phone] Care Guidelines exist for the following facilities: [facility] ([place]) ( 07/28/2019 ) [facility] ( 06/18/2013 ) [facility] VISIT COUNT (12 MO.) 26 [facility] ([place]) 20 [facility] TOTAL 47 NOTE: Visits indicate total known visits. ED/UCC VISIT TRACKING (12 MO.) 08/18/2025 05:35 [facility] [place] TYPE: Emergency COMPLAINT: - ABDOMINAL PAIN 08/17/2025 06:20 [facility] [place] TYPE: Emergency COMPLAINT: - SHORTNESS OF BREATH 08/13/2025 20:34 [facility] [place] TYPE: Emergency COMPLAINT: - STOMACH PAIN DIAGNOSES: - Heart failure, unspecified - meterman (current) use of aspirin - Other detention (current) drug therapy - Unspecified abdominal pain - Urinary tract infection, site not specified 08/10/2025 [facility] [facility]: Emergency DIAGNOSES: - Heart failure, unspecified - Other fluid overload - Abdominal Pain - Shortness of Breath 08/10/2025 07:[address] [facility] [place] TYPE: Emergency COMPLAINT: - ABDOMINAL PAIN DIAGNOSES: - Heart failure, unspecified - correction (current) use of aspirin - Other detention (current) drug therapy - Unspecified abdominal pain 08/08/2025 07:37 [facility] [place] TYPE: Emergency COMPLAINT: - ABDOMINAL PAIN DIAGNOSES: - Heart failure, unspecified - Other ascites - Other bed bug exterminator (current) drug therapy - Unspecified abdominal pain - Unspecified atrial fibrillation 08/07/2025 13:[address] [facility] [place] TYPE: Emergency COMPLAINT: - ABDOMINAL PAIN DIAGNOSES: - Heart failure, unspecified - meterman (current) use of aspirin - Other bed bug exterminator (current) drug therapy - Right lower quadrant pain 08/03/2025 10:[address] [facility] [place] TYPE: Emergency COMPLAINT: - SHORTNESS OF BREATH 07/29/2025 12:51 [facility] [place] TYPE: Emergency COMPLAINT: - CATHETER PROBLEM DIAGNOSES: - Acute kidney failure, unspecified - Chronic kidney disease, unspecified - Heart failure, unspecified - Hypertensive heart and chronic kidney disease with heart failure and stage 1 through stage 4 chronic kidney disease, or unspecified chronic kidney disease - correction (current) use of aspirin - Other ascites - Other bed bug exterminator (current) drug therapy - Unspecified cirrhosis of [...] Emergency COMPLAINT: - ABDOMINAL PAIN [facility]20[facility]2025 [facility] DIAGNOSES: - Heart failure, unspecified - Abdominal Pain - weakness, abd pain 07/14/2025 10:25 [facility] [place] TYPE: Emergency COMPLAINT: - SHORTNESS OF BREATH DIAGNOSES: - Acute respiratory failure with hypoxia - Cardiomyopathy, unspecified - Chronic pulmonary edema - Heart failure, unspecified - Hypertensive heart disease with heart failure - Other bed bug exterminator (current) drug therapy - Shortness of breath 07/11/2025 18:18 [facility] ([place] TYPE: Emergency DIAGNOSES: - Other ascites - abd pain - Abdominal Pain - Shortness of Breath 07/09/2025 10:53 [facility] ([place] TYPE: Emergency DIAGNOSES: - Other ascites - Abdominal Pain - Followup Medical Problem 07/01/2025 10:58 [facility] ([place] TYPE: Emergency DIAGNOSES: - COVID-19 - Other ascites - Unspecified cirrhosis of liver - abd pain - Abdominal Pain [facility]25 [facility] [place] [facility] COMPLAINT: - DIFFICULTY BREATHING DIAGNOSES: - Gastro-esophageal reflux disease without esophagitis - Heart failure, unspecified - Hypertensive heart disease with heart failure - correction (current) use of aspirin - Other detention (current) drug therapy - Procedure and treatment not carried out because of patient's decision for other reasons - Shortness of breath - Unspecified cirrhosis of liver 06/25/2025 09:46 [facility] DIAGNOSES: - Alcoholic cirrhosis of liver with ascites - Cellulitis of left upper limb - Edema, unspecified - Other ascites - Edema - Shortness of Breath 06/20/2025 00:13 [facility] TYPE: Emergency DIAGNOSES: - Umbilical hernia with obstruction, without gangrene - Unspecified cirrhosis of liver 06/19/2025 15:14 [facility] ([place] TYPE: Emergency DIAGNOSES: - Lower abdominal pain, unspecified - Umbilical hernia without obstruction or gangrene - Unspecified abdominal hernia with obstruction, without gangrene - abd pain - Abdominal Pain Plus 27 More Visits INPATIENT VISIT TRACKING (12 MO.) 08/10/2025 23:16 [facility] TYPE: Medical Surgical DIAGNOSES: - Heart failure, unspecified - Hypokalemia - Other fluid overload 08/03/2025 15:[address] [facility] [place] TYPE: Medical Surgical COMPLAINT: - [...] Hypertensive heart disease with heart failure - correction (current) use of antibiotics - correction (current) use of antibiotics - correction (current) use of anticoagulants - meterman (current) use of anticoagulants - correction (current) use of aspirin - correction (current) use of aspirin - correction (current) use of inhaled steroids - correction (current) use of inhaled steroids - Nicotine dependence, cigarettes, uncomplicated - Nicotine dependence, cigarettes, uncomplicated - Obesity, unspecified - Obesity, unspecified - Other bed bug exterminator (current) drug therapy - Other detention (current) drug therapy - Personal history of other diseases of the digestive system - Personal history of other diseases of the digestive system - Presence of cardiac pacemaker - Presence of cardiac pacemaker - Shortness of breath - Unspecified asthma, uncomplicated - Unspecified asthma, uncomplicated 07/29/2025 23:03 [facility] [place] [facility] Medical [facility] COMPLAINT: - transfer DIAGNOSES: [...] block, unspecified 10. Atherosclerotic heart disease of [place] coronary artery without angina pectoris 11. Pulmonary [...] - Ischemic cardiomyopathy - Ischemic cardiomyopathy - meterman (current) use of inhaled steroids - correction (current) use of inhaled steroids - Nicotine dependence, cigarettes, uncomplicated - Nicotine dependence, cigarettes, uncomplicated - Obesity, unspecified - Obesity, unspecified - Other ascites - Other ascites - Other bed bug exterminator (current) drug therapy - Other detention (current) drug therapy - Other specified postprocedural [...] - Unspecified cirrhosis of liver 07/14/2025 17:01 [facility] TYPE: Medical Surgical DIAGNOSES: - Acute kidney failure, unspecified - Acute on chronic combined systolic (congestive) and diastolic (congestive) heart failure - Alcoholic cirrhosis of liver with ascites - Chronic combined systolic (congestive) and diastolic (congestive) heart failure - Essential (primary) hypertension - Pulmonary hypertension, unspecified - Anasarca - CHF 06/20/2025 00:13 [facility] TYPE: Surgery DIAGNOSES: - Metabolic encephalopathy - Other ascites - Umbilical hernia with obstruction, without gangrene - Unspecified cirrhosis of liver 06/01/2025 11:39 [facility] ([place] TYPE: Medical Surgical DIAGNOSES: - Acidosis, unspecified [...] malaise - Other specified counseling 05/22/2025 09:12 [facility]: Medical Surgical DIAGNOSES: - Acute on chronic combined systolic (congestive) and diastolic (congestive) heart failure - Alcoholic cirrhosis of liver with ascites - Atherosclerotic heart disease of [place] coronary artery with unspecified angina pectoris - [...] Unspecified systolic (congestive) heart failure 04/06/2025 16:11 [facility]: Medical Surgical DIAGNOSES: - Acute kidney [...] and hyponatremia - Hypo-osmolality and hyponatremia - meterman (current) use of aspirin - meterman (current) use of aspirin - Other ascites [...] - Unspecified cirrhosis of liver 03/13/2025 09:07 [facility]: Medical Surgical DIAGNOSES: - Acute on chronic combined systolic (congestive) and diastolic (congestive) heart failure - Alcohol dependence, in remission - Atherosclerotic heart disease of [place] coronary artery with unspecified angina pectoris - Chronic kidney disease, stage 3a - Heart failure, unspecified - Mild intermittent asthma, uncomplicated - Myocardial infarction type 2 - Nicotine dependence, cigarettes, in remission - Nonrheumatic mitral (valve) insufficiency - Other specified abnormal findings of blood chemistry - Pulmonary hypertension, unspecified 02/16/2025 12:41 [facility] TYPE: Medical [...] medication regimen for other reason 01/13/2025 09:17 [facility] ([place] TYPE: Emergency DIAGNOSES: - Acute on chronic combined systolic (congestive) and diastolic (congestive) heart failure - Acute respiratory failure with hypoxia - Fluid overload, unspecified - Homelessness unspecified - Patient's noncompliance with dietary regimen due to unspecified reason - Shortness of breath 12/29/2024 06:07 [facility] ([place] TYPE: Medical Surgical DIAGNOSES: - Acute kidney failure, unspecified - Acute on chronic combined systolic (congestive) and diastolic (congestive) heart failure - Alcohol abuse, uncomplicated - Atherosclerotic heart disease of [place] coronary artery without angina pectoris - Chronic [...] withdrawal, unspecified - Atherosclerotic heart disease of [place] coronary artery without angina pectoris - Atherosclerotic heart disease of [place] coronary artery without angina pectoris - Chest pain, unspecified - Gastro-esophageal reflux disease without esophagitis - Gastro-esophageal reflux disease without esophagitis - Heart failure, unspecified - Heart failure, unspecified - Hypertensive heart disease with heart failure - Hypertensive heart disease with heart failure - meterman (current) use of aspirin - meterman (current) use of aspirin - Nonrheumatic aortic (valve) stenosis - Nonrheumatic aortic (valve) stenosis - Obesity, unspecified - Obesity, unspecified - Old myocardial infarction - Old myocardial infarction - Other bed bug exterminator (current) drug therapy - Other detention (current) drug therapy - Other specified postprocedural [...] because of patient's decision for other reasons [email or web address]
[2025-08-18 06:03] LABS: BASOPHILS 0.9 % (0.2-1.2); EOSINOPHILS 1.3 % (0.8-7.0); LYMPHOCYTES 10.7 % (21.8-53.1); MCH 26.9 PG (25.7-32.2); MCHC 32.6 g/dL (32.3-36.5); MCV 82.4 fL (79.0-92.2); MONOCYTES 11.1 % (5.3-12.2); NEUTROPHILS 75.7 % (34.0-67.9); RBC 4.50 M/uL (4.63-6.08)
[2025-08-18] MEDS ORDERED: ALBUMIN HUMAN 25% 100 ML BTL IV ONE (06:15)
[2025-08-18] MEDS ORDERED: ALBUMIN HUMAN 25% 100 ML BTL ONE (06:31)
[2025-08-18 07:09] LABS: INR 1.24 (0.80-1.30); PROTIME 15.2 Sec (11.2-14.2)
[2025-08-18] MEDS ORDERED: CIPROFLOXACIN 500 MG TAB PO ONE (07:30)
[2025-08-18] MEDS ORDERED: HYDROCODON-ACE1 EA10 PO (08:14)
[2025-08-18 08:29] VITALS: BP 120/91
[2025-08-18] MEDS ORDERED: CIPRO500 MG PO (20:38)
[2025-08-22] MEDS ORDERED: CIPROFLOXACIN500 MG PO (15:14)
[2025-08-22] MEDS ORDERED: HYDROCODON-ACE1 EA10 PO (18:23)
[2025-08-26] MEDS ORDERED: CEPHALEXIN500 MG PO (09:35)
[2025-08-26] MEDS ORDERED: CEPHALEXIN500 M1 PO (09:37)
[2025-08-29] MEDS ORDERED: SOAANZ40 MG PO (21:49)
[2025-08-29] MEDS ORDERED: ALDACTONE25 MG PO (21:49)
== END 2025-08-18 08:29 | disposition home or self-care (01) ==
LOC: ED 05:35
PROVIDERS: Family Medicine
DX: K72.10 Chronic hepatic failure without coma (principal); R18.8 Other ascites; Z91.198 Patient's noncompliance with other medical treatment and regimen for other reason; Z79.899 Other long term (current) drug therapy
CPT/HCPCS: 36415; 49083; 85025; 85610; 96365; 99284-25; P9047

== ENCOUNTER 2025-08-18 19:08 | Emergency (ER) | payer MEDICARE ==
[~2025-08-18] VITALS: Ht 180.3 cm; Wt 109.0 kg
--- OUTSIDE RECORDS SUMMARY | ~2025-08-18 | XMS | Continuity of Care Document ---
Demographics + + + | Address | [address] | | | [place] [address] | + + + | Preferred Language | Unknown | + + + | Marital Status | | + + + | Temple Affiliation | Unknown | + + + | Race | Unknown | + + + | Ethnic Group | or | + + + Author + + + | Author | [facility] | + + + | Organization | [facility] | + + + | Address | [address] | | | [place] [address] | + + + | Phone | | + + + Care Team Providers + + + + | Care [employer] Name | Role | Phone | + + + + Unavailable | Unavailable | + + + + Unavailable | Unavailable | + + + + Allergies No information. Encounters No information. Functional Status No information. Immunizations No information. Medications + + + + | date | description | facility | + + + + | (no date) | PHENAZOPYRIDINE HCL | [facility] | | | | [facility] | + + + + | 2025-07-28 00:00 | PHENAZOPYRIDINE HCL | [facility] | | | | [facility] | + + + + | (no date) | EMPAGLIFLOZIN | [facility] | | | | [facility] | + + + + | (no date) | SACUBITRIL/VALSARTAN | [facility] | | | | [facility] | + + + + | (no date) | POTASSIUM CHLORIDE | [facility] | | | | [facility] | + + + + | (no date) | AMLODIPINE BESYLATE | [facility] | | | | [facility] | + + + + | 2025-07-28 00:00 | CEPHALEXIN | [facility] | | | | [facility] | + + + + | 2025-08-14 00:00 | CEPHALEXIN | [facility] | | | | [facility] | + + + + | (no date) | IBUPROFEN | [facility] | | | | [facility] | + + + + | (no date) | IBUPROFEN | [facility] | | | | [facility] | + + + + | 2025-07-25 00:00 | NITROGLYCERIN | [facility] | | | | [facility] | + + + + | (no date) | TORSEMIDE | [facility] | | | [facility] | + + + + | 2025-08-06 00:00 | TORSEMIDE | [facility] | | | | [facility] | + + + + | (no date) | MAGNESIUM OXIDE | [facility] | | | [facility] | + + + + | (no date) | Apixaban | [facility] | | | | [facility] | + + + + | (no date) | FUROSEMIDE | [facility] | | | | [facility] | + + + + | (no date) | SPIRONOLACTONE | [facility] | | | | [facility] | + + + + | (no date) | FINASTERIDE | [facility] | | | | [facility] | + + + + | (no date) | FOLIC ACID | [facility] | | | | [facility] | + + + + | (no date) | IBUPROFEN | [facility] | | | [facility] | + + + + | (no date) | SPIRONOLACTONE | [facility] | | | | [facility] | + + + + | 2025-07-25 00:00 | SPIRONOLACTONE | [facility] | | | [facility] | + + + + | (no date) | THIAMINE HCL | [facility] | | | | [facility] | + + + + | (no date) | FUROSEMIDE | [facility] | | | | [facility] | + + + + | (no date) | LISINOPRIL | [facility] | | | | [facility] | + + + + | (no date) | LISINOPRIL | [facility] | | | | [facility] | + + + + | (no date) | ASPIRIN | [facility] | | | | [facility] | + + + + | 2025-07-25 00:00 | ASPIRIN | [facility] | | | | [facility] | + + + + | (no date) | LACTULOSE | [facility] | | | | [facility] | + + + + | (no date) | ATORVASTATIN CALCIUM | [facility] | | | | [facility] | + + + + | (no date) | POTASSIUM CHLORIDE | [facility] | | | | [facility] | + + + + | (no date) | TRAMADOL HCL | [facility] | | | | [facility] | + + + + | 2025-08-18 00:00 | HYDROCODONE | [facility] | | | BIT/ACETAMINOPHEN | [facility] | + + + + | (no date) | ALBUTEROL SULFATE | [facility] | | | | [facility] | + + + + | (no date) | TAMSULOSIN HCL | [facility] | | | | [facility] | + + + + | (no date) | METOPROLOL SUCCINATE | [facility] | | | | [facility] | + + + + | (no date) | METOPROLOL SUCCINATE | [facility] | | | | [facility] | + + + + | 2025-07-25 00:00 | METOPROLOL SUCCINATE | [facility] | | | | [facility] | + + + + | (no date) | LOSARTAN POTASSIUM | [facility] | | | | [facility] | + + + + | (no date) | MIDODRINE HCL | [facility] | | | | [facility] | + + + + Problems + + + + | date | description | facility | + + + + | 2025-07-14 00:00 | Cardiomyopathy | [facility] | | | | [facility] | + + + + | 2025-07-14 00:00 | Pulmonary edema | [facility] | | | | [facility] | + + + + | 2025-07-14 00:00 | Acute respiratory failure | [facility] | | | with hypoxemia | [facility] | + + + + | 2025-07-28 00:00 | Substance abuse | [facility] | | | | [facility] | + + + + | 2025-07-28 00:00 | Cardiomyopathy | [facility] | | | | [facility] | + + + + | 2025-07-28 00:00 | Congestive heart failure | [facility] | | | | [facility] | + + + + | 2025-07-28 00:00 | Urinary tract infection | [facility] | | | | [facility] | + + + + | 2025-07-28 00:00 | Benign prostatic | [facility] | | | hyperplasia with urinary | [facility] | | | retention | | + + + + | 2025-07-28 00:00 | Noncompliance with | [facility] | | | medication regimen | [facility] | + + + + | 2025-07-29 00:00 | 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[facility] | | | ascites | [facility] | + + + + | 2025-07-29 00:00 | Acute renal failure | [facility] | | | superimposed on chronic | [facility] | | | kidney disease | | + + + + | 2025-07-29 00:00 | Generalized edema | [facility] | | | | [facility] | + + + + | 2025-08-03 00:00 | Shortness of breath | [facility] | | | | [facility] | + + + + | 2025-08-08 00:00 | Atrial fibrillation with | [facility] | | | rapid ventricular response | [facility] | + + + + | 2025-08-17 00:00 | Sepsis | [facility] | | | | [facility] | + + + + | 2025-08-17 00:00 | Abdominal ascites | [facility] | | | | [facility] | + + + + | 2025-08-18 00:00 | End stage liver disease | [facility] | | | | [facility] | + + + + | 2025-08-18 00:00 | Medication non-compliance | [facility] | | | due to excessive pill | [facility] | | | burden | | + + + + Procedures + + + + | date | description | facility | + + + + | 2025-07-23 00:00 | DRAINAGE OF BLADDER WITH | [facility] | | | DRAINAGE DEVICE, VIA | [facility] | | | OPENING | | + + + + | 2025-08-03 00:00 | DRAINAGE OF BLADDER WITH | [facility] | | | DRAINAGE DEVICE, VIA | [facility] | | | OPENING | | + + + + | 2025-08-04 00:00 | DRAINAGE OF PERITONEAL | [facility] | | | CAVITY, PERCUTANEOUS | [facility] | | | APPROACH | | + + + + | 2025-08-04 00:00 | TRANSFUSE NONAUT SERUM | [facility] | | | ALBUMIN IN PERIPH VEIN, | [facility] | | | PERC | | + + + + Results/Labs +--------+--------+ +---------+--------+---------+ | test | date | facility | value | unit | notes | +--------+--------+ +---------+--------+---------+ + + | Result panel 1 | + + + + + +--------+ + + | D Shelby MEDEIROS | 2025-07-14 | | 3.02 | (missing) | (missing) | | IA.FEU-[facility] | 10:40:08 | [facility] | | | [...] 2.6 | mg/dL | (missing) | | Michele | 05:17:08 | [facility] | | | [...] | | comment Imp | 00:41:08 | [facility] | | | | | [...] | | Ql Scn | 03:15:08 | [facility] | | | | | | | [...] 32 | + + + + + +--------+ [...] + + + + + | [facility] | 2025-08-04 | | NEGATIVE | [...] 39 | + + + + + +---------+ [...] 41 | + + + + + +-------+ [...] 42 | + + + + + +-------+ [...] 44 | + + + + + +---------+ [...] 46 | + + + + + +---------+ [...] 47 | + + + + + +-----+ [...] 61 | + + + + + +--------+ [...] 64 | + + + + + +--------+ + + | Hgb | 2025-08-06 | | 11.7 | (missing) | (missing) | | Bld-mCnc | 05:24:08 | [facility] | | | | + + + +--------+ + + + + | Result panel 65 | + + + + + +--------+ [...] 69 | + + + + + +-------+ [...] 75 | + + + + + +-------+---------+ [...] +-------+---------+ + + + | Result panel 76 | + + + + + +------+---------+ [...] +------+---------+ + + + | Result panel 77 | + + + + + +--------+---------+ [...] +--------+---------+ + + + | Result panel 78 | + + + + + +------+ [...] 79 | + + + + + +---------+ [...] 3.6 | (missing) | (missing) | | [facility] | 05:24:08 | [facility] | | | [...] 83 | + + + + + +------+ [...] 85 | + + + + + +-------+---------+ [...] +-------+---------+ + + + | Result panel 86 | + + + + + +-------+---------+ [...] +-------+---------+ + + + | Result panel 87 | + + + + + +-------+ [...] 2.6 | (missing) | (missing) | | [facility] | 05:24:08 | [facility] | | | [...] 91 | + + + + + +-------+---------+ [...] +-------+---------+ + + + | Result panel 92 | + + + + + +------+ [...] 93 | + + + + + +------+ + + | ALT | 2025-08-06 | | 23 | (missing) | (missing) | | [facility] | 05:24:08 | [facility] | | | | + + + +------+ + + + + | Result panel 94 | + + + + + +-------+ + + | ALP | 2025-08-06 | | 173 | (missing) | (missing) | | [facility] | 05:24:08 | [facility] | [...] 99 | + + + + + + [...] 100 | + + + + + + [...] 101 | + + + + + + [...] 102 | + + + + + + [...] | | Scn>25 ng/mL | 09:00:08 | [facility] | | | | | [...] | | Scn>25 ng/mL | 09:00:08 | [facility] | | | | | [...] 119 | + + + + + +--------+ [...] 120 | + + + + + +--------+ [...] 121 | + + + + + +--------+ + + | Monocytes | 2025-08-13 | | 10.8 | (missing) | (missing) | | NFr Bld Auto | 22:02:08 | [facility] | | | | + + + +--------+ + + + + | Result panel 122 | + + + + + +-------+ [...] 123 | + + + + + +-------+ [...] 124 | + + + + + +------+---------+ [...] +------+---------+ + + + | Result panel 125 | + + + + + +------+---------+ + | BUN | 2025-08-13 | | 33 | mg/dL | (missing) | | [facility] | 22:02:08 | [facility] | | | | + + + +------+---------+ + + + | Result panel 126 | + + + + + +--------+---------+ [...] +--------+---------+ + + + | Result panel 127 | + + + + + +------+ [...] 128 | + + + + + +---------+ [...] 129 | + + + + + +-------+ [...] 130 | + + + + + +-------+ + + | Potassium | 2025-08-13 | | 3.8 | (missing) | (missing) | | [facility] | 22:02:08 | [facility] | | | [...] 132 | + + + + + +------+ [...] 133 | + + + + + +--------+ [...] 134 | + + + + + +-------+---------+ [...] +-------+---------+ + + + | Result panel 135 | + + + + + +-------+---------+ [...] +-------+---------+ + + + | Result panel 136 | + + + + + +-------+ [...] 137 | + + + + + +-------+ + + | Albumin | 2025-08-13 | | 2.9 | (missing) | (missing) | | [facility] | 22:02:08 | [facility] | | | | + + + +-------+ + + + + | Result panel 138 | + + + + + +-------+ [...] 140 | + + + + + +-------+---------+ + | Asuncion | 2025-08-13 | | 1.1 | mg/dL | (missing) | | [facility] | 22:02:08 | [facility] | [facility] | | | | + + + +-------+---------+ + + + | Result panel 141 | + + + + + +------+ [...] 144 | + + + + + +------+ [...] 145 | + + + + + +-------+---------+ [...] +-------+---------+ + + + | Result panel 146 | + + + + + +------+ [...] 149 | + + + + + +--------+ [...] | (missing) | | | 22:02:08 | [facility] | | [facility] | | | | + + + +--------+ + + + + | Result panel 152 | + + + + + +--------+ [...] 153 | + + + + + +--------+ [...] 154 | + + + + + +-------+ [...] 155 | + + + + + +--------+ [...] 157 | + + + + + +---------+ [...] + + + + + + | Bilbenny Ur | 2025-08-13 | | NEGATIVE | [...] (missing) | | Strip | 23:40:08 | [facility] | | | | | [...] 30 | (missing) | (missing) | | [facility] | 23:40:08 | [facility] | [facility] | | | | + + + +------+ + + + + | Result panel 165 | + + + + + +-------+ [...] 168 | + + + + + +-------+ [...] 169 | + + + + + +--------+ + + | WBC #/area | 2025-08-13 | | 7-11 | (missing) | (missing) | | [facility] | 23:40:08 | [facility] | [...] 172 | + + + + + +------+ [...] 174 | + + + + + +-------+ [...] 177 | + + + + + +---------+ [...] 179 | + + + + + + + + + | Bilwatsonub Ur | 2025-08-13 | | NEGATIVE | [...] + + + + + | [facility] | 2025-08-13 | | NEGATIVE | [...] 181 | + + + + + +---------+ [...] 183 | + + + + + +-------+ [...] 184 | + + + + + +------+ [...] 186 | + + + + + + [...] 187 | + + + + + + [...] 188 | + + + + + +-------+ [...] 189 | + + + + + +--------+ [...] 190 | + + + + + + [...] 191 | + + + + + + [...] 192 | + + + + + +------+ [...] | (missing) | (missing) | | #/area [facility] | 23:40:08 | [facility] | | | | | [facility] | | | | + + + + + + + + + | Result panel 194 | + + + + + +-------+ [...] 196 | + + + + + +--------+ [...] 197 | + + + + + +-------+ + + | Chloride | 2025-08-17 | | 100 | (missing) | (missing) | | [facility] | 06:42:08 | [facility] | [facility] | | | | + + + +-------+ + + + + | Result panel 198 | + + + + + +------+ [...] 199 | + + + + + +--------+ [...] 200 | + + + + + +-------+---------+ [...] +-------+---------+ + + + | Result panel 201 | + + + + + +-------+ [...] 202 | + + + + + +-------+ + + | Albumin | 2025-08-17 | | 2.8 | (missing) | (missing) | | [facility] | 06:42:08 | [facility] | | | | + + + +-------+ + + + + | Result panel 203 | + + + + + +-------+ [...] 204 | + + + + + +--------+ [...] 205 | + + + + + +-------+---------+ [...] +-------+---------+ + + + | Result panel 206 | + + + + + +------+ + + | AST | 2025-08-17 | | 28 | (missing) | (missing) | | [facility] | 06:42:08 | [facility] | | | | + + + +------+ + + + + | Result panel 207 | + + + + + +---------+ [...] 208 | + + + + + +------+ [...] 209 | + + + + + +-------+ + + | ALP | 2025-08-17 | | 147 | (missing) | (missing) | | [facility] | 06:42:08 | [facility] | | | | + + + +-------+ + + + + | Result panel 210 | + + + + + +------+---------+ [...] +------+---------+ + + + | Result panel 211 | + + + + + +------+---------+ [...] +------+---------+ + + + | Result panel 212 | + + + + + +--------+---------+ + | Creat | 2025-08-17 | | 1.74 | mg/dL | (missing) | | [facility] | 06:42:08 | [facility] | | | | + + + +--------+---------+ + + + | Result panel 213 | + + + + + +------+ [...] 214 | + + + + + +---------+ [...] 215 | + + + + + +-------+ + + | Sodium | 2025-08-17 | | 132 | (missing) | (missing) | | [facility] | 06:42:08 | [facility] | | | [...] (missing) | | [facility] | 06:42:08 | [facility] | | | | + + + +-------+ + + + + | Result panel 217 | + + + + + +-------+ [...] 218 | + + + + + +--------+ [...] 219 | + + + + + +--------+ [...] 220 | + + + + + +--------+ [...] 221 | + + + + + +--------+ [...] 222 | + + + + + +--------+ [...] 223 | + + + + + +--------+ [...] 224 | + + + + + +--------+ [...] 225 | + + + + + +--------+ [...] 226 | + + + + + +-------+ [...] 227 | + + + + + +--------+ [...] 228 | + + + + + +--------+ [...] 229 | + + + + + +--------+ [...] 231 | + + + + + +-------+ [...] 232 | + + + + + +--------+ [...]
[~2025-08-18 19:08] MED LIST changes: +HYDROCODON-ACE1 EA10 PO
--- OUTSIDE RECORDS SUMMARY | 2025-08-18 19:15 | XMS ---
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 [employer] Events No recent Security Events currently on file CRITERIA MET - 6 ED Visits in 6 Months - [facility] - 2 Visits in 30 Days - [facility] - 3 Facilities in 90 Days CARE PROVIDERS Michelle Lucio Registered Nurse 11/24/2019-Current PHONE: Unknown ABRAN ALVARADO Family Medicine Current PHONE: [phone] MIGEL MUNOZ Family Medicine: Obesity Medicine Current PHONE: [phone] Care Guidelines exist for the following facilities: [facility] ([place]) ( 07/28/2019 ) [facility] ( 06/18/2013 ) [facility] VISIT COUNT (12 MO.) 26 [facility] ([place]) 21 [facility] TOTAL 48 NOTE: Visits indicate total known visits. ED/UCC VISIT TRACKING (12 MO.) 08/18/2025 19:09 [facility] [place] TYPE: Emergency COMPLAINT: - WOUND CHECK 08/18/2025 05:35 [facility] [place] TYPE: Emergency COMPLAINT: - ABDOMINAL PAIN 08/17/2025 06:20 [facility] [place] TYPE: Emergency COMPLAINT: - SHORTNESS OF BREATH 08/13/2025 20:34 [facility] [place] TYPE: Emergency COMPLAINT: - STOMACH PAIN DIAGNOSES: - Heart failure, unspecified - FDC (current) use of aspirin - Other long-term (current) drug therapy - Unspecified abdominal pain - Urinary tract infection, site not specified 08/10/2025 23:16 [facility] [place] [place] TYPE: Emergency DIAGNOSES: - Heart failure, unspecified - Other fluid overload - Abdominal Pain - Shortness of Breath 08/10/2025 07:15 [facility] [place] TYPE: Emergency COMPLAINT: - ABDOMINAL PAIN DIAGNOSES: - Heart failure, unspecified - bed bug exterminator (current) use of aspirin - Other long filler cigar roller machine (current) drug therapy - Unspecified abdominal pain 08/08/2025 07:37 [facility] [place] TYPE: Emergency COMPLAINT: - ABDOMINAL PAIN DIAGNOSES: - Heart failure, unspecified - Other ascites - Other long-term (current) drug therapy - Unspecified abdominal pain - Unspecified atrial fibrillation 08/07/2025 13:42 [facility] [place] TYPE: Emergency COMPLAINT: - ABDOMINAL PAIN DIAGNOSES: - Heart failure, unspecified - FDC (current) use of aspirin - Other long filler cigar roller machine (current) drug therapy - Right lower quadrant [...] disease, or unspecified chronic kidney disease - FDC (current) use of aspirin - Other ascites - Other long-term (current) drug therapy - Unspecified cirrhosis of [...] Emergency COMPLAINT: - ABDOMINAL PAIN [facility] DIAGNOSES: - Heart failure, unspecified - Abdominal Pain - weakness, abd pain 07/14/2025 10:25 [facility] [place] TYPE: Emergency COMPLAINT: - SHORTNESS OF BREATH DIAGNOSES: - Acute respiratory failure with hypoxia - Cardiomyopathy, unspecified - Chronic pulmonary edema - Heart failure, unspecified - Hypertensive heart disease with heart failure - Other long filler cigar roller machine (current) drug therapy - Shortness of breath 07/11/2025 18:18 [facility] DIAGNOSES: - Other ascites - abd pain - Abdominal Pain - Shortness of Breath 07/09/2025 10[facility]53 [facility]: Emergency DIAGNOSES: - Other ascites - Abdominal Pain - Followup Medical Problem 07/01/2025 10:58 [facility] TYPE: Emergency DIAGNOSES: - COVID-19 - Other ascites - Unspecified cirrhosis of liver - abd pain - Abdominal Pain 06/26/2025 20:58 [facility] [place] COMPLAINT: - DIFFICULTY BREATHING DIAGNOSES: - Gastro-esophageal reflux disease without esophagitis - Heart failure, unspecified - Hypertensive heart disease with heart failure - FDC (current) use of aspirin - Other long-term (current) drug therapy - Procedure and treatment not carried out because of patient's decision for other reasons - Shortness of breath - Unspecified cirrhosis of liver 06/25/2025 09:46 [facility] ([place] TYPE: Emergency DIAGNOSES: - Alcoholic cirrhosis of liver with ascites - Cellulitis of left upper limb - Edema, unspecified - Other ascites - Edema - Shortness of Breath 06/20/2025 00:13 [facility] TYPE: Emergency DIAGNOSES: - Umbilical hernia with obstruction, without gangrene - Unspecified cirrhosis of liver Plus 28 More Visits INPATIENT VISIT TRACKING (12 MO.) 08/10/2025 23:16 [facility] [place] TYPE: Medical Surgical DIAGNOSES: - Heart failure, unspecified - Hypokalemia - Other fluid overload 08/03/2025 15:[address] [facility] [place] TYPE: Medical [...] Hypertensive heart disease with heart failure - FDC (current) use of antibiotics - FDC (current) use of antibiotics - bed bug exterminator (current) use of anticoagulants - FDC (current) use of anticoagulants - bed bug exterminator (current) use of aspirin - bed bug exterminator (current) use of aspirin - bed bug exterminator (current) use of inhaled steroids - bed bug exterminator (current) use of inhaled steroids - Nicotine dependence, cigarettes, uncomplicated - Nicotine dependence, cigarettes, uncomplicated - Obesity, unspecified - Obesity, unspecified - Other long-term (current) drug therapy - Other long filler cigar roller machine (current) drug therapy - Personal history of other diseases of the digestive system - Personal history of other diseases of the digestive system - Presence of cardiac pacemaker - Presence of cardiac pacemaker - Shortness of breath - Unspecified asthma, uncomplicated - Unspecified asthma, uncomplicated 07/29/2025 23:03 [facility] [place] TYPE: Medical Surgical COMPLAINT: - transfer DIAGNOSES: [...] block, unspecified 10. Atherosclerotic heart disease of [place] coronary artery without angina pectoris 11. Pulmonary [...] - Ischemic cardiomyopathy - Ischemic cardiomyopathy - FDC (current) use of inhaled steroids - FDC (current) use of inhaled steroids - Nicotine dependence, cigarettes, uncomplicated - Nicotine dependence, cigarettes, uncomplicated - Obesity, unspecified - Obesity, unspecified - Other ascites - Other ascites - Other long-term (current) drug therapy - Other long-term (current) drug therapy - Other specified postprocedural [...] - Unspecified cirrhosis of liver 07[facility]14[facility]2025 17[facility]01 [facility] TYPE: Medical Surgical DIAGNOSES: - Acute kidney failure, unspecified - Acute on chronic combined systolic (congestive) and diastolic (congestive) heart failure - Alcoholic cirrhosis of liver with ascites - Chronic combined systolic (congestive) and diastolic (congestive) heart failure - Essential (primary) hypertension - Pulmonary hypertension, unspecified - Anasarca - CHF 06/20/2025 00:13 [facility] TYPE: Surgery DIAGNOSES: - Metabolic encephalopathy - Other ascites - Umbilical hernia with obstruction, without gangrene - Unspecified cirrhosis of liver 06/01/2025 11:39 [facility] ([facility] TYPE: Medical [...] malaise - Other specified counseling 05/22/2025 09:12 [facility] ([facility] TYPE: Medical Surgical DIAGNOSES: - Acute on chronic combined systolic (congestive) and diastolic (congestive) heart failure - Alcoholic cirrhosis of liver with ascites - Atherosclerotic heart disease of [place] coronary artery with unspecified angina pectoris - [...] Unspecified systolic (congestive) heart failure 04/06/2025 16:11 [facility] ([facility] TYPE: Medical [...] - Other chronic pain 04/01/2025 19:20 [facility] [place] TYPE: Medical Surgical COMPLAINT: - ACUTE [...] and hyponatremia - Hypo-osmolality and hyponatremia - FDC (current) use of aspirin - FDC (current) use of aspirin - Other ascites [...] of liver 03/13/2025 09:07 [facility] ([facility] TYPE: Medical Surgical DIAGNOSES: - Acute on chronic combined systolic (congestive) and diastolic (congestive) heart failure - Alcohol dependence, in remission - Atherosclerotic heart disease of [place] coronary artery with unspecified angina pectoris - Chronic kidney disease, stage 3a - Heart failure, unspecified - Mild intermittent asthma, uncomplicated - Myocardial infarction type 2 - Nicotine dependence, cigarettes, in remission - Nonrheumatic mitral (valve) insufficiency - Other specified abnormal findings of blood chemistry - Pulmonary hypertension, unspecified 02/16/2025 12:41 [facility] [place] ([facility]) TYPE: Medical Surgical DIAGNOSES: [...] medication regimen for other reason 01/13/2025 09:17 [facility] ([facility] TYPE: Emergency DIAGNOSES: - Acute on chronic combined systolic (congestive) and diastolic (congestive) heart failure - Acute respiratory failure with hypoxia - Fluid overload, unspecified - Homelessness unspecified - Patient's noncompliance with dietary regimen due to unspecified reason - Shortness of breath 12/29/2024 06:07 [facility] [place] ([facility]) TYPE: Medical Surgical DIAGNOSES: - Acute kidney failure, unspecified - Acute on chronic combined systolic (congestive) and diastolic (congestive) heart failure - Alcohol abuse, uncomplicated - Atherosclerotic heart disease of [place] coronary artery without angina pectoris - Chronic [...] withdrawal, unspecified - Atherosclerotic heart disease of [place] coronary artery without angina pectoris - Atherosclerotic heart disease of [place] coronary artery without angina pectoris - Chest pain, unspecified - Gastro-esophageal reflux disease without esophagitis - Gastro-esophageal reflux disease without esophagitis - Heart failure, unspecified - Heart failure, unspecified - Hypertensive heart disease with heart failure - Hypertensive heart disease with heart failure - FDC (current) use of aspirin - FDC (current) use of aspirin - Nonrheumatic aortic (valve) stenosis - Nonrheumatic aortic (valve) stenosis - Obesity, unspecified - Obesity, unspecified - Old myocardial infarction - Old myocardial infarction - Other long filler cigar roller machine (current) drug therapy - Other long filler cigar roller machine (current) drug therapy - Other specified postprocedural [...] because of patient's decision for other reasons [email or web address]
[2025-08-18] MEDS ORDERED: CIPRO500 MG PO (20:38)
[2025-08-18 23:00] VITALS: BP 120/94
[2025-08-22] MEDS ORDERED: CIPROFLOXACIN500 MG PO (15:14)
[2025-08-22] MEDS ORDERED: HYDROCODON-ACE1 EA10 PO (18:23)
[2025-08-26] MEDS ORDERED: CEPHALEXIN500 MG PO (09:35)
[2025-08-26] MEDS ORDERED: CEPHALEXIN500 M1 PO (09:37)
[2025-08-29] MEDS ORDERED: ALDACTONE25 MG PO (21:49)
[2025-08-29] MEDS ORDERED: SOAANZ40 MG PO (21:49)
== END 2025-08-18 20:47 | disposition home or self-care (01) ==
LOC: ED 19:08
DX: Z48.815 Encounter for surgical aftercare following surgery on the digestive system (principal); I50.9 Heart failure, unspecified; Z79.2 Long term (current) use of antibiotics; Z79.899 Other long term (current) drug therapy; Z79.02 Long term (current) use of antithrombotics/antiplatelets
CPT/HCPCS: 99283

== ENCOUNTER 2025-08-19 21:57 | Emergency (ER) | payer MEDICARE ==
[~2025-08-19] VITALS: Ht 180.3 cm; Wt 104.9 kg
[~2025-08-19 21:57] MED LIST changes: +CIPRO500 MG PO
[2025-08-19] MEDS ORDERED: FAMOTIDINE 20 MG/ 2 ML VIAL IV ONE (22:00)
--- OUTSIDE RECORDS SUMMARY | 2025-08-19 22:04 | XMS ---
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 Security [employer] Events No recent Security Events currently on file CRITERIA MET - 6 ED Visits in 6 Months - [facility] - 2 Visits in 30 Days - [facility] - 3 Facilities in 90 Days CARE PROVIDERS Michelle Lucio Registered Nurse 11/24/2019-Current PHONE: Unknown ABRAN ALVARADO Family Medicine Current PHONE: [phone] MIGEL MUNOZ Family Medicine: Obesity Medicine Current PHONE: [phone] Care Guidelines exist for the following facilities: [facility] ([place]) ( 07/28/2019 ) [facility] ( 06/18/2013 ) [facility] VISIT COUNT (12 MO.) 26 [facility] ([place]) 22 [facility] TOTAL 49 NOTE: Visits indicate total known visits. ED/UCC VISIT TRACKING (12 MO.) 08/19/2025 21:57 [facility] [place] TYPE: Emergency COMPLAINT: - ABDOMINAL PAIN 08/18/2025 19:09 [facility] [place] TYPE: Emergency COMPLAINT: - WOUND CHECK 08/18/2025 05:35 [facility] [place] TYPE: Emergency COMPLAINT: - ABDOMINAL PAIN 08/17/2025 06:20 [facility] [place] TYPE: Emergency COMPLAINT: - SHORTNESS OF BREATH 08/13/2025 20:34 [facility] [place] TYPE: Emergency COMPLAINT: - STOMACH PAIN DIAGNOSES: - Heart failure, unspecified - rat exterminator (current) use of aspirin - Other long term care social worker (current) drug therapy - Unspecified abdominal pain - Urinary tract infection, site not specified [facility] DIAGNOSES: - Heart failure, unspecified - Other fluid overload - Abdominal Pain - Shortness of Breath 08/10/2025 07:15 [facility] [place] TYPE: Emergency COMPLAINT: - ABDOMINAL PAIN DIAGNOSES: - Heart failure, unspecified - rat exterminator (current) use of aspirin - Other snf (current) drug therapy - Unspecified abdominal pain 08/08/2025 07:37 [facility] [place] TYPE: Emergency COMPLAINT: - ABDOMINAL PAIN DIAGNOSES: - Heart failure, unspecified - Other ascites - Other long term care social worker (current) drug therapy - Unspecified abdominal pain - Unspecified atrial fibrillation 08/07/2025 13:42 [facility] [place] TYPE: Emergency COMPLAINT: - ABDOMINAL PAIN DIAGNOSES: - Heart failure, unspecified - rat exterminator (current) use of aspirin - Other snf (current) drug therapy - Right lower quadrant [...] disease, or unspecified chronic kidney disease - rat exterminator (current) use of aspirin - Other ascites - Other long term care social worker (current) drug therapy - Unspecified cirrhosis of [...] infection, site not specified 07/23/2025 11:[address] [facility] [place] TYPE: Emergency COMPLAINT: - ABDOMINAL PAIN 07/20/2025 15:28 [facility] ([facility] TYPE: Emergency DIAGNOSES: - Heart failure, unspecified - Abdominal Pain - weakness, abd pain 07/14/2025 10:[address] [facility] [place] TYPE: Emergency COMPLAINT: - SHORTNESS OF BREATH DIAGNOSES: - Acute respiratory failure with hypoxia - Cardiomyopathy, unspecified - Chronic pulmonary edema - Heart failure, unspecified - Hypertensive heart disease with heart failure - Other long term care social worker (current) drug therapy - Shortness of breath 07/11/2025 18:18 [facility] [place] ([facility] TYPE: Emergency DIAGNOSES: - Other ascites - abd pain - Abdominal Pain - Shortness of Breath 07/09/2025 10:53 [facility] [place] ([facility] TYPE: Emergency DIAGNOSES: - Other ascites - Abdominal Pain - Followup Medical Problem 07/01/2025 10:58 [facility] [place] ([facility]) TYPE: Emergency DIAGNOSES: - COVID-19 - Other ascites - Unspecified cirrhosis of liver - abd pain - Abdominal Pain [facility]26[facility]25 [facility] COMPLAINT: - DIFFICULTY BREATHING DIAGNOSES: - Gastro-esophageal reflux disease without esophagitis - Heart failure, unspecified - Hypertensive heart disease with heart failure - rat exterminator (current) use of aspirin - Other long term care social worker (current) drug therapy - Procedure and treatment not carried out because of patient's decision for other reasons - Shortness of breath - Unspecified cirrhosis of liver 06/25/2025 09:46 [facility] ([facility] TYPE: Emergency DIAGNOSES: - Alcoholic cirrhosis of liver with ascites - Cellulitis of left upper limb - Edema, unspecified - Other ascites - Edema - Shortness of Breath Plus 29 More Visits INPATIENT VISIT TRACKING (12 MO.) 08/10/2025 23:16 [facility] ([facility] TYPE: Medical [...] Hypertensive heart disease with heart failure - rat exterminator (current) use of antibiotics - rat exterminator (current) use of antibiotics - detention (current) use of anticoagulants - rat exterminator (current) use of anticoagulants - detention (current) use of aspirin - rat exterminator (current) use of aspirin - rat exterminator (current) use of inhaled steroids - rat exterminator (current) use of inhaled steroids - Nicotine dependence, cigarettes, uncomplicated - Nicotine dependence, cigarettes, uncomplicated - Obesity, unspecified - Obesity, unspecified - Other snf (current) drug therapy - Other long term care social worker (current) drug therapy - Personal history of other diseases of the digestive system - Personal history of other diseases of the digestive system - Presence of cardiac pacemaker - Presence of cardiac pacemaker - Shortness of breath - Unspecified asthma, uncomplicated - Unspecified asthma, uncomplicated 07/29/2025 23:03 [facility] [place] TYPE: Medical Surgical COMPLAINT: - transfer DIAGNOSES: [...] block, unspecified 10. Atherosclerotic heart disease of [place] coronary artery without angina pectoris 11. Pulmonary [...] seen by health care provider 07/23/2025 15:54 [facility] [place] TYPE: Medical Surgical [...] - Ischemic cardiomyopathy - Ischemic cardiomyopathy - detention (current) use of inhaled steroids - rat exterminator (current) use of inhaled steroids - Nicotine dependence, cigarettes, uncomplicated - Nicotine dependence, cigarettes, uncomplicated - Obesity, unspecified - Obesity, unspecified - Other ascites - Other ascites - Other snf (current) drug therapy - Other snf (current) drug therapy - Other specified postprocedural [...] - Unspecified cirrhosis of liver 07[facility]14[facility]2025 17[facility]01 [facility] Medical [facility] DIAGNOSES: - Acute kidney failure, unspecified - Acute on chronic combined systolic (congestive) and diastolic (congestive) heart failure - Alcoholic cirrhosis of liver with ascites - Chronic combined systolic (congestive) and diastolic (congestive) heart failure - Essential (primary) hypertension - Pulmonary hypertension, unspecified - Anasarca - CHF 06/20/2025 00:13 [facility] TYPE: Surgery DIAGNOSES: - Metabolic encephalopathy - Other ascites - Umbilical hernia with obstruction, without gangrene - Unspecified cirrhosis of liver 06/01/2025 11:39 [facility] ([facility] TYPE: Medical [...] - Other specified counseling 05/22/2025 09:12 [facility] ([place] TYPE: Medical Surgical DIAGNOSES: - Acute on chronic combined systolic (congestive) and diastolic (congestive) heart failure - Alcoholic cirrhosis of liver with ascites - Atherosclerotic heart disease of [place] coronary artery with unspecified angina pectoris - [...] systolic (congestive) heart failure 04/06/2025 16:11 [facility] ([facility] TYPE: Medical [...] and hyponatremia - Hypo-osmolality and hyponatremia - rat exterminator (current) use of aspirin - rat exterminator (current) use of aspirin - Other [...] - Unspecified cirrhosis of liver 03/13/2025 09:07 [facility] ([place] TYPE: Medical Surgical DIAGNOSES: - Acute on chronic combined systolic (congestive) and diastolic (congestive) heart failure - Alcohol dependence, in remission - Atherosclerotic heart disease of [place] coronary artery with unspecified angina pectoris - Chronic kidney disease, stage 3a - Heart failure, unspecified - Mild intermittent asthma, uncomplicated - Myocardial infarction type 2 - Nicotine dependence, cigarettes, in remission - Nonrheumatic mitral (valve) insufficiency - Other specified abnormal findings of blood chemistry - Pulmonary hypertension, unspecified 02/16/2025 12:41 [facility] ([facility] TYPE: Medical [...] medication regimen for other reason 01/13/2025 09:17 [facility]: Emergency DIAGNOSES: - Acute on chronic combined systolic (congestive) and diastolic (congestive) heart failure - Acute respiratory failure with hypoxia - Fluid overload, unspecified - Homelessness unspecified - Patient's noncompliance with dietary regimen due to unspecified reason - Shortness of breath 12/29/2024 06:07 [facility] ([place] TYPE: Medical Surgical DIAGNOSES: - Acute kidney failure, unspecified - Acute on chronic combined systolic (congestive) and diastolic (congestive) heart failure - Alcohol abuse, uncomplicated - Atherosclerotic heart disease of [place] coronary artery without angina pectoris - Chronic [...] withdrawal, unspecified - Atherosclerotic heart disease of [place] coronary artery without angina pectoris - Atherosclerotic heart disease of [place] coronary artery without angina pectoris - Chest pain, unspecified - Gastro-esophageal reflux disease without esophagitis - Gastro-esophageal reflux disease without esophagitis - Heart failure, unspecified - Heart failure, unspecified - Hypertensive heart disease with heart failure - Hypertensive heart disease with heart failure - detention (current) use of aspirin - rat exterminator (current) use of aspirin - Nonrheumatic aortic (valve) stenosis - Nonrheumatic aortic (valve) stenosis - Obesity, unspecified - Obesity, unspecified - Old myocardial infarction - Old myocardial infarction - Other long term care social worker (current) drug therapy - Other snf (current) drug therapy - Other specified postprocedural [...] because of patient's decision for other reasons [email or web address]
--- OUTSIDE RECORDS SUMMARY | 2025-08-19 22:07 | XMS | Continuity of Care Document ---
Demographics + + + | Address | [address] | | | [place] [address] | + + + | Preferred Language | Unknown | + + + | Marital Status | | + + + | Oriental Orthodox Affiliation | Unknown | + + + | Race | Unknown | + + + | Ethnic Group | or | + + + Author + + + | Author | [facility] | + + + | Organization | [facility] | + + + | Address | [address] | | | [place] [address] | + + + | Phone | | + + + Care Team Providers + + + + | Care Manager Integration Name | Role | Phone | + + + + Unavailable | Unavailable | + + + + Unavailable | Unavailable | + + + + Allergies No information. Encounters No information. Functional Status No information. Immunizations No information. Medications + + + + | date | description | facility | + + + + | (no date) | PHENAZOPYRIDINE HCL | [facility] | | | | [facility] | + + + + | 2025-07-28 00:00 | PHENAZOPYRIDINE HCL | [facility] | | | | [facility] | + + + + | (no date) | EMPAGLIFLOZIN | [facility] | | | | [facility] | + + + + | (no date) | SACUBITRIL/VALSARTAN | [facility] | | | | [facility] | + + + + | (no date) | POTASSIUM CHLORIDE | [facility] | | | | [facility] | + + + + | (no date) | AMLODIPINE BESYLATE | [facility] | | | | [facility] | + + + + | 2025-07-28 00:00 | CEPHALEXIN | [facility] | | | | [facility] | + + + + | 2025-08-14 00:00 | CEPHALEXIN | [facility] | | | | [facility] | + + + + | (no date) | IBUPROFEN | [facility] | | | | [facility] | + + + + | (no date) | IBUPROFEN | [facility] | | | | [facility] | + + + + | 2025-07-25 00:00 | NITROGLYCERIN | [facility] | | | | [facility] | + + + + | (no date) | TORSEMIDE | [facility] | | | | [facility] | + + + + | 2025-08-06 00:00 | TORSEMIDE | [facility] | | | | [facility] | + + + + | (no date) | MAGNESIUM OXIDE | [facility] | | | | [facility] | + + + + | (no date) | Apixaban | [facility] | | | | [facility] | + + + + | (no date) | FUROSEMIDE | [facility] | | | | [facility] | + + + + | (no date) | SPIRONOLACTONE | [facility] | | | | [facility] | + + + + | 2025-08-18 00:00 | CIPROFLOXACIN HCL | [facility] | | | | [facility] | + + + + | (no date) | FINASTERIDE | [facility] | | | | [facility] | + + + + | (no date) | FOLIC ACID | [facility] | | | | [facility] | + + + + | (no date) | IBUPROFEN | [facility] | | | | [facility] | + + + + | (no date) | SPIRONOLACTONE | [facility] | | | | [facility] | + + + + | 2025-07-25 00:00 | SPIRONOLACTONE | [facility] | | | | [facility] | + + + + | (no date) | THIAMINE HCL | [facility] | | | | [facility] | + + + + | (no date) | FUROSEMIDE | [facility] | | | | [facility] | + + + + | (no date) | LISINOPRIL | [facility] | | | | [facility] | + + + + | (no date) | LISINOPRIL | [facility] | | | | [facility] | + + + + | (no date) | ASPIRIN | [facility] | | | | [facility] | + + + + | 2025-07-25 00:00 | ASPIRIN | [facility] | | | | [facility] | + + + + | (no date) | LACTULOSE | [facility] | | | | [facility] | + + + + | (no date) | ATORVASTATIN CALCIUM | [facility] | | | | [facility] | + + + + | (no date) | POTASSIUM CHLORIDE | [facility] | | | | [facility] | + + + + | (no date) | TRAMADOL HCL | [facility] | | | | [facility] | + + + + | 2025-08-18 00:00 | HYDROCODONE | [facility] | | | BIT/ACETAMINOPHEN | [facility] | + + + + | (no date) | ALBUTEROL SULFATE | [facility] | | | | [facility] | + + + + | (no date) | TAMSULOSIN HCL | [facility] | | | | [facility] | + + + + | (no date) | METOPROLOL SUCCINATE | [facility] | | | | [facility] | + + + + | (no date) | METOPROLOL SUCCINATE | [facility] | | | | [facility] | + + + + | 2025-07-25 00:00 | METOPROLOL SUCCINATE | [facility] | | | | [facility] | + + + + | (no date) | LOSARTAN POTASSIUM | [facility] | | | | [facility] | + + + + | (no date) | MIDODRINE HCL | [facility] | | | | [facility] | + + + + Problems + + + + | date | description | facility | + + + + | 2025-07-14 00:00 | Cardiomyopathy | [facility] | | | | [facility] | + + + + | 2025-07-14 00:00 | Pulmonary edema | [facility] | | | | [facility] | + + + + | 2025-07-14 00:00 | Acute respiratory failure | [facility] | | | with hypoxemia | [facility] | + + + + | 2025-07-28 00:00 | Substance abuse | [facility] | | | | [facility] | + + + + | 2025-07-28 00:00 | Cardiomyopathy | [facility] | | | | [facility] | + + + + | 2025-07-28 00:00 | Congestive heart failure | [facility] | | | | [facility] | + + + + | 2025-07-28 00:00 | Urinary tract infection | [facility] | | | | [facility] | + + + + | 2025-07-28 00:00 | Benign prostatic | [facility] | | | hyperplasia with urinary | [facility] | | | retention | | + + + + | 2025-07-28 00:00 | Noncompliance with | [facility] | | | medication regimen | [facility] | + + + + | 2025-07-29 00:00 | 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[facility] | | | ascites | [facility] | + + + + | 2025-07-29 00:00 | Acute renal failure | [facility] | | | superimposed on chronic | [facility] | | | kidney disease | | + + + + | 2025-07-29 00:00 | Generalized edema | [facility] | | | | [facility] | + + + + | 2025-08-03 00:00 | Shortness of breath | [facility] | | | | [facility] | + + + + | 2025-08-08 00:00 | Atrial fibrillation with | [facility] | | | rapid ventricular response | [facility] | + + + + | 2025-08-17 00:00 | Sepsis | [facility] | | | | [facility] | + + + + | 2025-08-17 00:00 | Abdominal ascites | [facility] | | | | [facility] | + + + + | 2025-08-18 00:00 | End stage liver disease | [facility] | | | | [facility] | + + + + | 2025-08-18 00:00 | Encounter for wound | [facility] | | | re-check | [facility] | + + + + | 2025-08-18 00:00 | Medication non-compliance | [facility] | | | due to excessive pill | [facility] | | | burden | | + + + + Procedures + + + + | date | description | facility | + + + + | 2025-07-23 00:00 | DRAINAGE OF BLADDER WITH | [facility] | | | DRAINAGE DEVICE, VIA | [facility] | | | OPENING | | + + + + | 2025-08-03 00:00 | DRAINAGE OF BLADDER WITH | [facility] | | | DRAINAGE DEVICE, VIA | [facility] | | | OPENING | | + + + + | 2025-08-04 00:00 | DRAINAGE OF PERITONEAL | [facility] | | | CAVITY, PERCUTANEOUS | [facility] | | | APPROACH | | + + + + | 2025-08-04 00:00 | TRANSFUSE NONAUT SERUM | [facility] | | | ALBUMIN IN PERIPH VEIN, | [facility] | | | PERC | | + + + + Results/Labs +--------+--------+ +---------+--------+---------+ | test | date | facility | value | unit | notes | +--------+--------+ +---------+--------+---------+ + + | Result panel 1 | + + + + + +--------+ + + | D D[facility] | 2025-07-14 | | 3.02 | (missing) | (missing) | | Lady | 10:40:08 | [facility] | | | | | [...] 4 | + + + + + +-------+---------+ + | Phosphate | 2025-07-25 | | 2.6 | mg/dL | (missing) | | [facility] | 05:17:08 | [facility] | | | | + + + +-------+---------+ + + + | Result panel 5 | + + + + + +-------+---------+ + | Phosphate | 2025-07-25 | | 2.6 | mg/dL | (missing) | | [facility] | 05:17:08 | [facility] | [facility] | | | | + + + +-------+---------+ + + + | Result panel 6 | + + + + + +-------+---------+ + | Phosphate | 2025-07-25 | | 2.6 | mg/dL | (missing) | | SerPl-mCnc | 05:17:08 | [facility] | | | | + + + +-------+---------+ + + + | Result panel 7 [...] | [facility] | | | | [...] | | comment Imp | 00:41:08 | [facility] | | | | [...] 20 | + + + + + + [...] 21 | + + + + + + [...] | | comment Imp | 00:41:08 | [facility] | | | | | [...] 27 | + + + + + + + + + | | 2025-07-28 | | NEGATIVE | (missing) | (missing) | | Buprenorphin | 15:08 | [facility] | | | | | e Ur Ql Scn [facility] | | | | + + + + + + + + + | Result panel 28 | + + + + + + [...] 29 | + + + + + + [...] 30 | + + + + + + [...] 31 | + + + + + + [...] 33 | + + + + + + + + + | THC Ur Ql | 2025-07-28 | | NEGATIVE | (missing) | (missing) | | Scn>50 ng/mL | 03:15:08 | [facility] | | | | + + + + + + + + + | Result panel 34 | + + + + + + [...] 35 | + + + + + +-------+ + + | Lactate | 2025-07-29 | | 3.2 | (missing) | (missing) | | SerPl-sCnc | 13:18:08 | [facility] | | | | + + + +-------+ + + + + | Result panel 36 | + + + + + +-------+ + + | Lactate | 2025-07-29 | | 3.2 | (missing) | (missing) | | SerPl-sCnc | 13:18:08 | [facility] | | | | + + + +-------+ + + + + | Result panel 37 | + + + + + +--------+ [...] 38 | + + + + + + [...] | [facility] | | [facility] | | | | + + + + + + + + + | Result panel 40 | + + + + + + [...] | | [facility] | | | | | [...] 44 | + + + + + + [...] 45 | + + + + + + + + + | Asuncion Ur | 2025-08-04 | | POSITIVE | [...] 46 | + + + + + + [...] 47 | + + + + + +---------+ + + | Sp Nilson Ur | 2025-08-04 | | 1.025 | [...] 48 | + + + + + +---------+ [...] 49 | + + + + + +-------+ [...] 50 | + + + + + +-------+ [...] 51 | + + + + + +-------+ [...] 52 | + + + + + + [...] 53 | + + + + + +---------+ [...] 54 | + + + + + +-------+ [...] 55 | + + + + + +---------+ [...] 56 | + + + + + +-----+ [...] 57 | + + + + + + + + + | Crystals | 2025-08-04 | | NONE SEEN | (missing) | (missing) | | [facility] | 10:13:08 | [facility] | | | | + + + + + + + + + | Result panel 58 | + + + + + +--------+ [...] + + + + | Result panel 59 | + + + + + + + + + | Casts | 2025-08-04 | | NONE SEEN | (missing) | (missing) | | #/area UrnS | 10:13:08 | [facility] | | | | | LPF | [facility] | | | | + + + + + + + + + | Result panel 60 | + + + + + +-------+ + + | Bacteria Ur | 2025-08-04 | | Yes | (missing) | (missing) | | Cult | 10::08 | [facility] | | [facility] | | | | + + + +-------+ + + + + | Result panel 61 | + + + + + + [...] 62 | + + + + + + [...] 63 | + + + + + + + + + | Bacteria Ur | 2025-08-04 | | | (missing) | (missing) | | Cult | 10:13:08 | [facility] | ENTEROCOCCUS | | | | | [facility] - [facility] | | | | | | [facility] | | | | + + + + + + + + + | Result panel 64 | + + + + + + [...] 65 | + + + + + + + + + | Bacteria Ur | 2025-08-04 | | | (missing) | (missing) | | Cult | 10:13:08 | [facility] | ENTEROCOCCUS | | | | [facility] | | | [facility] | | | | + + + + + + + + + | Result panel 66 | + + + + + +--------+ + + | Ammonia | 2025-08-04 | | 47.0 | (missing) | (missing) | | Plas-sCnc | 15:49:08 | [facility] | | | | | [...] (missing) | | Plas-sCnc | 15:49:08 | [facility] | | | | [facility] | | | | + + + +--------+ + + + + | Result panel 68 | + + + + + +--------+ + + | Ammonia | 2025-08-04 | | 47.0 | (missing) | (missing) | | Plas-sCnc | 15:49:08 | [facility] | | | | + + + +--------+ + + + + | Result panel 69 | + + + + + +--------+ + + | Ammonia | 2025-08-04 | | 47.0 | (missing) | (missing) | | Plas-sCnc | 15:49:08 | [facility] | | | | + + + +--------+ + + + + | Result panel 70 | + + + + + +--------+ [...] 71 | + + + + + +--------+ + + | RBC # Bld | 2025-08-06 | | 4.37 | (missing) | (missing) | | Auto | 05:24:08 | [facility] - [facility] | | | | | | [facility] | | | | + + + +--------+ + + + + | Result panel 72 | + + + + + +--------+ + + | Hgb | 2025-08-06 | | 11.7 | (missing) | (missing) | | Bld-mCnc | 05:24:08 | [facility] | | | | | | | [...] 74 | + + + + + +--------+ [...] + + + + | Result panel 75 | + + + + + +--------+ [...] 76 | + + + + + +--------+ [...] + + + + | Result panel 78 | + + + + + +--------+ [...] + + + + | Result panel 79 | + + + + + +--------+ [...] + + + + | Result panel 80 | + + + + + +-------+ [...] + + + + | Result panel 81 | + + + + + +-------+ [...] + + + + | Result panel 82 | + + + + + +-------+ [...] + + + + | Result panel 83 | + + + + + +-------+---------+ + | Glucose | 2025-08-06 | | 111 | mg/dL | (missing) | | SerPl-mCnc | 05:24:08 | [facility] | | | | + + + +-------+---------+ + + + | Result panel 84 | + + + + + +------+---------+ + | BUN | 2025-08-06 | | 31 | mg/dL | (missing) | | SerPl-mCnc | 05:24:08 | [facility] | | | | + + + +------+---------+ + + + | Result panel 85 | + + + + + +--------+---------+ [...] +--------+---------+ + + + | Result panel 86 | + + + + + +------+ [...] + + + + | Result panel 87 | + + + + + +---------+ [...] + + + + | Result panel 88 | + + + + + +-------+ [...] + + + + | Result panel 89 | + + + + + +-------+ + + | Potassium | 2025-08-06 | | 3.6 | (missing) | (missing) | | [facility] | 05:24:08 | [facility] | | | | + + + +-------+ + + + + | Result panel 90 | + + + + + +-------+ [...] + + + + | Result panel 91 | + + + + + +------+ [...] + + + + | Result panel 92 | + + + + + +--------+ [...] + + + + | Result panel 93 | + + + + + +-------+---------+ [...] +-------+---------+ + + + | Result panel 94 | + + + + + +-------+---------+ + | Magnesium | 2025-08-06 | | 1.8 | mg/dL | (missing) | | [facility] | 05:24:08 | [facility] | | | | + + + +-------+---------+ + + + | Result panel 95 | + + + + + +-------+ + + | Prot | 2025-08-06 | | 5.4 | (missing) | (missing) | | SerPl-mCkirstin | 05:24:08 | [facility] | | | | + + + +-------+ + + + + | Result panel 96 | + + + + + +-------+ [...] + + + + | Result panel 97 | + + + + + +-------+ + + | Globulin | 2025-08-06 | | 2.8 | (missing) | (missing) | | Ser-mCnc | 05:24:08 | [facility] | | | | + + + +-------+ + + + + | Result panel 98 | + + + + + +--------+ [...] + + + + | Result panel 99 | + + + + + +-------+---------+ [...] +-------+---------+ + + + | Result panel 100 | + + + + + +------+ + + | AST | 2025-08-06 | | 32 | (missing) | (missing) | | SerPl-cCnc | 05:24:08 | [facility] | | | | + + + +------+ + + + + | Result panel 101 | + + + + + +------+ [...] + + + + | Result panel 102 | + + + + + +-------+ + + | ALP | 2025-08-06 | | 173 | (missing) | (missing) | | SerPl-cCnc | 05:24:08 | [facility] | | | | + + + +-------+ + + + + | Result panel 103 | + + + + + + + + + | | 2025-08-08 | | NEGATIVE | (missing) | (missing) | | Amphetamines | 09:00:08 | [facility] | | | | | Ur Ql | [facility] | [facility] | | Scn>500 | | [facility] | | | | ng/mL | | [facility] | | | | + + + + + + + + + | Result panel 104 | + + + + + + + + + | | 2025-08-08 | | NEGATIVE | (missing) | (missing) | | Barbiturates | 09:00:08 | [facility] | | | | | Ur Ql | [facility] | [facility] | | Scn>300 | | [facility] | | | | ng/mL | | [facility] | | | | + + + + + + + + + | Result panel 105 | + + + + + + + + + | Benzodiaz | 2025-08-08 | | NEGATIVE | (missing) | (missing) | | Ur Ql | 09:00:08 | [facility] | | | | | Scn>300 | [facility] | ng/mL | | [facility] | | | | + + + + + + + + + | Result panel 106 | + + + + + + + + + | Cocaine Ur | 2025-08-08 | | NEGATIVE | (missing) | (missing) | | Ql Scn | 09:00:08 | [facility] | | | [facility] | | | | + + + + + + + + + | Result panel 107 | + + + + + + + + + | | 2025-08-08 | | NEGATIVE | (missing) | (missing) | | Buprenorphin | 09:00:08 | [facility] | | | | | e Ur Ql Scn | [facility] | [facility] | | | | + + + + + + + + + | Result panel 108 | + + + + + + + + + | oxyCODONE | 2025-08-08 | | NEGATIVE | (missing) | (missing) | | Ur Ql Scn | 09:00:08 | [facility] | | | | + + + + + + + + + | Result panel 109 | + + + + + + + + + | MDMA Ur Ql | 2025-08-08 | | NEGATIVE | (missing) | (missing) | | Scn | 09:00:08 | [facility] | | | | + + + + + + + + + | Result panel 110 | + + + + + + + + + | Methadone | 2025-08-08 | | NEGATIVE | (missing) | (missing) | | Ur Ql | 09:00:08 | [facility] | | | | | Scn>300 | [facility] | ng/mL | [facility] | | | | + + + + + + + + + | Result panel 111 | + + + + + + + + + | Opiates Ur | 2025-08-08 | | POSITIVE | (missing) | (missing) | | Ql Scn | 09:00:08 | [facility] | [facility] | | [facility] | | | | + + + + + + + + + | Result panel 112 | + + + + + + + + + | PCP Ur Ql | 2025-08-08 | | NEGATIVE | (missing) | (missing) | | Scn>25 ng/mL | 09:00:08 | [facility] | | | | + + + + + + + + + | Result panel 113 | + + + + + + + + + | THC Ur Ql | 2025-08-08 | | NEGATIVE | (missing) | (missing) | | Scn>50 ng/mL | 09:00:08 | [facility] | | | | + + + + + + + + + | Result panel 114 | + + + + + + + + + | fentaNYL Ur | 2025-08-08 | | NEGATIVE | (missing) | (missing) | | Ql Scn | 09:00:08 | [facility] | | | | + + + + + + + + + | Result panel 115 | + + + + + + + + + | | 2025-08-08 | | NEGATIVE | (missing) | (missing) | | Amphetamines | 09:00:08 | [facility] | | | | | Ur Ql | [facility] | Scn>500 | [facility] | | | | ng/mL | | [facility] | | | | + + + + + + + + + | Result panel 116 | + + + + + + + + + | | 2025-08-08 | | NEGATIVE | (missing) | (missing) | | Barbiturates | 09:00:08 | [facility] | | | | | Ur Ql | [facility] | | Scn>300 | | [facility] | | | | ng/mL | | [facility] | | | | + + + + + + + + + | Result panel 117 | + + + + + + + + + | Benzodiaz | 2025-08-08 | | NEGATIVE | (missing) | (missing) | | Ur Ql | 09:00:08 | [facility] | | | | | Scn>300 | [facility] | | [facility] | ng/mL | | [facility] | | | | + + + + + + + + + | Result panel 118 | + + + + + + + + + | Cocaine Ur | 2025-08-08 | | NEGATIVE | (missing) | (missing) | | Ql Scn | 09:00:08 | [facility] | | | | + + + + + + + + + | Result panel 119 | + + + + + + + + + | | 2025-08-08 | | NEGATIVE | (missing) | (missing) | | Buprenorphin | 09:00:08 | [facility] | | | | | e Ur Ql Scn | [facility] | | | | + + + + + + + + + | Result panel 120 | + + + + + + + + + | oxyCODONE | 2025-08-08 | | NEGATIVE | (missing) | (missing) | | Ur Ql Scn | 09:00:08 | [facility] | | | | + + + + + + + + + | Result panel 121 | + + + + + + + + + | MDMA Ur Ql | 2025-08-08 | | NEGATIVE | (missing) | (missing) | | Scn | 09:00:08 | [facility] | | | | + + + + + + + + + | Result panel 122 | + + + + + + + + + | Methadone | 2025-08-08 | | NEGATIVE | (missing) | (missing) | | Ur Ql | 09:00:08 | [facility] | | | | | Scn>300 | [facility] | ng/mL | [facility] | | | | + + + + + + + + + | Result panel 123 | + + + + + + + + + | Opiates Ur | 2025-08-08 | | POSITIVE | (missing) | (missing) | | Ql Scn | 09:00:08 | [facility] | | | | + + + + + + + + + | Result panel 124 | + + + + + + + + + | [facility] Ur Ql | 2025-08-08 | | NEGATIVE | (missing) | (missing) | | Scn>25 ng/mL | 09:00:08 | [facility] | | | | + + + + + + + + + | Result panel 125 | + + + + + + + + + | [facility] Ur Ql | 2025-08-08 | | NEGATIVE | (missing) | (missing) | | Scn>50 ng/mL | 09:00:08 | [facility] | | | | | | | - | | | | | | | [facility] | | | | + + + + + + + + + | Result panel 126 | + + + + + + + + + | [facility] | 2025-08-08 | | NEGATIVE | (missing) | (missing) | | Ql Scn | 09:00:08 | [facility] | | | | + + + + + + + + + | Result panel 127 | + + + + + + + + + | | 2025-08-08 | | NEGATIVE | (missing) | (missing) | | Amphetamines | 09:00:08 | [facility] | | | | | Ur Ql | [facility] | Scn>500 | [facility] | [facility]/mL | [facility] | | | | + + + + + + + + + | Result panel 128 | + + + + + + + + + | | 2025-08-08 | | NEGATIVE | (missing) | (missing) | | Barbiturates | 09:00:08 | [facility] | | | | | Ur Ql | | - [facility] Scn>300 | [facility] | [facility]/mL | | [facility] | | | | + + + + + + + + + | Result panel 129 | + + + + + + + + + | Benzodiaz | 2025-08-08 | | NEGATIVE | (missing) | (missing) | | Ur Ql | 09:00:08 | [facility] | | | | | Scn>300 | [facility] | | | | + + + + + + + + + | Result panel 130 | + + + + + + + + + | Cocaine Ur | 2025-08-08 | | NEGATIVE | (missing) | (missing) | | Ql Scn | 09:00:08 | [facility] | | | | | | [facility] | | | | + + + + + + + + + | Result panel 131 | + + + + + + + + + | | 2025-08-08 | | NEGATIVE | (missing) | (missing) | | Buprenorphin | 09:00:08 | [facility] | | | | | e Ur Ql Scn | [facility] | [facility] | | | | + + + + + + + + + | Result panel 132 | + + + + + + + + + | oxyCODONE | 2025-08-08 | | NEGATIVE | (missing) | (missing) | | Ur Ql Scn | :08 | [facility] | [facility] | | | | [facility] | | | | + + + + + + + + + | Result panel 133 | + + + + + + + + + | MDMA Ur Ql | 2025-08-08 | | NEGATIVE | (missing) | (missing) | | Scn | :00:08 | [facility] | [facility] | | | | [facility] | | | | + + + + + + + + + | Result panel 134 | + + + + + + + + + | Methadone | 2025-08-08 | | NEGATIVE | (missing) | (missing) | | Ur Ql | 09:00:08 | [facility] | | | | | Scn>300 | [facility] | [facility] | | | | + + + + + + + + + | Result panel 135 | + + + + + + + + + | Opiates Ur | 2025-08-08 | | POSITIVE | (missing) | (missing) | | Ql Scn | 09:00:08 | [facility] | | | | | | [facility] | | | | + + + + + + + + + | Result panel 136 | + + + + + + + + + | PCP Ur Ql | 2025-08-08 | | NEGATIVE | (missing) | (missing) | | Scn>25 ng/mL | 09:00:08 | [facility] | | | | | | [facility] | | | | + + + + + + + + + | Result panel 137 | + + + + + + + + + | THC Ur Ql | 2025-08-08 | | NEGATIVE | (missing) | (missing) | | Scn>50 ng/mL | 09:00:08 | [facility] | [facility] | | | | [facility] | | | | + + + + + + + + + | Result panel 138 | + + + + + + + + + | fentaNYL Ur | 2025-08-08 | | NEGATIVE | (missing) | (missing) | | Ql Scn | 09:00:08 | [facility] | | | | | | [facility] | | | | + + + + + + + + + | Result panel 139 | + + + + + +--------+ + + | Troponin I | 2025-08-10 | | 97.7 | (missing) | (missing) | | SerPl | 07:35:08 | [facility] | | | | | HS-mCnc | [facility] | | | | + + + +--------+ + + + + | Result panel 140 | + + + + + +--------+ + + | WBC # Bld | 2025-08-13 | | 8.53 | (missing) | (missing) | | Auto | 22:02:08 | [facility] | [facility] | | | [facility] | | | | + + + +--------+ + + + + | Result panel 141 | + + + + + +--------+ + + | RBC # Bld | 2025-08-13 | | 4.49 | (missing) | (missing) | | Auto | 22:02:08 | [facility] | | | | [facility] | | | | + + + +--------+ + + + + | Result panel 142 | + + + + + +--------+ + + | Hgb | 2025-08-13 | | 12.1 | (missing) | (missing) | | Bld-mCnc | 22:02:08 | [facility] | | | | | | | - | | | | | | | [facility] | | | | + + + +--------+ + + + + | Result panel 143 | + + + + + +--------+ + + | Hct VFr.DF | 2025-08-13 | | 37.7 | (missing) | (missing) | | Bld Auto | 22:02:08 | [facility] | | | | | | | - | | | | | | | [facility] | | | | + + + +--------+ + + + + | Result panel 144 | + + + + + +-------+---------+ + | Magnesium | 2025-08-13 | | 1.8 | mg/dL | (missing) | | SerPl-mCnc | 22:02:08 | [facility] | | | | + + + +-------+---------+ + + + | Result panel 145 | + + + + + +------+ + + | Lipase | 2025-08-13 | | 66 | (missing) | (missing) | | SerPl-cCnc | 22:02:08 | [facility] | | | | | | [facility] | | | | + + + +------+ + + + + | Result panel 146 | + + + + + +--------+ + + | RBC Auto | 2025-08-13 | | 84.0 | (missing) | (missing) | | | 22:02:08 | [facility] | | | | + + + +--------+ + + + + | Result panel 147 | + + + + + +--------+ + + | MCH RBC Qn | 2025-08-13 | | 26.9 | (missing) | (missing) | | Auto | 22:02:08 | [facility] | | | | + + + +--------+ + + + + | Result panel 148 | + + + + + +--------+ + + | MCHC RBC | 2025-08-13 | | 32.1 | (missing) | (missing) | | Auto-EntMCnc | 22:02:08 | [facility] | | | | + + + +--------+ + + + + | Result panel 149 | + + + + + +-------+ + + | Platelet # | 2025-08-13 | | 246 | (missing) | (missing) | | Bld Auto | 22:02:08 | [facility] | | | | + + + +-------+ + + + + | Result panel 150 | + + + + + +--------+ + + | Neutrophils | 2025-08-13 | | 74.7 | (missing) | (missing) | | NFr Bld | 22:02:08 | [facility] | | | | | Auto | | [facility] | | | | + + + +--------+ + + + + | Result panel 151 | + + + + + +--------+ + + | Lymphocytes | 2025-08-13 | | 11.3 | (missing) | (missing) | | NFr Bld | 22::08 | [facility] | | | | | Auto | | [facility] | | | | + + + +--------+ + + + + | Result panel 152 | + + + + + +-------+---------+ + | Magnesium | 2025-08-13 | | 1.8 | mg/dL | (missing) | | SerPl-mCnc | 22:02:08 | [facility] | | | | + + + +-------+---------+ + + + | Result panel 153 | + + + + + +------+ + + | Lipase | 2025-08-13 | | 66 | (missing) | (missing) | | SerPl-cCnc | 22:02:08 | [facility] | | | [facility] | | | | + + + +------+ + + + + | Result panel 154 | + + + + + +--------+ + + | Monocytes | 2025-08-13 | | 10.8 | (missing) | (missing) | | NFr Bld Auto | 22:02:08 | [facility] | | | | + + + +--------+ + + + + | Result panel 155 | + + + + + +-------+ + + | Eosinophil | 2025-08-13 | | 1.9 | (missing) | (missing) | | NFr Bld Auto | 22:02:08 | [facility] | | | | + + + +-------+ + + + + | Result panel 156 | + + + + + +-------+ + + | Basophils | 2025-08-13 | | 0.9 | (missing) | (missing) | | NFr Bld Auto | 22:02:08 | [facility] | | | | + + + +-------+ + + + + | Result panel 157 | + + + + + +------+---------+ + | Glucose | 2025-08-13 | | 86 | mg/dL | (missing) | | Sheeba-K[place]a | 22:02:08 | [facility] | | | | + + + +------+---------+ + + + | Result panel 158 | + + + + + +------+---------+ + | BUN | 2025-08-13 | | 33 | mg/dL | (missing) | | SerPl-mCnc | 22:02:08 | [facility] | | | | | [facility] | | | | + + + +------+---------+ + + + | Result panel 159 | + + + + + +--------+---------+ + | Creat | 2025-08-13 | | 1.76 | mg/dL | (missing) | | SerPl-mCnc | 22:02:08 | [facility] | | | | + + + +--------+---------+ + + + | Result panel 160 | + + + + + +------+ + + | eGFRcr | 2025-08-13 | | 42 | (missing) | (missing) | | SerPlBld | 22:02:08 | [facility] | | | | | CKD-EPI 2020 | [facility] | | | | + + + +------+ + + + + | Result panel 161 | + + + + + +---------+ + + | BUN/Creat | 2025-08-13 | | 18.75 | (missing) | (missing) | | SerPl | ::08 | [facility] | | | | | [facility] | | | | + + + +---------+ + + + + | Result panel 162 | + + + + + +-------+ + + | Sodium | 2025-08-13 | | 133 | (missing) | (missing) | | SerPl-sCnc | 22:02:08 | [facility] | | | | | [facility] | | | | + + + +-------+ + + + + | Result panel 163 | + + + + + +-------+ + + | Potassium | 2025-08-13 | | 3.8 | (missing) | (missing) | | SerPl-sCnc | 22:02:08 | [facility] | | | | | | [facility] | | | | + + + +-------+ + + + + | Result panel 164 | + + + + + +------+ + + | Chloride | 2025-08-13 | | 98 | (missing) | (missing) | | SerPl-sCnc | 22:02:08 | [facility] | | | | | | [facility] | | | | + + + +------+ + + + + | Result panel 165 | + + + + + +------+ + + | CO2 | 2025-08-13 | | 27 | (missing) | (missing) | | SerPl-sCnc | 22:02:08 | [facility] | | | | | | [facility] | | | | + + + +------+ + + + + | Result panel 166 | + + + + + +--------+ + + | Anion Gap | 2025-08-13 | | 11.8 | (missing) | (missing) | | SerPl | 22:02:08 | [facility] | | | | | Calculated.4 | [facility] I[facility]-s[facility] | [facility] | | | | + + + +--------+ + + + + | Result panel 167 | + + + + + +-------+---------+ + | Calcium | 2025-08-13 | | 8.4 | mg/dL | (missing) | | SerPl-mCnc | 22::08 | [facility] | | | | | | [facility] | | | | + + + +-------+---------+ + + + | Result panel 168 | + + + + + +-------+---------+ + | Magnesium | 2025-08-13 | | 1.8 | mg/dL | (missing) | | SerPl-mCnc | ::08 | [facility] | | | | | [facility] | | | | + + + +-------+---------+ + + + | Result panel 169 | + + + + + +-------+ + + | Prot | 2025-08-13 | | 6.2 | (missing) | (missing) | | SerPl-mCnc | 22:02:08 | [facility] | | | | | | [facility] | | | | + + + +-------+ + + + + | Result panel 170 | + + + + + +-------+ + + | Albumin | 2025-08-13 | | 2.9 | (missing) | (missing) | | SerPl-mCnc | 22:02:08 | [facility] | | | | | | [facility] | | | | + + + +-------+ + + + + | Result panel 171 | + + + + + +-------+ + + | Globulin | 2025-08-13 | | 3.3 | (missing) | (missing) | | Ser-mCnc | 22:02:08 | [facility] | | | | | | [facility] | | | | + + + +-------+ + + + + | Result panel 172 | + + + + + +--------+ + + | | 2025-08-13 | | 0.88 | (missing) | (missing) | | Albumin/Glob | 22:02:08 | [facility] | | | | | SerPl | [facility] | | | | + + + +--------+ + + + + | Result panel 173 | + + + + + +-------+---------+ + | Bilirub | 2025-08-13 | | 1.1 | mg/dL | (missing) | | SerPl-mCnc | 22:02:08 | [facility] | | | | + + + +-------+---------+ + + + | Result panel 174 | + + + + + +------+ + + | AST | 2025-08-13 | | 40 | (missing) | (missing) | | SerPl-cCnc | 22:02:08 | [facility] | [facility] | | | | + + + +------+ + + + + | Result panel 175 | + + + + + +------+ + + | ALT | 2025-08-13 | | 26 | (missing) | (missing) | | SerPl-[facility] | 22:02:08 | [facility] | | | | [facility] | | | | + + + +------+ + + + + | Result panel 176 | + + + + + +-------+ + + | ALP | 2025-08-13 | | 166 | (missing) | (missing) | | SerPl-cCnc | 22:02:08 | [facility] | | | | + + + +-------+ + + + + | Result panel 177 | + + + + + +------+ + + | Lipase | 2025-08-13 | | 66 | (missing) | (missing) | | SerPl-cCnc | 22:02:08 | [facility] | | [facility] | | | | + + + +------+ + + + + | Result panel 178 | + + + + + + + + + | Color Ur | 2025-08-13 | | YELLOW | (missing) | (missing) | | Auto | 23:40:08 | [facility] | | | | + + + + + + + + + | Result panel 179 | + + + + + +---------+ + + | Character | 2025-08-13 | | CLEAR | (missing) | (missing) | | Ur | 23:40:08 | [facility] | | [facility] | | | | + + + +---------+ + + + + | Result panel 180 | + + + + + + + + + | Glucose Ur | 2025-08-13 | | NEGATIVE | (missing) | (missing) | | Ql Strip | 23:40:08 | [facility] | | | | + + + + + + + + + | Result panel 181 | + + + + + + + + + | Goub Ur | 2025-08-13 | | NEGATIVE | (missing) | (missing) | | Ql Strip | 23:40:08 | [facility] | | | | + + + + + + + + + | Result panel 182 | + + + + + + + + + | Beto Perez | 2025-08-13 | | NEGATIVE | (missing) | (missing) | | Ql Strip | 23:40:08 | [facility] | | | | + + + + + + + + + | Result panel 183 | + + + + + +---------+ + + | Will Perez | 2025-08-13 | | 1.025 | (missing) | (missing) | | Strip | 23:40:08 | [facility] | | | | + + + +---------+ + + + + | Result panel 184 | + + + + + + + + + | Hgb Ur Ql | 2025-08-13 | | NEGATIVE | (missing) | (missing) | | Strip | 23:40:08 | [facility] | | | | + + + + + + + + + | Result panel 185 | + + + + + +-------+ + + | pH Ur Strip | 2025-08-13 | | 5.5 | (missing) | (missing) | | | 23:40:08 | [facility] | | | | + + + +-------+ + + + + | Result panel 186 | + + + + + +------+ + + | Prot Ur | 2025-08-13 | | 30 | (missing) | (missing) | | Strip-Keara | 23:40:08 | [facility] | | [facility] | | | | + + + +------+ + + + + | Result panel 187 | + + + + + +-------+ + + | | 2025-08-13 | | 1.0 | (missing) | (missing) | | Urobilinogen | 23:40:08 | [facility] | | | | | Ur | [facility] | [facility] | | | | + + + +-------+ + + + + | Result panel 188 | + + + + + + + + + | Nitrite Ur | 2025-08-13 | | NEGATIVE | (missing) | (missing) | | Ql Strip | 23:40:08 | [facility] | [facility] | | | | + + + + + + + + + | Result panel 189 | + + + + + + + + + | Leukocyte | 2025-08-13 | | NEGATIVE | (missing) | (missing) | | esterase Ur | 23:40:08 | [facility] | | | | | Ql Strip | [facility] | | | | + + + + + + + + + | Result panel 190 | + + + + + +-------+ + + | RBC #/area | 2025-08-13 | | 0-1 | (missing) | (missing) | | UrnS HPF | 23:40:08 | [facility] | | | | [facility] | | | | + + + +-------+ + + + + | Result panel 191 | + + + + + +--------+ + + | WBC #/area | 2025-08-13 | | 7-11 | (missing) | (missing) | | UrnS HPF | 23:40:08 | [facility] | | | | | [facility] | | | | + + + +--------+ + + + + | Result panel 192 | + + + + + + + + + | Epi Cells | 2025-08-13 | | SQUAMOUS 1+ | (missing) | (missing) | | #/area UrnS | 23:40:08 | [facility] | | | | | HPF | [facility] | | | | + + + + + + + + + | Result panel 193 | + + + + + + + + + | Crystals | 2025-08-13 | | NONE SEEN | (missing) | (missing) | | UrnS Micro | 23:40:08 | [facility] | | | | | | [facility] | | | | + + + + + + + + + | Result panel 194 | + + + + + +------+ + + | Bacteria | 2025-08-13 | | 2+ | (missing) | (missing) | | #/area UrnS | 23:40:08 | [facility] | | | | | HPF | [facility] | | | | + + + +------+ + + + + | Result panel 195 | + + + + + + + + + | Casts | 2025-08-13 | | NONE SEEN | (missing) | (missing) | | #/area UrnS | 23:40:08 | [facility] | | | | | LPF | [facility] | | | | + + + + + + + + + | Result panel 196 | + + + + + +-------+ + + | Bacteria Ur | 2025-08-13 | | Yes | (missing) | (missing) | | Cult | 23:40:08 | [facility] | | | | | [facility] | | | | + + + +-------+ + + + + | Result panel 197 | + + + + + + + + + | Urn Spec | 2025-08-13 | | CLEAN CATCH | (missing) | (missing) | | Collect Meth | 23:40:08 | [facility] | | | | | Ur | [facility] | | | | + + + + + + + + + | Result panel 198 | + + + + + + + + + | Color Ur | 2025-08-13 | | YELLOW | (missing) | (missing) | | Auto | 23:40:08 | [facility] | | | | | | [facility] | | | | + + + + + + + + + | Result panel 199 | + + + + + +---------+ + + | Character | 2025-08-13 | | CLEAR | (missing) | (missing) | | Ur | 23:40:08 | [facility] | | | | | [facility] | | | | + + + +---------+ + + + + | Result panel 200 | + + + + + + + + + | Glucose Ur | 2025-08-13 | | NEGATIVE | (missing) | (missing) | | Ql Strip | 23:40:08 | [facility] | | | | | [facility] | | | | + + + + + + + + + | Result panel 201 | + + + + + + + + + | Bilirub Ur | 2025-08-13 | | NEGATIVE | (missing) | (missing) | | Ql Strip | 23:40:08 | [facility] | | | [facility] | | | | + + + + + + + + + | Result panel 202 | + + + + + + + + + | Ketones Ur | 2025-08-13 | | NEGATIVE | (missing) | (missing) | | Ql Strip | 23:40:08 | [facility] | | | [facility] | | | | + + + + + + + + + | Result panel 203 | + + + + + +---------+ + + | Sp Gr Ur | 2025-08-13 | | 1.025 | (missing) | (missing) | | Strip | 23:40:08 | [facility] | | [facility] | | | | + + + +---------+ + + + + | Result panel 204 | + + + + + + + + + | Hgb Ur Ql | 2025-08-13 | | NEGATIVE | (missing) | (missing) | | Strip | 23:40:08 | [facility] | | | | + + + + + + + + + | Result panel 205 | + + + + + +-------+ + + | pH Ur Strip | 2025-08-13 | | 5.5 | (missing) | (missing) | | | 23:40:08 | [facility] | | | | + + + +-------+ + + + + | Result panel 206 | + + + + + +------+ + + | Prot Ur | 2025-08-13 | | 30 | (missing) | (missing) | | Strip-[place] | 23:40:08 | [facility] | | | [facility] | | | | + + + +------+ + + + + | Result panel 207 | + + + + + +-------+ + + | | 2025-08-13 | | 1.0 | (missing) | (missing) | | Urobilinogen | 23:40:08 | [facility] | | | | | Ur | [facility] | [facility] | | | | + + + +-------+ + + + + | Result panel 208 | + + + + + + + + + | Nitrite Ur | 2025-08-13 | | NEGATIVE | (missing) | (missing) | | Ql Strip | 23:40:08 | [facility] | | [facility] | | | | + + + + + + + + + | Result panel 209 | + + + + + + + + + | Leukocyte | 2025-08-13 | | NEGATIVE | (missing) | (missing) | | esterase Ur | 23:40:08 | [facility] | | | | | Ql Strip | [facility] | | | | + + + + + + + + + | Result panel 210 | + + + + + +-------+ + + | RBC #/area | 2025-08-13 | | 0-1 | (missing) | (missing) | | [facility] | 23:40:08 | [facility] | | | | + + + +-------+ + + + + | Result panel 211 | + + + + + +--------+ + + | WBC #/area | 2025-08-13 | | 7-11 | (missing) | (missing) | | UrnS HPF | 23:40:08 | [facility] | [facility] | | | | + + + +--------+ + + + + | Result panel 212 | + + + + + + + + + | Epi Cells | 2025-08-13 | | SQUAMOUS 1+ | (missing) | (missing) | | #/area UrnS | 23:40:08 | [facility] | | | | [facility] | | | | + + + + + + + + + | Result panel 213 | + + + + + + + + + | Crystals | 2025-08-13 | | NONE SEEN | (missing) | (missing) | | UrnS Micro | 23:40:08 | [facility] | | | | + + + + + + + + + | Result panel 214 | + + + + + +------+ + + | Bacteria | 2025-08-13 | | 2+ | (missing) | (missing) | | #/area UrnS | 23:40:08 | [facility] | | | | + + + +------+ + + + + | Result panel 215 | + + + + + + + + + | Casts | 2025-08-13 | | NONE SEEN | (missing) | (missing) | | #/area UrCarly | 23:40:08 | [facility] | | | | + + + + + + + + + | Result panel 216 | + + + + + +-------+ + + | Bacteria Ur | 2025-08-13 | | Yes | (missing) | (missing) | | Cult | 23:40:08 | [facility] | | | | + + + +-------+ + + + + | Result panel 217 | + + + + + + + + + | Urn Spec | 2025-08-13 | | CLEAN CATCH | (missing) | (missing) | | Collect Meth | 23:40:08 | [facility] | [facility] | | | | + + + + + + + + + | Result panel 218 | + + + + + + + + + | Color Ur | 2025-08-13 | | YELLOW | (missing) | (missing) | | Auto | 23:40:08 | [facility] | | | | + + + + + + + + + | Result panel 219 | + + + + + +---------+ + + | Character | 2025-08-13 | | CLEAR | (missing) | (missing) | | Ur | 23:40:08 | [facility] | | | | + + + +---------+ + + + + | Result panel 220 | + + + + + + + + + | Glucose Ur | 2025-08-13 | | NEGATIVE | (missing) | (missing) | | Ql Strip | 23:40:08 | [facility] | | | | + + + + + + + + + | Result panel 221 | + + + + + + + + + | Bilirub Ur | 2025-08-13 | | NEGATIVE | (missing) | (missing) | | Ql Strip | 23:40:08 | [facility] | | | | + + + + + + + + + | Result panel 222 | + + + + + + + + + | Ketones Ur | 2025-08-13 | | NEGATIVE | (missing) | (missing) | | Ql Strip | 23:40:08 | [facility] | | | | + + + + + + + + + | Result panel 223 | + + + + + +---------+ + + | Sp Gr Ur | 2025-08-13 | | 1.025 | (missing) | (missing) | | Strip | 23:40:08 | [facility] | | | | + + + +---------+ + + + + | Result panel 224 | + + + + + + + + + | Hgb Ur Ql | 2025-08-13 | | NEGATIVE | (missing) | (missing) | | Strip | 23:40:08 | [facility] | | | | + + + + + + + + + | Result panel 225 | + + + + + +-------+ + + | pH Ur Strip | 2025-08-13 | | 5.5 | (missing) | (missing) | | | 23:40:08 | [facility] | | | | | | | - [facility] | | | | [facility] | | | | + + + +-------+ + + + + | Result panel 226 | + + + + + +------+ + + | Prot Ur | 2025-08-13 | | 30 | (missing) | (missing) | | [facility] | 23:40:08 | [facility] | | | | + + + +------+ + + + + | Result panel 227 | + + + + + +-------+ + + | | 2025-08-13 | | 1.0 | (missing) | (missing) | | Urobilinogen | 23:40:08 | [facility] | | | | + + + +-------+ + + + + | Result panel 228 | + + + + + + + + + | Nitrite Ur | 2025-08-13 | | NEGATIVE | (missing) | (missing) | | [facility] | 23:40:08 | [facility] | [facility] | | | | + + + + + + + + + | Result panel 229 | + + + + + + + + + | Leukocyte | 2025-08-13 | | NEGATIVE | (missing) | (missing) | | esterase Ur | 23:40:08 | [facility] | | | | | [facility] | | | | + + + + + + + + + | Result panel 230 | + + + + + +-------+ + + | RBC #/area | 2025-08-13 | | 0-1 | (missing) | (missing) | | UrnS HPF | 23:40:08 | [facility] | | | | + + + +-------+ + + + + | Result panel 231 | + + + + + +--------+ + + | WBC #/area | 2025-08-13 | | 7-11 | (missing) | (missing) | | [facility] | 23:40:08 | [facility] | | | | | | | - | [facility] | | | | [facility] | | | | + + + +--------+ + + + + | Result panel 232 | + + + + + + + + + | Epi Cells | 2025-08-13 | | SQUAMOUS 1+ | (missing) | (missing) | | #/area UrnS | 23:40:08 | [facility] | | | | HPF [facility] | | | | + + + + + + + + + | Result panel 233 | + + + + + + + + + | Crystals | 2025-08-13 | | NONE SEEN | (missing) | (missing) | | [facility] | 23:40:08 | [facility] | | | | + + + + + + + + + | Result panel 234 | + + + + + +------+ + + | Bacteria | 2025-08-13 | | 2+ | (missing) | (missing) | | #/area UrnS | 23:40:08 | [facility] | | | | HPF [facility] | | | | + + + +------+ + + + + | Result panel 235 | + + + + + + + + + | Casts | 2025-08-13 | | NONE SEEN | (missing) | (missing) | | #/area UrnS | 23:40:08 | [facility] | | | | LPF [facility] | | | | + + + + + + + + + | Result panel 236 | + + + + + +-------+ + + | Bacteria Ur | 2025-08-13 | | Yes | (missing) | (missing) | | Cult | 23:40:08 | [facility] | | | | + + + +-------+ + + + + | Result panel 237 | + + + + + + + + + | Urn Spec | 2025-08-13 | | CLEAN CATCH | (missing) | (missing) | | Collect Meth | 23:40:08 | [facility] | | | | | Ur [facility] | | | | + + + + + + + + + | Result panel 238 | + + + + + +--------+ + + | D Shelby PPP | 2025-08-17 | | 3.14 | (missing) | (missing) | | [facility] | 06:42:08 | [facility] | | | | + + + +--------+ + + + + | Result panel 239 | + + + + + +---------+ + + | pH BldV | 2025-08-17 | | 7.447 | (missing) | (missing) | | | 06:42:08 | [facility] | | | | | | | - [facility] | | | | [facility] | | | | + + + +---------+ + + + + | Result panel 240 | + + + + + +------+---------+ + | Glucose | 2025-08-17 | | 97 | mg/dL | (missing) | | [facility] | 06:42:08 | [facility] | | | | + + + +------+---------+ + + + | Result panel 241 | + + + + + +------+---------+ + | BUN | 2025-08-17 | | 31 | mg/dL | (missing) | | [facility] | 06:42:08 | [facility] | | | | + + + +------+---------+ + + + | Result panel 242 | + + + + + +--------+---------+ + | Creat | 2025-08-17 | | 1.74 | mg/dL | (missing) | | [facility] | 06:42:08 | [facility] | | | | + + + +--------+---------+ + + + | Result panel 243 | + + + + + +------+ + + | eGFRcr | 2025-08-17 | | 42 | (missing) | (missing) | | SerPlBld | 06:42:08 | [facility] | | | | | CKD-EPI 2020 | [facility] | | | | + + + +------+ + + + + | Result panel 244 | + + + + + +---------+ + + | BUN/Creat | 2025-08-17 | | 17.81 | (missing) | (missing) | | SerPl | 06:42:08 | [facility] | | | | + + + +---------+ + + + + | Result panel 245 | + + + + + +-------+ + + | Sodium | 2025-08-17 | | 132 | (missing) | (missing) | | [facility] | 06:42:08 | [facility] | | | | + + + +-------+ + + + + | Result panel 246 | + + + + + +-------+ + + | Potassium | 2025-08-17 | | 3.8 | (missing) | (missing) | | SerPl-sCnc | 06:42:08 | [facility] | | | | + + + +-------+ + + + + | Result panel 247 | + + + + + +-------+ + + | Chloride | 2025-08-17 | | 100 | (missing) | (missing) | | SerPl-sCnc | 06:42:08 | [facility] | | | | + + + +-------+ + + + + | Result panel 248 | + + + + + +------+ + + | CO2 | 2025-08-17 | | 21 | (missing) | (missing) | | SerPl-sCnc | 06:42:08 | [facility] | | | | + + + +------+ + + + + | Result panel 249 | + + + + + +--------+ + + | Anion Gap | 2025-08-17 | | 14.8 | (missing) | (missing) | | SerPl | 06:42:08 | [facility] | | | | | Calculated.4 | [facility] | | | | + + + +--------+ + + + + | Result panel 250 | + + + + + +-------+---------+ + | Calcium | 2025-08-17 | | 8.8 | mg/dL | (missing) | | SerPl-mCnc | 06:42:08 | [facility] | | | | + + + +-------+---------+ + + + | Result panel 251 | + + + + + +-------+ + + | Prot | 2025-08-17 | | 6.0 | (missing) | (missing) | | [facility] | 06:42:08 | [facility] | | | | + + + +-------+ + + + + | Result panel 252 | + + + + + +-------+ + + | Albumin | 2025-08-17 | | 2.8 | (missing) | (missing) | | [facility] | 06:42:08 | [facility] | | | | + + + +-------+ + + + + | Result panel 253 | + + + + + +-------+ + + | Globulin | 2025-08-17 | | 3.2 | (missing) | (missing) | | [facility] | 06:42:08 | [facility] | | | | + + + +-------+ + + + + | Result panel 254 | + + + + + +--------+ + + | | 2025-08-17 | | 0.88 | (missing) | (missing) | | Albumin/Glob | 06:42:08 | [facility] | | | | | SerPl [facility] | | | | + + + +--------+ + + + + | Result panel 255 | + + + + + +-------+---------+ + | Bilirub | 2025-08-17 | | 1.2 | mg/dL | (missing) | | SerPl-mCnc | 06:42:08 | [facility] | | | | + + + +-------+---------+ + + + | Result panel 256 | + + + + + +------+ + + | AST | 2025-08-17 | | 28 | (missing) | (missing) | | SerPl-cCnc | 06:42:08 | [facility] | | | | + + + +------+ + + + + | Result panel 257 | + + + + + +------+ + + | ALT | 2025-08-17 | | 18 | (missing) | (missing) | | [facility] | 06:42:08 | [facility] | | | | + + + +------+ + + + + | Result panel 258 | + + + + + +-------+ + + | ALP | 2025-08-17 | | 147 | (missing) | (missing) | | [facility] | 06:42:08 | [facility] | | | | + + + +-------+ + + + + | Result panel 259 | + + + + + +--------+ + + | D Dimer PPP | 2025-08-17 | | 3.14 | (missing) | (missing) | | [facility] | 06:42:08 | [facility] | | | | + + + +--------+ + + + + | Result panel 260 | + + + + + +---------+ + + | pH BldV | 2025-08-17 | | 7.447 | (missing) | (missing) | | | 06:42:08 | [facility] | | | | + + + +---------+ + + + + | Result panel 261 | + + + + + +------+---------+ + | Glucose | 2025-08-17 | | 97 | mg/dL | (missing) | | [facility] | 06:42:08 | [facility] | | | | + + + +------+---------+ + + + | Result panel 262 | + + + + + +------+---------+ + | BUN | 2025-08-17 | | 31 | mg/dL | (missing) | | [facility]PG[facility] | 06:42:08 | [facility] | | | | + + + +------+---------+ + + + | Result panel 263 | + + + + + +--------+---------+ + | Creat | 2025-08-17 | | 1.74 | mg/dL | (missing) | | [facility] | 06:42:08 | [facility] | | | | + + + +--------+---------+ + + + | Result panel 264 | + + + + + +------+ + + | eGFRcr | 2025-08-17 | | 42 | (missing) | (missing) | | SerPlBld | 06:42:08 | [facility] | | | | | CKD-EPI 2020 [facility] | | | + + + +------+ + + + + | Result panel 265 | + + + + + +---------+ + + | BUN/Creat | 2025-08-17 | | 17.81 | (missing) | (missing) | | SerPl | 06:42:08 | [facility] | | | | + + + +---------+ + + + + | Result panel 266 | + + + + + +-------+ + + | Sodium | 2025-08-17 | | 132 | (missing) | (missing) | | SerPl-sCn | 06:42:08 | [facility] | | | | + + + +-------+ + + + + | Result panel 267 | + + + + + +-------+ + + | Potassium | 2025-08-17 | | 3.8 | (missing) | (missing) | | SerPl-sCnc | 06:42:08 | [facility] | | | | + + + +-------+ + + + + | Result panel 268 | + + + + + +-------+ + + | Chloride | 2025-08-17 | | 100 | (missing) | (missing) | | SerPl-sCnc | 06:42:08 | [facility] | | | | + + + +-------+ + + + + | Result panel 269 | + + + + + +------+ + + | CO2 | 2025-08-17 | | 21 | (missing) | (missing) | | SerPl-sCnc | 06:42:08 | [facility] | | | | + + + +------+ + + + + | Result panel 270 | + + + + + +--------+ + + | Anion Gap | 2025-08-17 | | 14.8 | (missing) | (missing) | | SerPl | 06:42:08 | [facility] | | | | | Calculated.4 | [facility] | | | | + + + +--------+ + + + + | Result panel 271 | + + + + + +-------+---------+ + | Calcium | 2025-08-17 | | 8.8 | mg/dL | (missing) | | SerPl-mCnc | 06:42:08 | [facility] | | | | + + + +-------+---------+ + + + | Result panel 272 | + + + + + +-------+ + + | Prot | 2025-08-17 | | 6.0 | (missing) | (missing) | | [facility] | 06:42:08 | [facility] | | | | + + + +-------+ + + + + | Result panel 273 | + + + + + +-------+ + + | Albumin | 2025-08-17 | | 2.8 | (missing) | (missing) | | [facility] | 06:42:08 | [facility] | | | | + + + +-------+ + + + + | Result panel 274 | + + + + + +-------+ + + | Globulin | 2025-08-17 | | 3.2 | (missing) | (missing) | | [facility] | 06:42:08 | [facility] | | | | + + + +-------+ + + + + | Result panel 275 | + + + + + +--------+ + + | | 2025-08-17 | | 0.88 | (missing) | (missing) | | Albumin/Glob | 06:42:08 | [facility] | | | | | SerPl [facility] | | | | + + + +--------+ + + + + | Result panel 276 | + + + + + +-------+---------+ + | Bilirub | 2025-08-17 | | 1.2 | mg/dL | (missing) | | SerPl-mCnc | 06:42:08 | [facility] | | | | + + + +-------+---------+ + + + | Result panel 277 | + + + + + +------+ + + | AST | 2025-08-17 | | 28 | (missing) | (missing) | | [facility] | 06:42:08 | [facility] | | | | + + + +------+ + + + + | Result panel 278 | + + + + + +------+ + + | ALT | 2025-08-17 | | 18 | (missing) | (missing) | | SerPl-cCn | 06:42:08 | [facility] | | | | + + + +------+ + + + + | Result panel 279 | + + + + + +-------+ + + | ALP | 2025-08-17 | | 147 | (missing) | (missing) | | [facility] | 06:42:08 | [facility] | | | | + + + +-------+ + + + + | Result panel 280 | + + + + + +-------+ + + | Lactate | 2025-08-17 | | 1.7 | (missing) | (missing) | | SerPl-sCnc | 07:17:08 | [facility] | | | | + + + +-------+ + + + + | Result panel 281 | + + + + + +-------+ + + | Lactate | 2025-08-17 | | 1.7 | (missing) | (missing) | | [facility] | 07:17:08 | [facility] | | | | + + + +-------+ + + + + | Result panel 282 | + + + + + +--------+ + + | Troponin I | 2025-08-17 | | 96.4 | (missing) | (missing) | | SerPl | 07:46:08 | [facility] | | | | | HS-mCnc [facility] | | | | + + + +--------+ + + + + | Result panel 283 | + + + + + +--------+ + + | Troponin I | 2025-08-17 | | 96.4 | (missing) | (missing) | | SerPl | 07:46:08 | [facility] | | | | | HS-mCnc [facility] | | | | + + + +--------+ + + + + | Result panel 284 | + + + + + +--------+ + + | WBC # Bld | 2025-08-18 | | 6.84 | (missing) | (missing) | | Auto | 05:57:08 | [facility] | | | | + + + +--------+ + + + + | Result panel 285 | + + + + + +--------+ + + | RBC # Bld | 2025-08-18 | | 4.50 | (missing) | (missing) | | Auto | 05:57:08 | [facility] | | | | + + + +--------+ + + + + | Result panel 286 | + + + + + +--------+ + + | Hgb | 2025-08-18 | | 12.1 | (missing) | (missing) | | Bld-Liz[facility]nc | 05:57:08 | [facility] | | | | + + + +--------+ + + + + | Result panel 287 | + + + + + +--------+ + + | Hct VFr.DF | 2025-08-18 | | 37.1 | (missing) | (missing) | | Bld Auto | 05:57:08 | [facility] | | | | + + + +--------+ + + + + | Result panel 288 | + + + + + +--------+ + + | RBC Auto | 2025-08-18 | | 82.4 | (missing) | (missing) | | | 05:57:08 | [facility] | | | | + + + +--------+ + + + + | Result panel 289 | + + + + + +--------+ + + | MCH RBC Qn | 2025-08-18 | | 26.9 | (missing) | (missing) | | Auto | 05:57:08 | [facility] | | | | + + + +--------+ + + + + | Result panel 290 | + + + + + +--------+ + + | MCHC RBC | 2025-08-18 | | 32.6 | (missing) | (missing) | | Auto-EntMCnc | 05:57:08 | [facility] | | | | + + + +--------+ + + + + | Result panel 291 | + + + + + +-------+ + + | Platelet # | 2025-08-18 | | 271 | (missing) | (missing) | | Bld Auto | 05:57:08 | [facility] | | | | + + + +-------+ + + + + | Result panel 292 | + + + + + +--------+ + + | Neutrophils | 2025-08-18 | | 75.7 | (missing) | (missing) | | NFr Bld | 05:57:08 | [facility] | | | | | Auto | [facility] | | | | + + + +--------+ + + + + | Result panel 293 | + + + + + +--------+ + + | Lymphocytes | 2025-08-18 | | 10.7 | (missing) | (missing) | | NFr Bld | 05:57:08 | [facility] | | | | Auto | [facility] | | | | + + + +--------+ + + + + | Result panel 294 | + + + + + +--------+ + + | Monocytes | 2025-08-18 | | 11.1 | (missing) | (missing) | | NFr Bld Auto | 05:57:08 | [facility] | | | | + + + +--------+ + + + + | Result panel 295 | + + + + + +-------+ + + | Eosinophil | 2025-08-18 | | 1.3 | (missing) | (missing) | | NFr Bld Auto | 05:57:08 | [facility] | | | | + + + +-------+ + + + + | Result panel 296 | + + + + + +-------+ + + | Basophils | 2025-08-18 | | 0.9 | (missing) | (missing) | | NFr Bld Auto | 05:57:08 | [facility] | | [facility] - [facility] | | | | + + + +-------+ + + + + | Result panel 297 | + + + + + +--------+ + + | Prothrombin | 2025-08-18 | | 15.2 | (missing) | (missing) | | time | 05:57:08 | [facility] | | | | + + + +--------+ + + + + | Result panel 298 | + + + + + +--------+ + + | INR PPP | 2025-08-18 | | 1.24 | (missing) | (missing) | | | 05:57:08 | [facility] | | | | + + + +--------+ + + + + | Result panel 299 | + + + + + +--------+ + + | WBC # Bld | 2025-08-18 | | 6.84 | (missing) | (missing) | | Auto | 05:57:08 | [facility] | | | | + + + +--------+ + + + + | Result panel 300 | + + + + + +--------+ + + | RBC # Bld | 2025-08-18 | | 4.50 | (missing) | (missing) | | Auto | 05:57:08 | [facility] | | | | + + + +--------+ + + + + | Result panel 301 | + + + + + +--------+ + + | Hgb | 2025-08-18 | | 12.1 | (missing) | (missing) | | Bld-mCnc | 05:57:08 | [facility] | | | | + + + +--------+ + + + + | Result panel 302 | + + + + + +--------+ + + | Hct VFr.DF | 2025-08-18 | | 37.1 | (missing) | (missing) | | Bld Auto | 05:57:08 | [facility] | | | | + + + +--------+ + + + + | Result panel 303 | + + + + + +--------+ + + | RBC Auto | 2025-08-18 | | 82.4 | (missing) | (missing) | | | 05:57:08 | [facility] | | | | + + + +--------+ + + + + | Result panel 304 | + + + + + +--------+ + + | MCH RBC Qn | 2025-08-18 | | 26.9 | (missing) | (missing) | | Auto | 05:57:08 | [facility] | | | | + + + +--------+ + + + + | Result panel 305 | + + + + + +--------+ + + | MCHC RBC | 2025-08-18 | | 32.6 | (missing) | (missing) | | Auto-EntMCnc | 05:57:08 | [facility] | | | | + + + +--------+ + + + + | Result panel 306 | + + + + + +-------+ + + | Platelet # | 2025-08-18 | | 271 | (missing) | (missing) | | Bld Auto | 05:57:08 | [facility] | | | | + + + +-------+ + + + + | Result panel 307 | + + + + + +--------+ + + | Neutrophils | 2025-08-18 | | 75.7 | (missing) | (missing) | | NFr Bld | 05:57:08 | [facility] | | | | Auto | [facility] | | | | + + + +--------+ + + + + | Result panel 308 | + + + + + +--------+ + + | Lymphocytes | 2025-08-18 | | 10.7 | (missing) | (missing) | | NFr Bld | 05:57:08 | [facility] | | | | Auto [facility] | | | | + + + +--------+ + + + + | Result panel 309 | + + + + + +--------+ + + | Monocytes | 2025-08-18 | | 11.1 | (missing) | (missing) | | NFr Bld Auto | 05:57:08 | [facility] | | | | + + + +--------+ + + + + | Result panel 310 | + + + + + +-------+ + + | Eosinophil | 2025-08-18 | | 1.3 | (missing) | (missing) | | NFr Bld Auto | 05:57:08 | [facility] | | | | + + + +-------+ + + + + | Result panel 311 | + + + + + +-------+ + + | Basophils | 2025-08-18 | | 0.9 | (missing) | (missing) | | NFr Bld Auto | 05:57:08 | [facility] | | | | + + + +-------+ + + + + | Result panel 312 | + + + + + +--------+ + + | Prothrombin | 2025-08-18 | | 15.2 | (missing) | (missing) | | time | 05:57:08 | [facility] | | [facility] | | | | + + + +--------+ + + + + | Result panel 313 | + + + + + +--------+ + + | INR PPP | 2025-08-18 | | 1.24 | (missing) | (missing) | | | 05:57:08 | [facility] | | | | + + + +--------+ + + Social History +--------+ + + [...] 220.243 | lb | + + + +---------+ | 2025-08-08 00:00 | BMI | 30.6 | kg/m2 | + + + +---------+ | 2025-08-08 00:00 | BP_diastolic | 72 | mmHg | + + + +---------+ | 2025-08-08 00:00 | BP_systolic | 96 | mmHg | + + + +---------+ | 2025-08-08 00:00 | heart_rate | 91 | /min | + + + +---------+ | 2025-08-08 00:00 | height_metric | 180.34 | cm | + + + +---------+ | 2025-08-08 00:00 | height_standard | 71 | in | + + + +---------+ | 2025-08-08 00:00 | o2_saturation | 98 | % | + + + +---------+ | 2025-08-08 00:00 | respiration_rate | 21 | /min | + + + +---------+ | 2025-08-08 00:00 | | 97.6 | F | | | temperature_standar | | | | | d | | | + + + +---------+ | 2025-08-08 00:00 | weight_metric | 99.501 | kg | + + + +---------+ | 2025-08-08 00:00 | weight_standard | 219.362 | lb | + + + +---------+ | 2025-08-10 00:00 | BMI | 31.7 | kg/m2 | + + + +---------+ | 2025-08-10 00:00 | BP_diastolic | 76 | mmHg | + + + +---------+ | 2025-08-10 00:00 | BP_systolic | 121 | mmHg | + + + +---------+ | 2025-08-10 00:00 | heart_rate | 97 | /min | + + + +---------+ | 2025-08-10 00:00 | height_metric | 180.34 | cm | + + + +---------+ | 2025-08-10 00:00 | height_standard | 71 | in | + + + +---------+ | 2025-08-10 00:00 | o2_saturation | 97 | % | + + + +---------+ | 2025-08-10 00:00 | respiration_rate | 18 | /min | + + + +---------+ | 2025-08-10 00:00 | | 97.4 | F | | | temperature_standar | | | | | d | | | + + + +---------+ | 2025-08-10 00:00 | weight_metric | 102.999 | kg | + + + +---------+ | 2025-08-10 00:00 | weight_standard | 227.075 | lb | + + + +---------+ | 2025-08-13 00:00 | BMI | 32.3 | kg/m2 | + + + +---------+ | 2025-08-13 00:00 | height_metric | 180.34 | cm | + + + +---------+ | 2025-08-13 00:00 | height_standard | 71 | in | + + + +---------+ | 2025-08-13 00:00 | weight_metric | 105.001 | kg | + + + +---------+ | 2025-08-13 00:00 | weight_standard | 231.487 | lb | + + + +---------+ | 2025-08-14 00:00 | BP_diastolic | 81 | mmHg | + + + +---------+ | 2025-08-14 00:00 | BP_systolic | 103 | mmHg | + + + +---------+ | 2025-08-14 00:00 | heart_rate | 102 | /min | + + + +---------+ | 2025-08-14 00:00 | o2_saturation | 100 | % | + + + +---------+ | 2025-08-14 00:00 | respiration_rate | 16 | /min | + + + +---------+ | 2025-08-14 00:00 | | 98.5 | F | | | temperature_standar | | | | | d | | | + + + +---------+ | 2025-08-17 00:00 | BMI | 33.5 | kg/m2 | + + + +---------+ | 2025-08-17 00:00 | BP_diastolic | 78 | mmHg | + + + +---------+ | 2025-08-17 00:00 | BP_systolic | 119 | mmHg | + + + +---------+ | 2025-08-17 00:00 | heart_rate | 99 | /min | + + + +---------+ | 2025-08-17 00:00 | height_metric | 180.34 | cm | + + + +---------+ | 2025-08-17 00:00 | height_standard | 71 | in | + + + +---------+ | 2025-08-17 00:00 | o2_saturation | 98 | % | + + + +---------+ | 2025-08-17 00:00 | respiration_rate | 20 | /min | + + + +---------+ | 2025-08-17 00:00 | | 98 | F | | | temperature_standar | | | | | d | | | + + + +---------+ | 2025-08-17 00:00 | weight_metric | 109.001 | kg | + + + +---------+ | 2025-08-17 00:00 | weight_standard | 240.306 | lb | + + + +---------+ | 2025-08-18 00:00 | BMI | 33.5 | kg/m2 | + + + +---------+ | 2025-08-18 00:00 | BP_diastolic | 91 | mmHg | + + + +---------+ | 2025-08-18 00:00 | BP_diastolic | 94 | mmHg | + + + +---------+ | 2025-08-18 00:00 | BP_systolic | 120 | mmHg | + + + +---------+ | 2025-08-18 00:00 | heart_rate | 116 | /min | + + + +---------+ | 2025-08-18 00:00 | heart_rate | 121 | /min | + + + +---------+ | 2025-08-18 00:00 | height_metric | 180.34 | cm | + + + +---------+ | 2025-08-18 00:00 | height_standard | 71 | in | + + + +---------+ | 2025-08-18 00:00 | o2_saturation | 100 | % | + + + +---------+ | 2025-08-18 00:00 | o2_saturation | 99 | % | + + + +---------+ | 2025-08-18 00:00 | respiration_rate | 17 | /min | + + + +---------+ | 2025-08-18 00:00 | respiration_rate | 18 | /min | + + + +---------+ | 2025-08-18 00:00 | | 97.7 | F | | | temperature_standar | | | | | d | | | + + + +---------+ | 2025-08-18 00:00 | | 98.1 | F | | | temperature_standar | | | | | d | | | + + + +---------+ | 2025-08-18 00:00 | weight_metric | 109.001 | kg | + + + +---------+ | 2025-08-18 00:00 | weight_standard | 240.306 | lb | + + + +---------+"
[2025-08-19] MEDS ORDERED: FUROSEMIDE 100 MG/10 ML VIAL IV ONE (22:15)
[2025-08-19] MEDS ORDERED: SPIRONOLACTONE 25 MG TAB PO ONE (22:15)
[2025-08-19 22:26] LABS: BASOPHILS 0.7 % (0.2-1.2); EOSINOPHILS 0.2 % (0.8-7.0); LYMPHOCYTES 11.2 % (21.8-53.1); MCH 26.7 PG (25.7-32.2); MCHC 32.2 g/dL (32.3-36.5); MCV 82.9 fL (79.0-92.2); MONOCYTES 12.7 % (5.3-12.2); NEUTROPHILS 74.8 % (34.0-67.9); RBC 4.80 M/uL (4.63-6.08)
[2025-08-19] MEDS ORDERED: SPIRONOLACTONE 25 MG TAB ONE (22:33)
[2025-08-19 22:51] LABS: ALT (SGPT) 12.0 U/L (14-59); AST (SGOT) 25.0 U/L (15-37); GLOMERULAR FILTRATION RATE,EST 30.0 mL/min (>60); PROTEIN, TOTAL 5.5 g/dL (6.4-8.2); UREA NITROGEN 36.0 mg/dL (7-18)
[2025-08-19 23:54] LABS: BLOOD/HGB, URINE NEGATIVE (Negative); KETONE, URINE NEGATIVE (Negative); LEUK ESTERASE, URINE NEGATIVE (negative); NITRITE, URINE NEGATIVE (negative)
[2025-08-20 03:00] VITALS: BP 113/77
--- NOTE | 2025-08-21 16:10 | EKG ---
[facility] [address] [place] [address] Signed Ventricular-paced rhythm Biventricular pacemaker detected Abnormal ECG When compared with ECG of 17-AUG-2025 06:55, Vent. rate has increased BY 24 BPM Confirmed by Tony Kramer DO ([id number]) on 08/21/2025 4:10:44 PM Electronically Signed By: TONY KRAMER DO 08/21/25 1610 PATIENT NAME: LYNJHONNY Electrocardiogram DATE OF : 59 PHYSICIAN: TONY KRAMER DO REPORT #: [id number] REPORT IS CONFIDENTIAL AND NOT TO BE RELEASED WITHOUT AUTHORIZATION
[2025-08-22] MEDS ORDERED: CIPROFLOXACIN500 MG PO (15:14)
[2025-08-22] MEDS ORDERED: HYDROCODON-ACE1 EA10 PO (18:23)
[2025-08-26] MEDS ORDERED: CEPHALEXIN500 MG PO (09:35)
[2025-08-26] MEDS ORDERED: CEPHALEXIN500 M1 PO (09:37)
[2025-08-29] MEDS ORDERED: ALDACTONE25 MG PO (21:49)
[2025-08-29] MEDS ORDERED: SOAANZ40 MG PO (21:49)
[2025-09-10] MEDS ORDERED: HYDROCODON-ACE1 EA10 PO (15:43)
[2025-09-10] MEDS ORDERED: SPIRONOLACTONE50 MG PO (15:43)
== END 2025-08-20 02:10 | disposition home or self-care (01) ==
LOC: ED 21:57
PROVIDERS: Internal Medicine
DX: K74.60 Unspecified cirrhosis of liver (principal); I50.9 Heart failure, unspecified; Z79.899 Other long term (current) drug therapy
CPT/HCPCS: 36415; 80053; 81003; 83690; 83880; 84484; 85025; 93005; 93010; 96374; 96375; 99284-25; G0480; J1938

== ENCOUNTER 2025-08-20 11:22 | Emergency (ER) | payer MEDICARE ==
[~2025-08-20] VITALS: Ht 180.3 cm; Wt 101.2 kg
--- OUTSIDE RECORDS SUMMARY | ~2025-08-20 | XMS | Continuity of Care Document ---
Demographics + + + | Address | [address] | | | [place] [address] | + + + | Preferred Language | Unknown | + + + | Marital Status | | + + + | Sikhism Affiliation | Unknown | + + + | Race | Unknown | + + + | Ethnic Group | or | + + + Author + + + | Author | [facility] | + + + | Organization | [facility] | + + + | Address | [address] | | | [place] [address] | + + + | Phone | | + + + Care Team Providers + + + + | Care Ornamental Metal Erector Name | Role | Phone | + [...] + | (no date) | EMPAGLIFLOZIN | [facility] | | | | [place] [...] | (no date) | AMLODIPINE BESYLATE | [facility] | | | | [facility] | + + + + | 2025-07-28 00:00 | CEPHALEXIN | [facility] | | | | [facility] | + + + + | 2025-08-14 00:00 | CEPHALEXIN | [facility] | | | | [facility] | + + + + | (no date) | IBUPROFEN | [facility] | | | | [facility] | + + + + | (no date) | IBUPROFEN | [facility] | | | | [facility] | + + + + | 2025-07-25 00:00 | NITROGLYCERIN | [facility] | | | | [facility] | + + + + | (no date) | TORSEMIDE | [facility] | | | [facility] | + + + + | 2025-08-06 00:00 | TORSEMIDE | [facility] | | | | [facility] | + + + + | (no date) | MAGNESIUM OXIDE | [facility] | | | | [facility] [...] | (no date) | THIAMINE HCL | [facility] | | | | [facility] | + + + + | (no date) | FUROSEMIDE | [facility] | | | | [facility] [...] + | 2025-07-25 00:00 | ASPIRIN | [facility] | | | | [facility] | + + + + | (no date) | LACTULOSE | [facility] | | | | [facility] | + + + + | (no date) | ATORVASTATIN CALCIUM | [facility] | | | | [facility] | + + + + | (no date) | POTASSIUM CHLORIDE | [facility] | | | | [facility] | + + + + | (no date) | TRAMADOL HCL | [facility] | | | | [facility] | + + + + | 2025-08-18 00:00 | HYDROCODONE | [facility] | | | BIT/ACETAMINOPHEN | [facility] | + + + + | (no date) | ALBUTEROL SULFATE | [facility] | | | | [facility] | + + + + | (no date) | TAMSULOSIN HCL | [facility] | | | | [facility] | + + + + | (no date) | METOPROLOL SUCCINATE | [facility] | | | | [facility] | + + + + | (no date) | METOPROLOL SUCCINATE | [facility] | | | | [facility] | + + + + | 2025-07-25 00:00 | METOPROLOL SUCCINATE | [facility] | | | | [facility] | + + + + | (no date) | LOSARTAN POTASSIUM | [facility] | | | | [place] [...] + | 2025-08-17 00:00 | Sepsis | [facility] | | | | [facility] | + + + + | 2025-08-17 00:00 | Abdominal ascites | [facility] | | | | [place] [facility] | | | | | [facility] | [facility] - [facility] | | | [...] | | comment Imp | 00:41:08 | [facility] | | | | | [...] - | | | | | Resp Ketan | | [facility] | | | | [...] | | Scn>25 ng/mL | 03:15:08 | [facility] | | [...] | | Scn>50 ng/mL | 03:15:08 | [facility] | | | | [...] 42 | + + + + + +--------+ [...] | (missing) | | Ql Strip | 10::08 | [facility] | | | [...] | | Ql Strip | 10:13:08 | [facility] | | | | | | [facility] | | | | | | | [facility] | | [facility] | | | | + + + + + + + + + | Result panel 52 | + + + + + +---------+ + + | Will Perez | 2025-08-04 | | 1.025 | (missing) [...] | (missing) | | | 10:13:08 | [facility] | | | | [...] 100 | (missing) | (missing) | | [facility] | 10:13:08 | [facility] | | | [...] 58 | + + + + + +---------+ [...] 59 | + + + + + +-------+ [...] 60 | + + + + + +---------+ + + | WBC #/area | 2025-08-04 | | 21-40 | (missing) | (missing) | | [facility] | 10:13:08 | [facility] | | | | | | [facility] | | | [facility] | | | | + + + +---------+ + + + + | Result panel 61 | + + + + + +-----+ [...] (missing) | (missing) | | Cult | ::08 | [facility] | | | | | | [facility] | | [facility] | | | | + + + +-------+ + + + + | Result panel 66 | + + + + + + [...] 67 | + + + + + + [...] 69 | + + + + + + [...] 70 | + + + + + + [...] 71 | + + + + + + [...] 72 | + + + + + + + + + | Bacteria Ur | 2025-08-04 | | | (missing) | (missing) | | Cult | 10:13:08 | Sarat | ENTEROCOCCUS | | | | | [...] (missing) | | Plas-sCnc | 15:49:08 | [facility] | | | | | [...] 47.0 | (missing) | (missing) | | [facility] | 15:49:08 | [facility] | | | [...] 77 | + + + + + +--------+ [...] 85 | + + + + + +-------+ [...] | NFr Bld Auto | 05:24:08 | [facility] | | [...] 92 | + + + + + +------+---------+ [...] +------+---------+ + + + | Result panel 93 | + + + + + +--------+---------+ [...] +--------+---------+ + + + | Result panel 94 | + + + + + +------+ [...] 95 | + + + + + +---------+ [...] 3.6 | (missing) | (missing) | | [facility]Pl-[facility] | 05:24:08 | [facility] | [...] 99 | + + + + + +------+ + + | CO2 | 2025-08-06 | | 23 | (missing) | (missing) | | [facility] | 05:24:08 | [facility] | [...] 101 | + + + + + +-------+---------+ [...] +-------+---------+ + + + | Result panel 102 | + + + + + +-------+---------+ [...] +-------+---------+ + + + | Result panel 103 | + + + + + +-------+ + + | Prot | 2025-08-06 | | 5.4 | (missing) | (missing) | | [facility] [...] 2.6 | (missing) | (missing) | | SerPl-mCnc [...] 107 | + + + + + +-------+---------+ [...] +-------+---------+ + + + | Result panel 108 | + + + + + +------+ + + | AST | 2025-08-06 | | 32 | (missing) | (missing) | | [facility] | 05:24:08 | [facility] | | | | | [facility] | | | | + + + +------+ + + + + | Result panel 109 | + + + + + +------+ [...] 110 | + + + + + +-------+ + + | ALP | 2025-08-06 | | 173 | (missing) | (missing) | | [facility] | 05:24:08 | [facility] | | | [...] 159 | + + + + + +--------+ [...] 160 | + + + + + +--------+ [...] 161 | + + + + + +--------+ [...] 162 | + + + + + +--------+ [...] | NFr Bld Auto | 22:02:08 | [facility] - [facility] | | | [facility] | | | | + + + +-------+ + + + + | Result panel 164 | + + + + + +-------+ [...] 165 | + + + + + +------+---------+ [...] +------+---------+ + + + | Result panel 166 | + + + + + +------+---------+ [...] +------+---------+ + + + | Result panel 167 | + + + + + +--------+---------+ + | Creat | 2025-08-13 | | 1.76 | mg/dL | (missing) | | [facility] | 22:02:08 | [facility] | | | | + + + +--------+---------+ + + + | Result panel 168 | + + + + + +------+ [...] 169 | + + + + + +---------+ [...] 98 | (missing) | (missing) | | [facility] | 22:02:08 | [facility] | [facility] | | | | + + + +------+ + + + + | Result panel 173 | + + + + + +------+ + + | CO2 | 2025-08-13 | | 27 | (missing) | (missing) | | SerPl-sCnc | 22::08 | [facility] | | | | [facility] | | | | + + + +------+ + + + + | Result panel 174 | + + + + + +--------+ [...] 175 | + + + + + +-------+---------+ + | Calcium | 2025-08-13 | | 8.4 | mg/dL | (missing) | | [facility] | 22:02:08 | [facility] | | | | + + + +-------+---------+ + + + | Result panel 176 | + + + + + +-------+---------+ [...] +-------+---------+ + + + | Result panel 177 | + + + + + +-------+ + + | Prot | 2025-08-13 | | 6.2 | (missing) | (missing) | | SerPl-m[facility]kirstin | 22:02:08 | [facility] | | | | + + + +-------+ + + + + | Result panel 178 | + + + + + +-------+ [...] 179 | + + + + + +-------+ + + | Globulin | 2025-08-13 | | 3.3 | (missing) | (missing) | | Ser-mCkirstin | 22:02:08 | [facility] | | | [...] 181 | + + + + + +-------+---------+ [...] +-------+---------+ + + + | Result panel 182 | + + + + + +------+ [...] 183 | + + + + + +------+ [...] 184 | + + + + + +-------+ [...] 186 | + + + + + +-------+---------+ + | Magnesium | 2025-08-13 | | 1.8 | mg/dL | (missing) | | [facility] | 22:02:08 | [facility] | | | | + + + +-------+---------+ + + + | Result panel 187 | + + + + + +-------+---------+ + | Magnesium | 2025-08-13 | | 1.8 | mg/dL | (missing) | | SerPl-m[facility]nc | 22:02:08 | [facility] | | | | + + + +-------+---------+ + + + | Result panel 188 | + + + + + +------+ [...] 189 | + + + + + +-------+---------+ [...] +-------+---------+ + + + | Result panel 190 | + + + + + +------+ + + | Lipase | 2025-08-13 | | 66 | (missing) | (missing) | | [facility] | 22:02:08 | [facility] | | | [...] 192 | + + + + + +--------+ [...] 193 | + + + + + +--------+ [...] 195 | + + + + + +--------+ + + | RBC Auto | 2025-08-13 | | 84.0 | (missing) | (missing) | | | ::08 | [facility] | | | [...] 197 | + + + + + +--------+ [...] 198 | + + + + + +-------+ [...] 199 | + + + + + + [...] 200 | + + + + + +---------+ [...] 203 | + + + + + + [...] 204 | + + + + + +---------+ [...] 205 | + + + + + + [...] 206 | + + + + + +-------+ [...] 208 | + + + + + +-------+ [...] 210 | + + + + + + [...] 212 | + + + + + +--------+ [...] | (missing) | (missing) | | #/area Ur | 23:40:08 | [facility] | | | | | [facility] | | [facility] | | | [facility] | | | | + + + + + + + + + | Result panel 214 | + + + + + + [...] 215 | + + + + + +------+ [...] 216 | + + + + + + + + + | Casts | 2025-08-13 | | NONE SEEN | (missing) | (missing) | | #/area [facility]ima | 23:40:08 | [facility] | | | [...] 219 | + + + + + +-------+ [...] 223 | + + + + + +------+ [...] 227 | + + + + + +---------+ [...] + + + | Asuncion Ur | 2025-08-13 | | NEGATIVE | [...] 231 | + + + + + +---------+ [...] 233 | + + + + + +-------+ [...] 30 | (missing) | (missing) | | [facility] | 23:40:08 | [facility] | | [...] 238 | + + + + + + [...] 239 | + + + + + +-------+ + + | RBC #/area | 2025-08-13 | | 0-1 | (missing) | (missing) | | [facility] | 23:40:08 | [facility] | | | | [facility] | [facility] | | | | | | | [facility] | | | | + + + +-------+ + + + + | Result panel 240 | + + + + + +--------+ + + | WBC #/area | 2025-08-13 | | 7-11 | (missing) | (missing) | | UrnS [facility] | 23:40:08 | [facility] | | | | | | | - | | | | | | | [facility] | [facility] | | | [facility] | | | | + + + +--------+ + + + + | Result panel 241 | + + + + + + [...] | (missing) | | #/area [facility] | 23:40:08 | [facility] | | | [...] | (missing) | | #/area [facility] | 23:40:08 | [facility] | | | [...] 247 | + + + + + + [...] 248 | + + + + + +---------+ [...] 249 | + + + + + + [...] | | Ql Strip | 23:40:08 | [facility] | | | | | | | - [facility] | | | | | [facility] | [facility] | | | | + + + + + + + + + | Result panel 252 | + + + + + +---------+ [...] 253 | + + + + + + [...] 254 | + + + + + +-------+ [...] 255 | + + + + + +------+ + + | Prot Ur | 2025-08-13 | | 30 | (missing) | (missing) | | [facility] | 23:40:08 | [facility] | | | | | | [facility] | | | | + + + +------+ + + + + | Result panel 256 | + + + + + +-------+ [...] 258 | + + + + + + [...] 259 | + + + + + +-------+ [...] 260 | + + + + + +--------+ + + | WBC #/area | 2025-08-13 | | 7-11 | (missing) | (missing) | | [facility] | 23:40:08 | [facility] | [facility] | | | | + + + +--------+ + + + + | Result panel 261 | + + + + + + [...] 262 | + + + + + + [...] 263 | + + + + + +------+ [...] 265 | + + + + + +-------+ [...] 266 | + + + + + + [...] 267 | + + + + + +--------+ [...] 268 | + + + + + +---------+ [...] 269 | + + + + + +------+---------+ [...] +------+---------+ + + + | Result panel 270 | + + + + + +------+---------+ [...] +------+---------+ + + + | Result panel 271 | + + + + + +--------+---------+ [...] +--------+---------+ + + + | Result panel 272 | + + + + + +------+ [...] 132 | (missing) | (missing) | | [facility] | 06:42:08 | [facility] | [...] 276 | + + + + + +-------+ [...] 278 | + + + + + +--------+ [...] 279 | + + + + + +-------+---------+ [...] +-------+---------+ + + + | Result panel 280 [...] 282 | + + + + + +-------+ [...] 284 | + + + + + +-------+---------+ [...] +-------+---------+ + + + | Result panel 285 | + + + + + +------+ [...] 286 | + + + + + +------+ + + | ALT | 2025-08-17 | | 18 | (missing) | (missing) | | [facility] | 06:42:08 | [facility] | [facility] | | | | + + + +------+ + + + + | Result panel 287 | + + + + + +-------+ + + | ALP | 2025-08-17 | | 147 | (missing) | (missing) | | [facility] | 06:42:08 | [facility] | | | [...] 289 | + + + + + +---------+ [...] 290 | + + + + + +------+---------+ [...] +------+---------+ + + + | Result panel 291 | + + + + + +------+---------+ + | BUN | 2025-08-17 | | 31 | mg/dL | (missing) | | [facility] | 06:42:08 | [facility] | | | | + + + +------+---------+ + + + | Result panel 292 | + + + + + +--------+---------+ + | Creat | 2025-08-17 | | 1.74 | mg/dL | (missing) | | [facility] | 06:42:08 | [facility] | [facility] | | | | + + + +--------+---------+ + + + | Result panel 293 | + + + + + +------+ [...] 294 | + + + + + +---------+ [...] 297 | + + + + + +-------+ [...] 298 | + + + + + +------+ [...] 3.14 | (missing) | (missing) | | [facility] | 06:42:08 | [facility] | | [facility] | | | | + + + +--------+ + + + + | Result panel 301 | + + + + + +-------+---------+ + | Calcium | 2025-08-17 | | 8.8 | mg/dL | (missing) | | [facility] | 06:42:08 | [facility] | | | | + + + +-------+---------+ + + + | Result panel 302 | + + + + + +-------+ [...] 3.2 | (missing) | (missing) | | Ser-m[facility]nc | 06:42:08 | [facility] | | | [...] 306 | + + + + + +-------+---------+ + | Bilirub | 2025-08-17 | | 1.2 | mg/dL | (missing) | | [facility] | 06:42:08 | [facility] | | [facility] | | | | + + + +-------+---------+ + + + | Result panel 307 | + + + + + +------+ + + | AST | 2025-08-17 | | 28 | (missing) | (missing) | | SerPl-[facility] | 06:42:08 | [facility] | | | | + + + +------+ + + + + | Result panel 308 | + + + + + +------+ + + | ALT | 2025-08-17 | | 18 | (missing) | (missing) | | [facility] | 06:42:08 | [facility] | | | [...] 147 | (missing) | (missing) | | SerPl-c[facility]nc | 06:42:08 | [facility] | | | | + + + +-------+ + + + + | Result panel 310 | + + + + + +---------+ [...] 1.7 | (missing) | (missing) | | SerP[facility] | 07:17:08 | [facility] | | | | + + + +-------+ + + + + | Result panel 312 | + + + + + +-------+ + + | Lactate | 2025-08-17 | | 1.7 | (missing) | (missing) | | [facility] | 07:17:08 | [facility] | | | | + + + +-------+ + + + + | Result panel 313 | + + + + + +-------+ [...] + + + + | Result panel 314 | + + + + + +--------+ [...] 315 | + + + + + +--------+ [...] 316 | + + + + + +--------+ [...] 318 | + + + + + +--------+ [...] 320 | + + + + + +--------+ [...] 322 | + + + + + +--------+ [...] 323 | + + + + + +--------+ [...] + + + + | Result panel 324 | + + + + + +-------+ + + | Platelet # | 2025-08-18 | | 271 | (missing) | (missing) | | Bld Auto | 05:57:08 | [facility] | | | | + + + +-------+ + + + + | Result panel 325 | + + + + + +--------+ [...] + + + + | Result panel 326 | + + + + + +--------+ [...] 327 | + + + + + +--------+ [...] 330 | + + + + + +--------+ [...] 331 | + + + + + +--------+ [...] 333 | + + + + + +--------+ [...] + + + + | Result panel 334 | + + + + + +--------+ [...] 335 | + + + + + +--------+ [...] 336 | + + + + + +--------+ [...] 338 | + + + + + +--------+ [...] + + + + | Result panel 339 | + + + + + +--------+ [...] 340 | + + + + + +-------+ [...] 341 | + + + + + +--------+ [...] 342 | + + + + + +--------+ [...] 343 | + + + + + +--------+ [...] 361 | + + + + + +------+---------+ + | Glucose | 2025-08-19 | | 93 | mg/dL | (missing) | | [facility] | 22:20:08 | [facility] | | | | + + + +------+---------+ + + + | Result panel 362 | + + + + + +------+---------+ + | BUN | 2025-08-19 | | 36 | mg/dL | (missing) | | Ser[facility] | 22:20:08 | [facility] | | | | + + + +------+---------+ + + + | Result panel 363 | + + + + + +--------+---------+ + | Creat | 2025-08-19 | | 2.34 | mg/dL | (missing) | | [facility] | 22:20:08 | [facility] | | | | + + + +--------+---------+ + + + | Result panel 364 | + + + + + +------+ [...] 365 | + + + + + +---------+ [...] 366 | + + + + + +-------+ [...] 367 | + + + + + +-------+ [...] 368 | + + + + + +------+ [...] 369 | + + + + + +------+ [...] 370 | + + + + + +--------+ [...] 371 | + + + + + +-------+---------+ [...] +-------+---------+ + + + | Result panel 372 | + + + + + +-------+ [...] 373 | + + + + + +-------+ [...] 375 | + + + + + +--------+ [...] 376 | + + + + + +-------+---------+ [...] +-------+---------+ + + + | Result panel 377 | + + + + + +------+ [...] 378 | + + + + + +------+ [...] 379 | + + + + + +-------+ [...] 380 | + + + + + +------+ [...] 382 | + + + + + + [...] 383 | + + + + + + [...] 384 | + + + + + +---------+ [...] 385 | + + + + + +---------+ [...] 386 | + + + + + + + + + | Bilbenny Ur | 2025-08-19 | | NEGATIVE | (missing) | (missing) | | Ql Strip | 23:50:08 | [facility] | | | | + + + + + + + + + | Result panel 387 | + + + + + + [...] 388 | + + + + + +---------+ [...] 389 | + + + + + + [...] 390 | + + + + + +-------+ [...] 391 | + + + + + + + + + | Prot Ur | 2025-08-19 | | NEGATIVE | (missing) | (missing) | | Strip-[facility] | 23:50:08 | [facility] | | | | + + + + + + + + + | Result panel 392 | + + + + + + [...] 393 | + + + + + + [...] 394 | + + + + + + [...]
--- OUTSIDE RECORDS SUMMARY | 2025-08-20 11:28 | XMS ---
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 Security Home Help Aide Events No recent Security Events currently on file CRITERIA MET - 6 ED Visits in 6 Months - [facility] - 2 Visits in 30 Days - [facility] - 3 Facilities in 90 Days CARE PROVIDERS Michelle Lucio Registered Nurse 11/24/2019-Current PHONE: Unknown ABRAN ALVARADO Family Medicine Current PHONE: [phone] MIGEL MUNOZ Family Medicine: Obesity Medicine Current PHONE: [phone] Care Guidelines exist for the following facilities: [facility] ([place]) ( 07/28/2019 ) [facility] ( 06/18/2013 ) [facility] VISIT COUNT (12 MO.) 26 [facility] ([place]) 23 [facility] TOTAL 50 NOTE: Visits indicate total known visits. ED/UCC VISIT TRACKING (12 MO.) 08/20/2025 11:22 [facility] [place] TYPE: Emergency COMPLAINT: - WOUND CHECK 08/19/2025 21:57 [facility] [place] TYPE: Emergency COMPLAINT: - ABDOMINAL PAIN 08/18/2025 19:09 [facility] [place] TYPE: Emergency COMPLAINT: - WOUND CHECK 08/18/2025 05:35 [facility] [place] TYPE: Emergency COMPLAINT: - ABDOMINAL PAIN DIAGNOSES: - Chronic hepatic failure without coma - Other ascites - Other fdc (current) drug therapy - Patient's noncompliance with other medical treatment and regimen for other reason - Unspecified abdominal pain 08/17/2025 06:20 [facility] [place] TYPE: Emergency COMPLAINT: - SHORTNESS OF BREATH 08/13/2025 20:34 [facility] [place] TYPE: Emergency COMPLAINT: - STOMACH PAIN DIAGNOSES: - Heart failure, unspecified - prison (current) use of aspirin - Other rat exterminator (current) drug therapy - Unspecified abdominal pain - Urinary tract infection, site not specified [facility] DIAGNOSES: - Heart failure, unspecified - Other fluid overload - Abdominal Pain - Shortness of Breath 08/10/2025 07:15 [facility] [place] TYPE: Emergency COMPLAINT: - ABDOMINAL PAIN DIAGNOSES: - Heart failure, unspecified - prison (current) use of aspirin - Other fdc (current) drug therapy - Unspecified abdominal pain 08/08/2025 07:37 [facility] [place] TYPE: Emergency COMPLAINT: - ABDOMINAL PAIN DIAGNOSES: - Heart failure, unspecified - Other ascites - Other fdc (current) drug therapy - Unspecified abdominal pain - Unspecified atrial fibrillation 08/07/2025 13:42 [facility] [place] TYPE: Emergency COMPLAINT: - ABDOMINAL PAIN DIAGNOSES: - Heart failure, unspecified - rat exterminator (current) use of aspirin - Other rat exterminator (current) drug therapy - Right lower [...] disease, or unspecified chronic kidney disease - prison (current) use of aspirin - Other ascites - Other fdc (current) drug therapy - Unspecified cirrhosis of liver - Weakness 07/27/2025 23:[address] [facility] [place] TYPE: Emergency COMPLAINT: - ANXIETY DIAGNOSES: - Benign prostatic hyperplasia with lower urinary tract symptoms - Cardiomyopathy, unspecified - Heart failure, unspecified - Other psychoactive substance abuse, uncomplicated - Other retention of urine - Patient's other noncompliance with medication regimen for other reason - Shortness of breath - Urinary tract infection, site not specified 07/23/2025 11:[address] [facility] [place] TYPE: Emergency COMPLAINT: - ABDOMINAL PAIN 07/20/2025 15:28 [facility] TYPE: Emergency DIAGNOSES: - Heart failure, unspecified - Abdominal Pain - weakness, abd pain 07/14/2025 10:25 [facility] [place] TYPE: Emergency COMPLAINT: - SHORTNESS OF BREATH DIAGNOSES: - Acute respiratory failure with hypoxia - Cardiomyopathy, unspecified - Chronic pulmonary edema - Heart failure, unspecified - Hypertensive heart disease with heart failure - Other rat exterminator (current) drug therapy - Shortness of breath 07/11/2025 18:18 [facility] TYPE: Emergency DIAGNOSES: - Other ascites - abd pain - Abdominal Pain - Shortness of Breath 07/09/2025 10:53 [facility] TYPE: Emergency DIAGNOSES: - Other ascites - Abdominal Pain - Followup Medical Problem 07/01/2025 10:58 [facility] TYPE: Emergency DIAGNOSES: - COVID-19 - Other ascites - Unspecified cirrhosis of liver - abd pain - Abdominal Pain 06/26/2025 20:58 [facility] [place] TYPE: Emergency COMPLAINT: - DIFFICULTY BREATHING DIAGNOSES: - Gastro-esophageal reflux disease without esophagitis - Heart failure, unspecified - Hypertensive heart disease with heart failure - prison (current) use of aspirin - Other rat exterminator (current) drug therapy - Procedure and treatment not carried out because of patient's decision for other reasons - Shortness of breath - Unspecified cirrhosis of liver Plus 30 More Visits INPATIENT VISIT TRACKING (12 MO.) 08/10/2025 23:16 [facility] TYPE: Medical Surgical DIAGNOSES: [...] Hypertensive heart disease with heart failure - prison (current) use of antibiotics - prison (current) use of antibiotics - rat exterminator (current) use of anticoagulants - prison (current) use of anticoagulants - prison (current) use of aspirin - rat exterminator (current) use of aspirin - rat exterminator (current) use of inhaled steroids - rat exterminator (current) use of inhaled steroids - Nicotine dependence, cigarettes, uncomplicated - Nicotine dependence, cigarettes, uncomplicated - Obesity, unspecified - Obesity, unspecified - Other fdc (current) drug therapy - Other fdc (current) drug therapy - Personal history of other diseases of the digestive system - Personal history of other diseases of the digestive system - Presence of cardiac pacemaker - Presence of cardiac pacemaker - Shortness of breath - Unspecified asthma, uncomplicated - Unspecified asthma, uncomplicated 07/29/2025 23:03 [facility] [place] TYPE: Medical Surgical COMPLAINT: - transfer DIAGNOSES: [...] block, unspecified 10. 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 Pulmonary [...] - Ischemic cardiomyopathy - Ischemic cardiomyopathy - prison (current) use of inhaled steroids - prison (current) use of inhaled steroids - Nicotine dependence, cigarettes, uncomplicated - Nicotine dependence, cigarettes, uncomplicated - Obesity, unspecified - Obesity, unspecified - Other ascites - Other ascites - Other fdc (current) drug therapy - Other rat exterminator (current) drug therapy - Other specified postprocedural [...] - Unspecified cirrhosis of liver 07/14/2025 17:01 [facility] TYPE: Medical Surgical DIAGNOSES: - Acute kidney failure, unspecified - Acute on chronic combined systolic (congestive) and diastolic (congestive) heart failure - Alcoholic cirrhosis of liver with ascites - Chronic combined systolic (congestive) and diastolic (congestive) heart failure - Essential (primary) hypertension - Pulmonary hypertension, unspecified - Anasarca - CHF 06/20/2025 00:13 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 with unspecified angina pectoris - [...] Unspecified systolic (congestive) heart failure 04/06/2025 16:11 [facility] ([place] TYPE: Medical Surgical DIAGNOSES: - Acute kidney [...] rat exterminator (current) use of aspirin - prison (current) use of aspirin - Other ascites [...] Unspecified cirrhosis of liver 03/13/2025 09:07 [facility] TYPE: Medical Surgical DIAGNOSES: - Acute on chronic combined systolic (congestive) and diastolic (congestive) heart failure - Alcohol dependence, in remission - Atherosclerotic heart disease of y[place] dehe coronary artery with unspecified angina pectoris - Chronic kidney disease, stage 3a - Heart failure, unspecified - Mild intermittent asthma, uncomplicated - Myocardial infarction type 2 - Nicotine dependence, cigarettes, in remission - Nonrheumatic mitral (valve) insufficiency - Other specified abnormal findings of blood chemistry - Pulmonary hypertension, unspecified 02/16/2025 12:41 [facility] TYPE: Medical [...] medication regimen for other reason 01/13/2025 09:17 [facility] TYPE: Emergency DIAGNOSES: - Acute on chronic combined systolic (congestive) and diastolic (congestive) heart failure - Acute respiratory failure with hypoxia - Fluid overload, unspecified - Homelessness unspecified - Patient's noncompliance with dietary regimen due to unspecified reason - Shortness of breath 12/29/2024 06:07 [facility] TYPE: Medical Surgical DIAGNOSES: - Acute kidney failure, unspecified - Acute on chronic combined systolic (congestive) and diastolic (congestive) heart failure - Alcohol abuse, uncomplicated - 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
[2025-08-20 13:26] VITALS: BP 114/86
[2025-08-22] MEDS ORDERED: CIPROFLOXACIN500 MG PO (15:14)
[2025-08-22] MEDS ORDERED: HYDROCODON-ACE1 EA10 PO (18:23)
[2025-08-26] MEDS ORDERED: CEPHALEXIN500 MG PO (09:35)
[2025-08-26] MEDS ORDERED: CEPHALEXIN500 M1 PO (09:37)
[2025-08-29] MEDS ORDERED: ALDACTONE25 MG PO (21:49)
[2025-08-29] MEDS ORDERED: SOAANZ40 MG PO (21:49)
== END 2025-08-20 13:28 | disposition home or self-care (01) ==
LOC: ED 11:22
DX: K91.89 Other postprocedural complications and disorders of digestive system (principal); Z79.899 Other long term (current) drug therapy
CPT/HCPCS: 80053; 83605; 85025; 99282

== ENCOUNTER 2025-08-26 22:11 | Emergency (ER) | payer MEDICARE, MEDICAID ==
[~2025-08-26] VITALS: Ht 180.3 cm; Wt 106.6 kg
--- OUTSIDE RECORDS SUMMARY | ~2025-08-26 | XMS | Continuity of Care Document ---
Demographics + + + | Address | [address] | | | [place] [address] | + + + | Preferred Language | Unknown | + + + | Marital Status | | + + + | Lutheran Affiliation | Unknown | + + + | Race | Unknown | + + + | Ethnic Group | or | + + + Author + + + | Author | [facility] | + + + | Organization | [facility] | + + + | Address | [address] | | | [place] [address] | + + + | Phone | | + + + Care Team Providers + + + + | Care Upholstered Goods Crafter Name | Role | Phone | + + + + Unavailable | Unavailable | + + + + Unavailable | Unavailable | + + + + Allergies No information. Encounters No information. Functional Status No information. Immunizations No information. Medications + + + + | date | description | facility | + + + + | (no date) | PHENAZOPYRIDINE HCL | [facility] | | | | [facility] | + + + + | 2025-07-28 00:00 | PHENAZOPYRIDINE HCL | [facility] | | | | [facility] | + + + + | (no date) | EMPAGLIFLOZIN | [facility] | | | | [facility] | + + + + | (no date) | SACUBITRIL/VALSARTAN | [facility] | | | | [facility] | + + + + | (no date) | POTASSIUM CHLORIDE | [facility] | | | | [facility] | + + + + | (no date) | AMLODIPINE BESYLATE | [facility] | | | | [facility] | + + + + | 2025-07-28 00:00 | CEPHALEXIN | [facility] | | | | [facility] | + + + + | 2025-08-14 00:00 | CEPHALEXIN | [facility] | | | | [facility] | + + + + | (no date) | IBUPROFEN | [facility] | | | | [facility] | + + + + | (no date) | IBUPROFEN | [facility] | | | | [facility] | + + + + | 2025-07-25 00:00 | NITROGLYCERIN | [facility] | | | | [facility] | + + + + | (no date) | TORSEMIDE | [facility] | | | | [facility] | + + + + | 2025-08-06 00:00 | TORSEMIDE | [facility] | | | | [facility] | + + + + | (no date) | MAGNESIUM OXIDE | [facility] | | | | [facility] | + + + + | (no date) | Apixaban | [facility] | | | | [facility] | + + + + | (no date) | FUROSEMIDE | [facility] | | | | [facility] | + + + + | (no date) | SPIRONOLACTONE | [facility] | | | | [facility] | + + + + | 2025-08-18 00:00 | CIPROFLOXACIN HCL | [facility] | | | | [facility] | + + + + | (no date) | FINASTERIDE | [facility] | | | | [facility] | + + + + | (no date) | FOLIC ACID | [facility] | | | | [facility] | + + + + | (no date) | IBUPROFEN | [facility] | | | [facility] | + + + + | (no date) | SPIRONOLACTONE | [facility] | | | | [facility] | + + + + | 2025-07-25 00:00 | SPIRONOLACTONE | [facility] | | | | [facility] | + + + + | (no date) | THIAMINE HCL | [facility] | [facility] | + + + + | (no date) | FUROSEMIDE | [facility] | | | [facility] | + + + + | (no date) | LISINOPRIL | [facility] | | | | [facility] | + + + + | (no date) | LISINOPRIL | [facility] | | | | [facility] | + + + + | (no date) | ASPIRIN | [facility] | | | | [facility] | + + + + | 2025-07-25 00:00 | ASPIRIN | [facility] | [facility] | [facility] | + + + + | (no date) | LACTULOSE | [facility] | | | | [facility] | + + + + | (no date) | ATORVASTATIN CALCIUM | [facility] | | | | [facility] | + + + + | (no date) | POTASSIUM CHLORIDE | [facility] | | | | [facility] | + + + + | (no date) | TRAMADOL HCL | [facility] | | | | [facility] | + + + + | 2025-08-18 00:00 | HYDROCODONE | [facility] | | | BIT/ACETAMINOPHEN | [facility] | + + + + | (no date) | ALBUTEROL SULFATE | [facility] | | | | [facility] | + + + + | (no date) | TAMSULOSIN HCL | [facility] | | | | [facility] | + + + + | (no date) | METOPROLOL SUCCINATE | [facility] | | | | [facility] | + + + + | (no date) | METOPROLOL SUCCINATE | [facility] | | | | [facility] | + + + + | 2025-07-25 00:00 | METOPROLOL SUCCINATE | [facility] | | | | [facility] | + + + + | (no date) | LOSARTAN POTASSIUM | [facility] | | | | [facility] | + + + + | (no date) | MIDODRINE HCL | [facility] | | | | [facility] | + + + + Problems + + + + | date | description | facility | + + + + | 2025-07-14 00:00 | Cardiomyopathy | [facility] | | | | [facility] | + + + + | 2025-07-14 00:00 | Pulmonary edema | [facility] | | | | [facility] | + + + + | 2025-07-14 00:00 | Acute respiratory failure | [facility] | | | with hypoxemia | [facility] | + + + + | 2025-07-28 00:00 | Substance abuse | [facility] | | | | [facility] | + + + + | 2025-07-28 00:00 | Cardiomyopathy | [facility] | | | | [facility] | + + + + | 2025-07-28 00:00 | Congestive heart failure | [facility] | | | | [facility] | + + + + | 2025-07-28 00:00 | Urinary tract infection | [facility] | | | | [facility] | + + + + | 2025-07-28 00:00 | Benign prostatic | [facility] | | | hyperplasia with urinary | [facility] | | | retention | | + + + + | 2025-07-28 00:00 | Noncompliance with | [facility] | | | medication regimen | [facility] | + + + + | 2025-07-29 00:00 | 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[facility] | | | ascites | [facility] | + + + + | 2025-07-29 00:00 | Acute renal failure | [facility] | | | superimposed on chronic | [facility] | | | kidney disease | | + + + + | 2025-07-29 00:00 | Generalized edema | [facility] | | | | [facility] | + + + + | 2025-08-03 00:00 | Shortness of breath | [facility] | | | | [facility] | + + + + | 2025-08-08 00:00 | Atrial fibrillation with | [facility] | | | rapid ventricular response | [facility] | + + + + | 2025-08-17 00:00 | Sepsis | [facility] | | | | [facility] | + + + + | 2025-08-17 00:00 | Abdominal ascites | [facility] | | | | [facility] | + + + + | 2025-08-18 00:00 | End stage liver disease | [facility] | | | | [facility] | + + + + | 2025-08-18 00:00 | Encounter for wound | [facility] | | | re-check | [facility] | + + + + | 2025-08-18 00:00 | Medication non-compliance | [facility] | | | due to excessive pill | [facility] | | | burden | | + + + + | 2025-08-20 00:00 | Advanced cirrhosis of | [facility] | | | liver | [facility] | + + + + Procedures + + + + | date | description | facility | + + + + | 2025-07-23 00:00 | DRAINAGE OF BLADDER WITH | [facility] | | | DRAINAGE DEVICE, VIA | [facility] | | | OPENING | | + + + + | 2025-08-03 00:00 | DRAINAGE OF BLADDER WITH | [facility] | | | DRAINAGE DEVICE, VIA | [facility] | | | OPENING | | + + + + | 2025-08-04 00:00 | DRAINAGE OF PERITONEAL | [facility] | | | CAVITY, PERCUTANEOUS | [facility] | | | APPROACH | | + + + + | 2025-08-04 00:00 | TRANSFUSE NONAUT SERUM | [facility] | | | ALBUMIN IN PERIPH VEIN, | [facility] | | | PERC | | + + + + Results/Labs +--------+--------+ +---------+--------+---------+ | test | date | facility | value | unit | notes | +--------+--------+ +---------+--------+---------+ + + | Result panel 1 | + + + + + +--------+ + + | Tico MEDEIROS | 2025-07-14 | | 3.02 | (missing) | (missing) | | Lady | 10:40:08 | [facility] | | | | | [...] (missing) | | [facility] | 05:17:08 | [facility] | | [...] (missing) | | [facility] | 05:17:08 | [facility] | | [...] 7 | + + + + + +-------+---------+ [...] +-------+---------+ + + + | Result panel 8 | + + + + + +-------+---------+ + | Phosphate | 2025-07-25 | | 2.6 | mg/dL | (missing) | | [facility] | 05:17:08 | [facility] | | | | + + + +-------+---------+ + + + | Result panel 9 [...] | | S-CoV-2 Ag | | - | | | | | Resp Ql | | [facility] | | | [facility] | | | | [...] | [facility] | | | | | rapid | | Hospital | | | | [...] [facility] | | | | | Ql rapid | [facility] | | | [...] + + + + + + | [facility]ANGEL Ag | 2025-07-28 | | NEGATIVE | [...] 35 | + + + + + + [...] 36 | + + + + + + [...] 45 | + + + + + +-------+ [...] 46 | + + + + + +-------+ [...] | [facility] | | | | | [facility] | | | | + + + +--------+ + + + + | Result panel 48 | + + + + + + [...] 49 | + + + + + + [...] 50 | + + + + + + [...] 51 | + + + + + + [...] 53 | + + + + + + [...] 54 | + + + + + + [...] 55 | + + + + + + [...] 56 | + + + + + + [...] 58 | + + + + + + [...] 60 | + + + + + + [...] + + + + + | Asuncion Perez | 2025-08-04 | | POSITIVE | (missing) [...] 63 | + + + + + +---------+ [...] 64 | + + + + + +---------+ [...] 66 | + + + + + +-------+ [...] 67 | + + + + + +-------+ [...] 68 | + + + + + + [...] 69 | + + + + + +---------+ [...] 71 | + + + + + +---------+ [...] 72 | + + + + + +-----+ + + | Epi Cells | 2025-08-04 | | 0 | (missing) | (missing) | | #/area [facility] | 10:13:08 | [facility] | | | | | [facility] | | | | + + + +-----+ + + + + | Result panel 73 | + + + + + + [...] 75 | + + + + + + + + + | [facility] | 2025-08-04 | | NONE SEEN | [...] 76 | + + + + + +-------+ [...] 77 | + + + + + + [...] 78 | + + + + + + [...] 79 | + + + + + + [...] 80 | + + + + + +--------+ [...] 81 | + + + + + +--------+ [...] 82 | + + + + + +--------+ [...] 83 | + + + + + +--------+ [...] + + + + | Result panel 84 | + + + + + +--------+ [...] + + + + | Result panel 85 | + + + + + +--------+ [...] + + + + | Result panel 86 | + + + + + +--------+ [...] 87 | + + + + + +--------+ [...] 88 | + + + + + +--------+ + + | Hgb | 2025-08-06 | | 11.7 | (missing) | (missing) | | [facility] | 05:24:08 | [facility] | | | | + + + +--------+ + + + + | Result panel 89 | + + + + + +--------+ [...] 90 | + + + + + +--------+ [...] 91 | + + + + + +--------+ [...] 93 | + + + + + +-------+ [...] + + + + | Result panel 94 | + + + + + +--------+ + + | Neutrophils | 2025-08-06 | | 77.5 | (missing) | (missing) | | NFr Bld | 05:24:08 | [facility] | | | | | Auto | [facility] | | | | + + + +--------+ + + + + | Result panel 95 | + + + + + +--------+ [...] 98 | + + + + + +-------+ + + | Basophils | 2025-08-06 | | 0.6 | (missing) | (missing) | | NFr Bld Auto | 05:24:08 | [facility] | | | | [...] 100 | + + + + + +------+---------+ [...] +------+---------+ + + + | Result panel 101 | + + + + + +--------+---------+ + | Creat | 2025-08-06 | | 1.69 | mg/dL | (missing) | | [facility] | 05:24:08 | [facility] | | | | + + + +--------+---------+ + + + | Result panel 102 | + + + + + +------+ [...] 103 | + + + + + +---------+ [...] 104 | + + + + + +-------+ [...] 105 | + + + + + +-------+ [...] 106 | + + + + + +-------+ + + | Chloride | 2025-08-06 | | 101 | (missing) | (missing) | | [facility] | 05:24:08 | [facility] | | | | + + + +-------+ + + + + | Result panel 107 | + + + + + +------+ [...] 108 | + + + + + +--------+ [...] 109 | + + + + + +-------+---------+ [...] +-------+---------+ + + + | Result panel 110 | + + + + + +-------+---------+ + | Magnesium | 2025-08-06 | | 1.8 | mg/dL | (missing) | | SerPl-[facility] | 05:24:08 | [facility] | | | | + + + +-------+---------+ + + + | Result panel 111 | + + + + + +-------+ + + | Prot | 2025-08-06 | | 5.4 | (missing) | (missing) | | [facility]Pstella[facility] | 05:24:08 | [facility] | | | | + + + +-------+ + + + + | Result panel 112 | + + + + + +-------+ + + | Albumin | 2025-08-06 | | 2.6 | (missing) | (missing) | | SerPl-mCkirstin | 05:24:08 | [facility] | | | | + + + +-------+ + + + + | Result panel 113 | + + + + + +-------+ + + | Globulin | 2025-08-06 | | 2.8 | (missing) | (missing) | | [facility] | 05:24:08 | [facility] | | | | + + + +-------+ + + + + | Result panel 114 | + + + + + +--------+ [...] 115 | + + + + + +-------+---------+ [...] +-------+---------+ + + + | Result panel 116 | + + + + + +------+ [...] 117 | + + + + + +------+ + + | ALT | 2025-08-06 | | 23 | (missing) | (missing) | | SerPl-cCnc | 05:24:08 | [facility] | | | | + + + +------+ + + + + | Result panel 118 | + + + + + +-------+ [...] 139 | + + + + + + [...] 140 | + + + + + + [...] 141 | + + + + + + [...] 142 | + + + + + + [...] 143 | + + + + + + [...] 144 | + + + + + + [...] + + + + | Result panel 145 | + + + + + + [...] 146 | + + + + + + [...] 147 | + + + + + + [...] 148 | + + + + + + [...] 149 | + + + + + + [...] 150 | + + + + + + [...] 151 | + + + + + + [...] 152 | + + + + + + [...] + + + + | Result panel 153 | + + + + + + [...] 154 | + + + + + + [...] 155 | + + + + + + [...] 156 | + + + + + + [...] 157 | + + + + + + + + + | Benzosayra | 2025-08-08 | | NEGATIVE | (missing) | (missing) | | Ur Ql | 09:00:08 | [facility] | | | | | Scn>300 | [facility] | | | | | ng/mL | | [facility] | | | | + + + + + + + + + | Result panel 158 | + + + + + + [...] + + + + | Result panel 159 | + + + + + + [...] + + + + | Result panel 160 | + + + + + + [...] 161 | + + + + + + [...] 162 | + + + + + + [...] 163 | + + + + + + [...] 164 | + + + + + + [...] 165 | + + + + + + [...] 166 | + + + + + + [...] 167 | + + + + + + [...] + + + + | Result panel 168 | + + + + + + [...] + + + + | Result panel 169 | + + + + + + [...] 170 | + + + + + + [...] 171 | + + + + + + [...] 172 | + + + + + + [...] 173 | + + + + + + [...] + + + + | Result panel 174 | + + + + + + [...] 175 | + + + + + + [...] 176 | + + + + + + [...] 177 | + + + + + + [...] 179 | + + + + + +--------+ [...] 180 | + + + + + +--------+ [...] 181 | + + + + + +--------+ [...] 182 | + + + + + +--------+ + + | Hgb | 2025-08-13 | | 12.1 | (missing) | (missing) | | Bld-mCnc | 22:02:08 | [facility] | | | | + + + +--------+ + + + + | Result panel 183 | + + + + + +--------+ + + | Hct VFr.DF | 2025-08-13 | | 37.7 | (missing) | (missing) | | Bld Auto | 22:02:08 | [facility] | | | | | | | - | | | | | | | [facility] | | | | + + + +--------+ + + + + | Result panel 184 | + + + + + +-------+---------+ + | Magnesium | 2025-08-13 | | 1.8 | mg/dL | (missing) | | SerPl-mCnc | 22:02:08 | [facility] | | | | | | | - | | | | | | | [facility] | | | | + + + +-------+---------+ + + + | Result panel 185 | + + + + + +------+ [...] 186 | + + + + + +--------+ [...] 187 | + + + + + +--------+ + + | MCH RBC Qn | 2025-08-13 | | 26.9 | (missing) | (missing) | | Auto | ::08 | [facility] | | | | + + + +--------+ + + + + | Result panel 188 | + + + + + +--------+ + + | MCHC RBC | 2025-08-13 | | 32.1 | (missing) | (missing) | | Auto-EntMCnc | 22:02:08 | [facility] | | | | + + + +--------+ + + + + | Result panel 189 | + + + + + +-------+ [...] 190 | + + + + + +--------+ [...] 192 | + + + + + +-------+---------+ [...] +-------+---------+ + + + | Result panel 193 | + + + + + +------+ [...] 194 | + + + + + +--------+ [...] 195 | + + + + + +-------+ [...] 197 | + + + + + +-------+---------+ [...] +-------+---------+ + + + | Result panel 198 | + + + + + +-------+---------+ + | Magnesium | 2025-08-13 | | 1.8 | mg/dL | (missing) | | [facility] | 22:02:08 | [facility] | [facility] | | | | + + + +-------+---------+ + + + | Result panel 199 | + + + + + +------+---------+ + | Glucose | 2025-08-13 | | 86 | mg/dL | (missing) | | SerPl-mCnc | 22:02:08 | [facility] | | | | + + + +------+---------+ + + + | Result panel 200 | + + + + + +------+---------+ [...] +------+---------+ + + + | Result panel 201 | + + + + + +--------+---------+ [...] +--------+---------+ + + + | Result panel 202 | + + + + + +------+ + + | eGFRcr | 2025-08-13 | | 42 | (missing) | (missing) | | SerPlBld | 22:02:08 | [facility] | | | | | CKD-EPI 2020 | | - | | | | [...] 204 | + + + + + +-------+ [...] 207 | + + + + + +------+ + + | CO2 | 2025-08-13 | | 27 | (missing) | (missing) | | [facility] | 22:02:08 | [facility] | | | | + + + +------+ + + + + | Result panel 208 | + + + + + +--------+ [...] 209 | + + + + + +-------+---------+ [...] +-------+---------+ + + + | Result panel 210 | + + + + + +-------+---------+ [...] +-------+---------+ + + + | Result panel 211 | + + + + + +-------+ [...] 212 | + + + + + +-------+ + + | Albumin | 2025-08-13 | | 2.9 | (missing) | (missing) | | [facility] | 22::08 | [facility] | | | | + + + +-------+ + + + + | Result panel 213 | + + + + + +-------+ [...] 214 | + + + + + +--------+ [...] 215 | + + + + + +-------+---------+ [...] +-------+---------+ + + + | Result panel 216 | + + + + + +------+ [...] 217 | + + + + + +------+ + + | ALT | 2025-08-13 | | 26 | (missing) | (missing) | | SerPl-cCnc | 22:02:08 | [facility] | | | | + + + +------+ + + + + | Result panel 218 | + + + + + +-------+ [...] 219 | + + + + + +------+ [...] 221 | + + + + + +---------+ [...] 223 | + + + + + + + + + | Asuncion Perez | 2025-08-13 | | NEGATIVE | [...] 225 | + + + + + +---------+ [...] 226 | + + + + + + [...] 228 | + + + + + +------+ [...] 229 | + + + + + +-------+ [...] 230 | + + + + + + [...] 231 | + + + + + + + + + | Leukocyte | 2025-08-13 | | NEGATIVE | (missing) | (missing) | | esterase Ur | 23:40:08 | [facility] | | | | | Ql Strip [facility] | | | | + + + + + + + + + | Result panel 232 | + + + + + +-------+ [...] 233 | + + + + + +--------+ + + | WBC #/area | 2025-08-13 | | 7-11 | (missing) | (missing) | | [facility] | 23:40:08 | [facility] | | | | + + + +--------+ + + + + | Result panel 234 | + + + + + + [...] 236 | + + + + + +------+ [...] + + + + + + | [facility] | 2025-08-13 | | NONE SEEN | [...] 238 | + + + + + +-------+ [...] 239 | + + + + + + [...] 240 | + + + + + + [...] + + + + | Result panel 241 | + + + + + +---------+ [...] + + + + | Result panel 242 | + + + + + + [...] + + + + | Result panel 243 | + + + + + + [...] 244 | + + + + + + [...] 245 | + + + + + +---------+ [...] 246 | + + + + + + [...] 30 | (missing) | (missing) | | Strip-mCnc | 23:40:08 | [facility] | | | | + + + +------+ + + + + | Result panel 249 | + + + + + +-------+ [...] 250 | + + + + + + [...] + + + + | Result panel 251 | + + + + + + [...] 253 | + + + + + +--------+ [...] 254 | + + + + + + [...] 255 | + + + + + + [...] + + + + | Result panel 256 [...] 257 | + + + + + + [...] 259 | + + + + + + [...] 260 | + + + + + + [...] 261 | + + + + + +---------+ [...] + + + + | Result panel 262 | + + + + + +-------+ [...] + + + + | Result panel 263 | + + + + + +--------+ [...] + + + + | Result panel 264 | + + + + + + [...] 265 | + + + + + + + + + | Crystals | 2025-08-13 | | NONE SEEN | (missing) | (missing) | | [facility] Collazo | 23:40:08 | [facility] | | | | + + + + + + + + + | Result panel 266 | + + + + + +------+ [...] 267 | + + + + + + [...] 269 | + + + + + + [...] 270 | + + + + + + [...] 271 | + + + + + + [...] + + + + | Result panel 272 | + + + + + + [...] 273 | + + + + + +---------+ [...] 274 | + + + + + + + + + | [facility] | 2025-08-13 | | NEGATIVE | (missing) [...] 275 | + + + + + +-------+ [...] 276 | + + + + + +------+ + + | Prot Ur | 2025-08-13 | | 30 | (missing) | (missing) | | Strip-mCnc | 23:40:08 | [facility] | | | | + + + +------+ + + + + | Result panel 277 | + + + + + +-------+ + + | | 2025-08-13 | | 1.0 | (missing) | (missing) | | [facility]rick[facility] | 23:40:08 | [facility] | | | | | Ur | [facility] | | | | | Strip-m[facility]nc | | [facility] | [facility] | | | | + + + +-------+ + + + + | Result panel 278 | + + + + + + [...] 279 | + + + + + + [...] | (missing) | (missing) | | UrnS [facility] | 23:40:08 | [facility] | | | | + + + +-------+ + + + + | Result panel 281 | + + + + + +--------+ + + | WBC #/area | 2025-08-13 | | 7-11 | (missing) | (missing) | | UrnS [facility] | 23:40:08 | [facility] | | | | + + + +--------+ + + + + | Result panel 282 | + + + + + + [...] 283 | + + + + + +-------+ [...] | WBC #/area | 2025-08-13 | | 7 | (missing) | (missing) | | [facility] | 23:40:08 | [facility] | | | | + + + +--------+ + + + + | Result panel 285 | + + + + + + [...] 286 | + + + + + + [...] 287 | + + + + + + [...] 288 | + + + + + +------+ [...] 289 | + + + + + + [...] 290 | + + + + + +-------+ [...] 291 | + + + + + + + + + | [facility] | 2025-08-13 | | CLEAN CATCH [...] 292 | + + + + + +------+ [...] 293 | + + + + + + [...] 294 | + + + + + +-------+ [...] 295 | + + + + + + [...] 296 | + + + + + +--------+ + + | [facility] | 2025-08-17 | | 3.14 | (missing) | (missing) | | [facility] | 06:42:08 | [facility] | | | | + + + +--------+ + + + + | Result panel 297 | + + + + + +---------+ [...] 298 | + + + + + +------+---------+ + | Glucose | 2025-08-17 | | 97 | mg/dL | (missing) | | [facility] [facility] | 06:42:08 | [facility] | [facility] | | | | + + + +------+---------+ + + + | Result panel 299 | + + + + + +------+---------+ [...] +------+---------+ + + + | Result panel 300 | + + + + + +--------+---------+ [...] +--------+---------+ + + + | Result panel 301 | + + + + + +------+ [...] 302 | + + + + + +---------+ [...] 303 | + + + + + +-------+ + + | Sodium | 2025-08-17 | | 132 | (missing) | (missing) | | [facility] | 06:42:08 | [facility] | | | | + + + +-------+ + + + + | Result panel 304 | + + + + + +-------+ [...] 305 | + + + + + +-------+ [...] 306 | + + + + + +------+ [...] 308 | + + + + + +-------+---------+ + | Calcium | 2025-08-17 | | 8.8 | mg/dL | (missing) | | [facility] | 06:42:08 | [facility] | | | | + + + +-------+---------+ + + + | Result panel 309 | + + + + + +-------+ + + | Prot | 2025-08-17 | | 6.0 | (missing) | (missing) | | [facility] | 06:42:08 [...] 2.8 | (missing) | (missing) | | [facility] | 06:42:08 | [facility] | | | [...] 313 | + + + + + +-------+---------+ [...] +-------+---------+ + + + | Result panel 314 | + + + + + +------+ + + | AST | 2025-08-17 | | 28 | (missing) | (missing) | | [facility] | 06:42:08 | [facility] | | | | + + + +------+ + + + + | Result panel 315 | + + + + + +------+ + + | ALT | 2025-08-17 | | 18 | (missing) | (missing) | | [facility] | 06:42:08 | [facility] | | | | + + + +------+ + + + + | Result panel 316 | + + + + + +-------+ + + | ALP | 2025-08-17 | | 147 | (missing) | (missing) | | [facility] | 06:42:08 | [facility] | | | | + + + +-------+ + + + + | Result panel 317 | + + + + + +--------+ [...] + + + + | Result panel 318 | + + + + + +---------+ [...] + + + + | Result panel 319 | + + + + + +--------+ [...] + + + + | Result panel 320 | + + + + + +---------+ [...] + + + + | Result panel 321 | + + + + + +--------+ + + | D Dimer PPP | 2025-08-17 | | 3.14 | (missing) | (missing) | | [facility] | 06:42:08 | [facility] | | | | + + + +--------+ + + + + | Result panel 322 | + + + + + +---------+ [...] + + + + | Result panel 323 | + + + + + +------+---------+ + | Glucose | 2025-08-17 | | 97 | mg/dL | (missing) | | [facility] | 06:42:08 | [facility] | | | | + + + +------+---------+ + + + | Result panel 324 | + + + + + +------+---------+ + | BUN | 2025-08-17 | | 31 | mg/dL | (missing) | | [facility] | 06:42:08 | [facility] | | | | + + + +------+---------+ + + + | Result panel 325 | + + + + + +--------+---------+ [...] +--------+---------+ + + + | Result panel 326 | + + + + + +------+ [...] + + + + | Result panel 327 | + + + + + +---------+ [...] + + + + | Result panel 328 | + + + + + +-------+ + + | Sodium | 2025-08-17 | | 132 | (missing) | (missing) | | [facility] | 06:42:08 | [facility] | | | + + + +-------+ + + + + | Result panel 329 | + + + + + +-------+ [...] + + + + | Result panel 330 | + + + + + +-------+ + + | Chloride | 2025-08-17 | | 100 | (missing) | (missing) | | [facility] | 06:42:08 | [facility] | | | | + + + +-------+ + + + + | Result panel 331 | + + + + + +------+ + + | CO2 | 2025-08-17 | | 21 | (missing) | (missing) | | [facility] | 06:42:08 | [facility] | | | | + + + +------+ + + + + | Result panel 332 | + + + + + +--------+ [...] + + + + | Result panel 333 | + + + + + +-------+---------+ + | Calcium | 2025-08-17 | | 8.8 | mg/dL | (missing) | | [facility] | 06:42:08 | [facility] | | | | + + + +-------+---------+ + + + | Result panel 334 | + + + + + +-------+ + + | Prot | 2025-08-17 | | 6.0 | (missing) | (missing) | | [facility] | 06:42:08 | [facility] | | | | + + + +-------+ + + + + | Result panel 335 | + + + + + +-------+ [...] + + + + | Result panel 336 | + + + + + +-------+ [...] + + + + | Result panel 337 | + + + + + +--------+ [...] + + + + | Result panel 338 | + + + + + +-------+---------+ [...] +-------+---------+ + + + | Result panel 339 | + + + + + +------+ + + | AST | 2025-08-17 | | 28 | (missing) | (missing) | | [facility] | 06:42:08 | [facility] | | | | + + + +------+ + + + + | Result panel 340 | + + + + + +------+ + + | ALT | 2025-08-17 | | 18 | (missing) | (missing) | | [facility] | 06:42:08 | [facility] | | | + + + +------+ + + + + | Result panel 341 | + + + + + +-------+ + + | ALP | 2025-08-17 | | 147 | (missing) | (missing) | | [facility] | 06:42:08 | [facility] | | | | + + + +-------+ + + + + | Result panel 342 | + + + + + +-------+ [...] + + + + | Result panel 343 | + + + + + +-------+ [...] + + + + | Result panel 344 | + + + + + +-------+ [...] + + + + | Result panel 345 | + + + + + +-------+ [...] + + + + | Result panel 346 | + + + + + +--------+ [...] + + + + | Result panel 347 | + + + + + +--------+ [...] + + + + | Result panel 348 | + + + + + +--------+ + + | WBC # Bld | 2025-08-18 | | 6.84 | (missing) | (missing) | | Auto | 05:57:08 | [facility] | | | | + + + +--------+ + + + + | Result panel 349 | + + + + + +--------+ [...] + + + + | Result panel 350 | + + + + + +--------+ [...] + + + + | Result panel 351 | + + + + + +--------+ [...] + + + + | Result panel 352 | + + + + + +--------+ [...] + + + + | Result panel 353 | + + + + + +--------+ [...] + + + + | Result panel 354 | + + + + + +--------+ [...] + + + + | Result panel 355 | + + + + + +-------+ [...] + + + + | Result panel 356 | + + + + + +--------+ [...] + + + + | Result panel 357 | + + + + + +--------+ [...] + + + + | Result panel 358 | + + + + + +--------+ [...] + + + + | Result panel 359 | + + + + + +-------+ [...] + + + + | Result panel 360 | + + + + + +-------+ [...] + + + + | Result panel 361 | + + + + + +--------+ [...] + + + + | Result panel 362 | + + + + + +--------+ + + | INR PPP | 2025-08-18 | | 1.24 | (missing) | (missing) | | | 05:57:08 | [facility] | | | | + + + +--------+ + + + + | Result panel 363 | + + + + + +--------+ [...] + + + + | Result panel 364 | + + + + + +--------+ [...] + + + + | Result panel 365 | + + + + + +--------+ + + | Hgb | 2025-08-18 | | 12.1 | (missing) | (missing) | | Bld-mCnc | 05:57:08 | [facility] | | [facility] | | | [facility] | | | | + + + +--------+ + + + + | Result panel 366 | + + + + + +--------+ [...] + + + + | Result panel 367 | + + + + + +--------+ [...] + + + + | Result panel 368 | + + + + + +--------+ [...] + + + + | Result panel 369 | + + + + + +--------+ [...] + + + + | Result panel 370 | + + + + + +-------+ [...] + + + + | Result panel 371 | + + + + + +--------+ [...] + + + + | Result panel 372 | + + + + + +--------+ [...] + + + + | Result panel 373 | + + + + + +--------+ [...] + + + + | Result panel 374 | + + + + + +-------+ [...] + + + + | Result panel 375 | + + + + + +-------+ [...] + + + + | Result panel 376 | + + + + + +--------+ [...] + + + + | Result panel 377 | + + + + + +--------+ [...] + + + + | Result panel 378 | + + + + + +--------+ [...] + + + + | Result panel 379 | + + + + + +--------+ [...] + + + + | Result panel 380 | + + + + + +--------+ [...] + + + + | Result panel 381 | + + + + + +--------+ + + | INR PPP | 2025-08-18 | | 1.24 | (missing) | (missing) | | | 05:57:08 | [facility] | | | | + + + +--------+ + + + + | Result panel 382 | + + + + + +--------+ + + | WBC # Bld | 2025-08-19 | | 8.01 | (missing) | (missing) | | Auto | 22:20:08 | [facility] | | | | + + + +--------+ + + + + | Result panel 383 | + + + + + +--------+ + + | RBC # Bld | 2025-08-19 | | 4.80 | (missing) | (missing) | | Auto | 22:20:08 | [facility] | | | | [facility] | | | [facility] | | | | + + + +--------+ + + + + | Result panel 384 | + + + + + +--------+ + + | Hgb | 2025-08-19 | | 12.8 | (missing) | (missing) | | Bld-mCnc | 22:20:08 | [facility] | | | | + + + +--------+ + + + + | Result panel 385 | + + + + + +--------+ + + | Hct VFr.DF | 2025-08-19 | | 39.8 | (missing) | (missing) | | Bld Auto | 22:20:08 | [facility] | | | | + + + +--------+ + + + + | Result panel 386 | + + + + + +--------+ + + | RBC Auto | 2025-08-19 | | 82.9 | (missing) | (missing) | | | 22:20:08 | [facility] | | | | + + + +--------+ + + + + | Result panel 387 | + + + + + +--------+ + + | MCH RBC Qn | 2025-08-19 | | 26.7 | (missing) | (missing) | | Auto | 22:20:08 | [facility] | | | | + + + +--------+ + + + + | Result panel 388 | + + + + + +--------+ + + | MCHC RBC | 2025-08-19 | | 32.2 | (missing) | (missing) | | Auto-EntMCnc | 22::08 | [facility] | | | | [facility] | [facility] | | | | + + + +--------+ + + + + | Result panel 389 | + + + + + +-------+ + + | Platelet # | 2025-08-19 | | 289 | (missing) | (missing) | | Bld Auto | 22:20:08 | [facility] | | | | + + + +-------+ + + + + | Result panel 390 | + + + + + +--------+ + + | Neutrophils | 2025-08-19 | | 74.8 | (missing) | (missing) | | NFr Bld | 22:20:08 | [facility] | | | | | Auto | [facility] | | | | + + + +--------+ + + + + | Result panel 391 | + + + + + +--------+ + + | Lymphocytes | 2025-08-19 | | 11.2 | (missing) | (missing) | | NFr Bld | 22:20:08 | [facility] | | | | | Auto | [facility] | | | | + + + +--------+ + + + + | Result panel 392 | + + + + + +--------+ + + | Monocytes | 2025-08-19 | | 12.7 | (missing) | (missing) | | NFr Bld Auto | 22:20:08 | [facility] | | | | + + + +--------+ + + + + | Result panel 393 | + + + + + +-------+ + + | Eosinophil | 2025-08-19 | | 0.2 | (missing) | (missing) | | NFr Bld Auto | 22:20:08 | [facility] | | | | + + + +-------+ + + + + | Result panel 394 | + + + + + +-------+ + + | Basophils | 2025-08-19 | | 0.7 | (missing) | (missing) | | NFr Bld Auto | 22:20:08 | [facility] | | | | + + + +-------+ + + + + | Result panel 395 | + + + + + +------+---------+ + | Glucose | 2025-08-19 | | 93 | mg/dL | (missing) | | SerPl-mCnc | 22:20:08 | [facility] | | | | + + + +------+---------+ + + + | Result panel 396 | + + + + + +------+---------+ + | BUN | 2025-08-19 | | 36 | mg/dL | (missing) | | SerPl-mCnc | 22:20:08 | [facility] | | | | + + + +------+---------+ + + + | Result panel 397 | + + + + + +--------+---------+ + | Creat | 2025-08-19 | | 2.34 | mg/dL | (missing) | | SerPl-mCnc | 22:20:08 | [facility] | | | | + + + +--------+---------+ + + + | Result panel 398 | + + + + + +------+ + + | eGFRcr | 2025-08-19 | | 30 | (missing) | (missing) | | SerPlBld | 22:20:08 | [facility] | | | | | CKD-EPI 2020 | [facility] | | | | + + + +------+ + + + + | Result panel 399 | + + + + + +---------+ + + | BUN/Creat | 2025-08-19 | | 15.38 | (missing) | (missing) | | SerPl | 22::08 | [facility] | | | | + + + +---------+ + + + + | Result panel 400 | + + + + + +-------+ + + | Sodium | 2025-08-19 | | 133 | (missing) | (missing) | | SerPl-sCnc | 22:20:08 | [facility] | | | | + + + +-------+ + + + + | Result panel 401 | + + + + + +-------+ + + | Potassium | 2025-08-19 | | 4.2 | (missing) | (missing) | | SerPl-sCnc | 22:20:08 | [facility] | | | | + + + +-------+ + + + + | Result panel 402 | + + + + + +------+ + + | Chloride | 2025-08-19 | | 99 | (missing) | (missing) | | SerPl-sCnc | 22:20:08 | [facility] | | | | + + + +------+ + + + + | Result panel 403 | + + + + + +------+ + + | CO2 | 2025-08-19 | | 21 | (missing) | (missing) | | [facility] | 22:20:08 | [facility] | | | | + + + +------+ + + + + | Result panel 404 | + + + + + +--------+ + + | Anion Gap | 2025-08-19 | | 17.2 | (missing) | (missing) | | SerPl | 22:20:08 | [facility] | | | | | Calculated.4 | [facility] | | | | + + + +--------+ + + + + | Result panel 405 | + + + + + +-------+---------+ + | Calcium | 2025-08-19 | | 9.2 | mg/dL | (missing) | | SerPl-mCnc | 22:20:08 | [facility] | | | | + + + +-------+---------+ + + + | Result panel 406 | + + + + + +-------+ + + | Prot | 2025-08-19 | | 5.5 | (missing) | (missing) | | [facility] | 22:20:08 | [facility] | | | | + + + +-------+ + + + + | Result panel 407 | + + + + + +-------+ + + | Albumin | 2025-08-19 | | 2.8 | (missing) | (missing) | | SerPl-[facility] | 22:20:08 | [facility] | | | | + + + +-------+ + + + + | Result panel 408 | + + + + + +-------+ + + | Globulin | 2025-08-19 | | 2.7 | (missing) | (missing) | | Ser-mCnc | 22:20:08 | [facility] | | | | + + + +-------+ + + + + | Result panel 409 | + + + + + +--------+ + + | | 2025-08-19 | | 1.04 | (missing) | (missing) | | Albumin/Glob | 22:20:08 | [facility] | | | | [facility] | | | | + + + +--------+ + + + + | Result panel 410 | + + + + + +-------+---------+ + | Bilirub | 2025-08-19 | | 1.2 | mg/dL | (missing) | | SerPl-mCnc | 22:20:08 | [facility] | | | | + + + +-------+---------+ + + + | Result panel 411 | + + + + + +------+ + + | AST | 2025-08-19 | | 25 | (missing) | (missing) | | SerPl-cCnc | 22:20:08 | [facility] | | | | + + + +------+ + + + + | Result panel 412 | + + + + + +------+ + + | ALT | 2025-08-19 | | 12 | (missing) | (missing) | | [facility] | 22:20:08 | [facility] | | | | + + + +------+ + + + + | Result panel 413 | + + + + + +-------+ + + | ALP | 2025-08-19 | | 112 | (missing) | (missing) | | SerPl-cCnc | 22:20:08 | [facility] | | | | + + + +-------+ + + + + | Result panel 414 | + + + + + +------+ + + | Lipase | 2025-08-19 | | 38 | (missing) | (missing) | | SerPl-c[facility]nc | 22:20:08 | [facility] | | | | + + + +------+ + + + + | Result panel 415 | + + + + + +--------+ + + | Troponin I | 2025-08-19 | | 98.1 | (missing) | (missing) | | SerPl | 22:20:08 | [facility] | | | | | HS-mCnc [facility] | | | | + + + +--------+ + + + + | Result panel 416 | + + + + + + + + + | Ethanol | 2025-08-19 | | <3 mg/dL | (missing) | (missing) | | SerPl-sCnc | 22:20:08 | [facility] | | | | + + + + + + + + + | Result panel 417 | + + + + + +--------+ + + | WBC # Bld | 2025-08-19 | | 8.01 | (missing) | (missing) | | Auto | 22:20:08 | [facility] | | | | + + + +--------+ + + + + | Result panel 418 | + + + + + +--------+ + + | RBC # Bld | 2025-08-19 | | 4.80 | (missing) | (missing) | | Auto | 22:20:08 | [facility] | | | | + + + +--------+ + + + + | Result panel 419 | + + + + + +--------+ + + | Hgb | 2025-08-19 | | 12.8 | (missing) | (missing) | | Bld-kirstin | 22:20:08 | [facility] | | | | + + + +--------+ + + + + | Result panel 420 | + + + + + +--------+ + + | Hct VFr.DF | 2025-08-19 | | 39.8 | (missing) | (missing) | | Bld Auto | 22:20:08 | [facility] | | | | + + + +--------+ + + + + | Result panel 421 | + + + + + +--------+ + + | RBC Auto | 2025-08-19 | | 82.9 | (missing) | (missing) | | | 22:20:08 | [facility] | | | | + + + +--------+ + + + + | Result panel 422 | + + + + + +--------+ + + | MCH RBC Qn | 2025-08-19 | | 26.7 | (missing) | (missing) | | Auto | 22:20:08 | [facility] | | | | + + + +--------+ + + + + | Result panel 423 | + + + + + +--------+ + + | MCHC RBC | 2025-08-19 | | 32.2 | (missing) | (missing) | | Auto-EntMCnc | 22:20:08 | [facility] | | | | + + + +--------+ + + + + | Result panel 424 | + + + + + +-------+ + + | Platelet # | 2025-08-19 | | 289 | (missing) | (missing) | | Bld Auto | 22:20:08 | [facility] | | | | + + + +-------+ + + + + | Result panel 425 | + + + + + +--------+ + + | Neutrophils | 2025-08-19 | | 74.8 | (missing) | (missing) | | NFr Bld | 22:20:08 | [facility] | | | | Auto | [facility] | | | | + + + +--------+ + + + + | Result panel 426 | + + + + + +--------+ + + | Lymphocytes | 2025-08-19 | | 11.2 | (missing) | (missing) | | NFr Bld | 22:20:08 | [facility] | | | | | Auto | [facility] | | | | + + + +--------+ + + + + | Result panel 427 | + + + + + +--------+ + + | Monocytes | 2025-08-19 | | 12.7 | (missing) | (missing) | | NFr Bld Auto | 22:20:08 | [facility] | | | | + + + +--------+ + + + + | Result panel 428 | + + + + + +-------+ + + | Eosinophil | 2025-08-19 | | 0.2 | (missing) | (missing) | | NFr Bld Auto | 22:20:08 | [facility] | | | | + + + +-------+ + + + + | Result panel 429 | + + + + + +-------+ + + | Basophils | 2025-08-19 | | 0.7 | (missing) | (missing) | | NFr Bld Auto | 22:20:08 | [facility] | | | | + + + +-------+ + + + + | Result panel 430 | + + + + + +------+---------+ + | Glucose | 2025-08-19 | | 93 | mg/dL | (missing) | | SerPl-mCnc | 22:20:08 | [facility] | | | | + + + +------+---------+ + + + | Result panel 431 | + + + + + +------+---------+ + | BUN | 2025-08-19 | | 36 | mg/dL | (missing) | | SerPl-mCnc | 22:20:08 | [facility] | | | | + + + +------+---------+ + + + | Result panel 432 | + + + + + +--------+---------+ + | Creat | 2025-08-19 | | 2.34 | mg/dL | (missing) | | SerPl-mCnc | 22:20:08 | [facility] | | | | + + + +--------+---------+ + + + | Result panel 433 | + + + + + +------+ + + | eGFRcr | 2025-08-19 | | 30 | (missing) | (missing) | | SerPlBld | 22:20:08 | [facility] | | | | | CKD-EPI 2020 | [facility] | | | | + + + +------+ + + + + | Result panel 434 | + + + + + +---------+ + + | BUN/Creat | 2025-08-19 | | 15.38 | (missing) | (missing) | | SerPl | 22:20:08 | [facility] | | | | + + + +---------+ + + + + | Result panel 435 | + + + + + +-------+ + + | Sodium | 2025-08-19 | | 133 | (missing) | (missing) | | SerPl-[facility] | 22:20:08 | [facility] | | | | + + + +-------+ + + + + | Result panel 436 | + + + + + +-------+ + + | Potassium | 2025-08-19 | | 4.2 | (missing) | (missing) | | SerPl-[facility] | 22:20:08 | [facility] | | | | + + + +-------+ + + + + | Result panel 437 | + + + + + +------+ + + | Chloride | 2025-08-19 | | 99 | (missing) | (missing) | | SerPl-[facility] | 22:20:08 | [facility] | | | | + + + +------+ + + + + | Result panel 438 | + + + + + +------+ + + | CO2 | 2025-08-19 | | 21 | (missing) | (missing) | | SerPl-[facility] | 22:20:08 | [facility] | | | | + + + +------+ + + + + | Result panel 439 | + + + + + +--------+ + + | Anion Gap | 2025-08-19 | | 17.2 | (missing) | (missing) | | SerPl | 22:20:08 | [facility] | | | | | Calculated.4 | [facility] | | | | + + + +--------+ + + + + | Result panel 440 | + + + + + +-------+---------+ + | Calcium | 2025-08-19 | | 9.2 | mg/dL | (missing) | | SerPl-m[facility]nc | 22:20:08 | [facility] | | | | + + + +-------+---------+ + + + | Result panel 441 | + + + + + +-------+ + + | Prot | 2025-08-19 | | 5.5 | (missing) | (missing) | | SerPl-m[facility] | 22:20:08 | [facility] | | | | + + + +-------+ + + + + | Result panel 442 | + + + + + +-------+ + + | Albumin | 2025-08-19 | | 2.8 | (missing) | (missing) | | SerPl-m[facility] | 22:20:08 | [facility] | | | | + + + +-------+ + + + + | Result panel 443 | + + + + + +-------+ + + | Globulin | 2025-08-19 | | 2.7 | (missing) | (missing) | | Ser-mCnc | 22:20:08 | [facility] | | | | + + + +-------+ + + + + | Result panel 444 | + + + + + +--------+ + + | | 2025-08-19 | | 1.04 | (missing) | (missing) | | Albumin/Glob | 22:20:08 | [facility] | | | | | [facility] | | | | + + + +--------+ + + + + | Result panel 445 | + + + + + +-------+---------+ + | Bilirub | 2025-08-19 | | 1.2 | mg/dL | (missing) | | SerPl-m[facility]nc | 22:20:08 | [facility] | | | | + + + +-------+---------+ + + + | Result panel 446 | + + + + + +------+ + + | AST | 2025-08-19 | | 25 | (missing) | (missing) | | [facility] | 22:20:08 | [facility] | | | | + + + +------+ + + + + | Result panel 447 | + + + + + +------+ + + | ALT | 2025-08-19 | | 12 | (missing) | (missing) | | [facility] | 22:20:08 | [facility] | | | | + + + +------+ + + + + | Result panel 448 | + + + + + +-------+ + + | ALP | 2025-08-19 | | 112 | (missing) | (missing) | | [facility] | 22:20:08 | [facility] | | | | + + + +-------+ + + + + | Result panel 449 | + + + + + +------+ + + | Lipase | 2025-08-19 | | 38 | (missing) | (missing) | | [facility] | 22:20:08 | [facility] | | | | + + + +------+ + + + + | Result panel 450 | + + + + + +--------+ + + | Troponin I | 2025-08-19 | | 98.1 | (missing) | (missing) | | SerPl | 22:20:08 | [facility] | | | | | [facility] | | | | + + + +--------+ + + + + | Result panel 451 | + + + + + + + + + | Ethanol | 2025-08-19 | | <3 mg/dL | (missing) | (missing) | | [facility] | 22:20:08 | [facility] | | | | + + + + + + + + + | Result panel 452 | + + + + + + + + + | Color Ur | 2025-08-19 | | YELLOW | (missing) | (missing) | | Auto | 23:50:08 | [facility] | | | | + + + + + + + + + | Result panel 453 | + + + + + +---------+ + + | Character | 2025-08-19 | | CLEAR | (missing) | (missing) | | Ur | 23:50:08 | [facility] | | | | + + + +---------+ + + + + | Result panel 454 | + + + + + +---------+ + + | Glucose Ur | 2025-08-19 | | SMALL | (missing) | (missing) | | Ql Strip | 23:50:08 | [facility] | | | | + + + +---------+ + + + + | Result panel 455 | + + + + + + + + + | Bilwatsonub Ur | 2025-08-19 | | NEGATIVE | (missing) | (missing) | | Ql Strip | 23:50:08 | [facility] | | | | + + + + + + + + + | Result panel 456 | + + + + + + + + + | Ketones Ur | 2025-08-19 | | NEGATIVE | (missing) | (missing) | | Ql Strip | 23:50:08 | [facility] | | | | + + + + + + + + + | Result panel 457 | + + + + + +---------+ + + | Sp Gr Ur | 2025-08-19 | | 1.015 | (missing) | (missing) | | Strip | 23:50:08 | [facility] | | | | + + + +---------+ + + + + | Result panel 458 | + + + + + + + + + | Hgb Ur Ql | 2025-08-19 | | NEGATIVE | (missing) | (missing) | | Strip | 23:50:08 | [facility] | | | | + + + + + + + + + | Result panel 459 | + + + + + +-------+ + + | pH Ur Strip | 2025-08-19 | | 6.0 | (missing) | (missing) | | | 23:50:08 | [facility] | | | | + + + +-------+ + + + + | Result panel 460 | + + + + + + + + + | Prot Ur | 2025-08-19 | | NEGATIVE | (missing) | (missing) | | [facility] | 23:50:08 | [facility] | | | | + + + + + + + + + | Result panel 461 | + + + + + + + + + | | 2025-08-19 | | NORMAL | (missing) | (missing) | | Urobilinogen | 23:50:08 | [facility] | | | | | Ur [facility] | [facility] | | | | + + + + + + + + + | Result panel 462 | + + + + + + + + + | Nitrite Ur | 2025-08-19 | | NEGATIVE | (missing) | (missing) | | Ql Strip | 23:50:08 | [facility] | | | | + + + + + + + + + | Result panel 463 | + + + + + + + + + | Leukocyte | 2025-08-19 | | NEGATIVE | (missing) | (missing) | | esterase Ur | 23:50:08 | [facility] | | | | | Ql Strip [facility] | | | | + + + + + + + + + | Result panel 464 | + + + + + + + + + | Color Ur | 2025-08-19 | | YELLOW | (missing) | (missing) | | Auto | 23:50:08 | [facility] | | | | + + + + + + + + + | Result panel 465 | + + + + + +---------+ + + | Character | 2025-08-19 | | CLEAR | (missing) | (missing) | | Ur | 23:50:08 | [facility] | | | | + + + +---------+ + + + + | Result panel 466 | + + + + + +---------+ + + | Glucose Ur | 2025-08-19 | | SMALL | (missing) | (missing) | | Ql Strip | 23:50:08 | [facility] | | | | + + + +---------+ + + + + | Result panel 467 | + + + + + + + + + | Bilirub Ur | 2025-08-19 | | NEGATIVE | (missing) | (missing) | | Ql Strip | 23:50:08 | [facility] | | | | + + + + + + + + + | Result panel 468 | + + + + + + + + + | Beto Perez | 2025-08-19 | | NEGATIVE | (missing) | (missing) | | Ql Strip | 23:50:08 | [facility] | | | | + + + + + + + + + | Result panel 469 | + + + + + +---------+ + + | Will Perez | 2025-08-19 | | 1.015 | (missing) | (missing) | | Strip | 23:50:08 | [facility] | | | | + + + +---------+ + + + + | Result panel 470 | + + + + + + + + + | Hgb Ur Ql | 2025-08-19 | | NEGATIVE | (missing) | (missing) | | Strip | 23:50:08 | [facility] | | | | + + + + + + + + + | Result panel 471 | + + + + + +-------+ + + | pH Ur Strip | 2025-08-19 | | 6.0 | (missing) | (missing) | | | 23:50:08 | [facility] | | | | + + + +-------+ + + + + | Result panel 472 | + + + + + + + + + | Prot Ur | 2025-08-19 | | NEGATIVE | (missing) | (missing) | | [facility] | 23:50:08 | [facility] | | | | + + + + + + + + + | Result panel 473 | + + + + + + + + + | | 2025-08-19 | | NORMAL | (missing) | (missing) | | Urobilinogen | 23:50:08 | [facility] | | | | | Ur [facility] | [facility] | | | | + + + + + + + + + | Result panel 474 | + + + + + + + + + | Nitrite Ur | 2025-08-19 | | NEGATIVE | (missing) | (missing) | | Ql Strip | 23:50:08 | [facility] | | | | + + + + + + + + + | Result panel 475 | + + + + + + + + + | Leukocyte | 2025-08-19 | | NEGATIVE | (missing) | (missing) | | esterase Ur | 23:50:08 | [facility] | | | | | Ql Strip [facility] | | | | + + + + + + + Social History +--------+ + + [...] lb | + + + +---------+ | 2025-08-19 00:00 | BMI | 32.3 | kg/m2 | + + + +---------+ | 2025-08-19 00:00 | height_metric | 180.34 | cm | + + + +---------+ | 2025-08-19 00:00 | height_standard | 71 | in | + + + +---------+ | 2025-08-19 00:00 | weight_metric | 104.899 | kg | + + + +---------+ | 2025-08-19 00:00 | weight_standard | 231.262 | lb | + + + +---------+ | 2025-08-20 00:00 | BMI | 31.1 | kg/m2 | + + + +---------+ | 2025-08-20 00:00 | BP_diastolic | 77 | mmHg | + + + +---------+ | 2025-08-20 00:00 | BP_diastolic | 86 | mmHg | + + + +---------+ | 2025-08-20 00:00 | BP_systolic | 112 | mmHg | + + + +---------+ | 2025-08-20 00:00 | BP_systolic | 113 | mmHg | + + + +---------+ | 2025-08-20 00:00 | BP_systolic | 114 | mmHg | + + + +---------+ | 2025-08-20 00:00 | heart_rate | 107 | /min | + + + +---------+ | 2025-08-20 00:00 | heart_rate | 109 | /min | + + + +---------+ | 2025-08-20 00:00 | heart_rate | 99 | /min | + + + +---------+ | 2025-08-20 00:00 | height_metric | 180.34 | cm | + + + +---------+ | 2025-08-20 00:00 | height_standard | 71 | in | + + + +---------+ | 2025-08-20 00:00 | o2_saturation | 94 | % | + + + +---------+ | 2025-08-20 00:00 | o2_saturation | 95 | % | + + + +---------+ | 2025-08-20 00:00 | o2_saturation | 99 | % | + + + +---------+ | 2025-08-20 00:00 | respiration_rate | 18 | /min | + + + +---------+ | 2025-08-20 00:00 | respiration_rate | 21 | /min | + + + +---------+ | 2025-08-20 00:00 | respiration_rate | 23 | /min | + + + +---------+ | 2025-08-20 00:00 | | 97.8 | F | | | temperature_standar | | | | | d | | | + + + +---------+ | 2025-08-20 00:00 | | 98 | F | | | temperature_standar | | | | | d | | | + + + +---------+ | 2025-08-20 00:00 | weight_metric | 101.199 | kg | + + + +---------+ | 2025-08-20 00:00 | weight_standard | 223.106 | lb | + + + +---------+"
[~2025-08-26 22:11] MED LIST changes: +CIPROFLOXACIN500 MG PO
--- OUTSIDE RECORDS SUMMARY | 2025-08-26 22:18 | XMS ---
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 No recent Security Events currently on file CRITERIA MET - 6 ED Visits in 6 Months - [facility] - 2 Visits in 30 Days - [facility] - 3 Facilities in 90 Days CARE PROVIDERS Michelle Lucio Registered Nurse 11/24/2019-Current PHONE: Unknown ABRAN ALVARADO Family Medicine Current PHONE: [phone] MIGEL MUNOZ Family Medicine: Obesity Medicine Current PHONE: [phone] Care Guidelines exist for the following facilities: [facility] ([place]) ( 07/28/2019 ) [facility] ( 06/18/2013 ) [facility] VISIT COUNT (12 MO.) 26 ALLA Byrne 26 [facility] ([place]) 1 [facility] TOTAL 53 NOTE: Visits indicate total known visits. ED/UCC VISIT TRACKING (12 MO.) 08/26/2025 22:12 [facility] [place] TYPE: Emergency COMPLAINT: - WOUND CHECK 08/24/2025 14:03 [facility] [place] TYPE: Emergency COMPLAINT: - ABDOMINAL PAIN 08/22/2025 14:52 [facility] [place] TYPE: Emergency COMPLAINT: - WOUND CHECK DIAGNOSES: - Chronic hepatic failure without coma - Heart failure, unspecified - long term care pharmacist (current) use of aspirin - Other terminologist (current) drug therapy - Other specified soft tissue disorders 08/20/2025 11:22 [facility] [place] TYPE: Emergency COMPLAINT: - WOUND CHECK DIAGNOSES: - Other chcf (current) drug therapy - Other postprocedural complications and disorders of digestive system 08/19/2025 21:57 [facility] [place] TYPE: Emergency COMPLAINT: - ABDOMINAL PAIN DIAGNOSES: - Heart failure, unspecified - Other chcf (current) drug therapy - Unspecified abdominal pain - Unspecified cirrhosis of liver 08/18/2025 19:09 [facility] [place] TYPE: Emergency COMPLAINT: - WOUND CHECK DIAGNOSES: - Encounter for surgical aftercare following surgery on the digestive system - Heart failure, unspecified - long term care pharmacist (current) use of antibiotics - alf (current) use of antithrombotics/antiplatelets - Other chcf (current) drug therapy 08/18/2025 05:35 [facility] [place] TYPE: Emergency COMPLAINT: - ABDOMINAL PAIN DIAGNOSES: - Chronic hepatic failure without coma - Other ascites - Other terminologist (current) drug therapy - Patient's noncompliance with other medical treatment and regimen for other reason - Unspecified abdominal pain 08/17/2025 06:20 [facility] [place] TYPE: Emergency COMPLAINT: - SHORTNESS OF BREATH DIAGNOSES: - Heart failure, unspecified - long term care pharmacist (current) use of aspirin - Other ascites - Other chcf (current) drug therapy - Shortness of breath 08/13/2025 20:34 [facility] [place] TYPE: Emergency COMPLAINT: - STOMACH PAIN DIAGNOSES: - Heart failure, unspecified - long term care pharmacist (current) use of aspirin - Other terminologist (current) drug therapy - Unspecified abdominal pain - Urinary tract infection, site not specified [facility] DIAGNOSES: - Heart failure, unspecified - Other fluid overload - Abdominal Pain - Shortness of Breath 08/10/2025 07:15 [facility] [place] TYPE: Emergency COMPLAINT: - ABDOMINAL PAIN DIAGNOSES: - Heart failure, unspecified - long term care pharmacist (current) use of aspirin - Other chcf (current) drug therapy - Unspecified abdominal pain 08/08/2025 07:37 [facility] [place] TYPE: Emergency COMPLAINT: - ABDOMINAL PAIN DIAGNOSES: - Heart failure, unspecified - Other ascites - Other terminologist (current) drug therapy - Unspecified abdominal pain - Unspecified atrial fibrillation 08/07/2025 13:42 [facility] [place] TYPE: Emergency COMPLAINT: - ABDOMINAL PAIN DIAGNOSES: - Heart failure, unspecified - long term care pharmacist (current) use of aspirin - Other terminologist (current) drug therapy - Right lower quadrant [...] disease, or unspecified chronic kidney disease - long term care pharmacist (current) use of aspirin - Other ascites - Other chcf (current) drug therapy - Unspecified cirrhosis of [...] Emergency COMPLAINT: - ABDOMINAL PAIN 07/20/2025 15:28 [facility] TYPE: Emergency DIAGNOSES: - Heart failure, unspecified - Abdominal Pain - weakness, abd pain 07/14/2025 10:25 [facility] [place] TYPE: Emergency COMPLAINT: - SHORTNESS OF BREATH DIAGNOSES: - Acute respiratory failure with hypoxia - Cardiomyopathy, unspecified - Chronic pulmonary edema - Heart failure, unspecified - Hypertensive heart disease with heart failure - Other chcf (current) drug therapy - Shortness of breath 07/11/2025 18:18 [facility] [employer]: Emergency DIAGNOSES: - Other ascites - abd pain - Abdominal Pain - Shortness of Breath Plus 33 More Visits INPATIENT VISIT TRACKING (12 MO.) 08/24/2025 14:04 [facility] TYPE: Observation COMPLAINT: - CELLULITIS 08/10/2025 23:16 [facility] TYPE: Medical Surgical DIAGNOSES: - Heart failure, unspecified - Hypokalemia - Other fluid overload 08/03/2025 15:33 [facility] [place] TYPE: Medical [...] with heart failure - long term care pharmacist (current) use of antibiotics - alf (current) use of antibiotics - long term care pharmacist (current) use of anticoagulants - long term care pharmacist (current) use of anticoagulants - long term care pharmacist (current) use of aspirin - alf (current) use of aspirin - alf (current) use of inhaled steroids - alf (current) use of inhaled steroids - Nicotine dependence, cigarettes, uncomplicated - Nicotine dependence, cigarettes, uncomplicated - Obesity, unspecified - Obesity, unspecified - Other terminologist (current) drug therapy - Other chcf (current) drug therapy - Personal history of other diseases of the digestive system - Personal history of other diseases of the digestive system - Presence of cardiac pacemaker - Presence of cardiac pacemaker - Shortness of breath - Unspecified asthma, uncomplicated - Unspecified asthma, uncomplicated [facility]29[facility]25 [facility] [place] [facility] COMPLAINT: - transfer [...] block, unspecified 10. Atherosclerotic heart disease of [place] coronary artery without angina pectoris 11. Pulmonary [...] - Ischemic cardiomyopathy - long term care pharmacist (current) use of inhaled steroids - alf (current) use of inhaled steroids - Nicotine dependence, cigarettes, uncomplicated - Nicotine dependence, cigarettes, uncomplicated - Obesity, unspecified - Obesity, unspecified - Other ascites - Other ascites - Other chcf (current) drug therapy - Other terminologist (current) drug therapy - Other specified postprocedural [...] unspecified - Anasarca - CHF 06/20/2025 00:13 [facility] TYPE: Surgery DIAGNOSES: - Metabolic encephalopathy - Other ascites - Umbilical hernia with obstruction, without gangrene - Unspecified cirrhosis of liver 06/01/2025 11:39 [facility] [...] 05/22/2025 09:12 [facility] TYPE: Medical Surgical DIAGNOSES: - Acute on chronic combined systolic (congestive) and diastolic (congestive) heart failure - Alcoholic cirrhosis of liver with ascites - Atherosclerotic heart disease of [place] coronary artery with unspecified angina pectoris - [...] Unspecified systolic (congestive) heart failure 04/06[facility]2025 16[facility] DIAGNOSES: [...] and hyponatremia - Hypo-osmolality and hyponatremia - long term care pharmacist (current) use of aspirin - long term care pharmacist (current) use of aspirin - Other ascites [...] - Unspecified cirrhosis of liver 03/13/2025 09:07 [facility] [employer]: Medical Surgical DIAGNOSES: - Acute on chronic combined systolic (congestive) and diastolic (congestive) heart failure - Alcohol dependence, in remission - Atherosclerotic heart disease of [place] coronary artery with unspecified angina pectoris - Chronic kidney disease, stage 3a - Heart failure, unspecified - Mild intermittent asthma, uncomplicated - Myocardial infarction type 2 - Nicotine dependence, cigarettes, in remission - Nonrheumatic mitral (valve) insufficiency - Other specified abnormal findings of blood chemistry - Pulmonary hypertension, unspecified 02/16/2025 12:41 [facility]: Medical Surgical DIAGNOSES: - Acute on [...] medication regimen for other reason 01/13/2025 09:17 [facility]: Emergency DIAGNOSES: - Acute on chronic combined systolic (congestive) and diastolic (congestive) heart failure - Acute respiratory failure with hypoxia - Fluid overload, unspecified - Homelessness unspecified - Patient's noncompliance with dietary regimen due to unspecified reason - Shortness of breath 12/29/2024 06:07 [facility] TYPE: Medical Surgical DIAGNOSES: - Acute kidney failure, unspecified - Acute on chronic combined systolic (congestive) and diastolic (congestive) heart failure - Alcohol abuse, uncomplicated - Atherosclerotic heart disease of [place] coronary artery without angina pectoris - Chronic [...] defibrillator - Pulmonary hypertension, unspecified 10/31/2024 09:[address] [facility] [place] TYPE: Critical Care COMPLAINT: - CHEST PAIN DIAGNOSES: - Alcohol abuse with withdrawal, unspecified - Alcohol abuse with withdrawal, unspecified - Atherosclerotic heart disease of [place] coronary artery without angina pectoris - Atherosclerotic heart disease of [place] coronary artery without angina pectoris - Chest pain, unspecified - Gastro-esophageal reflux disease without esophagitis - Gastro-esophageal reflux disease without esophagitis - Heart failure, unspecified - Heart failure, unspecified - Hypertensive heart disease with heart failure - Hypertensive heart disease with heart failure - long term care pharmacist (current) use of aspirin - alf (current) use of aspirin - Nonrheumatic aortic (valve) stenosis - Nonrheumatic aortic (valve) stenosis - Obesity, unspecified - Obesity, unspecified - Old myocardial infarction - Old myocardial infarction - Other chcf (current) drug therapy - Other chcf (current) [...] because of patient's decision for other reasons [email or web address]
[2025-08-26 22:55] VITALS: BP 116/87
[2025-08-26] MEDS ORDERED: DOXYCYCLINE HYCLATE 100 MG HOME.PACK PO ONE (23:00)
[2025-08-29] MEDS ORDERED: SOAANZ40 MG PO (21:49)
[2025-08-29] MEDS ORDERED: ALDACTONE25 MG PO (21:49)
== END 2025-08-26 22:55 | disposition home or self-care (01) ==
LOC: ED 22:11
DX: L03.311 Cellulitis of abdominal wall (principal); Z79.899 Other long term (current) drug therapy
CPT/HCPCS: 99283; A9270